=== PATIENT | male | born 1940 | race Caucasian/White ===

== ENCOUNTER 2017-08-26 06:09 | Inpatient (IN) ==
[2017-08-26] MEDS ORDERED: Lidocaine -MPF 1% 2 ML VIAL ID ONE (06:29)
[2017-08-26] MEDS ORDERED: CeFAZolin Pre 2,000 MG/100 ML 2,000 MG/100 ML BAG IVPB ONE (06:29)
[2017-08-26] MEDS ORDERED: *HR* FentaNYL (PF) 100 MCG/2 ML VIAL ONE (06:43)
[2017-08-26] MEDS ORDERED: *HR* Propofol 200 MG/20 ML VIAL IVP ONE (06:43)
[2017-08-26] MEDS ORDERED: *HR* Phenylephrine 10 MG/ML VIAL ONE (06:46)
[2017-08-26] MEDS ORDERED: *HR* Succinylcholine 200 MG/10 ML VIAL IVP ONE (06:46)
[2017-08-26] MEDS ORDERED: Lidocaine -MPF 2% 2 ML VIAL ONE (06:46)
[2017-08-26] MEDS ORDERED: *HR* Rocuronium Bromide 50 MG/5 ML VIAL ONE (06:46)
[2017-08-26] MEDS ORDERED: EPHEDrine 50 MG/ML VIAL ONE (06:52)
[2017-08-26] MEDS ORDERED: Lidocaine -MPF 4% 5 ML AMPUL ONE (06:55)
[2017-08-26] MEDS: 0.9 % Sodium Chloride 500 ML IVC SCH ×2 (06:56→08:48)
[2017-08-26] MEDS ORDERED: Propofol 500 MG/50 ML INFUS..BTL ONE (07:00)
[2017-08-26] MEDS ORDERED: *HR* Remifentanil 1 MG VIAL IVP ONE (07:13)
--- NOTE | 2017-08-26 07:39 | History & Physical Report ---
Date of Encounter: 08/26/17 Time of Encounter: 07:30 24 Hour HP Update - Instructions Instructions: If the History and Physical is less than 30 days old and was completed prior to A.M. admission and or procedure and has NOT been updated on calendar day of procedure please complete this update prior to performing procedure. - Update Patient reports changes in Medical Condition: No Changes in examination, assessment, or condition: No Changes in Medication: No Preop tests/diagnostics Reviewed: Yes Surgery Remains Indicated: Yes Consent for Planned Operative Procedure(s) Verified: Yes - Pre-Operative Checklist Preoperative Checklist Indicated: No Prophylactic Antibiotic Ordered: Yes Home Medications Include Beta Geovany: No Beta Geovany Taken Today (Day of Surgery): No Beta Geovany Taken Yesterday (Day Prior to Surgery): No Is VTE Prophylaxis Indicated?: Yes
[2017-08-26] MEDS ORDERED: *HR* Midazolam HCl 2 MG/2 ML VIAL ONE (07:42)
--- NOTE | 2017-08-26 07:48 | Anesthesia Evaluation PreOp ---
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 Other Medical History: Renal (Stage III CKD), Diabetes Type II Anesthesia History: No Prior Anesthetic Complications Alcohol Use: none Drug use: none Medications and Allergies Dutasteride [Avodart] 0.5 mg PO DAILY 06/24/15 [History] Glimepiride [Amaryl] 4 mg PO BID 06/24/15 [History] Lisinopril [Zestril] 10 mg PO DAILY 06/24/15 [History] Metformin [Glucophage] 1,000 mg PO BID 06/24/15 [History] Simvastatin [Zocor] 40 mg PO HS 06/24/15 [History] Tramadol HCl [Ultram] 50 mg PO TID PRN 08/26/17 [History] Trazodone HCl 150 mg PO HS 08/26/17 [History] 3 Allergy/AdvReac Type Severity Reaction Status Date / Time ibuprofen AdvReac See Verified 08/26/17 07:26 Comments - Meds/Allergy Pre-op Review Medications Reviewed: Yes Allergies Reviewed: Yes Anesthesia Results - Labs 08/26/17 06:50 Laboratory Tests 08/19/17 08/19/17 08/26/17 10:30 10:30 06:50 Hgb 9.9 L Plt Count 277 Potassium 5.3 H Creatinine 2.13 H Anesthesia Exam Vital Signs/O2 Sat/Glucose, Most Recent Temp Pulse Resp BP Pulse Ox 97.6 F 72 18 184/79 100 08/26/17 06:57 08/26/17 06:57 08/26/17 06:57 08/26/17 06:57 08/26/17 06:57 Blood Glucose* 105 - HEENT Mallampati: I Teeth: Normal Denture Type: Upper: Partial Oral Opening: Greater than 3 - Cardiac Rhythm: Regular - Pulmonary Breath Sounds: bilateral Clear Anesthesia Assess/Plan ASA Score: 3 Anesthetic Plan: General Monitoring Plan: Standard Monitors Recovery Plan: PACU Anes Supervising Prov Stmt: I have participated in the evaluation of this patient.
[2017-08-26] MEDS ORDERED: *HR* HYDROmorphone 2 MG/ML SYRINGE ONE (08:57)
[2017-08-26] MEDS ORDERED: *HR* Vasopressin 20 UNIT/ML VIAL ONE (09:03)
[2017-08-26] MEDS ORDERED: Albuterol 2.5 MG/3 ML NEBULIZER IH PRN (09:15)
[2017-08-26] MEDS ORDERED: Ondansetron 4 MG/2 ML VIAL IVP PRN (09:15)
[2017-08-26] MEDS ORDERED: Neostigmine Methylsulfate 3 MG/3 ML SYRINGE ONE (09:17)
[2017-08-26] MEDS: *HR* HYDROmorphone (PF) 1 MG/ML SYRINGE IVP PRN ×2 (12:24→12:35)
--- NOTE | 2017-08-26 12:32 | Orthopedic Operative Note ---
Date of procedure: 08/26/17 Pre-op diagnosis: Degenerative scoliosis, lumbar stenosis Post-op diagnosis: same Operation/Findings: Posterior lumbar interbody fusion L3-L5: The patient successfully underwent general endotracheal anesthesia. The patient was given antibiotics prior to the start of the procedure. Compression boots and stockings were used for deep vein thrombosis prophylaxis. A Mejias catheter was placed. Leads for neuro monitoring were placed on the upper and lower extremities. This included the cranium. The neuro monitoring personnel confirmed there were satisfactory readings prior to the start of the procedure. The patient was turned prone on the Wilder table. The back was prepped and draped in the usual sterile fashion. An incision was was marked and centered over the involved L3-L5 levels in the mid line. The incision was deepened through the lumbar fascia. Bovie cautery and Fang elevators were used to reflect the paraspinal musculature at the lateral extent of the transverse processes of the involved L3 -L5 levels. Lyubov clamps were placed over the spinous processes. An intraoperative lateral fluoroscopy graft was obtained. A conversation was held between the surgeon and radiologist and both confirmed we had the correct operative levels. We then placed pedicle screws in standard fashion with the aid of fluoroscopy and anatomic landmarks. Briefly a starter awl was used. A gearshift was subsequently used to enter the pilot boat deckhand hole via a transpedicular route into the vertebral body. The pilot boat deckhand hole was tapped with an undersized instrument, and subsequently six 6.5 x 40 mm pedicle screws were placed bilaterally at the indicated L3, L4, and L5 levels. The screws were tested with the aid of the neurologic monitoring staff via pedicle screw stimulation. All reading suggested there was no significant cortical wall breech. The screws were also evaluated fluoro- graphically and appeared to be in satisfactory position. We then turned our attention to the decompression portion of the procedure. We removed the supraspinous and interspinous ligaments and subsequently the insertion of the ligamentum flavum on the undersurface of the proximal L4 lamina was dislodged with a curette. We then removed the ligamentum flavum as well as undercut the L4-5 facets at this level to decompress the lateral recesses. We also performed a L4 laminectomy. After the decompression, the foramen and traversing roots at this L4-5 level were found to be free and patent. We also took part of the medial facets in order to aid in the decompression. We proceeded to the L3-4 level and again performed a decompression which included removing the ligamentum flavum, undercutting the L3-4 facets to decompress the lateral recesses and performed a partial L3 laminectomy. This decompression was again, over and above that which was required to place an interbody graft., We then protected the neural elements including the thecal sac and traversing nerve root on the right with a dural retractor. We made an annulotomy into the L3-L4 disc space and then removed entire disc material using Pituitary instruments. We trialed various size grafts after the L3-4 endplates were prepared for graft insertion. A 10 x 26 enter body graft fit well within the L3-L4 disc space. We obtained some bone from the right posterior superior iliac spine through us a separate incision and combined with this with the bone which we had saved from the L3 and L4 laminectomy portion of the procedure. This autograft bone was first placed in the anterior portion of the L3-L4 disc space and additional bone was placed within the interbody graft spacer. We then placed the interbody graft spacer obliquely across the disc space towards the midline while protecting the neural elements with a root retractor. When the graft was found to be in satisfactory position the vp was removed. We then copiously irrigated the wound. We then decorticated the L3, L4, and L5 transverse processes as well as the facet joints of the involved L3-L4 and L4-L5 levels to aid in the posterolateral fusion. We placed autograft bone in the lateral gutters over these regions. We then placed rods within the screw heads of the involved L3, L4, and L5 levels and first locked the distal screws and then subsequently locked the proximal screws so as to improve and reduce the spondylolisthesis previously seen. We then closed the wound in layers with 1 Vicryl for the fascia, 2-0 Vicryl. Subcutaneous tissue, and Dermabond was used for skin closure. Sterile dressings were placed over the wound. The patient was turned supine on a hospital bed and extubated. All sponge instruments and needle counts were correct at the end of the procedure. The patient tolerated the procedure well without complications. Anesthesia: GETA Surgeon: Wilton Santizo Jr Estimated blood loss (cc): 600 Disposition: PACU
--- NOTE | 2017-08-26 12:57 | Anesthesia Evaluation Post Op ---
Date of Encounter: 08/26/17 Time of Encounter: 12:54 - Vital Signs Vital Signs: Vital Signs/O2 Sat, Most Current Temp Pulse Resp BP Pulse Ox 98.5 F 73 12 148/65 96 08/26/17 12:45 08/26/17 12:45 08/26/17 12:45 08/26/17 12:45 08/26/17 12:45 - Lungs Lungs: Clear Ascult./Percussion - Airway Airway: Non-obstructed - Cardiovascular Regular Rate - Mental Status Mental Status: Alert & Oriented, Answers Appropriately - Pain Pain Scale: 9 (States 9/10 but only when you wake him from a comfortable sleep. Respiratory rate 12/min so unable to give more pain meds for risk of hypopnea and CO2 narcosis) - Nausea Vomiting Nausea Vomiting: Not Present - Hydration Hydration: Tolerates oral liquids, Mejias catheter - Discharge PostOp Status: Transfer Patient to floor
[2017-08-26] MEDS ORDERED: Naloxone 0.4 MG/ML INJ IVP PRN (13:27)
[2017-08-26] MEDS ORDERED: *HR* OxyCODONE Immed Rel 5 MG TABLET PO PRN (13:27)
[2017-08-26] MEDS: Ondansetron 4 MG/2 ML VIAL IVP PRN ×2 (14:07→21:40)
[2017-08-26] MEDS: *HR* Morphine 2 MG/ML SYRINGE IVP PRN ×2 (15:37→21:27)
[2017-08-26] MEDS: *HR* Metformin 500 MG TABLET PO SCH (16:29)
[2017-08-26] MEDS: *HR* Glimepiride 4 MG TABLET PO SCH (16:29)
[2017-08-26] MEDS: ceFAZolin 2,000 MG in D5% in Water 100 ML IVPB SCH (16:30)
[2017-08-26] MEDS: Ringers Solution, Lactated 1,000 ML IVC SCH (16:36)
[2017-08-26] MEDS ORDERED: diazePAM 10 MG/2 ML SYRINGE IVP PRN (16:44)
[2017-08-26] MEDS: diazePAM 5 MG TABLET PO PRN ×2 (17:24→23:28)
[2017-08-26] MEDS ORDERED: Scopolamine Patch 1.5 MG PATCH.TD72 TD ONE (17:28)
[2017-08-26] MEDS: *HR* OxyCODONE Immed Rel 5 MG TABLET PO PRN ×2 (18:35→22:59)
[2017-08-26] MEDS: traZODone 50 MG TABLET PO SCH (21:26)
[2017-08-27] MEDS: *HR* Morphine 2 MG/ML SYRINGE IVP PRN ×2 (01:18→05:23)
[2017-08-27] MEDS: ceFAZolin 2,000 MG in D5% in Water 100 ML IVPB SCH (01:18)
[2017-08-27] MEDS: *HR* OxyCODONE Immed Rel 5 MG TABLET PO PRN ×3 (04:32→15:03)
[2017-08-27] MEDS: *HR* HYDROmorphone 2 MG/ML SYRINGE IVP PRN ×2 (05:56→10:26)
[2017-08-27 06:24] LABS: Basophils % 0.3 %; Eosinophils % 0.4 %; Hematocrit 23.6 % (37.5-50.1); Hemoglobin 7.6 g/dL (12.9-16.9); Immature Granulocytes % 0.7 % (0-4); Lymphocytes # 0.5 K/mcL (0.6-4.6); Lymphocytes % 5.1 %; Mean Corpuscular HGB Conc 32.2 g/dL (31.6-35.5); Mean Corpuscular Hemoglobin 29.5 pg (28.0-33.3); Mean Corpuscular Volume 91.5 fL (83.0-100.0); Monocytes # 1.2 K/mcL (0.0-1.3); Neutrophils # 8.3 K/mcL (1.6-8.9); Platelet Count 193 K/mcL (140-400); Red Blood Count 2.58 M/mcL (4.19-5.50); Red Cell Distribution Width 13.4 % (11.5-14.5); Segmented Neutrophils % 81.5 %
[2017-08-27 06:40] LABS: Potassium 5.4 mEq/L (3.5-4.5)
[2017-08-27] MEDS: Ringers Solution, Lactated 1,000 ML IVC SCH ×2 (07:45→12:09)
[2017-08-27] MEDS: Finasteride 5 MG TABLET PO SCH (08:16)
[2017-08-27] MEDS: *HR* Metformin 500 MG TABLET PO SCH (08:16)
[2017-08-27] MEDS: *HR* Glimepiride 4 MG TABLET PO SCH ×2 (08:17→17:07)
[2017-08-27] MEDS ORDERED: D5% in Water 1,000 ML IVC PRN (15:06)
[2017-08-27] MEDS ORDERED: Dextrose Gel 15 GM PO PRN ×2 (15:06)
[2017-08-27] MEDS ORDERED: *HR* Dextrose 50 % in Water (Syg) 50 ML SYRINGE IVP PRN (15:06)
--- NOTE | 2017-08-27 15:35 | Spine Progress Note ---
Date of Encounter: 08/27/17 Time of Encounter: 15:34 Subjective Principal diagnosis: Degenerative scoliosis, lumbar stenosis, lumbar radiculopathy Interval history: The patient i complains of significant back pain. Afebrile vital signs are stable. Dressing is clean dry and intact. Neurovascularly intact with regard to bilateral lower extremities. Fires all upper and lower extremity motor groups. Assessment :stable. Plan mobilize ,continue analgesics, discharge planning. Will add Flexeril. Objective Vital signs: Vital Signs Temp Pulse Resp BP Pulse Ox 08/27/17 11:45 97.3 F L 103 15 97/52 97 08/27/17 09:26 79 18 148/66 97 08/27/17 05:12 99.3 F 79 18 148/66 97 08/26/17 22:45 99.1 F 79 18 145/61 93 08/26/17 19:45 98.2 F 88 17 133/55 94 08/26/17 16:26 68 14 128/66 100 08/26/17 15:36 63 15 120/63 99 Intake and Output 08/26/17 08/27/17 08/27/17 23:59 07:59 15:59 Intake Total 100 / 100 616 / 616 Output Total 0 / 0 525 / 525 Balance 100 / 100 -525 / -525 616 / 616 Intake: IV Fluids 100 / 100 Ancef 2,000 MG In Dextrose 5% 100 / 100 100 ML @ 200 mls/hr IVPB Q8HR [facility] Rx#:[id number] Oral 616 / 616 Output: Catheter 0 / 0 525 / 525 Other: Meal Breakfast Percent of Meal Consumed 95% Blood Glucose* 267 274 - Labs CBC & BMP: 08/27/17 05:41 08/27/17 05:41 Labs: Abnormal lab results RBC 2.58 M/mcL (4.19-5.50) L 08/27/17 05:41 Hgb 7.6 g/dL (12.9-16.9) L 08/27/17 05:41 Hct 23.6 % (37.5-50.1) L 08/27/17 05:41 Lymphocytes # 0.5 K/mcL (0.6-4.6) L 08/27/17 05:41 Sodium 134 mEq/L (136-145) L 08/27/17 05:41 Potassium 5.4 mEq/L (3.5-4.5) H 08/27/17 05:41 BUN 40 mg/dL (8-26) H 08/27/17 05:41 Creatinine 2.17 mg/dL (0.72-1.25) H 08/27/17 05:41 Est GFR ( Amer) 36 (> 60) L 08/27/17 05:41 Est GFR (Non-Af Amer) 29 (> 60) L 08/27/17 05:41 Glucose 234 mg/dL (70-99) H 08/27/17 05:41 POC Glucose 274 (58-89) H 08/27/17 11:48 Calcium 8.0 mg/dL (8.6-10.8) L 08/27/17 05:41 Consult Discharge Plan - Plan Referrals: Danii Camp PAC [Physician Tube Handler] - 09/09/17 9:30 am Wilton Santizo Jr, MD [Partnered Physician] - 11/27/17 11:45 am Damaris Montano CNP [Primary Care Provider] - 10/22/17 9:00 am
[2017-08-27] MEDS: Insulin LISPRO 300 UNITS/3 ML VIAL SQ SCH ×2 (17:11→23:39)
[2017-08-27] MEDS: Ondansetron 4 MG/2 ML VIAL IVP PRN (19:49)
[2017-08-27] MEDS: traZODone 50 MG TABLET PO SCH (23:39)
[2017-08-28] MEDS: *HR* OxyCODONE Immed Rel 5 MG TABLET PO PRN (04:24)
[2017-08-28 05:37] LABS: Calcium 8.6 mg/dL (8.6-10.8); Potassium 6.2 mEq/L (3.5-4.5)
[2017-08-28] MEDS: Finasteride 5 MG TABLET PO SCH (07:42)
[2017-08-28] MEDS: *HR* Glimepiride 4 MG TABLET PO SCH ×2 (07:43→17:33)
[2017-08-28] MEDS: Insulin LISPRO 300 UNITS/3 ML VIAL SQ SCH ×4 (09:10→21:07)
--- NOTE | 2017-08-28 14:34 | Discharge Summary ---
Date of Encounter: 08/28/17 Time of Encounter: 14:32 - Discharge Diagnosis (1) Degenerative scoliosis Priority: Primary Status: Chronic (2) Lumbar stenosis Priority: Secondary Status: Chronic Qualifiers: Neurogenic claudication status: with neurogenic claudication Qualified Code (s): M48.062 - Spinal stenosis, lumbar region with neurogenic claudication - Discharge Medications Prescriptions: OxyCODONE Immed Rel [Roxicodone 5 MG] 5 mg PO Q4HR PRN #28 tablet PRN Reason: Severe Pain Home Medications: Dutasteride [Avodart] 0.5 mg PO DAILY 06/24/15 [History] Glimepiride [Amaryl] 4 mg PO BID 06/24/15 [History] Lisinopril [Zestril] 10 mg PO DAILY 06/24/15 [History] Metformin [Glucophage] 1,000 mg PO BID 06/24/15 [History] Simvastatin [Zocor] 40 mg PO HS 06/24/15 [History] Tramadol HCl [Ultram] 50 mg PO TID PRN 08/26/17 [History] Trazodone HCl 150 mg PO HS 08/26/17 [History] OxyCODONE Immed Rel [Roxicodone 5 MG] 5 mg PO Q4HR PRN #28 tablet 08/28/17 [Rx] Allergies/Adverse Reactions: 3 Allergy/AdvReac Type Severity Reaction Status Date / Time ibuprofen AdvReac See Verified 08/26/17 07:26 Comments Labs on day of discharge: Labs from last 24 hours 08/28/17 08/27/17 08/27/17 05:06 20:38 16:55 Sodium 132 L Potassium 6.2 H Chloride 103 Carbon Dioxide 20 BUN 52 H D Creatinine 2.99 H Est GFR ( Amer) 25 L Est GFR (Non-Af Amer) 20 L BUN/Creatinine Ratio 17 Glucose 242 H POC Glucose 223 H 252 H Calculated Osmolality 296 Calcium 8.6 - Impressions ITS Impressions Lumbar Spine X-Ray 08/26/17 11:16 IMPRESSION: Interval postsurgical changes from posterior fusion of L3-L5. No spondylolisthesis. D/ / Casandra Restrepo MD / Casandra Restrepo MD Interpreting Provider: Casandra Restrepo MD Lumbar Spine X-Ray 08/28/17 09:00 IMPRESSION: Interval posterior fixation and decompression at L3-5. No evidence of hardware failure. Chronic L2 compression deformity not substantially changed. D/ / Zachary Marrero MD / Zachary Marrero MD Interpreting Provider: Zachary Marrero MD Date of admission: 08/26/17 13:04 Primary care physician: Damaris Montano CNP Consults: 08/26/17 13:27 Consult to Occupational Therapy [CONS] Routine Comment: Evaluate, develop and implement POC Reason for Consult: Postoperative rehabilitation Consult to Physical Therapy [CONS] Routine Comment: Evaluate, develop and implement POC Reason for Consult: Postoperative rehabilitation Consult to Brazing Furnace Feeder [CONS] Routine Reason for SW Consult: Postoperative rehabilitation Consult to Spine Navigator [CONS] [CONS] Routine - Patient Status Disposition: Transfer SNF Condition: Good Functional capacity at discharge: uses cane/walker Overall status at discharge: patient is progressing back to baseline - Discharge Instructions Follow Up With: Danii Camp PAC [Physician Director Digital Marketing] - 09/09/17 9:30 am Wilton Santizo Jr, MD [Partnered Physician] - 11/27/17 11:45 am Damaris Montano CNP [Primary Care Provider] - 10/22/17 9:00 am - Diet and Activity Activity: as per physical therapy Diet: advance to your usual diet - Hospital Course Hospital course: Mr. Theodore is a 77 year old male The patient had an uneventful postoperative course. Progressed from intravenous analgesic needs to oral analgesic needs only. Remained neurovascularly intact and mobilized satisfactorily. All intraoperative and/or postoperative radiographic studies were satisfactory. Patient is discharged with plan for rehabilitation and follow-up in 2 weeks post discharge on analgesic medication and patient's home medications. - Time Spent with Patient Total time spent providing and/or coordinating discharge services: - VTE Documentation of Mechanical Device: Intermittent pneumatic compression device
[2017-08-28] MEDS: *HR* HYDROmorphone 2 MG/ML SYRINGE IVP PRN (18:13)
--- NOTE | 2017-08-28 19:44 | Internal Medicine Consult Note ---
Date of Encounter: 08/28/17 Time of Encounter: 19:43 - Assessment and Plan (1) STEMI (ST elevation myocardial infarction) Current Visit: Yes Status: Acute Assessment and plan: Acute anterior RI Patient reports intermittent 4/10 severity chest pressure at rest that feels like he has been running Initial Troponin 3.48 in the setting of CKD and recent surgery EKG reveals ST elevation in V1-V3 but no reciprocal ST depression, new T wave inversion V4-V5 compared to pre-op EKG on 08/19/17 Case discussed with senior wealth advisor, Dr. Goetz. Given recent spinal surgery, patient is at very high risk for para or quadraplegia if he is taken to laboratory engineer and started on anticoagulation. Hence, will continue medical management at this time. Patient given beta-so, morphine, nitroglycerin, and statin. CXR reveals vascular crowding and bibasilar opacities likely reflecting atelectatic changes. Trend serial troponins Cardiology consulted. Qualifiers: Involved coronary artery: unspecified coronary artery Qualified Code(s): I21.3 - ST elevation (STEMI) myocardial infarction of unspecified site (2) Hyperkalemia Current Visit: Yes Status: Acute Assessment and plan: K 6.2 --> 5.3 EKG shows no peaked T-waves Telemetry monitoring Calcium gluconate, Insulin, glucose, Sodium bicarb, Kayexalate, and IVF given Repeat BMP pending (3) Acute blood loss anemia Current Visit: Yes Status: Acute Assessment and plan: HGB 7.3 (was 9.9 on 08/19/17) No signs of active bleeding, L-spine bandage C/D/I 1 unit PRBC ordered Repeat H&H pending Continue to monitor (4) MEL (acute kidney injury) Current Visit: Yes Status: Acute Assessment and plan: NS 125cc/hr Repeat BMP pending Hold Lisinopril due to MEL Avoid nephrotoxins (5) CKD (chronic kidney disease), stage III Current Visit: Yes Status: Acute Assessment and plan: Continue to monitor (6) Lumbar stenosis Current Visit: Yes Status: Chronic Assessment and plan: POD#2 s/p posterior L3-L5 fusion per Dr. Santizo Continue current management Qualifiers: Neurogenic claudication status: with neurogenic claudication Qualified Code (s): M48.062 - Spinal stenosis, lumbar region with neurogenic claudication (7) Degenerative scoliosis Current Visit: Yes Status: Chronic Assessment and plan: POD#2 s/p posterior L3-L5 fusion per Dr. Santizo Continue current management (8) HTN (hypertension) Current Visit: Yes Status: Chronic Assessment and plan: Hold Lisinopril due to MEL Started on Metoprolol Qualifiers: Hypertension type: secondary to other renal disorders Qualified Code(s): I15.1 - Hypertension secondary to other renal disorders; N28.89 - Other specified disorders of kidney and ureter; N28.89 - Other specified disorders of kidney and ureter (9) HLD (hyperlipidemia) Current Visit: Yes Status: Chronic Assessment and plan: Lipid panel pending Increased statin to 80mg qhs given ACS Qualifiers: Hyperlipidemia type: unspecified Qualified Code(s): E78.5 - Hyperlipidemia , unspecified (10) DM type 2 (diabetes mellitus, type 2) Current Visit: Yes Status: Acute Assessment and plan: HGB a1c 6.8 on 05/26/17 Discontinue home Metformin due to CKD Stage 3 Consider starting home insulin upon discharge Continue accuchecks, basal insulin, and SSI Qualifiers: Diabetes mellitus complication status: without complication Diabetes mellitus nursing home insulin use: with superintendent terminal use Qualified Code(s): E11.9 - Type 2 diabetes mellitus without complications; Z79.4 - exterminator (current) use of insulin; Z79.4 - exterminator (current) use of insulin; Z79.4 - exterminator ( current) use of insulin; Z79.4 - exterminator (current) use of insulin (11) BPH (benign prostatic hyperplasia) Current Visit: Yes Status: Acute Assessment and plan: Bladder scan revealed 280cc Continue francisco at this time, will need voiding trial Continue home Proscar Qualifiers: Lower urinary tract symptom presence: symptoms present Lower urinary tract symptom detail: urinary retention Qualified Code(s): N40.1 - Benign prostatic hyperplasia with lower urinary tract symptoms; R33.8 - Other retention of urine ; R33.8 - Other retention of urine (12) DVT prophylaxis Current Visit: Yes Status: Acute Assessment and plan: SCDs Hold anticoagulation due to recent surgery and high risk of bleeding Internal Medicine - CN: HPI - Data of Consult Consult date: 08/28/17 Requesting Physician: Wilton Santizo Jr MD - Consult Narrative Reason for consult: Decreased urine output History of present illness: Mr. Theodore is a 77 year old male with a PMH of DM Type II, HTN, HLD, BPH, and CKD Stage III on POD#2 s/p posterior L3-L5 fusion with decreased urinary output. Nurse had to straight cath him this morning and he has only had 50 cc UOP. Bladder scan revealed 280cc. His creatinine increased from 2.17 to 2.99 today. Of note, patent's K was 6.2 and an EKG was ordered at time of initial encounter. Patient reports intermittent 4/10 severity chest pressure at rest that feels like he has been running. Nothing makes CP better or worse. He reports rheumatic fever as a child. Patient denies fever, chills, SOB, diaphoresis, pain radiation, leg edema, N/V/D, or having BM since surgery. Past Med Surg Social Fam HX - Past Medical History Medical history: arthritis, diabetes, hyperlipidemia, hypertension, renal disease, syncope Psychiatric history: no psych history - Past Surgical History Surgical History: orthopedic, other - Social History Smoking Status: Never smoker Smokeless Tobacco Status: No Alcohol use: none Drug use: none - Family History Mother Adopted: [place]: Yandy Weinberg Family Member Ethnicity: Non- Living Status: Age at : 84 Hx Family Cardiac Disorders: Yes Hx Family Respiratory Disorders: No Hx Family Cancer: No Hx Family GI Disorders: No Hx Family Genitourinary Disorders: No Hx Family Endocrine Disorder: Yes (diabetic) Hx Family Musculoskeletal Disorders: No Hx Family Neuromuscular Disorders: No Hx Family Neurologic Disorders: No Hx Family HEENT Disorders: No Hx Family Autoimmune Disorders: No Hx Family Reproductive Disorders: No Hx Family Psychosocial Disorders: No Hx Family Medical Disorders: No Father Cause of : ETOH - Constitutional Constitutional: weakness, no anorexia, no chills, no fatigue, no fever(s), no lethargy, no weight gain, no weight loss - EENT Nose, mouth and throat: no nasal congestion, no sinus pressure, no sore throat - Cardiovascular Cardiovascular ROS IM: chest pain, palpitations, no dyspnea, no irregular heart rhythm, no lightheadedness - Respiratory Respiratory: no cough, no excessive phlegm production - Gastrointestinal Gastrointestinal: constipation, no abdominal pain, no bloating, no cramping, no diarrhea, no excessive flatus, no nausea, no vomiting Additional comments: + flatus, no BM since surgery - Genitourinary Additional comments: no francisco - Musculoskeletal Musculoskeletal ROS IM: back pain, limited range of motion, no numbness, no tingling - Integumentary Integumentary IM: new lesions, no erythema, no rash - Neurological Neurological ROS: weakness, no numbness, no tingling - Psychiatric Psychiatric: no anxiety, no depression - Endocrine Endocrine IM: no polydipsia, no polyphagia, no polyuria - Hematologic/Lymphatic Hematologic/Lymphatic: no easy bleeding, no easy bruising Internal Medicine - CN: Meds Dutasteride [Avodart] 0.5 mg PO DAILY 06/24/15 [History] Glimepiride [Amaryl] 4 mg PO BID 06/24/15 [History] Lisinopril [Zestril] 10 mg PO DAILY 06/24/15 [History] Metformin [Glucophage] 1,000 mg PO BID 06/24/15 [History] Simvastatin [Zocor] 40 mg PO HS 06/24/15 [History] Tramadol HCl [Ultram] 50 mg PO TID PRN 08/26/17 [History] Trazodone HCl 150 mg PO HS 08/26/17 [History] OxyCODONE Immed Rel [Roxicodone 5 MG] 5 mg PO Q4HR PRN #28 tablet 08/28/17 [Rx] 3 Allergy/AdvReac Type Severity Reaction Status Date / Time ibuprofen AdvReac See Verified 08/26/17 07:26 Comments Internal Medicine - CN: Exam - Constitutional Vitals: Temp Pulse Resp BP Pulse Ox 99.1 F 107 16 120/68 93 08/28/17 19:17 08/28/17 19:17 08/28/17 19:17 08/28/17 19:17 08/28/17 19:17 General appearance IM: Present: cooperative, A&O X 3, pleasant, no acute distress, answers questions appropriately - Head Head exam: Present: atraumatic, normal inspection, normocephalic - Eye Eye exam: Present: EOMI, PERRL - ENT ENT exam: Present: mucous membranes dry, normal oropharynx - Neck Neck exam general surgery: Present: normal inspection, supple. Absent: tenderness - Respiratory Respiratory exam: Present: CTAB. Absent: wheezes - Cardiovascular Cardiovascular exam IM: Present: +S1, +S2, tachycardia - GI/Abdominal GI/Abdominal exam IM: Present: normal bowel sounds, soft. Absent: distended, guarding, tenderness - Extremities Exam Extremities exam IM: Present: warm, radial pulses palpable and symmetrical. Absent: full ROM, pedal edema, tenderness - Back Exam Back exam: Absent: full ROM Additional comments: L-spine dressing C/D/I, limited ROM, needs assistance to roll to side - Neurological Exam Neurological exam: Present: alert, oriented X3, no focal deficits. Absent: altered, speech deficit - Psychiatric Psychiatric exam: Present: normal affect, normal mood - Skin Skin exam IM: Present: dry, intact (L-spine dressing C/D/I), pallor, warm. Absent: normal color Internal Medicine - CN: Reslt - Labs CBC & Chem 7: 08/28/17 20:12 08/28/17 21:59 Labs: Lab Results 08/26/17 08/26/17 08/26/17 Range/Units 06:29 06:50 16:31 WBC (4.3-11.1) K/mcL RBC (4.19-5.50) M/mcL Hgb (12.9-16.9) g/dL Hct (37.5-50.1) % MCV (83.0-100.0) fL MCH (28.0-33.3) pg MCHC (31.6-35.5) g/dL RDW (11.5-14.5) % Plt Count (140-400) K/mcL MPV (9.4-12.4) fL Immature Gran % (0-4) % Seg Neutrophils % % Lymphocytes % % Monocytes % % Eosinophils % % Basophils % % Neutrophils # (1.6-8.9) K/mcL Lymphocytes # (0.6-4.6) K/mcL Monocytes # (0.0-1.3) K/mcL Eosinophils # (0.0-0.6) K/mcL Basophils # (0.0-0.2) K/mcL PT (9.4-12.1) Seconds INR APTT (26.0-36.0) Seconds Sodium (136-145) mEq/L Potassium 5.3 H (3.5-4.5) mEq/L Chloride (98-109) mEq/L Carbon Dioxide (19-29) mEq/L BUN (8-26) mg/dL Creatinine (0.72-1.25) mg/dL Est GFR ( Amer) (> 60) Est GFR (Non-Af Amer) (> 60) BUN/Creatinine Ratio (6-26) Glucose (70-99) mg/dL POC Glucose 105 H 209 H (58-89) Calculated Osmolality (280-300) Calcium (8.6-10.8) mg/dL Magnesium (1.6-2.6) mg/dL Troponin I (0-0.03) ng/mL Blood Type Antibody Screen Crossmatch 08/26/17 08/27/17 08/27/17 Range/Units 20:44 05:41 05:41 WBC 10.2 (4.3-11.1) K/mcL RBC 2.58 L (4.19-5.50) M/mcL Hgb 7.6 L (12.9-16.9) g/dL Hct 23.6 L (37.5-50.1) % MCV 91.5 (83.0-100.0) fL MCH 29.5 (28.0-33.3) pg MCHC 32.2 (31.6-35.5) g/dL RDW 13.4 (11.5-14.5) % Plt Count 193 (140-400) K/mcL MPV 11.0 (9.4-12.4) fL Immature Gran % 0.7 (0-4) % Seg Neutrophils % 81.5 % Lymphocytes % 5.1 % Monocytes % 12.0 % Eosinophils % 0.4 % Basophils % 0.3 % Neutrophils # 8.3 (1.6-8.9) K/mcL Lymphocytes # 0.5 L (0.6-4.6) K/mcL Monocytes # 1.2 (0.0-1.3) K/mcL Eosinophils # 0.0 (0.0-0.6) K/mcL Basophils # 0.0 (0.0-0.2) K/mcL PT (9.4-12.1) Seconds INR APTT (26.0-36.0) Seconds Sodium 134 L (136-145) mEq/L Potassium 5.4 H (3.5-4.5) mEq/L Chloride 106 (98-109) mEq/L Carbon Dioxide 22 (19-29) mEq/L BUN 40 H (8-26) mg/dL Creatinine 2.17 H (0.72-1.25) mg/dL Est GFR ( Amer) 36 L (> 60) Est GFR (Non-Af Amer) 29 L (> 60) BUN/Creatinine Ratio 18 (6-26) Glucose 234 H (70-99) mg/dL POC Glucose 267 H (58-89) Calculated Osmolality 295 (280-300) Calcium 8.0 L (8.6-10.8) mg/dL Magnesium (1.6-2.6) mg/dL Troponin I (0-0.03) ng/mL Blood Type Antibody Screen Crossmatch 08/27/17 08/27/17 08/27/17 Range/Units 07:59 11:48 16:55 WBC (4.3-11.1) K/mcL RBC (4.19-5.50) M/mcL Hgb (12.9-16.9) g/dL Hct (37.5-50.1) % MCV (83.0-100.0) fL MCH (28.0-33.3) pg MCHC (31.6-35.5) g/dL RDW (11.5-14.5) % Plt Count (140-400) K/mcL MPV (9.4-12.4) fL Immature Gran % (0-4) % Seg Neutrophils % % Lymphocytes % % Monocytes % % Eosinophils % % Basophils % % Neutrophils # (1.6-8.9) K/mcL Lymphocytes # (0.6-4.6) K/mcL Monocytes # (0.0-1.3) K/mcL Eosinophils # (0.0-0.6) K/mcL Basophils # (0.0-0.2) K/mcL PT (9.4-12.1) Seconds INR APTT (26.0-36.0) Seconds Sodium (136-145) mEq/L Potassium (3.5-4.5) mEq/L Chloride (98-109) mEq/L Carbon Dioxide (19-29) mEq/L BUN (8-26) mg/dL Creatinine (0.72-1.25) mg/dL Est GFR ( Amer) (> 60) Est GFR (Non-Af Amer) (> 60) BUN/Creatinine Ratio (6-26) Glucose (70-99) mg/dL POC Glucose 235 H 274 H 252 H (58-89) Calculated Osmolality (280-300) Calcium (8.6-10.8) mg/dL Magnesium (1.6-2.6) mg/dL Troponin I (0-0.03) ng/mL Blood Type Antibody Screen Crossmatch 08/27/17 08/28/17 08/28/17 Range/Units 20:38 05:06 11:14 WBC (4.3-11.1) K/mcL RBC (4.19-5.50) M/mcL Hgb (12.9-16.9) g/dL Hct (37.5-50.1) % MCV (83.0-100.0) fL MCH (28.0-33.3) pg MCHC (31.6-35.5) g/dL RDW (11.5-14.5) % Plt Count (140-400) K/mcL MPV (9.4-12.4) fL Immature Gran % (0-4) % Seg Neutrophils % % Lymphocytes % % Monocytes % % Eosinophils % % Basophils % % Neutrophils # (1.6-8.9) K/mcL Lymphocytes # (0.6-4.6) K/mcL Monocytes # (0.0-1.3) K/mcL Eosinophils # (0.0-0.6) K/mcL Basophils # (0.0-0.2) K/mcL PT (9.4-12.1) Seconds INR APTT (26.0-36.0) Seconds Sodium 132 L (136-145) mEq/L Potassium 6.2 H (3.5-4.5) mEq/L Chloride 103 (98-109) mEq/L Carbon Dioxide 20 (19-29) mEq/L BUN 52 H D (8-26) mg/dL Creatinine 2.99 H (0.72-1.25) mg/dL Est GFR ( Amer) 25 L (> 60) Est GFR (Non-Af Amer) 20 L (> 60) BUN/Creatinine Ratio 17 (6-26) Glucose 242 H (70-99) mg/dL POC Glucose 223 H 229 H (58-89) Calculated Osmolality 296 (280-300) Calcium 8.6 (8.6-10.8) mg/dL Magnesium (1.6-2.6) mg/dL Troponin I (0-0.03) ng/mL Blood Type Antibody Screen Crossmatch 08/28/17 08/28/17 08/28/17 Range/Units 15:55 20:12 20:12 WBC 10.5 (4.3-11.1) K/mcL RBC 2.44 L (4.19-5.50) M/mcL Hgb 7.3 L (12.9-16.9) g/dL Hct 22.2 L (37.5-50.1) % MCV 91.0 (83.0-100.0) fL MCH 29.9 (28.0-33.3) pg MCHC 32.9 (31.6-35.5) g/dL RDW 13.7 (11.5-14.5) % Plt Count 181 (140-400) K/mcL MPV 10.8 (9.4-12.4) fL Immature Gran % 0.5 (0-4) % Seg Neutrophils % 83.5 % Lymphocytes % 3.1 % Monocytes % 12.0 % Eosinophils % 0.6 % Basophils % 0.3 % Neutrophils # 8.8 (1.6-8.9) K/mcL Lymphocytes # 0.3 L (0.6-4.6) K/mcL Monocytes # 1.3 (0.0-1.3) K/mcL Eosinophils # 0.1 (0.0-0.6) K/mcL Basophils # 0.0 (0.0-0.2) K/mcL PT (9.4-12.1) Seconds INR APTT (26.0-36.0) Seconds Sodium 132 L (136-145) mEq/L Potassium 6.2 H (3.5-4.5) mEq/L Chloride 103 (98-109) mEq/L Carbon Dioxide 22 (19-29) mEq/L BUN 53 H (8-26) mg/dL Creatinine 2.80 H (0.72-1.25) mg/dL Est GFR ( Amer) 27 L (> 60) Est GFR (Non-Af Amer) 22 L (> 60) BUN/Creatinine Ratio 19 (6-26) Glucose 232 H (70-99) mg/dL POC Glucose 134 H (58-89) Calculated Osmolality 296 (280-300) Calcium 9.0 (8.6-10.8) mg/dL Magnesium 1.6 (1.6-2.6) mg/dL Troponin I (0-0.03) ng/mL Blood Type Antibody Screen Crossmatch 08/28/17 08/28/17 08/28/17 Range/Units 20:12 21:08 21:08 WBC (4.3-11.1) K/mcL RBC (4.19-5.50) M/mcL Hgb (12.9-16.9) g/dL Hct (37.5-50.1) % MCV (83.0-100.0) fL MCH (28.0-33.3) pg MCHC (31.6-35.5) g/dL RDW (11.5-14.5) % Plt Count (140-400) K/mcL MPV (9.4-12.4) fL Immature Gran % (0-4) % Seg Neutrophils % % Lymphocytes % % Monocytes % % Eosinophils % % Basophils % % Neutrophils # (1.6-8.9) K/mcL Lymphocytes # (0.6-4.6) K/mcL Monocytes # (0.0-1.3) K/mcL Eosinophils # (0.0-0.6) K/mcL Basophils # (0.0-0.2) K/mcL PT 13.1 H (9.4-12.1) Seconds INR 1.2 APTT 23.6 L (26.0-36.0) Seconds Sodium (136-145) mEq/L Potassium (3.5-4.5) mEq/L Chloride (98-109) mEq/L Carbon Dioxide (19-29) mEq/L BUN (8-26) mg/dL Creatinine (0.72-1.25) mg/dL Est GFR ( Amer) (> 60) Est GFR (Non-Af Amer) (> 60) BUN/Creatinine Ratio (6-26) Glucose (70-99) mg/dL POC Glucose (58-89) Calculated Osmolality (280-300) Calcium (8.6-10.8) mg/dL Magnesium (1.6-2.6) mg/dL Troponin I 3.48 H* (0-0.03) ng/mL Blood Type A POSITIVE Antibody Screen NEGATIVE Crossmatch See Detail 08/28/17 08/28/17 08/28/17 Range/Units 21:15 21:57 21:59 WBC (4.3-11.1) K/mcL RBC (4.19-5.50) M/mcL Hgb (12.9-16.9) g/dL Hct (37.5-50.1) % MCV (83.0-100.0) fL MCH (28.0-33.3) pg MCHC (31.6-35.5) g/dL RDW (11.5-14.5) % Plt Count (140-400) K/mcL MPV (9.4-12.4) fL Immature Gran % (0-4) % Seg Neutrophils % % Lymphocytes % % Monocytes % % Eosinophils % % Basophils % % Neutrophils # (1.6-8.9) K/mcL Lymphocytes # (0.6-4.6) K/mcL Monocytes # (0.0-1.3) K/mcL Eosinophils # (0.0-0.6) K/mcL Basophils # (0.0-0.2) K/mcL PT (9.4-12.1) Seconds INR APTT (26.0-36.0) Seconds Sodium (136-145) mEq/L Potassium 5.3 H (3.5-4.5) mEq/L Chloride (98-109) mEq/L Carbon Dioxide (19-29) mEq/L BUN (8-26) mg/dL Creatinine (0.72-1.25) mg/dL Est GFR ( Amer) (> 60) Est GFR (Non-Af Amer) (> 60) BUN/Creatinine Ratio (6-26) Glucose (70-99) mg/dL POC Glucose 263 H 279 H (58-89) Calculated Osmolality (280-300) Calcium (8.6-10.8) mg/dL Magnesium (1.6-2.6) mg/dL Troponin I (0-0.03) ng/mL Blood Type Antibody Screen Crossmatch - EKG Data -: EKG Interpreted by Myself EKG shows normal: sinus rhythm (ST elevation in V1-V3 but no reciprocal ST depression, new T-wave inversion in V4-V5), axis Rate: tachycardia - EKG Data Prior EKG available for review: yes When compared to previous EKG: there are significant changes Interpretation IM: ischemic changes - Impressions Impressions Lumbar Spine X-Ray 08/28/17 09:00 IMPRESSION: Interval posterior fixation and decompression at L3-5. No evidence of hardware failure. Chronic L2 compression deformity not substantially changed. D/ / Zachary Marrero MD / Zachary Marrero MD Interpreting Provider: Zachary Marrero MD Chest X-Ray 08/28/17 22:22 IMPRESSION: Low lung volume study with vascular crowding and bibasilar opacities that likely reflect atelectatic changes, and less likely consolidation. D/ / 08/28/2017 22:54:17 Kit Hill MD / elvis Interpreting Provider: Kit Hill MD Consult Discharge Plan - Plan Referrals: Danii Camp PAC [Physician Car Dumper Operator Helper] - 09/09/17 9:30 am Wilton Santizo Jr, MD [Partnered Physician] - 11/27/17 11:45 am Damaris Montano CNP [Primary Care Provider] - 10/22/17 9:00 am Prescriptions: OxyCODONE Immed Rel [Roxicodone 5 MG] 5 mg PO Q4HR PRN #28 tablet PRN Reason: Severe Pain
[2017-08-28] MEDS ORDERED: Calcium Gluconate 1,000 MG in D5% in Water 100 ML IVPB ONE (20:11)
[2017-08-28] MEDS ORDERED: *HR* Dextrose 50 % in Water (Vial) 50 ML VIAL IVP ONE (20:12)
[2017-08-28] MEDS ORDERED: 0.9 % Sodium Chloride 500 ML IVC ONE ×2 (20:14→21:22)
[2017-08-28 20:29] LABS: Basophils % 0.3 %; Eosinophils # 0.1 K/mcL (0.0-0.6); Eosinophils % 0.6 %; Hematocrit 22.2 % (37.5-50.1); Hemoglobin 7.3 g/dL (12.9-16.9); Immature Granulocytes % 0.5 % (0-4); Lymphocytes # 0.3 K/mcL (0.6-4.6); Lymphocytes % 3.1 %; Mean Corpuscular HGB Conc 32.9 g/dL (31.6-35.5); Mean Corpuscular Hemoglobin 29.9 pg (28.0-33.3); Mean Platelet Volume 10.8 fL (9.4-12.4); Monocytes # 1.3 K/mcL (0.0-1.3); Neutrophils # 8.8 K/mcL (1.6-8.9); Platelet Count 181 K/mcL (140-400); Red Blood Count 2.44 M/mcL (4.19-5.50); Red Cell Distribution Width 13.7 % (11.5-14.5); Segmented Neutrophils % 83.5 %
[2017-08-28 20:40] LABS: Magnesium 1.6 mg/dL (1.6-2.6); Potassium 6.2 mEq/L (3.5-4.5)
[2017-08-28] MEDS ORDERED: Aspirin 325 MG TABLET PO ONE (20:43)
[2017-08-28] MEDS: traZODone 50 MG TABLET PO SCH (20:43)
[2017-08-28] MEDS: 0.9 % Sodium Chloride 1,000 ML IVC SCH (20:43)
[2017-08-28] MEDS ORDERED: *HR* Dextrose 50 % in Water (Syg) 50 ML SYRINGE IVP ONE (20:45)
[2017-08-28] MEDS ORDERED: Insulin Human Regular 10 UNIT in 0.9 % Sodium Chloride 10 ML IV ONE (20:46)
[2017-08-28] MEDS ORDERED: Nitroglycerin 0.4 MG TAB.SUBL SL PRN (21:31)
[2017-08-28] MEDS ORDERED: Magnesium Sulfate 1 GM in D5% in Water 100 ML IVPB ONE (21:31)
--- NOTE | 2017-08-28 21:36 | Event Note ---
Date of Encounter: 08/28/17 Time of Encounter: 21:33 patient seen and examined with medical aide. 77 yo male with h/o DM, CKD stage 3-4, POD # 2 s/p L3-5 fusion. We were consulted for medical treatment. Patient has hyperkalemia with MEL. Multifactorial due to dehydration as well as intermittent urine retension. They had to straight cath him this morning. Nurse said that since then he only had 50 cc. K now 6.2. Will give 1 L bolus og NS, D50, insulin, sodium bicarb, kayexalate. EKG performed to look for hyperkalemic changes revealed ST elevation in V1-V3 but no reciprocal ST depression. Patient is denying any chest pain. No prior known history of CAD. Troponin 3.48. We started patient on aspirin, beta so and discussed with Dr. Salmeron re: Heparin and he felt that it would be dangerous now. We are currently speaking with intervention parcel post order clerk re: ST elevation. Follow hyperkalemia till correction. Full code.
[2017-08-28 21:49] LABS: INR 1.2; Prothrombin Time 13.1 Seconds (9.4-12.1)
[2017-08-28 21:52] LABS: Activated Partial Thrombo Time 23.6 Seconds (26.0-36.0)
[2017-08-28] MEDS ORDERED: 0.9 % Sodium Chloride 250 ML ONE (23:30)
[2017-08-29 04:15] LABS: Basophils % 0.2 %; Eosinophils # 0.1 K/mcL (0.0-0.6); Eosinophils % 0.6 %; Hematocrit 23.7 % (37.5-50.1); Hemoglobin 7.8 g/dL (12.9-16.9); Immature Granulocytes % 0.7 % (0-4); Lymphocytes # 0.5 K/mcL (0.6-4.6); Lymphocytes % 5.1 %; Mean Corpuscular HGB Conc 32.9 g/dL (31.6-35.5); Mean Corpuscular Hemoglobin 29.7 pg (28.0-33.3); Mean Corpuscular Volume 90.1 fL (83.0-100.0); Mean Platelet Volume 10.8 fL (9.4-12.4); Monocytes % 11.6 %; Neutrophils # 7.3 K/mcL (1.6-8.9); Platelet Count 170 K/mcL (140-400); Red Blood Count 2.63 M/mcL (4.19-5.50); Red Cell Distribution Width 13.8 % (11.5-14.5); Segmented Neutrophils % 81.8 %
[2017-08-29 04:34] LABS: Albumin 2.5 g/dL (3.5-5.0); Albumin/Globulin Ratio 0.9 (1.1-2.2); Bilirubin,Total 0.4 mg/dL (0.2-1.2); Calcium 8.6 mg/dL (8.6-10.8); Chol/HDL Ratio 3.6 (0-4.9); Globulin 2.8 g/dL (2.4-3.5); Potassium 5.7 mEq/L (3.5-4.5); Total Protein 5.3 g/dL (6.0-8.3)
[2017-08-29] MEDS: *HR* HYDROmorphone 2 MG/ML SYRINGE IVP PRN (05:19)
[2017-08-29] MEDS ORDERED: *HR* Dextrose 50 % in Water (Syg) 50 ML SYRINGE IVP ONE (06:34)
[2017-08-29] MEDS ORDERED: Insulin Human Regular 10 UNIT in 0.9 % Sodium Chloride 10 ML IV ONE (06:34)
[2017-08-29] MEDS: Finasteride 5 MG TABLET PO SCH (07:57)
--- NOTE | 2017-08-29 09:15 | Internal Med Progress Note ---
Date of Encounter: 08/29/17 Time of Encounter: 09:13 - Assessment and plan (1) STEMI (ST elevation myocardial infarction) Current Visit: Yes Status: Acute Assessment and plan: Patient was noted to have chest pain with new EKG findings of ST elevation in anterior leads along with elevated troponin. He underwent posterior spinal fusion surgery on August 26 and he could not be started on anticoagulation or taken to catheter lab. Case was discussed with cardiology and spine surgery, patient can safely be started on anticoagulation or taken to left heart catheter 72 hours from surgery. He is currently noted to be chest pain-free. Continue medical management with aspirin, beta so and statin. EMERITA inhibitor has been held due to acute kidney injury. Continue telemetry monitoring. Echocardiogram shows reduced ejection fraction around 40% along with segmental systolic dysfunction, mild left ventricular diastolic dysfunction, aortic valve was not well visualized. Serial troponins initially trended down to 2.81 but later in the day, troponins significantly increased to around 15. Case was again discussed with cardiology and patient will be taken for left heart catheterization today. We will continue to monitor closely. High risk for complications. Qualifiers: Involved coronary artery: unspecified coronary artery Qualified Code(s): I21.3 - ST elevation (STEMI) myocardial infarction of unspecified site (2) Lumbar stenosis Current Visit: Yes Status: Chronic Assessment and plan: Spine surgery on board. Status post posterior lumbar fusion L3-5, postoperative day 3. Continue pain control with when necessary IV morphine and oral Percocet. Physical and occupation therapy evaluation completed, recommend placement in extended care facility. superintendent oil well services on board. Qualifiers: Neurogenic claudication status: with neurogenic claudication Qualified Code (s): M48.062 - Spinal stenosis, lumbar region with neurogenic claudication (3) MEL (acute kidney injury) Current Visit: Yes Status: Acute Assessment and plan: Patient had oliguria with worsening serum creatinine yesterday. Currently improving urine output. Serum creatinine noted to be 2.7 today, baseline around 2. Patient is at risk for contrast-induced nephropathy, however patient requires urgent left heart catheter at this time. continue to monitor closely. Continue IV hydration. (4) CKD (chronic kidney disease), stage III Current Visit: Yes Status: Chronic (5) HTN (hypertension) Current Visit: Yes Status: Chronic Assessment and plan: Blood pressure noted to be adequately controlled. Continue beta so and hold EMERITA inhibitor due to acute kidney injury. Qualifiers: Hypertension type: essential hypertension Qualified Code(s): I10 - Essential (primary) hypertension (6) DM type 2 (diabetes mellitus, type 2) Current Visit: Yes Status: Chronic Assessment and plan: Continue Accu-Chek blood glucose monitoring. Blood sugars noted to be elevated , in high 200s. We will start basal insulin, continue sliding scale insulin. Diabetic diet as tolerated. Check hemoglobin A1c. Qualifiers: Diabetes mellitus complication status: with kidney complications Diabetes mellitus complication detail: with chronic kidney disease Diabetes mellitus salvage determiner insulin use: without salvage determiner use Chronic kidney disease stage: stage 3 (moderate) Qualified Code(s): E11.22 - Type 2 diabetes mellitus with diabetic chronic kidney disease; N18.3 - Chronic kidney disease, stage 3 ( moderate); N18.3 - Chronic kidney disease, stage 3 (moderate) (7) HLD (hyperlipidemia) Current Visit: Yes Status: Chronic Qualifiers: Hyperlipidemia type: unspecified Qualified Code(s): E78.5 - Hyperlipidemia , unspecified (8) Hyperkalemia Current Visit: Yes Status: Acute Assessment and plan: Secondary to renal dysfunction and use of EMERITA inhibitor. Patient received hyperkalemia cocktail and Kayexalate yesterday, serum potassium noted to be improving but still high-5.7 today. We will give another dose of oral Kayexalate. (9) Acute blood loss anemia Current Visit: Yes Status: Acute Assessment and plan: Baseline hemoglobin noted to be around 10, dropped to 7.3 after surgery. Received 1 unit PRBC, 7.8 today. Continue to monitor closely, will consider transfusing another unit PRBC given underlying a cute heart disease. (10) BPH (benign prostatic hyperplasia) Current Visit: Yes Status: Chronic Qualifiers: Lower urinary tract symptom presence: symptoms present Lower urinary tract symptom detail: urinary retention Qualified Code(s): N40.1 - Benign prostatic hyperplasia with lower urinary tract symptoms; R33.8 - Other retention of urine ; R33.8 - Other retention of urine - Subjective Interval history: Reports feeling well. Improved chest pain/heart burn. No shortness of breath, palpitations. Reports stiffness and pain in lower back and hips. - Constitutional Vitals: Temp Pulse Resp BP Pulse Ox 98.9 F 81 16 120/57 96 08/29/17 07:09 08/29/17 07:09 08/29/17 07:09 08/29/17 07:09 08/29/17 07:09 General appearance: Present: cooperative, A&O X 3, answers questions appropriately - Respiratory Respiratory exam: Present: CTAB. Absent: accessory muscle use, rales, rhonchi, wheezes - Cardiovascular Cardiovascular exam: Present: RRR, +S1, +S2, systolic murmur. Absent: diastolic murmur, gallop, rubs - GI/Abdominal GI/Abdominal exam: Present: normal bowel sounds, soft, no peritoneal signs. Absent: distended, tenderness - Extremities Exam Extremities exam: Present: warm, radial pulses palpable and symmetrical. Absent : calf tenderness, cyanotic, pedal edema - Neurological Exam Neurological exam: Present: CN II-XII intact, oriented X3, no focal deficits. Absent: pronater drift, facial droop, speech deficit Internal Medicine: Result - Labs CBC & Chem 7: 08/29/17 04:05 08/29/17 12:36 Labs: Short CBC 08/28/17 08/29/17 Range/Units 20:12 04:05 WBC 10.5 9.0 (4.3-11.1) K/mcL Hgb 7.3 L 7.8 L (12.9-16.9) g/dL Hct 22.2 L 23.7 L (37.5-50.1) % Plt Count 181 170 (140-400) K/mcL Neutrophils # 8.8 7.3 (1.6-8.9) K/mcL BMP 08/28/17 08/28/17 08/29/17 20:12 21:59 04:05 Sodium 132 L 134 L Potassium 6.2 H 5.3 H 5.7 H Chloride 103 105 Carbon Dioxide 22 22 BUN 53 H 47 H Creatinine 2.80 H 2.70 H Glucose 232 H 307 H Calcium 9.0 8.6 Cardiac Enzymes 08/28/17 08/29/17 Range/Units 20:12 04:05 Troponin I 3.48 H* 2.81 H* (0-0.03) ng/mL Liver Function 08/29/17 Range/Units 04:05 Total Bilirubin 0.4 (0.2-1.2) mg/dL AST 26 (5-34) Units/L ALT 8 (0-55) Units/L Alkaline Phosphatase 60 (38-126) Units/L Albumin 2.5 L (3.5-5.0) g/dL - ABG Interpretation ABG results: PT/INR, D-dimer PT 13.1 Seconds (9.4-12.1) H 08/28/17 21:08 - Impressions Impressions Lumbar Spine X-Ray 08/28/17 09:00 IMPRESSION: Interval posterior fixation and decompression at L3-5. No evidence of hardware failure. Chronic L2 compression deformity not substantially changed. D/ / Zachary Marrero MD / Zachary Marrero MD Interpreting Provider: Zachary Marrero MD Chest X-Ray 08/28/17 22:22 IMPRESSION: Low lung volume study with vascular crowding and bibasilar opacities that likely reflect atelectatic changes, and less likely consolidation. D/ / 08/28/2017 22:54:17 Kit Hill MD / elvis Interpreting Provider: Kit Hill MD - VTE Documentation of Mechanical Device: Intermittent pneumatic compression device Consult Discharge Plan - Plan Referrals: Danii Camp PAC [Physician Auger Operator] - 09/09/17 9:30 am Isaías Cartwright DO [Partnered Physician] - (CARDIOLOGY OFFICE WILL CALL PATIENT AT HOME WITH FOLLOW UP APPOINTMENT) Wilton Santizo Jr, MD [Partnered Physician] - 11/27/17 11:45 am Damaris Montano CNP [Primary Care Provider] - 10/22/17 9:00 am Prescriptions: OxyCODONE Immed Rel [Roxicodone 5 MG] 5 mg PO Q4HR PRN #28 tablet PRN Reason: Severe Pain
[2017-08-29] MEDS: Insulin LISPRO 300 UNITS/3 ML VIAL SQ SCH ×4 (09:17→21:31)
[2017-08-29] MEDS: Insulin DETEMIR 100 UNIT/ML X5UNITS SQ SCH ×2 (09:18→21:24)
[2017-08-29] MEDS: Aspirin Enteric Coated 81 MG Tablet PO SCH (09:18)
[2017-08-29] MEDS: *HR* OxyCODONE Immed Rel 5 MG TABLET PO PRN (09:29)
[2017-08-29] MEDS ORDERED: Perflutren Lipid Microsphere 1.3 ML in 0.9 % Sodium Chloride 8.7 ML IVP ONE (10:29)
--- NOTE | 2017-08-29 10:40 | Cardiology Consult Note ---
Date of Encounter: 08/29/17 Time of Encounter: 09:30 Assessment and Plan (1) STEMI (ST elevation myocardial infarction) Current Visit: Yes Status: Acute Patient is POD #3 L3-5 fusion. 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 Patient denies previous history of CAD. He is currently asymptomatic. Troponin downtrending 2.81<3.48. Echo pending today. Orthopedic surgeon recommends patient to avoid anticoagulation due to risk of spinal bleed. We recommend starting patient on anticoagulation when cleared by Dr. Salmeron. [facility] when patient is more stable. Simvastatin was discontinued and atorvastatin 80mg daily started. Continue metoprolol 12.5mg PO BID and enteric coated ASA 81 mg PO daily. Qualifiers: Involved coronary artery: unspecified coronary artery Qualified Code(s): I21.3 - ST elevation (STEMI) myocardial infarction of unspecified site (2) MEL (acute kidney injury) Current Visit: Yes Status: Acute Patient presents with MEL s/p spinal fusion with history of CKD and incidental finding of possible STEMI. Nephrology consulted and recommendation appreciated. (3) Acute blood loss anemia Current Visit: Yes Status: Acute Patient's hemoglobin decreased from baseline. Currently Hgb = 7.8. Consider blood transfusion as needed. Discussion w patient/family: The assessment and plan as outlined above was discussed with the patient and/or family members who expressed understanding and agreement. All questions were answered. Thank you for involving us in the care of your patient. Please call with any questions. History of Present Illness Consult date: 08/29/17 Consult reason: STEMI with t-wave inversions, cannot be on anticoagulants Chief complaint: Scheduled L3-5 fusion History of present illness: Mr. Theodore is a 77 year old male PMHx diabetes type II, HTN, hyperlipidemia, CKD , BPH presented for scheduled L3-5 spinal fusion surgery. His K+ was elevated on POD #2 and incidental finding of STEMI with t-wave inversions on initial EKG. Patient cannot be on anticoagulation due to risk of paraplegia. Today, he denies fever, chills, chest pain, SOB, palpitations, diaphoresis, n/v. His pain is well controlled. He denies history of CAD, reports last stress test was negative 2 years ago. Patient has history of Rheaumatic fever as a child. Past Med Surg Social Fam HX - Past Medical History Medical history: arthritis, diabetes, hyperlipidemia, hypertension, renal disease, syncope Psychiatric history: no psych history - Past Surgical History Surgical History: orthopedic, other - Social History Smoking Status: Never smoker Smokeless Tobacco Status: No Alcohol use: none Drug use: none - Family History Mother Adopted: [place]: Yandy Weinberg Family Member Ethnicity: Non- Living Status: Age at : 84 Hx Family Cardiac Disorders: Yes Hx Family Respiratory Disorders: No Hx Family Cancer: No Hx Family GI Disorders: No Hx Family Genitourinary Disorders: No Hx Family Endocrine Disorder: Yes (diabetic) Hx Family Musculoskeletal Disorders: No Hx Family Neuromuscular Disorders: No Hx Family Neurologic Disorders: No Hx Family HEENT Disorders: No Hx Family Autoimmune Disorders: No Hx Family Reproductive Disorders: No Hx Family Psychosocial Disorders: No Hx Family Medical Disorders: No Father Cause of : ETOH Medications and Allergies Dutasteride [Avodart] 0.5 mg PO DAILY 06/24/15 [History] Glimepiride [Amaryl] 4 mg PO BID 06/24/15 [History] Lisinopril [Zestril] 10 mg PO DAILY 06/24/15 [History] Metformin [Glucophage] 1,000 mg PO BID 06/24/15 [History] Simvastatin [Zocor] 40 mg PO HS 06/24/15 [History] Tramadol HCl [Ultram] 50 mg PO TID PRN 08/26/17 [History] Trazodone HCl 150 mg PO HS 08/26/17 [History] OxyCODONE Immed Rel [Roxicodone 5 MG] 5 mg PO Q4HR PRN #28 tablet 08/28/17 [Rx] 3 Allergy/AdvReac Type Severity Reaction Status Date / Time ibuprofen AdvReac See Verified 08/26/17 07:26 Comments All Systems Review: A 10-system review of systems was performed and is negative for pertinent findings except as documented above in the HPI. - Constitutional Constitutional: no chills, no fever(s), no weakness - EENT Eyes: no blurred vision - Cardiovascular Cardiovascular: no chest pain at rest, no chest pain with exertion, no dyspnea at rest, no leg edema - Respiratory Respiratory: no cough - Gastrointestinal Gastrointestinal: no abdominal pain, no constipation, no diarrhea - Neurological Neurological: no abnormal speech, no dizziness, no syncope - Hematological/Lymphatic Hematologic/Lymphatic: no easy bleeding Physical Examination Vital Signs, Last 4 Hours Temp Pulse Resp BP Pulse Ox 08/29/17 07:09 98.9 F 81 16 120/57 96 General: Conversant, No Apparent Distress HEENT: Atraumatic, Normocephaly, Mucus Membranes Moist Neck: No JVD, Normal carotid pulses Cardiac: Reg Rate and Rhythm, Normal S1 and S2, No Murmur Lungs: Normal Breath Sounds, No Wheeze, Rales, Rhonchi Neuro: Alert and responsive, No focal deficits noted Abdomen: Soft, Non-Tender, Other (hypoactive bowel sounds ) Skin: No rashes noted on visualized skin Musculoskeletal: No Chest Wall Tenderness Extremities: No Clubbing, No Cyanosis, No Edema, Normal Pulses Results 08/29/17 04:05 08/29/17 04:05 Lab Results 08/28/17 08/28/17 08/28/17 20:12 20:12 20:12 WBC 10.5 Hgb 7.3 L Hct 22.2 L Plt Count 181 INR APTT Sodium 132 L Potassium 6.2 H Chloride 103 Carbon Dioxide 22 BUN 53 H Creatinine 2.80 H Glucose 232 H Calcium 9.0 Magnesium 1.6 Total Bilirubin AST ALT Alkaline Phosphatase Troponin I 3.48 H* 08/28/17 08/28/17 08/29/17 21:08 21:59 04:05 WBC Hgb Hct Plt Count INR 1.2 APTT 23.6 L Sodium Potassium 5.3 H Chloride Carbon Dioxide BUN Creatinine Glucose Calcium Magnesium Total Bilirubin AST ALT Alkaline Phosphatase Troponin I 2.81 H* 08/29/17 08/29/17 04:05 04:05 WBC 9.0 Hgb 7.8 L Hct 23.7 L Plt Count 170 INR APTT Sodium 134 L Potassium 5.7 H Chloride 105 Carbon Dioxide 22 BUN 47 H Creatinine 2.70 H Glucose 307 H Calcium 8.6 Magnesium Total Bilirubin 0.4 AST 26 ALT 8 Alkaline Phosphatase 60 Troponin I Consult Discharge Plan - Plan Referrals: Danii Camp PAC [Physician Decal Applier] - 09/09/17 9:30 am Wilton Santizo Jr, MD [Partnered Physician] - 11/27/17 11:45 am Damaris Montano CNP [Primary Care Provider] - 10/22/17 9:00 am Prescriptions: OxyCODONE Immed Rel [Roxicodone 5 MG] 5 mg PO Q4HR PRN #28 tablet PRN Reason: Severe Pain
--- NOTE | 2017-08-29 10:52 | Orthopedics Progress Note ---
Date of Encounter: 08/29/17 Time of Encounter: 11:00 - Assessment and Plan (1) Status post lumbar spinal fusion Current Visit: Yes Status: Acute Patient being followed by hospitalist and cardiology team for heart work up. Patient doing well from orthopedic standpoint. Patient to continue pain control as needed. Continue PT/OT as medical conditions allow. Lumbar support brace while standing/ambulating Keep outpatient follow up as scheduled. (2) Degenerative scoliosis Current Visit: Yes Status: Chronic (3) Lumbar stenosis Current Visit: Yes Status: Chronic Qualifiers: Neurogenic claudication status: with neurogenic claudication Qualified Code (s): M48.062 - Spinal stenosis, lumbar region with neurogenic claudication Subjective Principal diagnosis: Degenerative scoliosis, lumbar stenosis, lumbar radiculopathy Interval history: Mr. Theodore is a 77 year old male POD#3 from Posterior lumbar interbody fusion L3 -L5 performed 08/26/[address] Santizo for degenerative scoliosis, lumbar stenosis. Patient had OK on 08/28/17 and medical and cardiology team brought onto patient's case. On exam today, patient was relaxing in bed after returning from Echo. Patient resting comfortably - states he is "not sure what all the fuss is about. I get these pangs a lot and they just go away." He states his chest pain he had last night is the same as what he gets frequently at home which he states he attributed to heartburn. He is aware that he is being worked up for his heart and abnormal labs/ekg he received yesterday and today. He denies chest pain at time of exam. Patient dressing is intact in lumbar region and clean with no evidence of drainage. Patient is mildly tender to palpation of this area. He has ROM of b/l lower extremities and is neurovascularly intact with respect to bilateral lower extremities. Patient being followed by hospitalist and cardiology team for heart work up. Patient doing well from orthopedic standpoint. Patient to continue pain control as needed. Continue PT/OT as medical conditions allow. Lumbar support brace while standing/ambulating Keep outpatient follow up as scheduled. Objective Vital signs: Vital Signs Temp Pulse Resp BP Pulse Ox 08/29/17 07:09 98.9 F 81 16 120/57 96 08/29/17 04:49 98.7 F 83 20 119/67 95 08/29/17 02:32 98.6 F 87 20 102/67 95 08/29/17 02:14 98.6 F 87 20 102/67 95 08/28/17 23:55 99.1 F 100 18 108/68 95 08/28/17 23:40 100 F H 102 18 111/70 94 08/28/17 23:37 100 F H 102 18 111/70 94 08/28/17 19:17 99.1 F 107 16 120/68 93 08/28/17 15:49 98.3 F 100 16 116/65 96 08/28/17 11:08 97.5 F L 90 16 117/64 94 Intake and Output 08/28/17 08/29/17 08/29/17 23:59 07:59 15:59 Intake Total 1452 / 1452 297 / 297 300 / 300 Output Total 650 / 650 950 / 950 Balance 802 / 802 -653 / -653 300 / 300 Intake: IV Fluids 1212 / 1212 25 / 25 0.9 % Sodium Chloride 250 ML As 25 / 25 .ROUTE .STK-MED ONE Rx#: [id number] 0.9 % Sodium Chloride 500 ML @ 1000 / 1000 1875 mls/hr IVC .Q16M ONE Rx#: [id number] Calcium Gluconate 1,000 MG In 110 / 110 Dextrose 5% 100 ML @ 220 mls/hr IVPB ONCE ONE Rx#:[id number] Magnesium Sulfate 1 GM In 102 / 102 Dextrose 5% 100 ML @ 100 mls/hr IVPB ONCE ONE Rx#:[id number] Oral 240 / 240 300 / 300 Blood Product 0 / 0 272 / 272 Rbcs Leuko Poor As-1 Unit 0 / 0 272 / 272 [id number] Output: Urine 50 / 50 Straight Cath 600 / 600 Catheter 950 / 950 Other: Weight 70.9 kg Blood Glucose* 279 300 207 Patient Weight 08/29/17 23:59 Weight 70.9 kg - Labs CBC & BMP: 08/29/17 04:05 08/29/17 12:36 Labs: Abnormal lab results RBC 2.63 M/mcL (4.19-5.50) L 08/29/17 04:05 Hgb 7.8 g/dL (12.9-16.9) L 08/29/17 04:05 Hct 23.7 % (37.5-50.1) L 08/29/17 04:05 Lymphocytes # 0.5 K/mcL (0.6-4.6) L 08/29/17 04:05 PT 13.1 Seconds (9.4-12.1) H 08/28/17 21:08 APTT 23.6 Seconds (26.0-36.0) L 08/28/17 21:08 Sodium 134 mEq/L (136-145) L 08/29/17 04:05 Potassium 5.7 mEq/L (3.5-4.5) H 08/29/17 04:05 BUN 47 mg/dL (8-26) H 08/29/17 04:05 Creatinine 2.70 mg/dL (0.72-1.25) H 08/29/17 04:05 Est GFR ( Amer) 28 (> 60) L 08/29/17 04:05 Est GFR (Non-Af Amer) 23 (> 60) L 08/29/17 04:05 Glucose 307 mg/dL (70-99) H 08/29/17 04:05 POC Glucose 207 (58-89) H 08/29/17 09:09 Calculated Osmolality 302 (280-300) H 08/29/17 04:05 Troponin I 2.81 ng/mL (0-0.03) H* 08/29/17 04:05 Serum Total Protein 5.3 g/dL (6.0-8.3) L 08/29/17 04:05 Albumin 2.5 g/dL (3.5-5.0) L 08/29/17 04:05 Albumin/Globulin Ratio 0.9 (1.1-2.2) L 08/29/17 04:05 HDL Cholesterol 27 mg/dL (40-59) L 08/29/17 04:05 - VTE Documentation of Mechanical Device: Intermittent pneumatic compression device Consult Discharge Plan - Plan Referrals: Danii Camp PAC [Physician Cutting Pressman] - 09/09/17 9:30 am Isaías Cartwright DO [Partnered Physician] - (CARDIOLOGY OFFICE WILL CALL PATIENT AT HOME WITH FOLLOW UP APPOINTMENT) Wilton Santizo Jr, MD [Partnered Physician] - 11/27/17 11:45 am Damaris Montano CNP [Primary Care Provider] - 10/22/17 9:00 am Prescriptions: OxyCODONE Immed Rel [Roxicodone 5 MG] 5 mg PO Q4HR PRN #28 tablet PRN Reason: Severe Pain
[2017-08-29] MEDS: 0.9 % Sodium Chloride 1,000 ML IVC SCH ×2 (12:25→16:19)
[2017-08-29] MEDS ORDERED: 0.9 % Sodium Chloride 250 ML ONE (13:07)
[2017-08-29] MEDS ORDERED: Heparin 1,000 UNITS/500 mL NS 500 ML ONE (13:35)
[2017-08-29] MEDS ORDERED: Nitroglycerin 1,000 MCG/10 ML VIAL IV ONE (13:35)
[2017-08-29] MEDS ORDERED: *HR* Heparin 10,000 UNIT/10 ML VIAL ONE (13:35)
[2017-08-29] MEDS ORDERED: 0.9 % Sodium Chloride 1,000 ML ONE (13:35)
--- NOTE | 2017-08-29 14:46 | Pre-Sedation Evaluation ---
Pre-sedation evaluation - Pre-sedation checklist Date of procedure: 08/29/17 Procedure: heart cath Recent Vitals: Last Vital Signs Temp 98.8 F 08/29/17 13:53 Pulse 89 08/29/17 13:53 Resp 16 08/29/17 13:53 BP 119/67 08/29/17 13:53 Pulse Ox 97 08/29/17 13:53 H&P (including ROS) documented in medical record: Yes Previous reaction to sedatives/anesthetics: No Dietary Status: No solid food in preceding 4 hrs and no liquid in preceding 2 hrs Airway Assessment: Patient can open mouth completely, TMJ function normal Dentition: full dentition Possible difficult airway: No ASA Classification *see protocol: CLASS III-Severe systemic disease Plan of Care: Pt appropriate candidate for procedure/moderate/conscious sedation , Risks/benefits of procedure/sedation discussed w/ patient/family, If not NPO; Risk of intake outweiged by necessity to perform procedure
[2017-08-29] MEDS ORDERED: *HR* Midazolam HCl 2 MG/2 ML VIAL ONE (14:49)
[2017-08-29] MEDS ORDERED: *HR* FentaNYL (PF) 100 MCG/2 ML VIAL ONE (14:49)
[2017-08-29] MEDS ORDERED: *HR* Bivalirudin 250 MG VIAL IVC ONE (15:11)
--- NOTE | 2017-08-29 15:46 | Invasive Diagnostic Lab Proc ---
Name: Jose Theodore Date of Study: 08/29/2017 Date: 1940 Ht: 68.1in Medical Record#: [id number] Age: 77 Wt: 156.31lb Gender: Male BSA: 1.84 Order #: [id number] BMI: 23.69 Physicians Procedure Physician: Isaías Cartwright DO Referring MD: Referring MD: Staff Name Position [facility] Monitor 02:43 PM Lea Clark RN Monitor 02:43 PM Shruti Menchaca RN Preschool Teacher Assistant 02:43 PM Ainsley Mei RT (R) Scrub 02:43 PM Indications Indication Non-Stemi Procedures Performed Procedure L HRT ARTERY/VENTRICLE ANGIO PRQ CARD URVASHI STENT W/ANGIO 1 VSL Pre-Procedure Checklist Informed consent is complete signed and on chart. H&P is on chart. ID band is on and ID verified with patient. Patient NPO for procedure The procedure was described for the patient and questions were answered. Blood Pressure: 136/73 ECG is on chart. Rhythm: NSR Plan of Care Patient will tolerate the procedure without complications. Adequate level of comfort will be maintained. Hemodynamics will remain stable Patient will recover from procedure without complications. Respiratory function will be maintained. Cardiac rhythm will remain stable. Patient temperature will be maintained. Patient and/or family have verbalized understanding of the procedure. Patient Education Chief Complaint/Reason for Test: Cardiac Cath Developmental Category: Geriatric (65+ years) Developmentally Appropriate for Age: Yes Learning Barriers: None Education Needs: Plan of Care Education Method: Verbal Information Taught: Cardiac Cath Educational Evaluation: Able to repeat information Intravenous Access Time IV Size Location DC'd Fluid/Drip Rate Units RN 02:45 PM 20g 1 1/4" Patent On Arrival Lt Wrist Shruti Menchaca RN 02:46 PM 22g 1" Patent On Arrival Lt Antecubital 0.9NaCl 50 ml/hr Shruti Menchaca RN Allergies ibuprofen Vital Signs Time BP (mmHg) HR (bpm) O2 Sat. RR (bpm) LOC 02:44 PM / % 5 = Fully awake and oriented or at pre-proc level 02:44 PM / % 5 = Fully awake and oriented or at pre-proc level 02:55 PM / % 4 = Oriented but drowsy 03:10 PM / % 4 = Oriented but drowsy 02:48 PM 136 / 73 79 89 % 18 02:53 PM 139 / 80 78 95 % 12 02:58 PM 146 / 78 92 95 % 20 03:03 PM 141 / 79 95 95 % 20 03:08 PM 142 / 80 96 95 % 20 03:13 PM 141 / 79 88 95 % 17 03:19 PM 132 / 78 95 97 % 21 03:23 PM 145 / 82 95 94 % 22 03:29 PM 137 / 84 95 93 % 23 Procedural Medications Time Medication Dose Units Method Given By 02:44 PM Oxygen 2 L/min nasal cannula Shruti Menchaca RN 02:50 PM Versed 1 mg Intravenous Shruti Menchaca RN 02:50 PM Oxygen 6 L/min Oxy Mask Shruti Menchaca RN 02:52 PM Fentanyl 25 mcg Intravenous Shruti Menchaca RN 02:59 PM Fentanyl 25 mcg Intravenous Shruti Menchaca RN 03:00 PM Lidocaine 2% 10 ml Subcutaneous Isaías Cartwright DO 03:12 PM Angiomax 0.75mg/kg bolus: 10.5 ml Intravenous Shruti Menchaca RN 03:13 PM Angiomax 0.25mg/kg/hr: 3.5 ml/hr Intravenous Shruti Menchaca RN 03:23 PM Nitroglycerin 100 mcg Intracoronary Isaías Cartwright DO 03:27 PM Plavix 600 mg Orally Isaías Cartwright DO ASA Classification: CLASS III- Severe systemic disease (i.e. prior AMI, diabetes with vascular complications, morbid obesity) Francis Score Preprocedure Postprocedure Activity 2- Moves 4 extremities sustained head lift Activity 2- Moves 4 extremities sustained head lift Circulation 2- SBP +/= 20 points of pre-anesthetic level Circulation 2- SBP +/= 20 points of pre-anesthetic level Consciousness 2- Awake and alert oriented x 3 Consciousness 2- Awake and alert oriented x 3 O2 Saturation 2- Able to maintain O2 satruation of 92% on room air O2 Saturation 2- Able to maintain O2 satruation of 92% on room air Respiratory 2- Able to deep breathe and cough well Respiratory 2- Able to deep breathe and cough well Total Score 10 Total Score 10 Contrast Agent: Isovue Diagnostic Contrast: 170 ml Total Contrast: 170 ml Fluoro Dose: 844 mGy Procedure Log Time Note Enter By 01:34 PM CathStat 02:43 PM Pt arrived to geoscience laboratory technician 2 at 14:43 bella 02:43 PM Carolyn Lamar RN Position: Monitor Time in: :oumm 02:43 PM Lea Clark RN Position: Monitor Time in: :oumm 02:43 PM Shruti Menchaca RN Position: Preschool Teacher Assistant Time in: :43 mm 02:44 PM Sites, Ainsley RT (R) Position: Scrub Time in: :mm 02:44 PM Patient charges- Angio tray pack, Navilyst 3mm J, Pulse Oximetry and ACIST tubing and transducer oumm 02:44 PM Case Delayed No oumm:44 PM Hair removed from procedure site in procedure lab using clippers. Bilateral groin prepped with Chloraprep by Lea Clark RN, safety strap applied then patient was draped. Skin intact. oumm 02:44 PM Physican paged/called 14:44. oumm 02:44 PM Physican responded and notified patient is ready 14:44 oumm 02:44 PM Physician arrived 14:44 mm 02:44 PM Meet and greet completed mm 02:44 PM Sign in performed according to hospital policy. oumm 02:44 PM Procedure start 14:44 tsoummers 02:44 PM Case Start 02:44 PM CathStat 02:44 PM Time: 14:44 Oxygen on at 2 L/min per nasal cannula by [facility] 02:44 PM Time: 14:44 Patient comfortable and pain free: Yes oumm 02:44 PM Time: 14:44LOC: 5 = Fully awake and oriented or at pre-proc level [email or web address] 02:48 PM Pt has blood infusing in the left wrist at this time, started per 3NE nurseAvelina RN. tsoumm 02:48 PM Vitals capture started with the following parameters, Patient=Adult, Interval=5 min, Initial Tjxtqwqn=564 mmHg, Deflation Rate=5 mmHg, Cuff placed on Right Arm 02:48 PM HR=79 bpm, TSLA=491/73 mmhg, SpO2=89.0 %, Resp=18 B/min, Comment=NSR 02:50 PM Time: 14:50 Versed 1 mg Intravenous Given by Shruti Menchaca RN 02:50 PM Time: 14:50 Oxygen on at 6 L/min per Oxy Mask by Shruti Menchaca RN fatouabhilash 02:52 PM Time: 14:52 Fentanyl 25 mcg Intravenous Given by Shruti Menchaca RN fatouabhilash 02:53 PM Recorded ECG: HR=90 Condition=Condition 1 02:53 PM HR=78 bpm, YYUG=242/80 mmhg, SpO2=95.0 %, Resp=12 B/min, Comment=NSR 02:54 PM ASA Class CLASS III- Severe systemic disease (i.e. prior AMI, diabetes with vascular complications, morbid obesity) [facility] 02:55 PM Time: 14:44 Patient comfortable and pain free: Yes [facility] 02:55 PM Time: 14:44LOC: 5 = Fully awake and oriented or at pre-proc level [facility] 02:55 PM Clinical Presentation: No symptoms, no angina [facility] 02:58 PM HR=92 bpm, VMOF=861/78 mmhg, SpO2=95.0 %, Resp=20 B/min, Comment=NSR 02:59 PM Time: 14:59 Fentanyl 25 mcg Intravenous Given by Shruti Menchaca RN fatouabhilash 03:00 PM Time out performed according to hospital policy [facility] 03:01 PM Time: 15:00 10 ml Lidocaine 2% to right groin Subcutaneous Given by Isaías Cartwright DO [facility]01 PM Micro-Introducer Kit utilized for sheath placement 03:02 PM Access obtained by percutaneous puncture. 6Fr 10cm Terumo Braggs sheath placed in right Femoral artery. [id number] mm 03:03 PM 6Fr FR 4 catheter inserted over the wire [facility] 03:03 PM 0.035 145cm Navilyst 3mmJ wire [id number] [facility] 03:03 PM HR=95 bpm, WSOV=449/79 mmhg, SpO2=95.0 %, Resp=20 B/min, Comment=NSR 03:04 PM RCA angiography performed in multiple views. [facility] 03:05 PM Recorded Pressure: Ao, HR=94, Condition=Condition 1 (Aorta) Ao 135/65/95 03:05 PM Catheter removed [facility] 03:05 PM 6Fr Pigtail [facility] PM Recorded Pressure: LV, HR=97, Condition=Condition 1 (Left Ventricle) LV 149/13/26 03:07 PM Recorded Pressure: LV, Ao, HR=94, Condition=Condition 1 (Left Ventricle) LV 149/4/27, (Aorta) Ao 144/65/99 03:07 PM Catheter selectively placed in left [facility] 03:07 PM Bolus angiogram of left Ventricle complete: 10 mls hand injection oumm 03:08 PM Catheter removed ou 03:08 PM 6Fr JL4 Runway guide catheter was used to cannulate the PCI vessel successfully. reused? No tsoummers 03:08 PM Recorded Pressure: Ao, HR=96, Condition=Condition 1 (Aorta) Ao 135/62/94 03:08 PM HR=96 bpm, MIVN=802/80 mmhg, SpO2=95 %, Resp=20 B/min 03:09 PM LCA angiography performed in multiple views. [email or web address] 03:10 PM Time: 14:55 Patient comfortable and pain free: Yes tsoummers 03:10 PM Time: 14:55LOC: 4 = Oriented but drowsy tsoummers 03:11 PM Inflation device was opened. tsoummers 03:11 PM .014 ChoICE PT Extra Support 300cm guide wire across target lesion- successful. reused? No oummers 03:12 PM Recorded Pressure: Ao, HR=99, Condition=Condition 1 (Aorta) Ao 141/67/99 03:13 PM Time: 15:12 Angiomax 0.75mg/kg bolus: 10.5 ml Intravenous Given by Shruti Menchaca RN tsjose 03:13 PM Time: 15:13 Angiomax 0.25mg/kg/hr: 3.5 ml/hr Intravenous Given by Shruti Menchaca RN Umaña pump tsoummabhilash 03:13 PM HR=88 bpm, COQD=591/79 mmhg, SpO2=95.0 %, Resp=17 B/min, Comment=NSR 03:16 PM .014 ChoICE PT Extra Support 300cm guide wire across target lesion- successful. reused? No tsoummers 03:17 PM 3.0mm x 12mm Synergy drug-eluting stent across target lesion- successful Lot #[id number] ts 03:17 PM Recorded Pressure: Ao, HR=93, Condition=Condition 1 (Aorta) Ao 142/68/102 03:19 PM HR=95 bpm, HWNM=761/78 mmhg, SpO2=97.0 %, Resp=21 B/min, Comment=NSR 03:22 PM Stent deployed @ 14 amy for 15 seconds mm 03:22 PM blood infusion has completed at this time per Shruti Menchaca RN. mm 03:23 PM Stent delivery system removed intact. 03:23 PM Time: 15:23 Nitroglycerin 100 mcg Intracoronary Given by Isaías Cartwright DO mm 03:23 PM HR=95 bpm, WWTQ=868/82 mmhg, SpO2=94.0 %, Resp=22 B/min, Comment=NSR 03:24 PM Guide wire removed intact. 03:24 PM Bolus angiogram of right Femoral complete: 4 mls hand injection 03:24 PM Guide wire removed intact. 03:25 PM Time: 15:10 Patient comfortable and pain free: Yes 03:25 PM Time: 15:10LOC: 4 = Oriented but drowsy mm 03:25 PM Angiomax infusion stopped at this time per Dr. Cartwright. mm 03:26 PM Procedure completed at 15:26 mm 03:27 PM Time: 15:27 Plavix 600 mg Orally Given by Isaías Cartwright DO mm 03:29 PM HR=95 bpm, ZVMB=595/84 mmhg, SpO2=93.0 %, Resp=23 B/min, Comment=NSR 03:29 PM Sign out completed: Radiation Dose 843.95 mGy Fluoro Time: 6.4 Isovue 370 - 200ml contrast 170 ml given by Isaías Cartwright DO. Complications: NoneCardiac Rehab Consult needed: YesConfirmed administered medications: Yes mm 03:29 PM Isovue 370 - 200ml,1 Bottle(s) used. mm 03:30 PM Arterial sheath pulled, Angio-seal closure device used and was Successful [id number] S/N. mm 03:30 PM Post ECG NSR mm 03:30 PM Post Blood Pressure 137/84 [facility] 03:30 PM 15:30 Post Pulses Bilateral DP & PT 2+ [facility] 03:30 PM Information taught Cardiac Cath and PCI 03:30 PM Education needs Procedure, Plan of Care, and Responsibilities of Patient in Care 03:30 PM Learning barriers :None 03:31 PM Education Methods Verbal [facility] 03:31 PM Education evaluation Able to repeat information [facility] 03:31 PM Site status No bleeding/hematoma - Rt Groin as reported by Sites, Ainsley RT (R) at 15:31 [facility] 03:31 PM Plavix, Effient or Brilinta given Yes 03:31 PM Delay to floor No [facility] 03:31 PM no family present at this time. Phone call to family per Dr. Cartwright [facility] 03:31 PM Complications: None 03:31 PM Fluoro Time: 6.4 [facility] 03:32 PM Isovue 370 - 200ml contrast 170 ml given by Isaías Cartwright DO. [facility] 03:32 PM Radiation Dose 843.95 mGy [facility] 03:33 PM Coronary Dominance: right 03:33 PM Lesion found in Proximal LAD. Pre Stenosis: 90 Pre GORGE Flow: 3: Complete and Brisk Flow/Perfusion [facility] 03:33 PM Proximal Left Anterior Descending Coronary Artery with 90% stenosis. 03:36 PM Report given to Tim EDWARDS Pt taken to 2N Room #9. 15:35 [facility] 03:38 PM [facility]: [facility] Complications Complication None Hemodynamics Pressures Site Systolic/A Wave Diastolic/V Wave Mean AO 135 65 95 LV 149 13 26 LV 149 4 27 AO 144 65 99 AO 135 62 94 AO 141 67 99 AO 142 68 102 Post Procedure Information Blood Pressure: 137/84 mmHg Rhythm: NSR Post procedural instructions were given Closure Device Time Device Success/Fail 08/29/2017 3:26:00 PM Angio-Seal VIP Successful Site Checks Time Location Status Staff Sheath In? Note 03:31 PM Rt Groin No bleeding/hematoma Sites, Ainsley RT (R) Pulses Time Site Pre-Procedure Post-Procedure Note 08/29/2017 2:48:00 PM Bilateral DP & PT 2+ 3:30:00 PM Bilateral DP & PT 2+ Updated by Carolyn Lamar RN on 08/29/2017 3:40:26 PM electronically signed on 08/29/2017 3:40:53 PM with status of Final
--- NOTE | 2017-08-29 18:30 | Electrocardiograph Report ---
[address] [place], [place] [address] Test Date: 2017-08-28 Pat Name: Jose Theodore Department: 114 Room: 2N09 Gender: M [employer] Adviser: [id number] : 1940 Requested By: Duke Leblanc Order Number: [id number] Reading MD: Ramón Rogers DO Measurements Intervals [place] Rate: 102 P: 55 LA: 159 QRS: 20 QRSD: 73 T: 92 QT: 313 QTc: 372 Interpretive Statements Sinus tachycardia Anterorseptal ST-T changes suggest acute [place] Acute [place] [facility] service aware Electronically Signed On 08-29-2017 18:29:15 EDT by Ramón Rogers DO
--- NOTE | 2017-08-29 18:40 | Electrocardiograph Report ---
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
[2017-08-29] MEDS: traZODone 50 MG TABLET PO SCH (21:20)
[2017-08-29] MEDS ORDERED: *HR* Metoprolol 5 MG/5 ML VIAL IVP ONE ×2 (23:50→23:51)
[2017-08-30] MEDS ORDERED: *HR* Metoprolol 5 MG/5 ML VIAL IVP ONE ×2 (01:59→02:06)
[2017-08-30] MEDS ORDERED: *HR* Digoxin 0.5 MG/2 ML AMPUL IVP ONE (04:10)
[2017-08-30 06:26] LABS: Basophils % 0.2 %; Eosinophils % 0.2 %; Hematocrit 29.3 % (37.5-50.1); Immature Granulocytes % 0.7 % (0-4); Lymphocytes # 0.3 K/mcL (0.6-4.6); Lymphocytes % 3.1 %; Mean Corpuscular HGB Conc 33.4 g/dL (31.6-35.5); Mean Corpuscular Hemoglobin 29.2 pg (28.0-33.3); Mean Corpuscular Volume 87.2 fL (83.0-100.0); Mean Platelet Volume 10.8 fL (9.4-12.4); Monocytes # 1.3 K/mcL (0.0-1.3); Monocytes % 12.3 %; Neutrophils # 8.8 K/mcL (1.6-8.9); Platelet Count 214 K/mcL (140-400); Red Blood Count 3.36 M/mcL (4.19-5.50); Red Cell Distribution Width 14.6 % (11.5-14.5); Segmented Neutrophils % 83.5 %
[2017-08-30 06:27] LABS: Hemoglobin 9.8 g/dL (12.9-16.9)
[2017-08-30 06:38] LABS: Hemoglobin A1C 5.9 %
[2017-08-30 06:44] LABS: Calcium 8.4 mg/dL (8.6-10.8); Magnesium 1.2 mg/dL (1.6-2.6)
--- NOTE | 2017-08-30 07:49 | Nephrology Consult Note ---
Date of Encounter: 08/30/17 Time of Encounter: 07:47 Assessment and Plan (1) MEL (acute kidney injury) Current Visit: Yes Status: Acute The patient has acute kidney injury superimposed on stage III chronic kidney disease. The acute kidney injury occurs in the setting of postoperative lumbar spine fusion complicated by anemia and a recent STEMI. Patient underwent cardiac catheterization yesterday. As of today his renal function is currently at his baseline. His initial episode of acute kidney injury appears to be resolving. However he is at risk for a second episode of acute kidney injury following his cardiac catheterization yesterday. Currently his urine output is satisfactory. Volume status is satisfactory. Vital signs are stable. We will continue to monitor his renal function. Ensure adequate hydration. Avoid nephrotoxins. (2) CKD (chronic kidney disease), stage III Current Visit: Yes Status: Chronic (3) Lumbar stenosis Current Visit: Yes Status: Chronic Qualifiers: Neurogenic claudication status: with neurogenic claudication Qualified Code (s): M48.062 - Spinal stenosis, lumbar region with neurogenic claudication (4) STEMI (ST elevation myocardial infarction) Current Visit: Yes Status: Acute Qualifiers: Involved coronary artery: unspecified coronary artery Qualified Code(s): I21.3 - ST elevation (STEMI) myocardial infarction of unspecified site (5) BPH (benign prostatic hyperplasia) Current Visit: Yes Status: Chronic Qualifiers: Lower urinary tract symptom presence: symptoms present Lower urinary tract symptom detail: urinary retention Qualified Code(s): N40.1 - Benign prostatic hyperplasia with lower urinary tract symptoms; R33.8 - Other retention of urine ; R33.8 - Other retention of urine History of Present Illness - History of Present Illness This is a 77-year-old male with a history of stage III chronic kidney disease with a baseline creatinine of 1.7-2.1 and a baseline GFR of 38-31. Patient underwent elective surgery for lumbar spinal fusion on August 26. Postoperatively he developed some postoperative anemia. He also developed some chest pain and was diagnosed with a STEMI. Patient on a cardiac catheter on August 29. Following his spine surgery she developed acute kidney injury superimposed on chronic kidney disease. His serum creatinine peaked at 2.99 on August 28 his serum creatinine today is close to his baseline. Creatinine today is 2.05. Mio indicates she has satisfactory urinary output yesterday. He has had difficulty in emptying his bladder both at home and here in the hospital. He currently has a Mejias catheter in place. He does take Avodart for BPH. Currently his main complaint is that of postoperative back pain. He denies any chest pain or shortness of breath. His vital signs are stable. Past Med Surg Social Fam HX - Past Medical History Medical history: arthritis, diabetes, hyperlipidemia, hypertension, renal disease, syncope Psychiatric history: no psych history - Past Surgical History Surgical History: orthopedic, other - Social History Smoking Status: Never smoker Smokeless Tobacco Status: No Alcohol use: none Drug use: none - Family History Mother Adopted: [place]: Yandy Weinberg Family Member Ethnicity: Non- Living Status: Age at : 84 Hx Family Cardiac Disorders: Yes Hx Family Respiratory Disorders: No Hx Family Cancer: No Hx Family GI Disorders: No Hx Family Genitourinary Disorders: No Hx Family Endocrine Disorder: Yes (diabetic) Hx Family Musculoskeletal Disorders: No Hx Family Neuromuscular Disorders: No Hx Family Neurologic Disorders: No Hx Family HEENT Disorders: No Hx Family Autoimmune Disorders: No Hx Family Reproductive Disorders: No Hx Family Psychosocial Disorders: No Hx Family Medical Disorders: No Father Cause of : ETOH Medications and Allergies Dutasteride [Avodart] 0.5 mg PO DAILY 06/24/15 [History] Glimepiride [Amaryl] 4 mg PO BID 06/24/15 [History] Lisinopril [Zestril] 10 mg PO DAILY 06/24/15 [History] Metformin [Glucophage] 1,000 mg PO BID 06/24/15 [History] Simvastatin [Zocor] 40 mg PO HS 06/24/15 [History] Tramadol HCl [Ultram] 50 mg PO TID PRN 08/26/17 [History] Trazodone HCl 150 mg PO HS 08/26/17 [History] OxyCODONE Immed Rel [Roxicodone 5 MG] 5 mg PO Q4HR PRN #28 tablet 08/28/17 [Rx] 3 Allergy/AdvReac Type Severity Reaction Status Date / Time ibuprofen AdvReac See Verified 08/26/17 07:26 Comments Review of Systems Constitutional: as per HPI Eyes: bilateral: blurred vision (patient denies), diplopia (patient denies) Nose, mouth and throat: no dizziness, no headache(s) Cardiovascular: no chest pain, no palpitations Respiratory: no cough, no dyspnea Gastrointestinal: no abdominal pain, no change in bowel habits Musculoskeletal: as per HPI, back pain Integumentary: no hirsutism, no striae Neurological: as per HPI Psychiatric: no depression, no difficulty concentrating Endocrine: as per HPI Hematologic/Lymphatic: no easy bruising, no lymphadenopathy Exam - Vital Signs Vital signs: Initial Vital Signs Temp Pulse Resp BP Pulse Ox 97.6 F 72 18 184/79 100 08/26/17 06:49 08/26/17 06:49 08/26/17 06:49 08/26/17 06:49 08/26/17 06:49 Vital Signs - Last 8 Hours Temp Pulse Resp BP Pulse Ox 08/30/17 07:40 98.9 F 91 16 115/80 97 08/30/17 04:10 99.8 F H 115 18 108/65 95 08/30/17 01:58 97/71 Intake and Output 08/29/17 08/29/17 08/30/17 15:59 23:59 07:59 Intake Total 300 / 300 2242 / 2242 Output Total 1450 / 1450 100 / 100 Balance 300 / 300 792 / 792 -100 / -100 Intake: IV Fluids 1000 / 1000 0.9 % Sodium Chloride 1,000 ML 1000 / 1000 @ 125 mls/hr IVC .Q8H [facility] Rx#: [id number] Oral 300 / 300 620 / 620 Blood Product 0 / 0 622 / 622 Rbcs Leuko Poor As-1 Unit 0 / 0 322 / 322 [id number] Rbcs Leuko Poor As-1 Unit 300 / 300 [id number] Output: Catheter 1450 / 1450 100 / 100 Other: Meal Dinner Percent of Meal Consumed 100% Weight 74.3 kg Blood Glucose* 147 206 138 Patient Weight 08/30/17 23:59 Weight 74.3 kg - General Appearance Exam: The patient is alert and oriented. He is in no acute distress. A Mejias catheter is in place. Temperature is 99.8. Previous temperature was 100.0. Blood pressure 108/65. Lungs essentially clear to auscultation. Heart regular rhythm with a 2/6 talk ejection murmur. Abdomen shows normal bowel sounds bruits masses or megaly or tenderness. Lower extremity show no edema. Results - Lab Results 08/30/17 06:08 08/30/17 06:08 Most recent lab results Calcium 8.4 mg/dL (8.6-10.8) L 08/30/17 06:08 Magnesium 1.2 mg/dL (1.6-2.6) L 08/30/17 06:08 Consult Discharge Plan - Plan Referrals: Danii Camp PAC [Physician Direct Support Worker] - 09/09/17 9:30 am Isaías Cartwright DO [Partnered Physician] - (CARDIOLOGY OFFICE WILL CALL PATIENT AT HOME WITH FOLLOW UP APPOINTMENT) Wilton Santizo Jr, MD [Partnered Physician] - 11/27/17 11:45 am Damaris Montano CNP [Primary Care Provider] - 10/22/17 9:00 am Prescriptions: OxyCODONE Immed Rel [Roxicodone 5 MG] 5 mg PO Q4HR PRN #28 tablet PRN Reason: Severe Pain
[2017-08-30] MEDS: Aspirin Enteric Coated 81 MG Tablet PO SCH (08:57)
[2017-08-30] MEDS: Finasteride 5 MG TABLET PO SCH (08:57)
[2017-08-30] MEDS: Insulin LISPRO 300 UNITS/3 ML VIAL SQ SCH ×5 (08:57→20:23)
[2017-08-30] MEDS: Insulin DETEMIR 100 UNIT/ML X5UNITS SQ SCH ×2 (09:02→20:31)
--- NOTE | 2017-08-30 10:40 | Cardiology Progress Note ---
Date of Encounter: 08/30/17 Time of Encounter: 10:38 Assessment and Plan (1) STEMI (ST elevation myocardial infarction) Current Visit: Yes Status: Acute Peak troponin 19.58. [facility]--received PCI to ostial LAD. Final cath report pending. Pt denies chest pain or dyspnea. DAPT (ASA and Plavix) discussed. Pt verbalizes understanding. Continue BB and Statin. Echo EF 40%, mild-moderate LV dysfunction with regional wall motion abnormalities involving the anterior wall, septum, and apex. Right femoral access site healing well. No bleeding, hematoma or ecchymosis noted. Qualifiers: Involved coronary artery: unspecified coronary artery Qualified Code(s): I21.3 - ST elevation (STEMI) myocardial infarction of unspecified site (2) Atrial fibrillation with RVR Current Visit: Yes Status: Acute New onset--went into A-Fib RVR overnight. Pt asymptomatic. 12 hr tele AVG HR 111. Will attempt to increase BB for better HR control. Unable to use CCB due to CMP, Digoxin not a good choice due to renal dysfunction. Increase Lopressor to 25mg BID. Once rate controlled, transition to Toprol XL given his CMP. CHADSVASC 6 (Age, HTN, DM, CAD, CHF). Pt had acute blood loss anemia post op with HGB 7.8 at one point. He is already on ASA and Plavix. Discussed with Dr. Gaspar, do not recommend triple therapy. Continue ASA and Plavix. (3) CAD (coronary artery disease) Current Visit: Yes Status: Acute As above, ASA, Statin, Plavix, BB. Qualifiers: Coronary Disease-Associated Artery/Lesion type: [place] artery [place] vs. transplanted heart: [place] heart Associated angina: without angina Qualified Code(s): I25.10 - Atherosclerotic heart disease of [place] coronary artery without angina pectoris Discussion w patient/family: The assessment and plan as outlined above was discussed with the patient and/or family members who expressed understanding and agreement. All questions were answered. Thank you for involving us in the care of your patient. Please call with any questions. I will discuss all the above with Dr. Gaspar and make changes as necessary. Subjective Principal diagnosis: Degenerative scoliosis, lumbar stenosis, lumbar radiculopathy Interval history: Pt denies cardiac complaints overnight--only complaint is back pain. Pt went into A-Fib RVR overnight. Objective Vital Signs, Last 4 Hours Temp Pulse Resp BP Pulse Ox 08/30/17 09:05 96 08/30/17 07:40 98.9 F 91 16 115/80 97 Vital Signs Temp Pulse Resp BP Pulse Ox 08/30/17 09:05 96 08/30/17 07:40 98.9 F 91 16 115/80 97 08/30/17 04:10 99.8 F H 115 18 108/65 95 08/30/17 01:58 97/71 08/29/17 23:17 98.4 F 114 20 100/72 93 08/29/17 21:18 100.0 F H 90 16 124/72 08/29/17 19:37 84 18 149/101 08/29/17 19:10 99.0 F 92 18 131/81 99 08/29/17 18:55 99.3 F 91 18 139/87 98 08/29/17 18:00 95 143/78 08/29/17 17:30 138/74 08/29/17 17:00 101 121/104 08/29/17 16:45 95 139/83 08/29/17 16:30 91 123/62 08/29/17 16:15 93 138/79 08/29/17 16:10 94 140/76 08/29/17 16:05 91 127/76 08/29/17 16:02 100.1 F H 94 18 135/74 95 08/29/17 16:00 92 135/74 08/29/17 15:30 100.4 F H 92 18 137/84 93 08/29/17 13:53 98.8 F 89 16 119/67 97 08/29/17 13:38 98.6 F 92 18 123/70 98 08/29/17 11:38 99.6 F 86 15 122/64 96 Intake and Output 08/29/17 08/30/17 08/30/17 23:59 07:59 15:59 Intake Total 2242 / 2242 360 / 360 Output Total 1450 / 1450 100 / 100 Balance 792 / 792 -100 / -100 360 / 360 Intake: IV Fluids 1000 / 1000 0.9 % Sodium Chloride 1,000 ML 1000 / 1000 @ 125 mls/hr IVC .Q8H [facility] Rx#: [id number] Oral 620 / 620 360 / 360 Blood Product 622 / 622 Rbcs Leuko Poor As-1 Unit 322 / 322 [id number] Rbcs Leuko Poor As-1 Unit 300 / 300 [id number] Output: Catheter 1450 / 1450 100 / 100 Other: Meal Dinner Breakfast Percent of Meal Consumed 100% 90% Weight 74.3 kg Blood Glucose* 206 138 Patient Weight 08/30/17 23:59 Weight 74.3 kg General: Conversant, No Apparent Distress HEENT: Atraumatic, Normocephaly, Mucus Membranes Moist Neck: Normal carotid pulses Cardiac: Other (irregularly irregular) Lungs: Other (diminished) Neuro: Alert and responsive, No focal deficits noted Abdomen: Soft, Non-Tender Skin: Other (Right femoral access site healing well. No bleeding, hematoma or ecchymosis noted.) Musculoskeletal: No Chest Wall Tenderness Extremities: No Clubbing, No Cyanosis, No Edema, Normal Pulses Results 08/30/17 06:08 08/30/17 06:08 Lab Results 08/29/17 08/29/17 08/29/17 12:36 12:36 17:49 WBC Hgb Hct Plt Count Sodium Potassium 4.7 H D Chloride Carbon Dioxide BUN Creatinine Glucose Calcium Magnesium Troponin I 14.65 H* 19.58 H* 08/30/17 08/30/17 06:08 06:08 WBC 10.5 Hgb 9.8 L D Hct 29.3 L Plt Count 214 Sodium 137 Potassium 4.0 Chloride 106 Carbon Dioxide 21 BUN 41 H Creatinine 2.05 H Glucose 143 H Calcium 8.4 L Magnesium 1.2 L Troponin I Short CBC 08/30/17 Range/Units 06:08 WBC 10.5 (4.3-11.1) K/mcL Hgb 9.8 L D (12.9-16.9) g/dL Hct 29.3 L (37.5-50.1) % Plt Count 214 (140-400) K/mcL Neutrophils # 8.8 (1.6-8.9) K/mcL BMP 08/30/17 08/29/17 Range/Units 06:08 12:36 Sodium 137 (136-145) mEq/L Potassium 4.0 4.7 H D (3.5-4.5) mEq/L Chloride 106 (98-109) mEq/L Carbon Dioxide 21 (19-29) mEq/L BUN 41 H (8-26) mg/dL Creatinine 2.05 H (0.72-1.25) mg/dL Glucose 143 H (70-99) mg/dL Calcium 8.4 L (8.6-10.8) mg/dL Cardiac Enzymes 08/29/17 08/29/17 Range/Units 17:49 12:36 Troponin I 19.58 H* 14.65 H* (0-0.03) ng/mL Impressions Echocardiogram 08/29/17 21:31 Impressions: LVEF 40%. Normal LV chamber size and wall thickness. Segmental left ventricular systolic dysfunction. Mild left ventricular diastolic dysfunction. There is no LV thrombus. Normal right ventricular structure and function. Aortic valve not well visualized. Grossly, the aortic valve appears moderately calcified. Mild aortic stenosis suggested by Doppler. Mean gradient 8 mmHg. Evaluation of aortic stenosis not well performed and could be underestimated. No evidence of pulmonary hypertension. RVSP not well obtained and could be underestimated. Left Ventricular Wall Motion: Rest Echo Findings The apex, apical inferior, apical anterior, apical septal, mid inferior septal, apical lateral and mid anterior septal ureña were hypokinetic. All other wall segments showed normal motion. Findings: Study Quality * Technically adequate exam. ECG Findings * Normal sinus rhythm. Left Ventricle * LVEF 40%. * Normal LV chamber size and wall thickness. * Segmental left ventricular systolic dysfunction. * Mild left ventricular diastolic dysfunction. * There is no LV thrombus. Right Ventricle * Normal right ventricular structure and function. Left Atrium * Mildly dilated left atrium. Right Atrium * Mildly dilated right atrium. Aortic Valve * Aortic valve not well visualized. * Grossly, the aortic valve appears moderately calcified. * No aortic regurgitation. * Mild aortic stenosis suggested by Doppler. Evaluation of aortic stenosis not well performed and could be underestimated. Mitral Valve * Mildly thickened and calcified mitral valve leaflets. * Mild mitral annular calcification * No mitral regurgitation. * No mitral stenosis. Tricuspid Valve * Normal tricuspid valve structure and function. * Trace tricuspid regurgitation. * No evidence of pulmonary hypertension. Pulmonic Valve * Pulmonic valve not well visualized. * No pulmonic regurgitation. Aorta * Normally sized aortic root. Pericardium * The pericardium appears normal. IVC * Normal IVC dimensions and inspiratory collapse. Pulmonary Artery * Normal visualized portions of the main pulmonary artery. Active Medications Acetaminophen (Tylenol) 650 mg PO Q6HR PRN PRN Reason: Mild Pain/Fever Stop: 02/25/18 13:28 Aspirin (Aspirin Ec) 81 mg PO DAILY [facility] Stop: 02/28/18 09:01 Last Admin: 08/30/17 08:57 Dose: 81 mg Atorvastatin Calcium (Lipitor) 80 mg PO HS [facility] Stop: 02/28/18 21:01 Last Admin: 08/29/17 21:20 Dose: 80 mg Clopidogrel Bisulfate (Plavix) 75 mg PO DAILY [facility] Stop: 03/01/18 09:01 Last Admin: 08/30/17 08:58 Dose: 75 mg Cyclobenzaprine HCl (Flexeril) 10 mg PO TID [facility] Stop: 02/26/18 15:01 Last Admin: 08/30/17 08:57 Dose: 10 mg Dextrose/Water (Dextrose 50% (Syg)) 25 ml IVP AD PRN PRN Reason: Hypoglycemia Stop: 02/26/18 15:07 Diazepam (Valium) 5 mg PO Q6HR PRN PRN Reason: muscle spasms Stop: 02/25/18 17:06 Last Admin: 08/26/17 23:28 Dose: 5 mg Docusate Sodium (Colace) 100 mg PO BID GINO PRN Reason: Protocol Stop: 02/25/18 21:01 Last Admin: 08/30/17 08:57 Dose: 100 mg Finasteride (Proscar) 5 mg PO DAILY [facility] Stop: 02/26/18 09:01 Last Admin: 08/30/17 08:57 Dose: 5 mg Glucagon (Glucagen) 1 mg IM ONCE PRN PRN Reason: Hypoglycemia Stop: 02/26/18 15:07 Glucose (Gluctose) 15 gm PO ONCE PRN PRN Reason: Hypoglycemia Stop: 02/26/18 15:07 Glucose (Gluctose) 30 gm PO ONCE PRN PRN Reason: Hypoglycemia Stop: 02/26/18 15:07 Hydromorphone HCl (Dilaudid) 1 mg IVP Q3HR PRN PRN Reason: Pain Stop: 02/26/18 05:44 Last Admin: 08/29/17 05:19 Dose: 1 mg Dextrose (Dextrose 5%) 1,000 mls @ 100 mls/hr IVC .Q10H PRN PRN Reason: HYPOGLYCEMIA Stop: 02/26/18 15:07 Insulin Detemir (Levemir) 5 unit SQ BID [facility] Stop: 02/28/18 09:01 Last Admin: 08/30/17 09:02 Dose: 5 unit Insulin Human Lispro (Humalog) 0 units SQ TIDAC [facility] PRN Reason: Protocol Stop: 02/26/18 16:31 Last Admin: 08/30/17 08:57 Dose: Not Given Insulin Human Lispro (Humalog) 0 units SQ HS [facility] PRN Reason: Protocol Stop: 02/26/18 21:01 Last Admin: 08/29/17 21:31 Dose: 3 units Metoprolol Tartrate (Lopressor) 12.5 mg PO BID [facility] Stop: 02/27/18 21:01 Last Admin: 08/30/17 08:57 Dose: 12.5 mg Morphine Sulfate (Morphine Sulfate) 2 mg IVP Q4HR PRN PRN Reason: Chest pain/ Moderate Pain Stop: 02/25/18 13:28 Naloxone HCl (Narcan) 0.4 mg IVP Q2MIN PRN PRN Reason: SEE COMMENTS Stop: 02/25/18 13:28 Nitroglycerin (Nitroglycerin) 0.4 mg SL Q5MIN PRN PRN Reason: Chest Pain Stop: 02/27/18 21:32 Ondansetron HCl (Zofran) 4 mg IVP Q6HR PRN PRN Reason: Nausea Stop: 02/25/18 13:28 Last Admin: 08/27/17 19:49 Dose: 4 mg Oxycodone HCl (Roxicodone) 10 mg PO Q4HR PRN PRN Reason: Severe Pain Stop: 02/25/18 20:01 Last Admin: 08/29/17 09:29 Dose: 10 mg Sodium Bicarbonate (Sodium Bicarbonate) 650 mg PO BID [facility] Stop: 02/27/18 21:01 Last Admin: 08/30/17 08:58 Dose: 650 mg Trazodone HCl (Trazodone) 150 mg PO [facility] Stop: 02/25/18 21:01 Last Admin: 08/29/17 21:20 Dose: 150 mg - Imaging and Cardiology Echo: report reviewed Cardiac cath: report reviewed - EKG Interpretation EKG results cardiology: other (12 hr tele AVG HR 111, A-Fib, 4 beat run NSVT) - VTE Documentation of Mechanical Device: Graduated compression elastic hosiery Consult Discharge Plan - Plan Referrals: Conrado,Danii E, PAC [Physician Director Of Government Sales] - 09/09/17 9:30 am Isaías Cartwright DO [Partnered Physician] - (CARDIOLOGY OFFICE WILL CALL PATIENT AT HOME WITH FOLLOW UP APPOINTMENT) Wilotn Santizo Jr, MD [Partnered Physician] - 11/27/17 11:45 am Damaris Montano CNP [Primary Care Provider] - 10/22/17 9:00 am Prescriptions: OxyCODONE Immed Rel [Roxicodone 5 MG] 5 mg PO Q4HR PRN #28 tablet PRN Reason: Severe Pain
[2017-08-30] MEDS ORDERED: Magnesium Sulfate 2 GM in D5% in Water 100 ML IVPB ONE (11:47)
[2017-08-30] MEDS: *HR* OxyCODONE Immed Rel 5 MG TABLET PO PRN (12:38)
--- NOTE | 2017-08-30 13:15 | Internal Med Progress Note ---
Date of Encounter: 08/30/17 Time of Encounter: 12:15 - Assessment and plan (1) Atrial fibrillation with RVR Current Visit: Yes Status: Acute Assessment and plan: New onset overnight. Could be secondary to pain, fever. Status post left heart catheterization and PCI yesterday. Heart rate currently well controlled. Metoprolol increased to 25 mg twice daily per cardiology. [id number] score of 6, needs anticoagulation but given his blood loss anemia, recent spinal surgery , initiation of DAPT, decided on double therapy with ASA/Plavix. Continue Telemetry monitoring. Noted to have low grade fever yesterday, likely procedure-related; check blood cultures, urine dipstick. No signs of infection. (2) STEMI (ST elevation myocardial infarction) Current Visit: Yes Status: Acute Assessment and plan: Patient is currently chest pain-free. Cardiology on board, underwent left heart catheterization with PCI to ostial LAD yesterday. Continue aspirin, Plavix, beta so and statin. Echocardiogram shows reduced ejection fraction around 40% along with segmental systolic dysfunction, mild left ventricular diastolic dysfunction, aortic valve was not well visualized. Qualifiers: Involved coronary artery: unspecified coronary artery Qualified Code(s): I21.3 - ST elevation (STEMI) myocardial infarction of unspecified site (3) Lumbar stenosis Current Visit: Yes Status: Chronic Assessment and plan: Spine surgery on board. Status post posterior lumbar fusion L3-5, postoperative day 4. No postoperative complications except mild anemia, however patient continues to be in severe pain. Continue pain control with when necessary IV morphine and oral Percocet. Physical and occupation therapy evaluation completed, recommend placement in extended care facility. human services professional on board. Qualifiers: Neurogenic claudication status: with neurogenic claudication Qualified Code (s): M48.062 - Spinal stenosis, lumbar region with neurogenic claudication (4) MEL (acute kidney injury) Current Visit: Yes Status: Acute Assessment and plan: Serum creatinine noted to be improving, and baseline today. Noted to be euvolemic, appropriate urine output. Nephrology consult appreciated. Patient is at risk for contrast-induced nephropathy, however patient required urgent left heart catheterization. continue to monitor closely. (5) CKD (chronic kidney disease), stage III Current Visit: Yes Status: Chronic (6) HTN (hypertension) Current Visit: Yes Status: Chronic Qualifiers: Hypertension type: essential hypertension Qualified Code(s): I10 - Essential (primary) hypertension (7) DM type 2 (diabetes mellitus, type 2) Current Visit: Yes Status: Chronic Assessment and plan: Continue Accu-Chek blood glucose monitoring. Blood sugars noted to be slightly better controlled, but still somewhat elevated. We will increase basal insulin and add nutritional insulin along with sliding scale. Hemoglobin A1c noted to be 5.9%. Hyperglycemia likely due to metabolic stress and recent AL. Diabetic diet as tolerated. Qualifiers: Diabetes mellitus complication status: with kidney complications Diabetes mellitus complication detail: with chronic kidney disease Diabetes mellitus intermediate project manager insulin use: without intermediate project manager use Chronic kidney disease stage: stage 3 (moderate) Qualified Code(s): E11.22 - Type 2 diabetes mellitus with diabetic chronic kidney disease; N18.3 - Chronic kidney disease, stage 3 ( moderate); N18.3 - Chronic kidney disease, stage 3 (moderate) (8) HLD (hyperlipidemia) Current Visit: Yes Status: Chronic Assessment and plan: Continue statin. Lipid profile noted to be within normal limits. Qualifiers: Hyperlipidemia type: unspecified Qualified Code(s): E78.5 - Hyperlipidemia , unspecified (9) Hyperkalemia Current Visit: Yes Status: Acute Assessment and plan: Improving. Serum potassium noted to be within normal limits. Supplement magnesium. (10) Acute blood loss anemia Current Visit: Yes Status: Acute Assessment and plan: Likely related to recent spinal surgery. Received a total of 3 units PRBC since admission. Hemoglobin better today at 9.8. (11) BPH (benign prostatic hyperplasia) Current Visit: Yes Status: Chronic Qualifiers: Lower urinary tract symptom presence: symptoms present Lower urinary tract symptom detail: urinary retention Qualified Code(s): N40.1 - Benign prostatic hyperplasia with lower urinary tract symptoms; R33.8 - Other retention of urine ; R33.8 - Other retention of urine - Subjective Interval history: Continues to report back pain since surgery; no chest pain, palpitations, shortness of breath; states that he could not get comfortable last night due to pain. Underwent heart cath yesterday and received a stent; - Constitutional Vitals: Temp Pulse Resp BP Pulse Ox 99.6 F 107 18 134/85 98 08/30/17 11:40 08/30/17 11:40 08/30/17 11:40 08/30/17 11:40 08/30/17 11:40 General appearance: Present: cooperative, A&O X 3, answers questions appropriately - Respiratory Respiratory exam: Present: CTAB (anterolaterally). Absent: accessory muscle use , rales, rhonchi, wheezes - Cardiovascular Cardiovascular exam: Present: RRR, +S1, +S2, systolic murmur. Absent: diastolic murmur, gallop, rubs - GI/Abdominal GI/Abdominal exam: Present: normal bowel sounds, soft, no peritoneal signs. Absent: distended, tenderness - Extremities Exam Extremities exam: Present: warm, radial pulses palpable and symmetrical. Absent : calf tenderness, cyanotic, pedal edema - Neurological Exam Neurological exam: Present: CN II-XII intact, oriented X3, no focal deficits. Absent: pronater drift, facial droop, speech deficit Internal Medicine: Result - Labs CBC & Chem 7: 08/30/17 06:08 08/30/17 06:08 Labs: Short CBC 08/30/17 Range/Units 06:08 WBC 10.5 (4.3-11.1) K/mcL Hgb 9.8 L D (12.9-16.9) g/dL Hct 29.3 L (37.5-50.1) % Plt Count 214 (140-400) K/mcL Neutrophils # 8.8 (1.6-8.9) K/mcL BMP 08/30/17 06:08 Sodium 137 Potassium 4.0 Chloride 106 Carbon Dioxide 21 BUN 41 H Creatinine 2.05 H Glucose 143 H Calcium 8.4 L Cardiac Enzymes 08/29/17 Range/Units 17:49 Troponin I 19.58 H* (0-0.03) ng/mL - ABG Interpretation ABG results: PT/INR, D-dimer PT 13.1 Seconds (9.4-12.1) H 08/28/17 21:08 - VTE Documentation of Mechanical Device: Graduated compression elastic hosiery Consult Discharge Plan - Plan Referrals: Danii Camp PAC [Physician Field Seismologist] - 09/09/17 9:30 am Isaías Cartwright DO [Partnered Physician] - (CARDIOLOGY OFFICE WILL CALL PATIENT AT HOME WITH FOLLOW UP APPOINTMENT) Wilton Santizo Jr, MD [Partnered Physician] - 11/27/17 11:45 am Damaris Montano CNP [Primary Care Provider] - 10/22/17 9:00 am Prescriptions: OxyCODONE Immed Rel [Roxicodone 5 MG] 5 mg PO Q4HR PRN #28 tablet PRN Reason: Severe Pain
[2017-08-30 15:27] LABS: Bilirubin,Urine Negative (Negative); Blood,Urine Large (Negative); Clarity,Urine Clear (Clear); Color,Urine Yellow (Yellow); Glucose,Urine (UA) Normal (Normal); Ketones,Urine Negative (Negative); Leukocyte Esterase,Urine Negative (Negative); Nitrite,Urine Negative (Negative); Protein,Urine 100 mg/dL (Neg-Trace); Specific Gravity,Urine > 1.030 (1.010-1.025); Urobilinogen,Urine Normal (Normal)
[2017-08-30 15:29] LABS: Bacteria,Urine None Seen per hpf (None-Few); Hyaline Casts,Urine None Seen per lpf (None-Few); Squamous Epithelial Cell,Urine Moderate per lpf (None-Few)
[2017-08-30] MEDS: traZODone 50 MG TABLET PO SCH (20:32)
[2017-08-31] MEDS: *HR* OxyCODONE Immed Rel 5 MG TABLET PO PRN ×3 (00:07→10:56)
[2017-08-31 06:13] LABS: Basophils % 0.4 %; Eosinophils # 0.2 K/mcL (0.0-0.6); Hematocrit 29.8 % (37.5-50.1); Hemoglobin 9.8 g/dL (12.9-16.9); Immature Granulocytes % 0.6 % (0-4); Lymphocytes # 0.9 K/mcL (0.6-4.6); Lymphocytes % 10.1 %; Mean Corpuscular HGB Conc 32.9 g/dL (31.6-35.5); Mean Corpuscular Hemoglobin 28.7 pg (28.0-33.3); Mean Corpuscular Volume 87.4 fL (83.0-100.0); Mean Platelet Volume 10.4 fL (9.4-12.4); Monocytes # 1.3 K/mcL (0.0-1.3); Monocytes % 13.9 %; Neutrophils # 6.6 K/mcL (1.6-8.9); Platelet Count 226 K/mcL (140-400); Red Blood Count 3.41 M/mcL (4.19-5.50); Red Cell Distribution Width 14.7 % (11.5-14.5)
[2017-08-31 06:27] LABS: Albumin 2.3 g/dL (3.5-5.0); Albumin/Globulin Ratio 0.7 (1.1-2.2); Bilirubin,Total 0.6 mg/dL (0.2-1.2); Calcium 8.4 mg/dL (8.6-10.8); Globulin 3.2 g/dL (2.4-3.5); Magnesium 1.7 mg/dL (1.6-2.6); Potassium 3.8 mEq/L (3.5-4.5); Total Protein 5.5 g/dL (6.0-8.3)
[2017-08-31 06:49] LABS: Thyroid Stimulating Hormone 1.837 mcIU/mL (0.350-4.840)
[2017-08-31] MEDS: Insulin LISPRO 300 UNITS/3 ML VIAL SQ SCH ×7 (07:47→23:51)
--- NOTE | 2017-08-31 08:00 | Nephrology Progress Note ---
Date of Encounter: 08/31/17 Time of Encounter: 07:59 - Assessment and Plan (1) MEL (acute kidney injury) Current Visit: Yes Status: Acute Patient has a clinical picture of acute kidney injury superimposed on chronic kidney disease. During his hospitalization he said one episode of acute kidney injury that had resolved. Resulting serum creatinine as of yesterday was close to his usual baseline. Serum creatinine is slightly higher today. Continue to monitor him for at least another 24 hours for the possibility of a second episode of acute kidney injury following his cardiac catheterization. (2) CKD (chronic kidney disease), stage III Current Visit: Yes Status: Chronic (3) Lumbar stenosis Current Visit: Yes Status: Chronic Qualifiers: Neurogenic claudication status: with neurogenic claudication Qualified Code (s): M48.062 - Spinal stenosis, lumbar region with neurogenic claudication (4) STEMI (ST elevation myocardial infarction) Current Visit: Yes Status: Acute Qualifiers: Involved coronary artery: unspecified coronary artery Qualified Code(s): I21.3 - ST elevation (STEMI) myocardial infarction of unspecified site (5) BPH (benign prostatic hyperplasia) Current Visit: Yes Status: Chronic Qualifiers: Lower urinary tract symptom presence: symptoms present Lower urinary tract symptom detail: urinary retention Qualified Code(s): N40.1 - Benign prostatic hyperplasia with lower urinary tract symptoms; R33.8 - Other retention of urine ; R33.8 - Other retention of urine Subjective Principal diagnosis: Degenerative scoliosis, lumbar stenosis, lumbar radiculopathy Interval history: Patient continues to have some postoperative back pain. He denies any chest pain or shortness of breath. From renal perspective his creatinine is increased slightly from yesterday. Creatinine is down from 2.05-2.21. He is status post cardiac catheterization with PCI to the LAD 2 days ago. Urine output appears to be satisfactory. Objective - Vital Signs Vital signs: Vital Signs Temp Pulse Resp BP Pulse Ox 08/31/17 06:45 98.6 F 95 15 116/66 97 08/31/17 04:20 98.6 F 99 16 121/83 98 08/30/17 23:47 98.7 F 105 16 104/64 97 08/30/17 19:28 99.3 F 101 16 143/98 95 08/30/17 15:17 99.1 F 77 16 122/76 97 08/30/17 11:40 99.6 F 107 18 134/85 98 08/30/17 09:05 96 Intake and Output 08/30/17 08/30/17 08/31/17 15:59 23:59 07:59 Intake Total 360 / 360 100 / 100 400 / 400 Output Total 450 / 450 400 / 400 275 / 275 Balance -90 / -90 -300 / -300 125 / 125 Intake: Oral 360 / 360 100 / 100 400 / 400 Output: Urine 450 / 450 Urethral (Mejias) 450 / 450 Catheter 400 / 400 275 / 275 Other: Meal Lunch Dinner Percent of Meal Consumed 15% 50% Weight 76.3 kg Blood Glucose* 273 92 119 Patient Weight 08/31/17 23:59 Weight 76.3 kg - General Appearance Exam: Patient is alert and oriented. He is in no acute distress. Lungs clear to auscultation. Heart regular rate and rhythm. Abdomen is benign. There is no peripheral edema. - Lab 08/31/17 05:19 08/31/17 05:19 Most recent lab results Calcium 8.4 mg/dL (8.6-10.8) L 08/31/17 05:19 Magnesium 1.7 mg/dL (1.6-2.6) 08/31/17 05:19 - VTE Documentation of Mechanical Device: Graduated compression elastic hosiery Consult Discharge Plan - Plan Referrals: Danii Camp PAC [Physician Fur Blower] - 09/09/17 9:30 am Isaías Cartwright DO [Partnered Physician] - (CARDIOLOGY OFFICE WILL CALL PATIENT AT HOME WITH FOLLOW UP APPOINTMENT) Wilton Santizo Jr, MD [Partnered Physician] - 11/27/17 11:45 am Damaris Montano CNP [Primary Care Provider] - 10/22/17 9:00 am Prescriptions: OxyCODONE Immed Rel [Roxicodone 5 MG] 5 mg PO Q4HR PRN #28 tablet PRN Reason: Severe Pain
[2017-08-31] MEDS: Finasteride 5 MG TABLET PO SCH (09:01)
[2017-08-31] MEDS: Insulin DETEMIR 100 UNIT/ML X5UNITS SQ SCH ×2 (09:01→23:51)
[2017-08-31] MEDS: Aspirin Enteric Coated 81 MG Tablet PO SCH (09:01)
[2017-08-31] MEDS: *HR* HYDROmorphone 2 MG/ML SYRINGE IVP PRN ×3 (09:07→23:39)
--- NOTE | 2017-08-31 11:51 | Internal Med Progress Note ---
Date of Encounter: 08/31/17 Time of Encounter: 11:49 - Assessment and plan (1) Atrial fibrillation with RVR Current Visit: Yes Status: Acute Assessment and plan: Continues to have RVR; asymptomatic. Case d/w Cardiology, will increase Metoprolol to 50mg BID along with PRN IV Metoprolol. Cardizem is not indicated due to low ejection fraction. Continue ASA. Continue Telemetry monitoring. No signs of infection. TSH noted to be within normal limits. (2) STEMI (ST elevation myocardial infarction) Current Visit: Yes Status: Acute Assessment and plan: Patient is currently chest pain-free. Cardiology on board, underwent left heart catheterization with PCI to ostial LAD. Continue aspirin, Plavix, beta so and statin. Echocardiogram shows reduced ejection fraction around 40% along with segmental systolic dysfunction, mild left ventricular diastolic dysfunction, aortic valve was not well visualized. Qualifiers: Involved coronary artery: unspecified coronary artery Qualified Code(s): I21.3 - ST elevation (STEMI) myocardial infarction of unspecified site (3) Lumbar stenosis Current Visit: Yes Status: Chronic Assessment and plan: Spine surgery on board. Status post posterior lumbar fusion L3-5, postoperative day 4. No postoperative complications except mild anemia, however patient continues to be in severe pain. Continue pain control with when necessary IV Dilaudid and oral Percocet. Lumbar brace. Physical and occupation therapy evaluation completed, recommend placement in extended care facility. student services coordinator on board. Qualifiers: Neurogenic claudication status: with neurogenic claudication Qualified Code (s): M48.062 - Spinal stenosis, lumbar region with neurogenic claudication (4) MEL (acute kidney injury) Current Visit: Yes Status: Acute Assessment and plan: Serum creatinine noted to be slightly elevated today, at 2.2. Nephrology follow -up appreciated, continue to monitor. Patient was noted to have urinary retention yesterday, appropriate urine output currently after Mejias catheterization. Patient is at risk for contrast-induced nephropathy from urgent left heart catheterization. continue to monitor closely. (5) CKD (chronic kidney disease), stage III Current Visit: Yes Status: Chronic (6) HTN (hypertension) Current Visit: Yes Status: Chronic Qualifiers: Hypertension type: essential hypertension Qualified Code(s): I10 - Essential (primary) hypertension (7) DM type 2 (diabetes mellitus, type 2) Current Visit: Yes Status: Chronic Assessment and plan: Continue Accu-Chek blood glucose monitoring. Blood sugars noted to be tightly controlled with few episodes of hypoglycemia. We will decrease basal insulin, continue sliding scale insulin. Hemoglobin A1c noted to be 5.9%. Hyperglycemia likely due to metabolic stress and recent NE. Diabetic diet as tolerated. Qualifiers: Diabetes mellitus complication status: with kidney complications Diabetes mellitus complication detail: with chronic kidney disease Diabetes mellitus exterminator helper insulin use: without exterminator helper use Chronic kidney disease stage: stage 3 (moderate) Qualified Code(s): E11.22 - Type 2 diabetes mellitus with diabetic chronic kidney disease; N18.3 - Chronic kidney disease, stage 3 ( moderate); N18.3 - Chronic kidney disease, stage 3 (moderate) (8) HLD (hyperlipidemia) Current Visit: Yes Status: Chronic Assessment and plan: Continue statin. Lipid profile noted to be within normal limits. Qualifiers: Hyperlipidemia type: unspecified Qualified Code(s): E78.5 - Hyperlipidemia , unspecified (9) Hyperkalemia Current Visit: Yes Status: Resolved (10) Acute blood loss anemia Current Visit: Yes Status: Acute Assessment and plan: Likely related to recent spinal surgery. Received a total of 3 units PRBC since admission. Hemoglobin stable today at 9.8. (11) BPH (benign prostatic hyperplasia) Current Visit: Yes Status: Chronic Assessment and plan: Patient failed voiding trial a second time during this hospitalization. Continue indwelling Mejias catheter at this time, patient will likely need to be discharged on Mejias with outpatient urology follow-up. Continue finasteride. Qualifiers: Lower urinary tract symptom presence: symptoms present Lower urinary tract symptom detail: urinary retention Qualified Code(s): N40.1 - Benign prostatic hyperplasia with lower urinary tract symptoms; R33.8 - Other retention of urine ; R33.8 - Other retention of urine - Subjective Interval history: Feels better, sitting up in chair today. Continues to have severe back pain, wearing a back brace today. No c/o- chest pain, shortness of breath, palpitations. - Constitutional Vitals: Temp Pulse Resp BP Pulse Ox 97.5 F L 121 15 96/86 99 08/31/17 11:28 08/31/17 11:28 08/31/17 11:28 08/31/17 11:28 08/31/17 11:28 General appearance: Present: cooperative, A&O X 3, answers questions appropriately - Respiratory Respiratory exam: Present: CTAB (coarse breath sounds B/L). Absent: accessory muscle use, rales, rhonchi, wheezes - Cardiovascular Cardiovascular exam: Present: irregular rhythm, +S1, +S2, tachycardia. Absent: diastolic murmur, gallop, rubs, systolic murmur - GI/Abdominal GI/Abdominal exam: Present: normal bowel sounds, soft, no peritoneal signs. Absent: distended, tenderness - Extremities Exam Extremities exam: Present: full ROM, warm, radial pulses palpable and symmetrical. Absent: calf tenderness, cyanotic, pedal edema - Neurological Exam Neurological exam: Present: CN II-XII intact, oriented X3, no focal deficits. Absent: pronater drift, facial droop, speech deficit Internal Medicine: Result - Labs CBC & Chem 7: 08/31/17 05:19 08/31/17 05:19 Labs: Short CBC 08/31/17 Range/Units 05:19 WBC 9.1 (4.3-11.1) K/mcL Hgb 9.8 L (12.9-16.9) g/dL Hct 29.8 L (37.5-50.1) % Plt Count 226 (140-400) K/mcL Neutrophils # 6.6 (1.6-8.9) K/mcL BMP 08/31/17 05:19 Sodium 137 Potassium 3.8 Chloride 106 Carbon Dioxide 22 BUN 44 H Creatinine 2.21 H Glucose 46 L Calcium 8.4 L Liver Function 08/31/17 Range/Units 05:19 Total Bilirubin 0.6 (0.2-1.2) mg/dL AST 31 (5-34) Units/L ALT 9 (0-55) Units/L Alkaline Phosphatase 75 (38-126) Units/L Albumin 2.3 L (3.5-5.0) g/dL Urine 08/30/17 Range/Units 15:20 Urine Color Yellow (Yellow) Urine Clarity Clear (Clear) Urine pH 6.0 (5.0-8.0) pH Units Ur Specific [place] > 1.030 H (1.010-1.025) Urine Protein 100 H (Neg-Trace) mg/dL Urine Glucose (UA) Normal (Normal) mg/dL - ABG Interpretation ABG results: PT/INR, D-dimer PT 13.1 Seconds (9.4-12.1) H 08/28/17 21:08 - VTE Documentation of Mechanical Device: Graduated compression elastic hosiery Consult Discharge Plan - Plan Referrals: Danii Camp PAC [Physician Fixed Capital Clerk] - 09/09/17 9:30 am Isaías Cartwright DO [Partnered Physician] - (CARDIOLOGY OFFICE WILL CALL PATIENT AT HOME WITH FOLLOW UP APPOINTMENT) Wilton Santizo Jr, MD [Partnered Physician] - 11/27/17 11:45 am Damaris Montano CNP [Primary Care Provider] - 10/22/17 9:00 am Prescriptions: OxyCODONE Immed Rel [Roxicodone 5 MG] 5 mg PO Q4HR PRN #28 tablet PRN Reason: Severe Pain
[2017-08-31] MEDS: *HR* Metoprolol 5 MG/5 ML VIAL IVP PRN (12:06)
--- NOTE | 2017-08-31 13:09 | Cardiology Progress Note ---
Date of Encounter: 08/31/17 Time of Encounter: 12:30 Assessment and Plan (1) STEMI (ST elevation myocardial infarction) Current Visit: Yes Status: Acute Peak troponin 19.58. Pt taken to lab director yesterday--received PCI to ostial LAD. Final cath report pending. Pt denies chest pain or dyspnea. DAPT (ASA and Plavix) discussed. Pt verbalizes understanding. Continue BB and Statin. Echo EF 40%, mild-moderate LV dysfunction with regional wall motion abnormalities involving the anterior wall, septum, and apex. Right femoral access site healing well. No bleeding, hematoma or ecchymosis noted. Qualifiers: Involved coronary artery: unspecified coronary artery Qualified Code(s): I21.3 - ST elevation (STEMI) myocardial infarction of unspecified site (2) CAD (coronary artery disease) Current Visit: Yes Status: Acute As above, ASA, Statin, Plavix, BB. Aggressive risk factor modification. Qualifiers: Coronary Disease-Associated Artery/Lesion type: [place] artery [place] vs. transplanted heart: [place] heart Associated angina: without angina Qualified Code(s): I25.10 - Atherosclerotic heart disease of [place] coronary artery without angina pectoris (3) Atrial fibrillation with RVR Current Visit: Yes Status: Acute New onset A-Fib RVR . Pt asymptomatic. 12 hr tele AVG HR 115. Will attempt to increase BB for better HR control. Discussed with hospitalist, increase metoeprolol to 50 mg BID. IV metoprolol PRN. Unable to use CCB due to CMP, Digoxin not a good choice due to renal dysfunction. Rate control is recommended. Once rate controlled, transition to Toprol XL given his CMP. CHADSVASC 6 (Age, HTN, DM, CAD, CHF). Pt had acute blood loss anemia post op with HGB 7.8 at one point. He is already on ASA and Plavix. Discussed with Dr. Gaspar, triple therapy is not recommended. Continue ASA and Plavix. Discussion w patient/family: The assessment and plan as outlined above was discussed with the patient and/or family members who expressed understanding and agreement. All questions were answered. Thank you for involving us in the care of your patient. Please call with any questions. Subjective Principal diagnosis: Degenerative scoliosis, lumbar stenosis, lumbar radiculopathy Interval history: No new complaints. Sitting in chair eating lunch. Denies palpitations or chest pain. Objective Vital Signs, Last 4 Hours Temp Pulse Resp BP Pulse Ox 08/31/17 11:28 97.5 F L 121 15 127/68 99 08/31/17 11:00 129 General: Conversant, No Apparent Distress HEENT: Atraumatic, Normocephaly, Mucus Membranes Moist Neck: No JVD, Normal carotid pulses Cardiac: Other (Irregularly irregular) Lungs: Other (Faint rhonci noted scattered throughout. Denies cough.) Neuro: Alert and responsive, No focal deficits noted Abdomen: Soft, Non-Tender Skin: No rashes noted on visualized skin Musculoskeletal: No Chest Wall Tenderness Extremities: No Clubbing, No Cyanosis, No Edema, Normal Pulses Results 08/31/17 05:19 08/31/17 05:19 Lab Results 08/31/17 08/31/17 05:19 05:19 WBC 9.1 Hgb 9.8 L Hct 29.8 L Plt Count 226 Sodium 137 Potassium 3.8 Chloride 106 Carbon Dioxide 22 BUN 44 H Creatinine 2.21 H Glucose 46 L Calcium 8.4 L Magnesium 1.7 Total Bilirubin 0.6 AST 31 ALT 9 Alkaline Phosphatase 75 TSH 1.837 - Imaging and Cardiology Echo: report reviewed Cardiac cath: report reviewed - VTE Documentation of Mechanical Device: Graduated compression elastic hosiery Consult Discharge Plan - Plan Referrals: Danii Camp PAC [Physician Locomotive Mechanic] - 09/09/17 9:30 am Isaías Cartwright DO [Partnered Physician] - (CARDIOLOGY OFFICE WILL CALL PATIENT AT HOME WITH FOLLOW UP APPOINTMENT) Wilton Santizo Jr, MD [Partnered Physician] - 11/27/17 11:45 am Damaris Montano CNP [Primary Care Provider] - 10/22/17 9:00 am Prescriptions: OxyCODONE Immed Rel [Roxicodone 5 MG] 5 mg PO Q4HR PRN #28 tablet PRN Reason: Severe Pain
[2017-08-31] MEDS ORDERED: Insulin DETEMIR 100 UNIT/ML X5UNITS SQ SCH (13:15)
[2017-08-31] MEDS: Acetaminophen 325 MG TABLET PO PRN (19:48)
[2017-08-31] MEDS: traZODone 50 MG TABLET PO SCH (19:48)
[2017-09-01] MEDS: *HR* HYDROmorphone 2 MG/ML SYRINGE IVP PRN (03:45)
[2017-09-01 03:51] LABS: Basophils % 0.5 %; Eosinophils # 0.3 K/mcL (0.0-0.6); Eosinophils % 3.5 %; Hematocrit 30.4 % (37.5-50.1); Hemoglobin 9.8 g/dL (12.9-16.9); Immature Granulocytes % 0.6 % (0-4); Lymphocytes # 0.8 K/mcL (0.6-4.6); Lymphocytes % 10.6 %; Mean Corpuscular HGB Conc 32.2 g/dL (31.6-35.5); Mean Corpuscular Volume 89.9 fL (83.0-100.0); Mean Platelet Volume 10.7 fL (9.4-12.4); Monocytes % 13.1 %; Neutrophils # 5.5 K/mcL (1.6-8.9); Platelet Count 250 K/mcL (140-400); Red Blood Count 3.38 M/mcL (4.19-5.50); Red Cell Distribution Width 14.5 % (11.5-14.5); Segmented Neutrophils % 71.7 %
[2017-09-01] MEDS: diazePAM 5 MG TABLET PO PRN (03:59)
[2017-09-01 04:04] LABS: Albumin 2.2 g/dL (3.5-5.0); Albumin/Globulin Ratio 0.7 (1.1-2.2); Bilirubin,Total 0.5 mg/dL (0.2-1.2); Calcium 8.2 mg/dL (8.6-10.8); Globulin 3.2 g/dL (2.4-3.5); Potassium 4.2 mEq/L (3.5-4.5); Total Protein 5.4 g/dL (6.0-8.3)
--- NOTE | 2017-09-01 06:14 | Electrocardiograph Report ---
[address] [place] [address] Test Date: 2017-08-29 Pat Name: Jose Theodore Department: 110 Room: 2N09 Gender: M Wringer Operator: [id number] : [id number] Requested By: Sherlyn Joaquin Order Number: [id number] Reading MD: Tyshawn Goetz MD Measurements Intervals [place] Rate: 120 P: [place]: 0 QRS: 57 QRSD: 85 T: 116 QT: 322 QTc: 393 Interpretive Statements ATRIAL FIBRILLATION WITH RAPID VENTRICULAR RESPONSE ANTEROSEPTAL MYOCARDIAL INFARCTION, PROBABLY RECENT ACUTE [place] Electronically Signed On 09-01-2017 6:12:34 EDT by Tyshawn Goetz MD
[2017-09-01] MEDS: *HR* OxyCODONE Immed Rel 5 MG TABLET PO PRN ×3 (07:55→23:53)
[2017-09-01] MEDS: Finasteride 5 MG TABLET PO SCH (08:02)
[2017-09-01] MEDS: Aspirin Enteric Coated 81 MG Tablet PO SCH (08:02)
[2017-09-01] MEDS: Insulin DETEMIR 100 UNIT/ML X5UNITS SQ SCH ×3 (08:08→20:48)
[2017-09-01] MEDS: Insulin LISPRO 300 UNITS/3 ML VIAL SQ SCH ×7 (08:10→20:18)
--- NOTE | 2017-09-01 09:40 | Cardiology Progress Note ---
Date of Encounter: 09/01/17 Time of Encounter: 09:40 Assessment and Plan (1) STEMI (ST elevation myocardial infarction) Current Visit: Yes Status: Acute Peak troponin 19.58. S/P LHC-received PCI to ostial LAD. Final cath report pending. Pt denies chest pain or dyspnea. DAPT (ASA and Plavix) discussed. Pt verbalizes understanding. Continue BB and Statin. Echo EF 40%, mild-moderate LV dysfunction with regional wall motion abnormalities involving the anterior wall, septum, and apex. Right femoral access site healing well. No bleeding, hematoma or ecchymosis noted. Cardiology signing off. Reconsult PRN. Will coordinate outpt follow-up in 1 week. Qualifiers: Involved coronary artery: unspecified coronary artery Qualified Code(s): I21.3 - ST elevation (STEMI) myocardial infarction of unspecified site (2) Atrial fibrillation with RVR Current Visit: Yes Status: Acute New onset A-Fib RVR . Pt asymptomatic. 12 hr tele AVG HR 89, now better controlled. Increased metoprolol to 50 mg BID yesterday. IV metoprolol PRN. Unable to use CCB due to CMP, Digoxin not a good choice due to renal dysfunction. Rate control is recommended. Now that he is rate controlled, will transition to Toprol XL 100mg daily starting tomorrow given his CMP. CHADSVASC 6 (Age, HTN, DM, CAD, CHF). Pt had acute blood loss anemia post op with HGB 7.8 at one point. He is already on ASA and Plavix. Triple therapy is not recommended. Continue ASA and Plavix. (3) CAD (coronary artery disease) Current Visit: Yes Status: Acute As above, ASA, Statin, Plavix, BB. Aggressive risk factor modification. Qualifiers: Coronary Disease-Associated Artery/Lesion type: [place] artery [place] vs. transplanted heart: [place] heart Associated angina: without angina Qualified Code(s): I25.10 - Atherosclerotic heart disease of [place] coronary artery without angina pectoris (4) Ischemic cardiomyopathy Current Visit: Yes Status: Acute S/P STEMI--Echo EF 40%, mild-moderate LV dysfunction with regional wall motion abnormalities involving the anterior wall, septum, and apex. Switching BB to long acting Toprol XL. No ACEi due to worsening renal function. Recommend ACEi prior to discharge if renal function will tolerate. Discussion w patient/family: The assessment and plan as outlined above was discussed with the patient and/or family members who expressed understanding and agreement. All questions were answered. Thank you for involving us in the care of your patient. Please call with any questions. I will discuss all the above with Dr. Betancourt and make changes as necessary. Subjective Principal diagnosis: Degenerative scoliosis, lumbar stenosis, lumbar radiculopathy Interval history: Pt denies cardiac complaints overnight--only complaint is back pain. 12 hr tele AVG HR 89, A-Fib. Objective Vital Signs, Last 4 Hours Temp Pulse Resp BP Pulse Ox 09/01/17 07:51 98.1 F 89 14 125/79 98 Vital Signs Temp Pulse Resp BP Pulse Ox 09/01/17 07:51 98.1 F 89 14 125/79 98 09/01/17 05:04 97.4 F L 96 18 106/62 95 09/01/17 03:45 96 08/31/17 23:29 98.6 F 84 18 100/60 96 08/31/17 19:59 105 08/31/17 19:14 100.2 F H 102 18 128/85 94 08/31/17 15:17 98.0 F 104 15 94/83 93 08/31/17 11:28 97.5 F L 121 15 96/86 99 08/31/17 11:00 129 Intake and Output 08/31/17 09/01/17 09/01/17 23:59 07:59 15:59 Intake Total 400 / 400 Output Total 1175 / 1175 Balance 400 / 400 -1175 / -1175 Intake: Oral 400 / 400 Output: Catheter 1175 / 1175 Other: Meal Dinner Percent of Meal Consumed 90% Weight 77.3 kg Blood Glucose* 170 223 Patient Weight 09/01/17 23:59 Weight 77.3 kg General: Conversant, No Apparent Distress HEENT: Atraumatic, Normocephaly, Mucus Membranes Moist Neck: No JVD, Normal carotid pulses Cardiac: Other (irregularly irregular) Lungs: Normal Breath Sounds, No Wheeze, Rales, Rhonchi Neuro: Alert and responsive, No focal deficits noted Abdomen: Soft, Non-Tender Skin: No rashes noted on visualized skin Musculoskeletal: No Chest Wall Tenderness Extremities: No Clubbing, No Cyanosis, No Edema, Normal Pulses Results 09/01/17 03:25 09/01/17 03:25 Lab Results 09/01/17 09/01/17 09/01/17 03:25 03:25 03:25 WBC 7.7 Hgb 9.8 L Hct 30.4 L Plt Count 250 Sodium 133 L Potassium 4.2 Chloride 101 Carbon Dioxide 23 BUN 51 H Creatinine 2.60 H Glucose 190 H Calcium 8.2 L Magnesium 1.6 Total Bilirubin 0.5 AST 23 ALT 10 Alkaline Phosphatase 91 Short CBC 09/01/17 Range/Units 03:25 WBC 7.7 (4.3-11.1) K/mcL Hgb 9.8 L (12.9-16.9) g/dL Hct 30.4 L (37.5-50.1) % Plt Count 250 (140-400) K/mcL Neutrophils # 5.5 (1.6-8.9) K/mcL BMP 09/01/17 Range/Units 03:25 Sodium 133 L (136-145) mEq/L Potassium 4.2 (3.5-4.5) mEq/L Chloride 101 (98-109) mEq/L Carbon Dioxide 23 (19-29) mEq/L BUN 51 H (8-26) mg/dL Creatinine 2.60 H (0.72-1.25) mg/dL Glucose 190 H (70-99) mg/dL Calcium 8.2 L (8.6-10.8) mg/dL Liver Function 09/01/17 Range/Units 03:25 Total Bilirubin 0.5 (0.2-1.2) mg/dL AST 23 (5-34) Units/L ALT 10 (0-55) Units/L Alkaline Phosphatase 91 (38-126) Units/L Albumin 2.2 L (3.5-5.0) g/dL Impressions Chest X-Ray 08/28/17 22:22 IMPRESSION: Low lung volume study with vascular crowding and bibasilar opacities that likely reflect atelectatic changes, and less likely consolidation. D/ / 08/28/2017 22:54:17 Kit Hill MD / [email or web address] Interpreting Provider: Kit Hill MD Active Medications Acetaminophen (Tylenol) 650 mg PO Q6HR PRN PRN Reason: Mild Pain/Fever Stop: 02/25/18 13:28 Last Admin: 08/31/17 19:48 Dose: 650 mg Aspirin (Aspirin Ec) 81 mg PO DAILY [facility] Stop: 02/28/18 09:01 Last Admin: 09/01/17 08:02 Dose: 81 mg Atorvastatin Calcium (Lipitor) 80 mg PO HS [facility] Stop: 02/28/18 21:01 Last Admin: 08/31/17 19:49 Dose: 80 mg Clopidogrel Bisulfate (Plavix) 75 mg PO DAILY [facility] Stop: 03/01/18 09:01 Last Admin: 09/01/17 08:02 Dose: 75 mg Cyclobenzaprine HCl (Flexeril) 10 mg PO TID [facility] Stop: 02/26/18 15:01 Last Admin: 09/01/17 08:02 Dose: 10 mg Dextrose/Water (Dextrose 50% (Syg)) 25 ml IVP AD PRN PRN Reason: Hypoglycemia Stop: 02/26/18 15:07 Diazepam (Valium) 5 mg PO Q6HR PRN PRN Reason: muscle spasms Stop: 02/25/18 17:06 Last Admin: 09/01/17 03:59 Dose: 5 mg Docusate Sodium (Colace) 100 mg PO BID [facility] PRN Reason: Protocol Stop: 02/25/18 21:01 Last Admin: 09/01/17 08:02 Dose: 100 mg Finasteride (Proscar) 5 mg PO DAILY [facility] Stop: 02/26/18 09:01 Last Admin: 09/01/17 08:02 Dose: 5 mg Glucagon (Glucagen) 1 mg IM ONCE PRN PRN Reason: Hypoglycemia Stop: 02/26/18 15:07 Glucose (Gluctose) 15 gm PO ONCE PRN PRN Reason: Hypoglycemia Stop: 02/26/18 15:07 Glucose (Gluctose) 30 gm PO ONCE PRN PRN Reason: Hypoglycemia Stop: 02/26/18 15:07 Hydromorphone HCl (Dilaudid) 1 mg IVP Q3HR PRN PRN Reason: Pain Stop: 02/26/18 05:44 Last Admin: 09/01/17 03:45 Dose: 1 mg Dextrose (Dextrose 5%) 1,000 mls @ 100 mls/hr IVC .Q10H PRN PRN Reason: HYPOGLYCEMIA Stop: 02/26/18 15:07 Insulin Detemir (Levemir) 5 unit SQ BID [facility] Stop: 03/02/18 21:01 Last Admin: 09/01/17 08:09 Dose: Not Given Insulin Human Lispro (Humalog) 0 units SQ TIDAC [facility] PRN Reason: Protocol Stop: 02/26/18 16:31 Last Admin: 09/01/17 08:10 Dose: 8 units Insulin Human Lispro (Humalog) 0 units SQ HS [facility] PRN Reason: Protocol Stop: 02/26/18 21:01 Last Admin: 08/31/17 23:51 Dose: Not Given Insulin Human Lispro (Humalog) 4 units 0.05 units/kg (4 units) SQ TIDWM [facility] Stop: 03/01/18 17:01 Last Admin: 09/01/17 08:11 Dose: 4 units Metoprolol Tartrate (Lopressor) 5 mg IVP Q6HR PRN PRN Reason: HR>110 Stop: 03/02/18 11:53 Last Admin: 08/31/17 12:06 Dose: 5 mg Metoprolol Tartrate (Lopressor) 50 mg PO BID [facility] Stop: 03/02/18 13:01 Last Admin: 09/01/17 08:02 Dose: 50 mg Morphine Sulfate (Morphine Sulfate) 2 mg IVP Q4HR PRN PRN Reason: Chest pain/ Moderate Pain Stop: 02/25/18 13:28 Naloxone HCl (Narcan) 0.4 mg IVP Q2MIN PRN PRN Reason: SEE COMMENTS Stop: 02/25/18 13:28 Nitroglycerin (Nitroglycerin) 0.4 mg SL Q5MIN PRN PRN Reason: Chest Pain Stop: 02/27/18 21:32 Ondansetron HCl (Zofran) 4 mg IVP Q6HR PRN PRN Reason: Nausea Stop: 02/25/18 13:28 Last Admin: 08/27/17 19:49 Dose: 4 mg Oxycodone HCl (Roxicodone) 10 mg PO Q4HR PRN PRN Reason: Severe Pain Stop: 02/25/18 20:01 Last Admin: 09/01/17 07:55 Dose: 10 mg Trazodone HCl (Trazodone) [address] [facility] Stop: 02/25/18 21:01 Last Admin: 08/31/17 19:48 Dose: 150 mg - Imaging and Cardiology Echo: report reviewed Cardiac cath: report reviewed - EKG Interpretation EKG results cardiology: other (12 hr tele AVG HR 89, A-Fib) - VTE Documentation of Mechanical Device: Graduated compression elastic hosiery Consult Discharge Plan - Plan Additional Instructions: RISK FACTORS: STOP SMOKING: If you smoke, STOP. Smoking or tobacco use significantly increases your risk of heart disease because nicotine causes the arteries to narrow or constrict. It also causes fats to stick to the artery. Your chances of having a heart attack are greatly increased if you continue to smoke. For more information, call the education line for smoking cessation 2-362-WMLSZIR EAT A LOW FAT/CHOLESTEROL/SODIUM DIET: This diet may help reduce your chances of having a heart attack. LIFTING: Avoid lifting anything more than 10 pounds for 5-7 days Prior to straining, laughing, sneezing and/or coughing, apply manual pressure directly over insertion site. ACTIVITY: You may walk or climb stairs as tolerated You can resume sexual activity as tolerated In general, you are encouraged to engage in a minimum of 30 minutes or more of moderate intensity physical activity, such as brisk walking, daily or at least 3 -4 times weekly BATHING Do not submerge the site into water (bath tub, hot tub, swimming pool) for 1 week. This can be a source for infection into the blood stream. You may shower after 24 hours SITE CARE: After 24 hours, you may remove the dressing and leave the site open to air. Keep the site clean and dry. Clean gently and pat dry. You can expect bruising and tenderness that gradually resolve within a week or two. Return to work as instructed per your physician Resume driving as instructed per physician Keep all scheduled follow up appointments Resume medications as instructed IMPORTANT: If prescribed a Platelet Aggregation Inhibitor such as, Plavix, Brilinta or Effient: Duration of therapy is minimum one year These medications are often used in combination with Aspirin in prevention of future heart attacks Never discontinue unless consult with your Payroll And Benefits Specialist STROKE (CVA) Risk factors for a stroke are: Age, cigarette smoking, diabetes, excessive alcohol consumption, family history, high blood pressure, overweight, physical inactivity, prior stroke, heart attack, diagnosis of carotid artery stenosis or other artery disease. Warning signs: Sudden numbness or weakness of the face, arm or leg; especially on one side of the body, sudden confusion, trouble speaking or understanding, sudden trouble seeing in one or both eyes, sudden trouble walking, dizziness, loss of balance or coordination, sudden severe headache with no cause. Call 911 or go to the Emergency Room. CONGESTIVE HEART FAILURE: If you have been diagnosed with Congestive Heart Failure (CHF) and your symptoms return, make an appointment with your physician Weigh yourself daily. Notify your physician if you have a weight gain of two or more pounds in one day or five or more pounds in one week. If you experience any difficulty breathing, please call 911 BLEEDING: Although the risk of bleeding is minimal, it can happen. If you have any bleeding from the site, apply firm pressure above the puncture site for 10-15 minutes. If the bleeding does not stop, continue manual pressure and call 911 Contact your physician if: You develop a fever greater than 101 degrees Fahrenheit Your site becomes reddened or has any drainage You have an increase in pain or burning at the site or if a large knot forms at the site. If you experience chest pain, shortness of breath, dizziness, or extreme tiredness, stop the activity and rest. Please notify your physicians office if you experience any of these symptoms and they are not relieved by rest please call 911! Referrals: Danii Camp PAC [Physician Milieu Counselor] - 09/09/17 9:30 am Isaías Cartwright DO [Partnered Physician] - (CARDIOLOGY OFFICE WILL CALL PATIENT AT HOME WITH FOLLOW UP APPOINTMENT) Wilton Santizo Jr, MD [Partnered Physician] - 11/27/17 11:45 am Damaris Montano CNP [Primary Care Provider] - 10/22/17 9:00 am Prescriptions: OxyCODONE Immed Rel [Roxicodone 5 MG] 5 mg PO Q4HR PRN #28 tablet PRN Reason: Severe Pain
--- NOTE | 2017-09-01 12:25 | Nephrology Progress Note ---
Date of Encounter: 09/01/17 Time of Encounter: 11:50 - Assessment and Plan (1) MEL (acute kidney injury) Current Visit: Yes Status: Acute MEL/CKD. S/P lumbar spine fusion with MEL that resolved. S/P heart catheterization and appears to have second episode of MEL, creat 2.60, most likely contrast nephropathy. Documented urine output 600 cc. Hypotensive SBP 100-106, cardiology to address. Will continue to monitor. Subjective Principal diagnosis: Degenerative scoliosis, lumbar stenosis, lumbar radiculopathy Interval history: Laying in bed. States back pain for most part tolerable. Denies chest pain. Eating and drinking. Objective - Vital Signs Vital signs: Vital Signs Temp Pulse Resp BP Pulse Ox 09/01/17 11:38 98.9 F 77 16 111/66 94 09/01/17 07:51 98.1 F 89 14 125/79 98 09/01/17 05:04 97.4 F L 96 18 106/62 95 09/01/17 03:45 96 08/31/17 23:29 98.6 F 84 18 100/60 96 08/31/17 19:59 105 08/31/17 19:14 100.2 F H 102 18 128/85 94 08/31/17 15:17 98.0 F 104 15 94/83 93 Intake and Output 08/31/17 09/01/17 09/01/17 23:59 07:59 15:59 Intake Total 400 / 400 Output Total 1175 / 1175 Balance 400 / 400 -1175 / -1175 Intake: Oral 400 / 400 Output: Catheter 1175 / 1175 Other: Meal Dinner Percent of Meal Consumed 90% Weight 77.3 kg Blood Glucose* 170 223 145 Patient Weight 09/01/17 23:59 Weight 77.3 kg - General Appearance General appearance: Present: well-developed, well-nourished, appears started age EENT: Present: mucous membranes moist Neck: Present: no JVD Respiratory: Present: clear Cardiology: Present: no edema, regular rate, regular rhythm Gastrointestinal: Present: normoactive bowel sounds, no tenderness Integumentary: Present: warm and dry Neurologic: Present: alert and oriented x3 Psychiatric: Present: mood/affect appropriate, cooperative - Lab 09/01/17 03:25 09/01/17 03:25 Most recent lab results Calcium 8.2 mg/dL (8.6-10.8) L 09/01/17 03:25 Magnesium 1.6 mg/dL (1.6-2.6) 09/01/17 03:25 - VTE Documentation of Mechanical Device: Graduated compression elastic hosiery Consult Discharge Plan - Plan Additional Instructions: RISK FACTORS: STOP SMOKING: If you smoke, STOP. Smoking or tobacco use significantly increases your risk of heart disease because nicotine causes the arteries to narrow or constrict. It also causes fats to stick to the artery. Your chances of having a heart attack are greatly increased if you continue to smoke. For more information, call the education line for smoking cessation 8-015-KXCYVAD EAT A LOW FAT/CHOLESTEROL/SODIUM DIET: This diet may help reduce your chances of having a heart attack. LIFTING: Avoid lifting anything more than 10 pounds for 5-7 days Prior to straining, laughing, sneezing and/or coughing, apply manual pressure directly over insertion site. ACTIVITY: You may walk or climb stairs as tolerated You can resume sexual activity as tolerated In general, you are encouraged to engage in a minimum of 30 minutes or more of moderate intensity physical activity, such as brisk walking, daily or at least 3 -4 times weekly BATHING Do not submerge the site into water (bath tub, hot tub, swimming pool) for 1 week. This can be a source for infection into the blood stream. You may shower after 24 hours SITE CARE: After 24 hours, you may remove the dressing and leave the site open to air. Keep the site clean and dry. Clean gently and pat dry. You can expect bruising and tenderness that gradually resolve within a week or two. Return to work as instructed per your physician Resume driving as instructed per physician Keep all scheduled follow up appointments Resume medications as instructed IMPORTANT: If prescribed a Platelet Aggregation Inhibitor such as, Plavix, Brilinta or Effient: Duration of therapy is minimum one year These medications are often used in combination with Aspirin in prevention of future heart attacks Never discontinue unless consult with your Sales And Marketing Analyst STROKE (CVA) Risk factors for a stroke are: Age, cigarette smoking, diabetes, excessive alcohol consumption, family history, high blood pressure, overweight, physical inactivity, prior stroke, heart attack, diagnosis of carotid artery stenosis or other artery disease. Warning signs: Sudden numbness or weakness of the face, arm or leg; especially on one side of the body, sudden confusion, trouble speaking or understanding, sudden trouble seeing in one or both eyes, sudden trouble walking, dizziness, loss of balance or coordination, sudden severe headache with no cause. Call 911 or go to the Emergency Room. CONGESTIVE HEART FAILURE: If you have been diagnosed with Congestive Heart Failure (CHF) and your symptoms return, make an appointment with your physician Weigh yourself daily. Notify your physician if you have a weight gain of two or more pounds in one day or five or more pounds in one week. If you experience any difficulty breathing, please call 911 BLEEDING: Although the risk of bleeding is minimal, it can happen. If you have any bleeding from the site, apply firm pressure above the puncture site for 10-15 minutes. If the bleeding does not stop, continue manual pressure and call 911 Contact your physician if: You develop a fever greater than 101 degrees Fahrenheit Your site becomes reddened or has any drainage You have an increase in pain or burning at the site or if a large knot forms at the site. If you experience chest pain, shortness of breath, dizziness, or extreme tiredness, stop the activity and rest. Please notify your physicians office if you experience any of these symptoms and they are not relieved by rest please call 911! Referrals: Danii Camp PAC [Physician Press Operator Automatic] - 09/09/17 9:30 am Isaías Cartwright DO [Partnered Physician] - (CARDIOLOGY OFFICE WILL CALL PATIENT AT HOME WITH FOLLOW UP APPOINTMENT) Wilton Santizo Jr, MD [Partnered Physician] - 11/27/17 11:45 am Damaris Montano CNP [Primary Care Provider] - 09/08/17 1:00 pm Prescriptions: OxyCODONE Immed Rel [Roxicodone 5 MG] 5 mg PO Q4HR PRN #28 tablet PRN Reason: Severe Pain
--- NOTE | 2017-09-01 14:55 | Internal Med Progress Note ---
Date of Encounter: 09/01/17 Time of Encounter: 11:45 - Assessment and plan (1) Atrial fibrillation with RVR Current Visit: Yes Status: Acute Assessment and plan: Heart rate noted to be better controlled today. Continue oral metoprolol. Aspirin for anticoagulation. Cardiology follow-up noted, signed off at this time. Continue Telemetry monitoring. No signs of infection. TSH noted to be within normal limits. (2) STEMI (ST elevation myocardial infarction) Current Visit: Yes Status: Acute Assessment and plan: Patient is currently chest pain-free. Cardiology was consulted, underwent left heart catheterization with PCI to ostial LAD. Continue aspirin, Plavix, beta so and statin. Echocardiogram shows reduced ejection fraction around 40% along with segmental systolic dysfunction, mild left ventricular diastolic dysfunction, aortic valve was not well visualized. Qualifiers: Involved coronary artery: unspecified coronary artery Qualified Code(s): I21.3 - ST elevation (STEMI) myocardial infarction of unspecified site (3) Lumbar stenosis Current Visit: Yes Status: Chronic Assessment and plan: Spine surgery on board. Status post posterior lumbar fusion L3-5, postoperative day 5. No postoperative complications except mild anemia, however patient continues to be in severe pain. Continue pain control with when necessary IV Dilaudid and oral Percocet. Lumbar brace. Local wound care and postoperative wound follow-up per spine surgery. Physical and occupation therapy evaluation completed, recommend placement in extended care facility. player services representative on board. Qualifiers: Neurogenic claudication status: with neurogenic claudication Qualified Code (s): M48.062 - Spinal stenosis, lumbar region with neurogenic claudication (4) MEL (acute kidney injury) Current Visit: Yes Status: Acute Assessment and plan: Nonoliguric. Serum creatinine continues to be getting worse, and 2.6 today. Had an episode of acute kidney injury at admission due to postoperative fluid shifts, from which he recovered. Seems to be having a second episode now secondary to contrast-induced nephropathy after undergoing urgent left heart catheterization. Will give gentle hydration with 1 L normal saline. Nephrology on board, continue to monitor closely. (5) CKD (chronic kidney disease), stage III Current Visit: Yes Status: Chronic (6) HTN (hypertension) Current Visit: Yes Status: Chronic Qualifiers: Hypertension type: essential hypertension Qualified Code(s): I10 - Essential (primary) hypertension (7) DM type 2 (diabetes mellitus, type 2) Current Visit: Yes Status: Chronic Assessment and plan: Continue Accu-Chek blood glucose monitoring. Blood sugars noted to be better controlled. Continue basal bolus insulin regimen. Hemoglobin A1c noted to be 5.9%. Diabetic diet as tolerated. Qualifiers: Diabetes mellitus complication status: with kidney complications Diabetes mellitus complication detail: with chronic kidney disease Diabetes mellitus long term care administrator insulin use: without long term care administrator use Chronic kidney disease stage: stage 3 (moderate) Qualified Code(s): E11.22 - Type 2 diabetes mellitus with diabetic chronic kidney disease; N18.3 - Chronic kidney disease, stage 3 ( moderate); N18.3 - Chronic kidney disease, stage 3 (moderate) (8) HLD (hyperlipidemia) Current Visit: Yes Status: Chronic Qualifiers: Hyperlipidemia type: unspecified Qualified Code(s): E78.5 - Hyperlipidemia , unspecified (9) Hyperkalemia Current Visit: Yes Status: Resolved (10) Acute blood loss anemia Current Visit: Yes Status: Resolved Assessment and plan: Likely related to recent spinal surgery. Received a total of 3 units PRBC since admission. Hemoglobin currently stable. (11) BPH (benign prostatic hyperplasia) Current Visit: Yes Status: Chronic Assessment and plan: Patient failed voiding trial a second time during this hospitalization. Continue indwelling Mejias catheter at this time, patient will likely need to be discharged on Mejias with outpatient urology follow-up. Continue finasteride. Qualifiers: Lower urinary tract symptom presence: symptoms present Lower urinary tract symptom detail: urinary retention Qualified Code(s): N40.1 - Benign prostatic hyperplasia with lower urinary tract symptoms; R33.8 - Other retention of urine ; R33.8 - Other retention of urine - Subjective Interval history: Had dressing change and suture removal on a few stitches on his lower back, reports significant back pain; no chest pain, dyspnea, oliguria, abdominal pain , palpitations. - Constitutional Vitals: Temp Pulse Resp BP Pulse Ox 98.9 F 77 16 111/66 94 09/01/17 11:38 09/01/17 11:38 09/01/17 11:38 09/01/17 11:38 09/01/17 11:38 General appearance: Present: cooperative, A&O X 3, answers questions appropriately - Respiratory Respiratory exam: Present: CTAB. Absent: accessory muscle use, rales, rhonchi, wheezes - Cardiovascular Cardiovascular exam: Present: irregular rhythm, +S1, +S2. Absent: diastolic murmur, gallop, rubs, systolic murmur - GI/Abdominal GI/Abdominal exam: Present: normal bowel sounds, soft, no peritoneal signs. Absent: distended, tenderness - Extremities Exam Extremities exam: Present: full ROM, warm, radial pulses palpable and symmetrical. Absent: calf tenderness, cyanotic, pedal edema - Neurological Exam Neurological exam: Present: CN II-XII intact, oriented X3, no focal deficits. Absent: pronater drift, facial droop, speech deficit Internal Medicine: Result - Labs CBC & Chem 7: 09/01/17 03:25 09/01/17 03:25 Labs: Short CBC 09/01/17 Range/Units 03:25 WBC 7.7 (4.3-11.1) K/mcL Hgb 9.8 L (12.9-16.9) g/dL Hct 30.4 L (37.5-50.1) % Plt Count 250 (140-400) K/mcL Neutrophils # 5.5 (1.6-8.9) K/mcL BMP 09/01/17 03:25 Sodium 133 L Potassium 4.2 Chloride 101 Carbon Dioxide 23 BUN 51 H Creatinine 2.60 H Glucose 190 H Calcium 8.2 L Liver Function 09/01/17 Range/Units 03:25 Total Bilirubin 0.5 (0.2-1.2) mg/dL AST 23 (5-34) Units/L ALT 10 (0-55) Units/L Alkaline Phosphatase 91 (38-126) Units/L Albumin 2.2 L (3.5-5.0) g/dL - ABG Interpretation ABG results: PT/INR, D-dimer PT 13.1 Seconds (9.4-12.1) H 08/28/17 21:08 - Impressions Impressions Chest X-Ray 08/28/17 22:22 IMPRESSION: Low lung volume study with vascular crowding and bibasilar opacities that likely reflect atelectatic changes, and less likely consolidation. D/ / 08/28/2017 22:54:17 Kit Hill MD / [facility] Interpreting Provider: Kit Hill MD - VTE Documentation of Mechanical Device: Graduated compression elastic hosiery Consult Discharge Plan - Plan Additional Instructions: RISK FACTORS: STOP SMOKING: If you smoke, STOP. Smoking or tobacco use significantly increases your risk of heart disease because nicotine causes the arteries to narrow or constrict. It also causes fats to stick to the artery. Your chances of having a heart attack are greatly increased if you continue to smoke. For more information, call the education line for smoking cessation 1-701-FIDTGNR EAT A LOW FAT/CHOLESTEROL/SODIUM DIET: This diet may help reduce your chances of having a heart attack. LIFTING: Avoid lifting anything more than 10 pounds for 5-7 days Prior to straining, laughing, sneezing and/or coughing, apply manual pressure directly over insertion site. ACTIVITY: You may walk or climb stairs as tolerated You can resume sexual activity as tolerated In general, you are encouraged to engage in a minimum of 30 minutes or more of moderate intensity physical activity, such as brisk walking, daily or at least 3 -4 times weekly BATHING Do not submerge the site into water (bath tub, hot tub, swimming pool) for 1 week. This can be a source for infection into the blood stream. You may shower after 24 hours SITE CARE: After 24 hours, you may remove the dressing and leave the site open to air. Keep the site clean and dry. Clean gently and pat dry. You can expect bruising and tenderness that gradually resolve within a week or two. Return to work as instructed per your physician Resume driving as instructed per physician Keep all scheduled follow up appointments Resume medications as instructed IMPORTANT: If prescribed a Platelet Aggregation Inhibitor such as, Plavix, Brilinta or Effient: Duration of therapy is minimum one year These medications are often used in combination with Aspirin in prevention of future heart attacks Never discontinue unless consult with your Coroner Transport Technician STROKE (CVA) Risk factors for a stroke are: Age, cigarette smoking, diabetes, excessive alcohol consumption, family history, high blood pressure, overweight, physical inactivity, prior stroke, heart attack, diagnosis of carotid artery stenosis or other artery disease. Warning signs: Sudden numbness or weakness of the face, arm or leg; especially on one side of the body, sudden confusion, trouble speaking or understanding, sudden trouble seeing in one or both eyes, sudden trouble walking, dizziness, loss of balance or coordination, sudden severe headache with no cause. Call 911 or go to the Emergency Room. CONGESTIVE HEART FAILURE: If you have been diagnosed with Congestive Heart Failure (CHF) and your symptoms return, make an appointment with your physician Weigh yourself daily. Notify your physician if you have a weight gain of two or more pounds in one day or five or more pounds in one week. If you experience any difficulty breathing, please call 911 BLEEDING: Although the risk of bleeding is minimal, it can happen. If you have any bleeding from the site, apply firm pressure above the puncture site for 10-15 minutes. If the bleeding does not stop, continue manual pressure and call 911 Contact your physician if: You develop a fever greater than 101 degrees Fahrenheit Your site becomes reddened or has any drainage You have an increase in pain or burning at the site or if a large knot forms at the site. If you experience chest pain, shortness of breath, dizziness, or extreme tiredness, stop the activity and rest. Please notify your physicians office if you experience any of these symptoms and they are not relieved by rest please call 911! Referrals: Danii Camp PAC [Physician Human Services Manager] - 09/09/17 9:30 am Isaías Cartwright DO [Partnered Physician] - (CARDIOLOGY OFFICE WILL CALL PATIENT AT HOME WITH FOLLOW UP APPOINTMENT) Wilton Santizo Jr, MD [Partnered Physician] - 11/27/17 11:45 am Damaris Montano CNP [Primary Care Provider] - 09/08/17 1:00 pm Prescriptions: OxyCODONE Immed Rel [Roxicodone 5 MG] 5 mg PO Q4HR PRN #28 tablet PRN Reason: Severe Pain
[2017-09-01] MEDS ORDERED: 0.9 % Sodium Chloride 1,000 ML IVC SCH (15:00)
--- NOTE | 2017-09-01 16:11 | Spine Progress Note ---
Date of Encounter: 09/01/17 Time of Encounter: 13:05 - Assessment and Plan (1) Degenerative scoliosis Current Visit: Yes Status: Chronic (2) Lumbar stenosis Current Visit: Yes Status: Chronic Qualifiers: Neurogenic claudication status: with neurogenic claudication Qualified Code (s): M48.062 - Spinal stenosis, lumbar region with neurogenic claudication Subjective Principal diagnosis: Degenerative scoliosis, lumbar stenosis, lumbar radiculopathy Interval history: The patient has some back pain but denies any chest pain or radicular symptoms. Afebrile vital signs are stable. Incision is clean dry and intact. Neurovascularly intact with regard to bilateral lower extremities. Fires all upper and lower extremity motor groups. Assessment :stable. Plan mobilize , continue analgesics, discharge planning per hospitalist, cardiology, and nephrology services. Objective Vital signs: Vital Signs Temp Pulse Resp BP Pulse Ox 09/01/17 11:38 98.9 F 77 16 111/66 94 09/01/17 07:51 98.1 F 89 14 125/79 98 09/01/17 05:04 97.4 F L 96 18 106/62 95 09/01/17 03:45 96 08/31/17 23:29 98.6 F 84 18 100/60 96 08/31/17 19:59 105 08/31/17 19:14 100.2 F H 102 18 128/85 94 Intake and Output 09/01/17 09/01/17 09/01/17 07:59 15:59 23:59 Output Total 1175 / 1175 Balance -1175 / -1175 Output: Catheter 1175 / 1175 Other: Weight 77.3 kg Blood Glucose* 223 145 Patient Weight 09/01/17 23:59 Weight 77.3 kg - Labs CBC & BMP: 09/01/17 03:25 09/01/17 03:25 Labs: Abnormal lab results RBC 3.38 M/mcL (4.19-5.50) L 09/01/17 03:25 Hgb 9.8 g/dL (12.9-16.9) L 09/01/17 03:25 Hct 30.4 % (37.5-50.1) L 09/01/17 03:25 PT 13.1 Seconds (9.4-12.1) H 08/28/17 21:08 APTT 23.6 Seconds (26.0-36.0) L 08/28/17 21:08 Sodium 133 mEq/L (136-145) L 09/01/17 03:25 BUN 51 mg/dL (8-26) H 09/01/17 03:25 Creatinine 2.60 mg/dL (0.72-1.25) H 09/01/17 03:25 Est GFR ( Amer) 29 (> 60) L 09/01/17 03:25 Est GFR (Non-Af Amer) 24 (> 60) L 09/01/17 03:25 Glucose 190 mg/dL (70-99) H 09/01/17 03:25 POC Glucose 223 (58-89) H 09/01/17 07:51 Hemoglobin A1c 5.9 % (-5.6) H 08/30/17 06:08 Calcium 8.2 mg/dL (8.6-10.8) L 09/01/17 03:25 Troponin I 19.58 ng/mL (0-0.03) H* 08/29/17 17:49 Serum Total Protein 5.4 g/dL (6.0-8.3) L 09/01/17 03:25 Albumin 2.2 g/dL (3.5-5.0) L 09/01/17 03:25 Albumin/Globulin Ratio 0.7 (1.1-2.2) L 09/01/17 03:25 HDL Cholesterol 27 mg/dL (40-59) L 08/29/17 04:05 Ur Specific [place] > 1.030 (1.010-1.025) H 08/30/17 15:20 Urine Protein 100 mg/dL (Neg-Trace) H 08/30/17 15:20 Urine Blood Large (Negative) H 08/30/17 15:20 Urine Microscopic RBC 5-15 per hpf (0-3) H 08/30/17 15:20 Urine Microscopic WBC 3-5 per hpf (0-3) H 08/30/17 15:20 Ur Squamous Epith Cells Moderate per lpf (None-Few) H 08/30/17 15:20 Consult Discharge Plan - Plan Additional Instructions: RISK FACTORS: STOP SMOKING: If you smoke, STOP. Smoking or tobacco use significantly increases your risk of heart disease because nicotine causes the arteries to narrow or constrict. It also causes fats to stick to the artery. Your chances of having a heart attack are greatly increased if you continue to smoke. For more information, call the education line for smoking cessation 6-651-TVCLYWZ EAT A LOW FAT/CHOLESTEROL/SODIUM DIET: This diet may help reduce your chances of having a heart attack. LIFTING: Avoid lifting anything more than 10 pounds for 5-7 days Prior to straining, laughing, sneezing and/or coughing, apply manual pressure directly over insertion site. ACTIVITY: You may walk or climb stairs as tolerated You can resume sexual activity as tolerated In general, you are encouraged to engage in a minimum of 30 minutes or more of moderate intensity physical activity, such as brisk walking, daily or at least 3 -4 times weekly BATHING Do not submerge the site into water (bath tub, hot tub, swimming pool) for 1 week. This can be a source for infection into the blood stream. You may shower after 24 hours SITE CARE: After 24 hours, you may remove the dressing and leave the site open to air. Keep the site clean and dry. Clean gently and pat dry. You can expect bruising and tenderness that gradually resolve within a week or two. Return to work as instructed per your physician Resume driving as instructed per physician Keep all scheduled follow up appointments Resume medications as instructed IMPORTANT: If prescribed a Platelet Aggregation Inhibitor such as, Plavix, Brilinta or Effient: Duration of therapy is minimum one year These medications are often used in combination with Aspirin in prevention of future heart attacks Never discontinue unless consult with your Rn First Assist STROKE (CVA) Risk factors for a stroke are: Age, cigarette smoking, diabetes, excessive alcohol consumption, family history, high blood pressure, overweight, physical inactivity, prior stroke, heart attack, diagnosis of carotid artery stenosis or other artery disease. Warning signs: Sudden numbness or weakness of the face, arm or leg; especially on one side of the body, sudden confusion, trouble speaking or understanding, sudden trouble seeing in one or both eyes, sudden trouble walking, dizziness, loss of balance or coordination, sudden severe headache with no cause. Call 911 or go to the Emergency Room. CONGESTIVE HEART FAILURE: If you have been diagnosed with Congestive Heart Failure (CHF) and your symptoms return, make an appointment with your physician Weigh yourself daily. Notify your physician if you have a weight gain of two or more pounds in one day or five or more pounds in one week. If you experience any difficulty breathing, please call 911 BLEEDING: Although the risk of bleeding is minimal, it can happen. If you have any bleeding from the site, apply firm pressure above the puncture site for 10-15 minutes. If the bleeding does not stop, continue manual pressure and call 911 Contact your physician if: You develop a fever greater than 101 degrees Fahrenheit Your site becomes reddened or has any drainage You have an increase in pain or burning at the site or if a large knot forms at the site. If you experience chest pain, shortness of breath, dizziness, or extreme tiredness, stop the activity and rest. Please notify your physicians office if you experience any of these symptoms and they are not relieved by rest please call 911! Referrals: Danii Camp PAC [Physician Manufactured Buildings Repairer] - 09/09/17 9:30 am Isaías Cartwright DO [Partnered Physician] - (CARDIOLOGY OFFICE WILL CALL PATIENT AT HOME WITH FOLLOW UP APPOINTMENT) Wilton Santizo Jr, MD [Partnered Physician] - 11/27/17 11:45 am Damaris Montano CNP [Primary Care Provider] - 09/08/17 1:00 pm Prescriptions: OxyCODONE Immed Rel [Roxicodone 5 MG] 5 mg PO Q4HR PRN #28 tablet PRN Reason: Severe Pain
[2017-09-01] MEDS: traZODone 50 MG TABLET PO SCH (20:20)
[2017-09-01] MEDS: *HR* Morphine 2 MG/ML SYRINGE IVP PRN (20:21)
[2017-09-02 06:00] LABS: Calcium 8.3 mg/dL (8.6-10.8); Potassium 4.1 mEq/L (3.5-4.5)
[2017-09-02] MEDS: *HR* OxyCODONE Immed Rel 5 MG TABLET PO PRN ×3 (06:37→23:02)
[2017-09-02] MEDS: Insulin LISPRO 300 UNITS/3 ML VIAL SQ SCH ×7 (08:14→23:03)
[2017-09-02] MEDS: Finasteride 5 MG TABLET PO SCH (08:26)
[2017-09-02] MEDS: Aspirin Enteric Coated 81 MG Tablet PO SCH (08:26)
[2017-09-02] MEDS: Metoprolol XL (24 HR) Succ 50 MG TAB.ER.24H PO SCH (08:27)
[2017-09-02] MEDS: Insulin DETEMIR 100 UNIT/ML X5UNITS SQ SCH ×2 (08:33→23:02)
[2017-09-02] MEDS: Acetaminophen 325 MG TABLET PO PRN ×2 (08:33→15:37)
[2017-09-02] MEDS: traZODone 50 MG TABLET PO SCH (23:02)
--- NOTE | 2017-09-02 23:31 | Internal Med Progress Note ---
Date of Encounter: 09/02/17 Time of Encounter: 15:38 - Assessment and plan (1) STEMI (ST elevation myocardial infarction) Current Visit: Yes Status: Acute Assessment and plan: Patient is currently chest pain-free. Cardiology was consulted, underwent left heart catheterization with PCI to ostial LAD. Continue aspirin, Plavix, beta so and statin. Echocardiogram shows reduced ejection fraction around 40% along with segmental systolic dysfunction, mild left ventricular diastolic dysfunction, aortic valve was not well visualized. - Cardiology is signed off and is coordinating an outpatient follow-up visit in one week. Dispo: - PT/OT recs ECF - Likely need to be discharged on Mejias with outpatient urology follow-up Will d/w CM and SW if should arrange appt or have inpatient consult. Qualifiers: Involved coronary artery: unspecified coronary artery Qualified Code(s): I21.3 - ST elevation (STEMI) myocardial infarction of unspecified site (2) Lumbar stenosis Current Visit: Yes Status: Chronic Assessment and plan: Spine surgery on board. Status post posterior lumbar fusion L3-5, postoperative day 5. No postoperative complications except mild anemia, however patient continues to be in severe pain. Continue pain control with when necessary IV Dilaudid and oral Roxicodone. Lumbar brace. Local wound care and postoperative wound follow-up per spine surgery. Physical and occupation therapy evaluation completed, recommend placement in extended care facility. director of medical staff services on board. Qualifiers: Neurogenic claudication status: with neurogenic claudication Qualified Code (s): M48.062 - Spinal stenosis, lumbar region with neurogenic claudication (3) Status post lumbar spinal fusion Current Visit: Yes Status: Acute (4) Acute blood loss anemia Current Visit: Yes Status: Resolved Assessment and plan: Likely related to recent spinal surgery. Received a total of 3 units PRBC since admission. Hemoglobin currently stable, currently 9.8. (5) MEL (acute kidney injury) Current Visit: Yes Status: Acute Assessment and plan: Nonoliguric. Serum creatinine improved from 2.6 is now 2.1. Had an episode of acute kidney injury at admission due to postoperative fluid shifts, from which he recovered. Seems to be having a second episode now secondary to contrast- induced nephropathy after undergoing urgent left heart catheterization. He has been given gentle hydration since then. Nephrology on board, continue to monitor closely. (6) Atrial fibrillation with RVR Current Visit: Yes Status: Acute Assessment and plan: Heart rate controlled today, <110 bpm. Continue oral metoprolol. Aspirin for anticoagulation. Cardiology follow-up noted, signed off at this time. Continue Telemetry monitoring. No signs of infection. TSH noted to be within normal limits. (7) BPH (benign prostatic hyperplasia) Current Visit: Yes Status: Chronic Assessment and plan: Patient failed voiding trial a second time during this hospitalization. Continue indwelling Mejias catheter at this time, . Continue finasteride. patient will likely need to be discharged on Mejias with outpatient urology follow-up Qualifiers: Lower urinary tract symptom presence: symptoms present Lower urinary tract symptom detail: urinary retention Qualified Code(s): N40.1 - Benign prostatic hyperplasia with lower urinary tract symptoms; R33.8 - Other retention of urine ; R33.8 - Other retention of urine (8) CAD (coronary artery disease) Current Visit: Yes Status: Acute Qualifiers: Coronary Disease-Associated Artery/Lesion type: [place] artery [place] vs. transplanted heart: [place] heart Associated angina: without angina Qualified Code(s): I25.10 - Atherosclerotic heart disease of [place] coronary artery without angina pectoris (9) DM type 2 (diabetes mellitus, type 2) Current Visit: Yes Status: Chronic Qualifiers: Diabetes mellitus complication status: with kidney complications Diabetes mellitus complication detail: with chronic kidney disease Diabetes mellitus truck terminal manager insulin use: without senior care use Chronic kidney disease stage: stage 3 (moderate) Qualified Code(s): E11.22 - Type 2 diabetes mellitus with diabetic chronic kidney disease; N18.3 - Chronic kidney disease, stage 3 ( moderate); N18.3 - Chronic kidney disease, stage 3 (moderate) (10) DVT prophylaxis Current Visit: Yes Status: Acute (11) HLD (hyperlipidemia) Current Visit: Yes Status: Chronic Qualifiers: Hyperlipidemia type: unspecified Qualified Code(s): E78.5 - Hyperlipidemia , unspecified (12) HTN (hypertension) Current Visit: Yes Status: Chronic Qualifiers: Hypertension type: essential hypertension Qualified Code(s): I10 - Essential (primary) hypertension - Subjective Interval history: No acute events, . Still has back pain, not acutely worsening. Denies chest pain, dyspnea, palpitations. - Constitutional Vitals: Temp Pulse Resp BP Pulse Ox 98.1 F 84 15 136/64 96 09/02/17 16:55 09/02/17 16:55 09/02/17 16:55 09/02/17 16:55 09/02/17 16:55 General appearance: Present: cooperative, A&O X 3, answers questions appropriately Exam: - Respiratory Respiratory exam: Present: CTAB. Absent: accessory muscle use, rales, rhonchi, wheezes - Cardiovascular Cardiovascular exam: Present: irregular rhythm, +S1, +S2. Absent: diastolic murmur, gallop, rubs, systolic murmur - GI/Abdominal GI/Abdominal exam: Present: normal bowel sounds, soft, no peritoneal signs. Absent: distended, tenderness - Extremities Exam Extremities exam: Present: full ROM, warm, radial pulses palpable and symmetrical. Absent: calf tenderness, cyanotic, pedal edema - Neurological Exam Neurological exam: Present: CN II-XII intact, oriented X3, no focal deficits. Absent: pronater drift, facial droop, speech deficit Internal Medicine: Result - Labs CBC & Chem 7: 09/01/17 03:25 09/02/17 05:23 Labs: BMP 09/02/17 05:23 Sodium 136 Potassium 4.1 Chloride 105 Carbon Dioxide 21 BUN 52 H Creatinine 2.18 H Glucose 104 H Calcium 8.3 L - ABG Interpretation ABG results: PT/INR, D-dimer PT 13.1 Seconds (9.4-12.1) H 08/28/17 21:08 - VTE Documentation of Mechanical Device: Intermittent pneumatic compression device Consult Discharge Plan - Plan Additional Instructions: RISK FACTORS: STOP SMOKING: If you smoke, STOP. Smoking or tobacco use significantly increases your risk of heart disease because nicotine causes the arteries to narrow or constrict. It also causes fats to stick to the artery. Your chances of having a heart attack are greatly increased if you continue to smoke. For more information, call the education line for smoking cessation 9-775-HJVMNGW EAT A LOW FAT/CHOLESTEROL/SODIUM DIET: This diet may help reduce your chances of having a heart attack. LIFTING: Avoid lifting anything more than 10 pounds for 5-7 days Prior to straining, laughing, sneezing and/or coughing, apply manual pressure directly over insertion site. ACTIVITY: You may walk or climb stairs as tolerated You can resume sexual activity as tolerated In general, you are encouraged to engage in a minimum of 30 minutes or more of moderate intensity physical activity, such as brisk walking, daily or at least 3 -4 times weekly BATHING Do not submerge the site into water (bath tub, hot tub, swimming pool) for 1 week. This can be a source for infection into the blood stream. You may shower after 24 hours SITE CARE: After 24 hours, you may remove the dressing and leave the site open to air. Keep the site clean and dry. Clean gently and pat dry. You can expect bruising and tenderness that gradually resolve within a week or two. Return to work as instructed per your physician Resume driving as instructed per physician Keep all scheduled follow up appointments Resume medications as instructed IMPORTANT: If prescribed a Platelet Aggregation Inhibitor such as, Plavix, Brilinta or Effient: Duration of therapy is minimum one year These medications are often used in combination with Aspirin in prevention of future heart attacks Never discontinue unless consult with your Loft Patternmaker STROKE (CVA) Risk factors for a stroke are: Age, cigarette smoking, diabetes, excessive alcohol consumption, family history, high blood pressure, overweight, physical inactivity, prior stroke, heart attack, diagnosis of carotid artery stenosis or other artery disease. Warning signs: Sudden numbness or weakness of the face, arm or leg; especially on one side of the body, sudden confusion, trouble speaking or understanding, sudden trouble seeing in one or both eyes, sudden trouble walking, dizziness, loss of balance or coordination, sudden severe headache with no cause. Call 911 or go to the Emergency Room. CONGESTIVE HEART FAILURE: If you have been diagnosed with Congestive Heart Failure (CHF) and your symptoms return, make an appointment with your physician Weigh yourself daily. Notify your physician if you have a weight gain of two or more pounds in one day or five or more pounds in one week. If you experience any difficulty breathing, please call 911 BLEEDING: Although the risk of bleeding is minimal, it can happen. If you have any bleeding from the site, apply firm pressure above the puncture site for 10-15 minutes. If the bleeding does not stop, continue manual pressure and call 911 Contact your physician if: You develop a fever greater than 101 degrees Fahrenheit Your site becomes reddened or has any drainage You have an increase in pain or burning at the site or if a large knot forms at the site. If you experience chest pain, shortness of breath, dizziness, or extreme tiredness, stop the activity and rest. Please notify your physicians office if you experience any of these symptoms and they are not relieved by rest please call 911! Referrals: Danii Camp PAC [Physician Cnc Machine Operator] - 09/09/17 9:30 am Isaías Cartwright DO [Partnered Physician] - (CARDIOLOGY OFFICE WILL CALL PATIENT AT HOME WITH FOLLOW UP APPOINTMENT) Wilton Santizo Jr, MD [Partnered Physician] - 11/27/17 11:45 am Damaris Montano CNP [Primary Care Provider] - 09/08/17 1:00 pm Prescriptions: OxyCODONE Immed Rel [Roxicodone 5 MG] 5 mg PO Q4HR PRN #28 tablet PRN Reason: Severe Pain
[2017-09-03] MEDS: *HR* Metoprolol 5 MG/5 ML VIAL IVP PRN (01:31)
[2017-09-03 05:22] LABS: Basophils # 0.1 K/mcL (0.0-0.2); Basophils % 0.6 %; Eosinophils # 0.4 K/mcL (0.0-0.6); Eosinophils % 4.2 %; Hematocrit 31.5 % (37.5-50.1); Hemoglobin 10.1 g/dL (12.9-16.9); Immature Granulocytes % 1.1 % (0-4); Lymphocytes # 0.7 K/mcL (0.6-4.6); Lymphocytes % 7.2 %; Mean Corpuscular HGB Conc 32.1 g/dL (31.6-35.5); Mean Corpuscular Hemoglobin 28.7 pg (28.0-33.3); Mean Corpuscular Volume 89.5 fL (83.0-100.0); Mean Platelet Volume 10.4 fL (9.4-12.4); Monocytes # 1.3 K/mcL (0.0-1.3); Monocytes % 14.1 %; Neutrophils # 6.7 K/mcL (1.6-8.9); Platelet Count 337 K/mcL (140-400); Red Blood Count 3.52 M/mcL (4.19-5.50); Red Cell Distribution Width 14.2 % (11.5-14.5); Segmented Neutrophils % 72.8 %
[2017-09-03 05:36] LABS: Calcium 8.4 mg/dL (8.6-10.8); Potassium 4.4 mEq/L (3.5-4.5)
[2017-09-03] MEDS: *HR* OxyCODONE Immed Rel 5 MG TABLET PO PRN ×2 (06:12→17:09)
[2017-09-03] MEDS: Insulin LISPRO 300 UNITS/3 ML VIAL SQ SCH ×7 (08:16→23:28)
[2017-09-03] MEDS: *HR* Morphine 2 MG/ML SYRINGE IVP PRN (08:16)
[2017-09-03] MEDS: Metoprolol XL (24 HR) Succ 50 MG TAB.ER.24H PO SCH (08:17)
[2017-09-03] MEDS: Aspirin Enteric Coated 81 MG Tablet PO SCH (08:17)
[2017-09-03] MEDS: Finasteride 5 MG TABLET PO SCH (08:17)
[2017-09-03] MEDS: Insulin DETEMIR 100 UNIT/ML X5UNITS SQ SCH ×2 (08:47→23:26)
--- NOTE | 2017-09-03 11:28 | Spine Progress Note ---
Date of Encounter: 09/03/17 Time of Encounter: 14:30 - Assessment and Plan (1) Degenerative scoliosis Current Visit: Yes Status: Chronic (2) Lumbar stenosis Current Visit: Yes Status: Chronic Qualifiers: Neurogenic claudication status: with neurogenic claudication Qualified Code (s): M48.062 - Spinal stenosis, lumbar region with neurogenic claudication Subjective Principal diagnosis: Degenerative scoliosis, lumbar stenosis, lumbar radiculopathy Interval history: The patient has some back pain but denies any chest pain or radicular symptoms. Afebrile vital signs are stable. Incision is clean dry and intact. Neurovascularly intact with regard to bilateral lower extremities. Fires all upper and lower extremity motor groups. Assessment :stable. Plan mobilize , continue analgesics, discharge planning per hospitalist, cardiology, and nephrology services. Objective Vital signs: Vital Signs Temp Pulse Resp BP Pulse Ox 09/03/17 10:51 97.8 F 18 149/77 96 09/03/17 08:00 86.2 F L 82 16 118/72 97 09/03/17 05:39 97.8 F 91 18 148/77 94 09/03/17 00:32 98.4 F 110 16 158/88 99 09/02/17 16:55 98.1 F 84 15 136/64 96 09/02/17 12:03 98.2 F 90 15 135/74 95 Intake and Output 09/02/17 09/03/17 09/03/17 23:59 07:59 15:59 Output Total 725 / 725 1050 / 1050 Balance -725 / -725 -1050 / -1050 Output: Urine 725 / 725 Catheter 1050 / 1050 Other: Meal Breakfast Percent of Meal Consumed 95% Blood Glucose* 188 122 - Labs CBC & BMP: 09/03/17 04:27 09/03/17 04:27 Labs: Abnormal lab results RBC 3.52 M/mcL (4.19-5.50) L 09/03/17 04:27 Hgb 10.1 g/dL (12.9-16.9) L 09/03/17 04:27 Hct 31.5 % (37.5-50.1) L 09/03/17 04:27 PT 13.1 Seconds (9.4-12.1) H 08/28/17 21:08 APTT 23.6 Seconds (26.0-36.0) L 08/28/17 21:08 Sodium 135 mEq/L (136-145) L 09/03/17 04:27 BUN 52 mg/dL (8-26) H 09/03/17 04:27 Creatinine 2.15 mg/dL (0.72-1.25) H 09/03/17 04:27 Est GFR ( Amer) 36 (> 60) L 09/03/17 04:27 Est GFR (Non-Af Amer) 30 (> 60) L 09/03/17 04:27 Glucose 181 mg/dL (70-99) H 09/03/17 04:27 POC Glucose 122 (58-89) H 09/03/17 10:48 Hemoglobin A1c 5.9 % (-5.6) H 08/30/17 06:08 Calcium 8.4 mg/dL (8.6-10.8) L 09/03/17 04:27 Troponin I 19.58 ng/mL (0-0.03) H* 08/29/17 17:49 Serum Total Protein 5.4 g/dL (6.0-8.3) L 09/01/17 03:25 Albumin 2.2 g/dL (3.5-5.0) L 09/01/17 03:25 Albumin/Globulin Ratio 0.7 (1.1-2.2) L 09/01/17 03:25 HDL Cholesterol 27 mg/dL (40-59) L 08/29/17 04:05 Ur Specific [place] > 1.030 (1.010-1.025) H 08/30/17 15:20 Urine Protein 100 mg/dL (Neg-Trace) H 08/30/17 15:20 Urine Blood Large (Negative) H 08/30/17 15:20 Urine Microscopic RBC 5-15 per hpf (0-3) H 08/30/17 15:20 Urine Microscopic WBC 3-5 per hpf (0-3) H 08/30/17 15:20 Ur Squamous Epith Cells Moderate per lpf (None-Few) H 08/30/17 15:20 Consult Discharge Plan - Plan Additional Instructions: RISK FACTORS: STOP SMOKING: If you smoke, STOP. Smoking or tobacco use significantly increases your risk of heart disease because nicotine causes the arteries to narrow or constrict. It also causes fats to stick to the artery. Your chances of having a heart attack are greatly increased if you continue to smoke. For more information, call the education line for smoking cessation 5-832-RYYBYDC EAT A LOW FAT/CHOLESTEROL/SODIUM DIET: This diet may help reduce your chances of having a heart attack. LIFTING: Avoid lifting anything more than 10 pounds for 5-7 days Prior to straining, laughing, sneezing and/or coughing, apply manual pressure directly over insertion site. ACTIVITY: You may walk or climb stairs as tolerated You can resume sexual activity as tolerated In general, you are encouraged to engage in a minimum of 30 minutes or more of moderate intensity physical activity, such as brisk walking, daily or at least 3 -4 times weekly BATHING Do not submerge the site into water (bath tub, hot tub, swimming pool) for 1 week. This can be a source for infection into the blood stream. You may shower after 24 hours SITE CARE: After 24 hours, you may remove the dressing and leave the site open to air. Keep the site clean and dry. Clean gently and pat dry. You can expect bruising and tenderness that gradually resolve within a week or two. Return to work as instructed per your physician Resume driving as instructed per physician Keep all scheduled follow up appointments Resume medications as instructed IMPORTANT: If prescribed a Platelet Aggregation Inhibitor such as, Plavix, Brilinta or Effient: Duration of therapy is minimum one year These medications are often used in combination with Aspirin in prevention of future heart attacks Never discontinue unless consult with your Sewer And Inspector STROKE (CVA) Risk factors for a stroke are: Age, cigarette smoking, diabetes, excessive alcohol consumption, family history, high blood pressure, overweight, physical inactivity, prior stroke, heart attack, diagnosis of carotid artery stenosis or other artery disease. Warning signs: Sudden numbness or weakness of the face, arm or leg; especially on one side of the body, sudden confusion, trouble speaking or understanding, sudden trouble seeing in one or both eyes, sudden trouble walking, dizziness, loss of balance or coordination, sudden severe headache with no cause. Call 911 or go to the Emergency Room. CONGESTIVE HEART FAILURE: If you have been diagnosed with Congestive Heart Failure (CHF) and your symptoms return, make an appointment with your physician Weigh yourself daily. Notify your physician if you have a weight gain of two or more pounds in one day or five or more pounds in one week. If you experience any difficulty breathing, please call 911 BLEEDING: Although the risk of bleeding is minimal, it can happen. If you have any bleeding from the site, apply firm pressure above the puncture site for 10-15 minutes. If the bleeding does not stop, continue manual pressure and call 911 Contact your physician if: You develop a fever greater than 101 degrees Fahrenheit Your site becomes reddened or has any drainage You have an increase in pain or burning at the site or if a large knot forms at the site. If you experience chest pain, shortness of breath, dizziness, or extreme tiredness, stop the activity and rest. Please notify your physicians office if you experience any of these symptoms and they are not relieved by rest please call 911! Referrals: Danii Camp PAC [Physician Mold Changer] - 09/09/17 9:30 am Isaías Cartwright DO [Partnered Physician] - (CARDIOLOGY OFFICE WILL CALL PATIENT AT HOME WITH FOLLOW UP APPOINTMENT) Wilton Santizo Jr, MD [Partnered Physician] - 11/27/17 11:45 am Damaris Montano CNP [Primary Care Provider] - 09/08/17 1:00 pm Prescriptions: OxyCODONE Immed Rel [Roxicodone 5 MG] 5 mg PO Q4HR PRN #28 tablet PRN Reason: Severe Pain
--- NOTE | 2017-09-03 16:45 | Spine Progress Note ---
Date of Encounter: 09/03/17 Time of Encounter: 16:45 - Assessment and Plan (1) Degenerative scoliosis Current Visit: Yes Status: Chronic (2) Lumbar stenosis Current Visit: Yes Status: Chronic Qualifiers: Neurogenic claudication status: with neurogenic claudication Qualified Code (s): M48.062 - Spinal stenosis, lumbar region with neurogenic claudication Subjective Principal diagnosis: Degenerative scoliosis, lumbar stenosis, lumbar radiculopathy Interval history: The patient has some back pain but denies any chest pain or radicular symptoms. Afebrile vital signs are stable. Incision is clean dry and intact. Neurovascularly intact with regard to bilateral lower extremities. Fires all upper and lower extremity motor groups. Assessment :stable. Plan mobilize , continue analgesics, discharge planning per hospitalist, cardiology, and nephrology services. Objective Vital signs: Vital Signs Temp Pulse Resp BP Pulse Ox 09/03/17 10:51 97.8 F 18 149/77 96 09/03/17 08:00 86.2 F L 82 16 118/72 97 09/03/17 05:39 97.8 F 91 18 148/77 94 09/03/17 00:32 98.4 F 110 16 158/88 99 09/02/17 16:55 98.1 F 84 15 136/64 96 Intake and Output 09/03/17 09/03/17 09/03/17 07:59 15:59 23:59 Intake Total 500 / 500 Output Total 1050 / 1050 Balance -1050 / -1050 500 / 500 Intake: Oral 500 / 500 Output: Catheter 1050 / 1050 Other: Meal Breakfast Percent of Meal Consumed 95% Blood Glucose* 122 - Labs CBC & BMP: 09/03/17 04:27 09/03/17 04:27 Labs: Abnormal lab results RBC 3.52 M/mcL (4.19-5.50) L 09/03/17 04:27 Hgb 10.1 g/dL (12.9-16.9) L 09/03/17 04:27 Hct 31.5 % (37.5-50.1) L 09/03/17 04:27 PT 13.1 Seconds (9.4-12.1) H 08/28/17 21:08 APTT 23.6 Seconds (26.0-36.0) L 08/28/17 21:08 Sodium 135 mEq/L (136-145) L 09/03/17 04:27 BUN 52 mg/dL (8-26) H 09/03/17 04:27 Creatinine 2.15 mg/dL (0.72-1.25) H 09/03/17 04:27 Est GFR ( Amer) 36 (> 60) L 09/03/17 04:27 Est GFR (Non-Af Amer) 30 (> 60) L 09/03/17 04:27 Glucose 181 mg/dL (70-99) H 09/03/17 04:27 POC Glucose 122 (58-89) H 09/03/17 10:48 Hemoglobin A1c 5.9 % (-5.6) H 08/30/17 06:08 Calcium 8.4 mg/dL (8.6-10.8) L 09/03/17 04:27 Troponin I 19.58 ng/mL (0-0.03) H* 08/29/17 17:49 Serum Total Protein 5.4 g/dL (6.0-8.3) L 09/01/17 03:25 Albumin 2.2 g/dL (3.5-5.0) L 09/01/17 03:25 Albumin/Globulin Ratio 0.7 (1.1-2.2) L 09/01/17 03:25 HDL Cholesterol 27 mg/dL (40-59) L 08/29/17 04:05 Ur Specific [place] > 1.030 (1.010-1.025) H 08/30/17 15:20 Urine Protein 100 mg/dL (Neg-Trace) H 08/30/17 15:20 Urine Blood Large (Negative) H 08/30/17 15:20 Urine Microscopic RBC 5-15 per hpf (0-3) H 08/30/17 15:20 Urine Microscopic WBC 3-5 per hpf (0-3) H 08/30/17 15:20 Ur Squamous Epith Cells Moderate per lpf (None-Few) H 08/30/17 15:20 Consult Discharge Plan - Plan Additional Instructions: RISK FACTORS: STOP SMOKING: If you smoke, STOP. Smoking or tobacco use significantly increases your risk of heart disease because nicotine causes the arteries to narrow or constrict. It also causes fats to stick to the artery. Your chances of having a heart attack are greatly increased if you continue to smoke. For more information, call the education line for smoking cessation 7-873-KKKOHYX EAT A LOW FAT/CHOLESTEROL/SODIUM DIET: This diet may help reduce your chances of having a heart attack. LIFTING: Avoid lifting anything more than 10 pounds for 5-7 days Prior to straining, laughing, sneezing and/or coughing, apply manual pressure directly over insertion site. ACTIVITY: You may walk or climb stairs as tolerated You can resume sexual activity as tolerated In general, you are encouraged to engage in a minimum of 30 minutes or more of moderate intensity physical activity, such as brisk walking, daily or at least 3 -4 times weekly BATHING Do not submerge the site into water (bath tub, hot tub, swimming pool) for 1 week. This can be a source for infection into the blood stream. You may shower after 24 hours SITE CARE: After 24 hours, you may remove the dressing and leave the site open to air. Keep the site clean and dry. Clean gently and pat dry. You can expect bruising and tenderness that gradually resolve within a week or two. Return to work as instructed per your physician Resume driving as instructed per physician Keep all scheduled follow up appointments Resume medications as instructed IMPORTANT: If prescribed a Platelet Aggregation Inhibitor such as, Plavix, Brilinta or Effient: Duration of therapy is minimum one year These medications are often used in combination with Aspirin in prevention of future heart attacks Never discontinue unless consult with your Trolley Collector STROKE (CVA) Risk factors for a stroke are: Age, cigarette smoking, diabetes, excessive alcohol consumption, family history, high blood pressure, overweight, physical inactivity, prior stroke, heart attack, diagnosis of carotid artery stenosis or other artery disease. Warning signs: Sudden numbness or weakness of the face, arm or leg; especially on one side of the body, sudden confusion, trouble speaking or understanding, sudden trouble seeing in one or both eyes, sudden trouble walking, dizziness, loss of balance or coordination, sudden severe headache with no cause. Call 911 or go to the Emergency Room. CONGESTIVE HEART FAILURE: If you have been diagnosed with Congestive Heart Failure (CHF) and your symptoms return, make an appointment with your physician Weigh yourself daily. Notify your physician if you have a weight gain of two or more pounds in one day or five or more pounds in one week. If you experience any difficulty breathing, please call 911 BLEEDING: Although the risk of bleeding is minimal, it can happen. If you have any bleeding from the site, apply firm pressure above the puncture site for 10-15 minutes. If the bleeding does not stop, continue manual pressure and call 911 Contact your physician if: You develop a fever greater than 101 degrees Fahrenheit Your site becomes reddened or has any drainage You have an increase in pain or burning at the site or if a large knot forms at the site. If you experience chest pain, shortness of breath, dizziness, or extreme tiredness, stop the activity and rest. Please notify your physicians office if you experience any of these symptoms and they are not relieved by rest please call 911! Referrals: Danii Camp PAC [Physician Shoulder Puncher] - 09/09/17 9:30 am Isaías Cartwright DO [Partnered Physician] - (CARDIOLOGY OFFICE WILL CALL PATIENT AT HOME WITH FOLLOW UP APPOINTMENT) Wilton Santizo Jr, MD [Partnered Physician] - 11/27/17 11:45 am Damaris Montano CNP [Primary Care Provider] - 09/08/17 1:00 pm Prescriptions: OxyCODONE Immed Rel [Roxicodone 5 MG] 5 mg PO Q4HR PRN #28 tablet PRN Reason: Severe Pain
[2017-09-03] MEDS: traZODone 50 MG TABLET PO SCH (21:41)
--- NOTE | 2017-09-03 23:01 | Internal Med Progress Note ---
Date of Encounter: 09/03/17 Time of Encounter: 11:00 - Assessment and plan (1) STEMI (ST elevation myocardial infarction) Current Visit: Yes Status: Acute Assessment and plan: Patient is currently chest pain-free. Cardiology was consulted, underwent left heart catheterization with PCI to ostial LAD. Continue aspirin, Plavix, beta so and statin. Echocardiogram shows reduced ejection fraction around 40% along with segmental systolic dysfunction, mild left ventricular diastolic dysfunction, aortic valve was not well visualized. Cardiology outpatient follow- up visit in one week. Dispo: - Discharge to ECF in AM. - Discharge with [facility] with outpatient urology follow-up Qualifiers: Involved coronary artery: unspecified coronary artery Qualified Code(s): I21.3 - ST elevation (STEMI) myocardial infarction of unspecified site (2) Lumbar stenosis Current Visit: Yes Status: Chronic Assessment and plan: Spine surgery on board. Status post posterior lumbar fusion L3-5, postoperative day 5. No postoperative complications except mild anemia, however patient continues to be in severe pain. Continue pain control with when necessary IV Dilaudid and oral Roxicodone. Lumbar brace. Local wound care and postoperative wound follow-up per spine surgery. Qualifiers: Neurogenic claudication status: with neurogenic claudication Qualified Code (s): M48.062 - Spinal stenosis, lumbar region with neurogenic claudication (3) Status post lumbar spinal fusion Current Visit: Yes Status: Acute (4) Acute blood loss anemia Current Visit: Yes Status: Resolved (5) MEL (acute kidney injury) Current Visit: Yes Status: Acute Assessment and plan: Had an episode of acute kidney injury at admission due to postoperative fluid shifts, from which he recovered. Seems to be having a second episode now secondary to contrast-induced nephropathy after undergoing urgent left heart catheterization. He has been given gentle hydration since then. Patient now at baseline Cr of 2.1 (6) Atrial fibrillation with RVR Current Visit: Yes Status: Acute (7) BPH (benign prostatic hyperplasia) Current Visit: Yes Status: Chronic Qualifiers: Lower urinary tract symptom presence: symptoms present Lower urinary tract symptom detail: urinary retention Qualified Code(s): N40.1 - Benign prostatic hyperplasia with lower urinary tract symptoms; R33.8 - Other retention of urine ; R33.8 - Other retention of urine (8) CAD (coronary artery disease) Current Visit: Yes Status: Acute Qualifiers: Coronary Disease-Associated Artery/Lesion type: [place] artery [place] vs. transplanted heart: campo heart Associated angina: without angina Qualified Code(s): I25.10 - Atherosclerotic heart disease of [place] coronary artery without angina pectoris (9) DM type 2 (diabetes mellitus, type 2) Current Visit: Yes Status: Chronic Qualifiers: Diabetes mellitus complication status: with kidney complications Diabetes mellitus complication detail: with chronic kidney disease Diabetes mellitus longterm insulin use: without parts counterman use Chronic kidney disease stage: stage 3 (moderate) Qualified Code(s): E11.22 - Type 2 diabetes mellitus with diabetic chronic kidney disease; N18.3 - Chronic kidney disease, stage 3 ( moderate); N18.3 - Chronic kidney disease, stage 3 (moderate) (10) DVT prophylaxis Current Visit: Yes Status: Acute (11) HLD (hyperlipidemia) Current Visit: Yes Status: Chronic Qualifiers: Hyperlipidemia type: unspecified Qualified Code(s): E78.5 - Hyperlipidemia , unspecified (12) HTN (hypertension) Current Visit: Yes Status: Chronic Qualifiers: Hypertension type: essential hypertension Qualified Code(s): I10 - Essential (primary) hypertension - Subjective Interval history: No acute events. Pain stable. No breakthrough pain. - Constitutional Vitals: Temp Pulse Resp BP Pulse Ox 98.9 F 104 18 123/87 98 09/03/17 19:47 09/03/17 19:47 09/03/17 19:47 09/03/17 19:47 09/03/17 19:47 General appearance: Present: cooperative, A&O X 3, answers questions appropriately Exam: - Respiratory Respiratory exam: Present: CTAB. Absent: accessory muscle use, rales, rhonchi, wheezes - Cardiovascular Cardiovascular exam: Present: irregular rhythm, +S1, +S2. Absent: diastolic murmur, gallop, rubs, systolic murmur - GI/Abdominal GI/Abdominal exam: Present: normal bowel sounds, soft, no peritoneal signs. Absent: distended, tenderness - Extremities Exam Extremities exam: Present: full ROM, warm, radial pulses palpable and symmetrical. Absent: calf tenderness, cyanotic, pedal edema - Neurological Exam Neurological exam: Present: CN II-XII intact, oriented X3, no focal deficits. Absent: pronater drift, facial droop, speech deficit Internal Medicine: Result - Labs CBC & Chem 7: 09/03/17 04:27 09/03/17 04:27 Labs: Short CBC 09/03/17 Range/Units 04:27 WBC 9.3 (4.3-11.1) K/mcL Hgb 10.1 L (12.9-16.9) g/dL Hct 31.5 L (37.5-50.1) % Plt Count 337 (140-400) K/mcL Neutrophils # 6.7 (1.6-8.9) K/mcL BMP 09/03/17 04:27 Sodium 135 L Potassium 4.4 Chloride 106 Carbon Dioxide 21 BUN 52 H Creatinine 2.15 H Glucose 181 H Calcium 8.4 L - ABG Interpretation ABG results: PT/INR, D-dimer PT 13.1 Seconds (9.4-12.1) H 08/28/17 21:08 - VTE Documentation of Mechanical Device: Intermittent pneumatic compression device Consult Discharge Plan - Plan Additional Instructions: RISK FACTORS: STOP SMOKING: If you smoke, STOP. Smoking or tobacco use significantly increases your risk of heart disease because nicotine causes the arteries to narrow or constrict. It also causes fats to stick to the artery. Your chances of having a heart attack are greatly increased if you continue to smoke. For more information, call the education line for smoking cessation 5-561-PWIIGOH EAT A LOW FAT/CHOLESTEROL/SODIUM DIET: This diet may help reduce your chances of having a heart attack. LIFTING: Avoid lifting anything more than 10 pounds for 5-7 days Prior to straining, laughing, sneezing and/or coughing, apply manual pressure directly over insertion site. ACTIVITY: You may walk or climb stairs as tolerated You can resume sexual activity as tolerated In general, you are encouraged to engage in a minimum of 30 minutes or more of moderate intensity physical activity, such as brisk walking, daily or at least 3 -4 times weekly BATHING Do not submerge the site into water (bath tub, hot tub, swimming pool) for 1 week. This can be a source for infection into the blood stream. You may shower after 24 hours SITE CARE: After 24 hours, you may remove the dressing and leave the site open to air. Keep the site clean and dry. Clean gently and pat dry. You can expect bruising and tenderness that gradually resolve within a week or two. Return to work as instructed per your physician Resume driving as instructed per physician Keep all scheduled follow up appointments Resume medications as instructed IMPORTANT: If prescribed a Platelet Aggregation Inhibitor such as, Plavix, Brilinta or Effient: Duration of therapy is minimum one year These medications are often used in combination with Aspirin in prevention of future heart attacks Never discontinue unless consult with your Director Of Cardiology STROKE (CVA) Risk factors for a stroke are: Age, cigarette smoking, diabetes, excessive alcohol consumption, family history, high blood pressure, overweight, physical inactivity, prior stroke, heart attack, diagnosis of carotid artery stenosis or other artery disease. Warning signs: Sudden numbness or weakness of the face, arm or leg; especially on one side of the body, sudden confusion, trouble speaking or understanding, sudden trouble seeing in one or both eyes, sudden trouble walking, dizziness, loss of balance or coordination, sudden severe headache with no cause. Call 911 or go to the Emergency Room. CONGESTIVE HEART FAILURE: If you have been diagnosed with Congestive Heart Failure (CHF) and your symptoms return, make an appointment with your physician Weigh yourself daily. Notify your physician if you have a weight gain of two or more pounds in one day or five or more pounds in one week. If you experience any difficulty breathing, please call 911 BLEEDING: Although the risk of bleeding is minimal, it can happen. If you have any bleeding from the site, apply firm pressure above the puncture site for 10-15 minutes. If the bleeding does not stop, continue manual pressure and call 911 Contact your physician if: You develop a fever greater than 101 degrees Fahrenheit Your site becomes reddened or has any drainage You have an increase in pain or burning at the site or if a large knot forms at the site. If you experience chest pain, shortness of breath, dizziness, or extreme tiredness, stop the activity and rest. Please notify your physicians office if you experience any of these symptoms and they are not relieved by rest please call 911! Referrals: Danii Camp PAC [Physician Social Media Job Titles] - 09/09/17 9:30 am Isaías Cartwright DO [Partnered Physician] - (CARDIOLOGY OFFICE WILL CALL PATIENT AT HOME WITH FOLLOW UP APPOINTMENT) Wilton Santizo Jr, MD [Partnered Physician] - 11/27/17 11:45 am Dusty,Damaris M, FIRE EXTINGUISHER REPAIRER INSPECTOR [Primary Care Provider] - 09/08/17 1:00 pm Prescriptions: OxyCODONE Immed Rel [Roxicodone 5 MG] 5 mg PO Q4HR PRN #28 tablet PRN Reason: Severe Pain
[2017-09-04 05:07] LABS: Basophils # 0.1 K/mcL (0.0-0.2); Basophils % 0.7 %; Eosinophils # 0.4 K/mcL (0.0-0.6); Eosinophils % 4.4 %; Hematocrit 34.8 % (37.5-50.1); Hemoglobin 11.2 g/dL (12.9-16.9); Immature Granulocytes % 1.7 % (0-4); Lymphocytes # 0.8 K/mcL (0.6-4.6); Lymphocytes % 8.8 %; Mean Corpuscular HGB Conc 32.2 g/dL (31.6-35.5); Mean Corpuscular Volume 90.2 fL (83.0-100.0); Mean Platelet Volume 10.1 fL (9.4-12.4); Monocytes # 1.2 K/mcL (0.0-1.3); Monocytes % 13.5 %; Neutrophils # 6.1 K/mcL (1.6-8.9); Platelet Count 392 K/mcL (140-400); Red Blood Count 3.86 M/mcL (4.19-5.50); Red Cell Distribution Width 14.2 % (11.5-14.5); Segmented Neutrophils % 70.9 %
[2017-09-04 05:18] LABS: Calcium 8.5 mg/dL (8.6-10.8); Potassium 4.4 mEq/L (3.5-4.5)
[2017-09-04] MEDS: Insulin LISPRO 300 UNITS/3 ML VIAL SQ SCH ×4 (08:48→11:51)
[2017-09-04] MEDS: Metoprolol XL (24 HR) Succ 50 MG TAB.ER.24H PO SCH (08:49)
[2017-09-04] MEDS: Finasteride 5 MG TABLET PO SCH (08:49)
[2017-09-04] MEDS: Aspirin Enteric Coated 81 MG Tablet PO SCH (08:49)
[2017-09-04] MEDS: Insulin DETEMIR 100 UNIT/ML X5UNITS SQ SCH (08:50)
[2017-09-04] MEDS: *HR* OxyCODONE Immed Rel 5 MG TABLET PO PRN ×2 (08:50→14:02)
--- NOTE | 2017-09-04 08:51 | Nephrology Progress Note ---
Date of Encounter: 09/04/17 Time of Encounter: 08:30 - Assessment and Plan (1) MEL (acute kidney injury) Current Visit: Yes Status: Acute MEL/CKD. S/P lumbar spine fusion with MEL that resolved. S/P heart catheterization and appears to have had second episode of MEL, most likely contrast nephropathy. Renal fct improved, at patient baseline. Creat 1.98, GFR 33. Doc. urine output 1650cc. Subjective Principal diagnosis: Degenerative scoliosis, lumbar stenosis, lumbar radiculopathy Interval history: Walking with walker in room with PT. Objective - Vital Signs Vital signs: Vital Signs Temp Pulse Resp BP Pulse Ox 09/04/17 06:43 98.1 F 94 16 128/73 99 09/04/17 03:56 97.7 F 89 16 123/70 99 09/03/17 23:18 98.4 F 109 16 130/82 94 09/03/17 19:47 98.9 F 104 18 123/87 98 09/03/17 17:14 98.6 F 105 16 138/74 98 09/03/17 10:51 97.8 F 18 149/77 96 Intake and Output 09/03/17 09/04/17 09/04/17 23:59 07:59 15:59 Intake Total 700 / 700 Output Total 600 / 600 Balance 100 / 100 Intake: Oral 700 / 700 Output: Catheter 600 / 600 Other: Meal Dinner Percent of Meal Consumed 25% Blood Glucose* 129 96 - General Appearance General appearance: Present: well-developed, well-nourished, appears started age EENT: Present: mucous membranes moist Neck: Present: no JVD Respiratory: Present: clear Cardiology: Present: no edema, regular rate, regular rhythm Gastrointestinal: Present: normoactive bowel sounds, no tenderness Integumentary: Present: warm and dry Neurologic: Present: alert and oriented x3 Psychiatric: Present: mood/affect appropriate, cooperative - Lab 09/04/17 04:50 09/04/17 04:50 Most recent lab results Calcium 8.5 mg/dL (8.6-10.8) L 09/04/17 04:50 Magnesium 1.6 mg/dL (1.6-2.6) 09/01/17 03:25 - VTE Documentation of Mechanical Device: Intermittent pneumatic compression device Consult Discharge Plan - Plan Additional Instructions: RISK FACTORS: STOP SMOKING: If you smoke, STOP. Smoking or tobacco use significantly increases your risk of heart disease because nicotine causes the arteries to narrow or constrict. It also causes fats to stick to the artery. Your chances of having a heart attack are greatly increased if you continue to smoke. For more information, call the education line for smoking cessation 7-984-BYJCKWX EAT A LOW FAT/CHOLESTEROL/SODIUM DIET: This diet may help reduce your chances of having a heart attack. LIFTING: Avoid lifting anything more than 10 pounds for 5-7 days Prior to straining, laughing, sneezing and/or coughing, apply manual pressure directly over insertion site. ACTIVITY: You may walk or climb stairs as tolerated You can resume sexual activity as tolerated In general, you are encouraged to engage in a minimum of 30 minutes or more of moderate intensity physical activity, such as brisk walking, daily or at least 3 -4 times weekly BATHING Do not submerge the site into water (bath tub, hot tub, swimming pool) for 1 week. This can be a source for infection into the blood stream. You may shower after 24 hours SITE CARE: After 24 hours, you may remove the dressing and leave the site open to air. Keep the site clean and dry. Clean gently and pat dry. You can expect bruising and tenderness that gradually resolve within a week or two. Return to work as instructed per your physician Resume driving as instructed per physician Keep all scheduled follow up appointments Resume medications as instructed IMPORTANT: If prescribed a Platelet Aggregation Inhibitor such as, Plavix, Brilinta or Effient: Duration of therapy is minimum one year These medications are often used in combination with Aspirin in prevention of future heart attacks Never discontinue unless consult with your Civil Engineer Helper STROKE (CVA) Risk factors for a stroke are: Age, cigarette smoking, diabetes, excessive alcohol consumption, family history, high blood pressure, overweight, physical inactivity, prior stroke, heart attack, diagnosis of carotid artery stenosis or other artery disease. Warning signs: Sudden numbness or weakness of the face, arm or leg; especially on one side of the body, sudden confusion, trouble speaking or understanding, sudden trouble seeing in one or both eyes, sudden trouble walking, dizziness, loss of balance or coordination, sudden severe headache with no cause. Call 911 or go to the Emergency Room. CONGESTIVE HEART FAILURE: If you have been diagnosed with Congestive Heart Failure (CHF) and your symptoms return, make an appointment with your physician Weigh yourself daily. Notify your physician if you have a weight gain of two or more pounds in one day or five or more pounds in one week. If you experience any difficulty breathing, please call 911 BLEEDING: Although the risk of bleeding is minimal, it can happen. If you have any bleeding from the site, apply firm pressure above the puncture site for 10-15 minutes. If the bleeding does not stop, continue manual pressure and call 911 Contact your physician if: You develop a fever greater than 101 degrees Fahrenheit Your site becomes reddened or has any drainage You have an increase in pain or burning at the site or if a large knot forms at the site. If you experience chest pain, shortness of breath, dizziness, or extreme tiredness, stop the activity and rest. Please notify your physicians office if you experience any of these symptoms and they are not relieved by rest please call 911! Referrals: Danii Camp PAC [Physician Sales Representative Supervisor] - 09/09/17 9:30 am Isaías Cartwright DO [Partnered Physician] - (CARDIOLOGY OFFICE WILL CALL PATIENT AT HOME WITH FOLLOW UP APPOINTMENT) Wilton Santizo Jr, MD [Partnered Physician] - 11/27/17 11:45 am Damaris Montano CNP [Primary Care Provider] - 09/08/17 1:00 pm Prescriptions: OxyCODONE Immed Rel [Roxicodone 5 MG] 5 mg PO Q4HR PRN #28 tablet PRN Reason: Severe Pain
[2017-09-04 11:45] VITALS: BP 137/76
--- NOTE | 2017-09-04 14:12 | Discharge Summary ---
Date of Encounter: 09/04/17 Time of Encounter: 14:01 - Discharge Diagnosis (1) Status post lumbar spinal fusion Priority: Primary Status: Acute (2) STEMI (ST elevation myocardial infarction) Priority: Secondary Status: Acute Qualifiers: Involved coronary artery: unspecified coronary artery Qualified Code(s): I21.3 - ST elevation (STEMI) myocardial infarction of unspecified site (3) Lumbar stenosis Priority: Secondary Status: Chronic Qualifiers: Neurogenic claudication status: with neurogenic claudication Qualified Code (s): M48.062 - Spinal stenosis, lumbar region with neurogenic claudication (4) Acute blood loss anemia Priority: Secondary Status: Resolved (5) MEL (acute kidney injury) Priority: Secondary Status: Resolved Comments: Hydration and second time was Secondary to IV contrast. has resolved. (6) Atrial fibrillation with RVR Priority: Secondary Status: Acute (7) BPH (benign prostatic hyperplasia) Priority: Secondary Status: Chronic Qualifiers: Lower urinary tract symptom presence: symptoms present Lower urinary tract symptom detail: urinary retention Qualified Code(s): N40.1 - Benign prostatic hyperplasia with lower urinary tract symptoms; R33.8 - Other retention of urine ; R33.8 - Other retention of urine (8) CAD (coronary artery disease) Priority: Secondary Status: Acute Qualifiers: Coronary Disease-Associated Artery/Lesion type: [place] artery [place] vs. transplanted heart: [place] heart Associated angina: without angina Qualified Code(s): I25.10 - Atherosclerotic heart disease of [place] coronary artery without angina pectoris (9) DM type 2 (diabetes mellitus, type 2) Priority: Secondary Status: Chronic Qualifiers: Diabetes mellitus complication status: with kidney complications Diabetes mellitus complication detail: with chronic kidney disease Diabetes mellitus usp insulin use: without usp use Chronic kidney disease stage: stage 3 (moderate) Qualified Code(s): E11.22 - Type 2 diabetes mellitus with diabetic chronic kidney disease; N18.3 - Chronic kidney disease, stage 3 ( moderate); N18.3 - Chronic kidney disease, stage 3 (moderate) (10) DVT prophylaxis Priority: Secondary Status: Acute (11) HLD (hyperlipidemia) Priority: Secondary Status: Chronic Qualifiers: Hyperlipidemia type: unspecified Qualified Code(s): E78.5 - Hyperlipidemia , unspecified (12) HTN (hypertension) Priority: Secondary Status: Chronic Qualifiers: Hypertension type: essential hypertension Qualified Code(s): I10 - Essential (primary) hypertension - Discharge Medications Prescriptions: OxyCODONE Immed Rel [Roxicodone 5 MG] 5 mg PO Q4HR PRN #28 tablet PRN Reason: Severe Pain diazePAM [Valium] 5 mg PO Q6HR PRN #30 tablet PRN Reason: muscle spasms Atorvastatin [Lipitor] 80 mg PO HS #30 tablet Clopidogrel [Plavix] 75 mg PO DAILY #30 tablet Finasteride [Proscar] 5 mg PO DAILY #30 tablet Metoprolol XL (24 HR) Succ [Toprol Xl] 100 mg PO DAILY #30 tab.er.24h Home Medications: Glimepiride [Amaryl] 4 mg PO BID 06/24/15 [History] Lisinopril [Zestril] 10 mg PO DAILY 06/24/15 [History] Metformin [Glucophage] 1,000 mg PO BID 06/24/15 [History] Tramadol HCl [Ultram] 50 mg PO TID PRN 08/26/17 [History] Trazodone HCl 150 mg PO HS 08/26/17 [History] OxyCODONE Immed Rel [Roxicodone 5 MG] 5 mg PO Q4HR PRN #28 tablet 08/28/17 [Rx] Aspirin Enteric Coated [Aspirin EC] 81 mg PO DAILY tablet. 09/04/17 [Rx] Atorvastatin [Lipitor] 80 mg PO HS #30 tablet 09/04/17 [Rx] Clopidogrel [Plavix] 75 mg PO DAILY #30 tablet 09/04/17 [Rx] Finasteride [Proscar] 5 mg PO DAILY #30 tablet 09/04/17 [Rx] Metoprolol XL (24 HR) Succ [Toprol Xl] 100 mg PO DAILY #30 tab.er.24h 09/04/17 [ Rx] diazePAM [Valium] 5 mg PO Q6HR PRN #30 tablet 09/04/17 [Rx] Allergies/Adverse Reactions: 3 Allergy/AdvReac Type Severity Reaction Status Date / Time ibuprofen AdvReac See Verified 08/26/17 07:26 Comments Date of admission: 08/26/17 13:04 Primary care physician: Damaris Montano CNP Consults: 08/26/17 13:27 Consult to Occupational Therapy [CONS] Routine Comment: Evaluate, develop and implement POC Reason for Consult: Postoperative rehabilitation Consult to Physical Therapy [CONS] Routine Comment: Evaluate, develop and implement POC Reason for Consult: Postoperative rehabilitation Consult to Tool Dresser [CONS] Routine Reason for SW Consult: Postoperative rehabilitation Consult to Spine Navigator [CONS] [CONS] Routine 08/28/17 18:03 Consult to Hospitalist [CONS] Routine Consulting Provider: Al Lira Reason for Consult: decreased urine output- Dr. Santizo to call consult Call Completed: No 08/28/17 21:31 Consult to Cardiology [CONS] Routine Comment: Consulting Provider: Cardiology Mariana Reason for Consult: CP, STEMI with t-wave inversions on POD#2, Time Notified: 20:48 Call Completed: Yes 08/29/17 10:36 Consult to Nephrology [CONS] Routine Consulting Provider: Lance Can Reason for Consult: MEL s/p L3-5 fusion and incidental finding of STEMI Call Completed: No 08/29/17 12:16 Consult to Physician [CONS] Routine Consulting Provider: Wilton Santizo Jr Reason for Consult: SURGERY Call Completed: Yes 09/01/17 07:51 Consult to Cardiac Rehabilitation-Phase1 [CONS] Routine Comment: Reason for Consult: STEMI Call Completed: No Discharging clinician: Cely Sánchez - Patient Status Disposition: Transfer SNF Condition: Good Functional capacity at discharge: uses cane/walker Overall status at discharge: patient is progressing back to baseline - Discharge Instructions Follow Up With: Danii Camp PAC [Physician Manager Financial Planning] - 09/09/17 9:30 am Isaías Cartwright DO [Partnered Physician] - (CARDIOLOGY OFFICE WILL CALL PATIENT AT HOME WITH FOLLOW UP APPOINTMENT) Wilton Santizo Jr, MD [Partnered Physician] - 11/27/17 11:45 am Damaris Montano CNP [Primary Care Provider] - 10/22/17 9:00 am Additional Instructions: RISK FACTORS: STOP SMOKING: If you smoke, STOP. Smoking or tobacco use significantly increases your risk of heart disease because nicotine causes the arteries to narrow or constrict. It also causes fats to stick to the artery. Your chances of having a heart attack are greatly increased if you continue to smoke. For more information, call the education line for smoking cessation 9-326-SXPQLLY EAT A LOW FAT/CHOLESTEROL/SODIUM DIET: This diet may help reduce your chances of having a heart attack. LIFTING: Avoid lifting anything more than 10 pounds for 5-7 days Prior to straining, laughing, sneezing and/or coughing, apply manual pressure directly over insertion site. ACTIVITY: You may walk or climb stairs as tolerated You can resume sexual activity as tolerated In general, you are encouraged to engage in a minimum of 30 minutes or more of moderate intensity physical activity, such as brisk walking, daily or at least 3 -4 times weekly BATHING Do not submerge the site into water (bath tub, hot tub, swimming pool) for 1 week. This can be a source for infection into the blood stream. You may shower after 24 hours SITE CARE: After 24 hours, you may remove the dressing and leave the site open to air. Keep the site clean and dry. Clean gently and pat dry. You can expect bruising and tenderness that gradually resolve within a week or two. Return to work as instructed per your physician Resume driving as instructed per physician Keep all scheduled follow up appointments Resume medications as instructed IMPORTANT: If prescribed a Platelet Aggregation Inhibitor such as, Plavix, Brilinta or Effient: Duration of therapy is minimum one year These medications are often used in combination with Aspirin in prevention of future heart attacks Never discontinue unless consult with your Process Area Supervisor STROKE (CVA) Risk factors for a stroke are: Age, cigarette smoking, diabetes, excessive alcohol consumption, family history, high blood pressure, overweight, physical inactivity, prior stroke, heart attack, diagnosis of carotid artery stenosis or other artery disease. Warning signs: Sudden numbness or weakness of the face, arm or leg; especially on one side of the body, sudden confusion, trouble speaking or understanding, sudden trouble seeing in one or both eyes, sudden trouble walking, dizziness, loss of balance or coordination, sudden severe headache with no cause. Call 911 or go to the Emergency Room. CONGESTIVE HEART FAILURE: If you have been diagnosed with Congestive Heart Failure (CHF) and your symptoms return, make an appointment with your physician Weigh yourself daily. Notify your physician if you have a weight gain of two or more pounds in one day or five or more pounds in one week. If you experience any difficulty breathing, please call 911 BLEEDING: Although the risk of bleeding is minimal, it can happen. If you have any bleeding from the site, apply firm pressure above the puncture site for 10-15 minutes. If the bleeding does not stop, continue manual pressure and call 911 Contact your physician if: You develop a fever greater than 101 degrees Fahrenheit Your site becomes reddened or has any drainage You have an increase in pain or burning at the site or if a large knot forms at the site. If you experience chest pain, shortness of breath, dizziness, or extreme tiredness, stop the activity and rest. Please notify your physicians office if you experience any of these symptoms and they are not relieved by rest please call 911! - Diet and Activity Activity: as per physical therapy Diet: diabetic diet, low fat, low cholesterol, low salt diet Hospital course: Mr. Theodore is a 77 year old male - Time Spent with Patient Total time spent providing and/or coordinating discharge services: - Constitutional Vitals: Temp Pulse Resp BP Pulse Ox 98.3 F 69 16 137/76 98 09/04/17 11:44 09/04/17 11:44 09/04/17 11:44 09/04/17 11:44 09/04/17 11:44 General appearance: Present: cooperative, A&O X 3, answers questions appropriately - VTE Documentation of Mechanical Device: Intermittent pneumatic compression device
--- NOTE | 2017-09-04 14:56 | Physician Discharge Referral ---
ExtendedCare Referral Info Transfer To: [facility] Provider in Charge after Transfer: PCP Institutional Level of Care: Skilled - Diagnosis (1) Status post lumbar spinal fusion Priority: Primary Status: Acute (2) STEMI (ST elevation myocardial infarction) Priority: Secondary Status: Acute (3) Lumbar stenosis Priority: Secondary Status: Chronic (4) Acute blood loss anemia Priority: Secondary Status: Resolved (5) MEL (acute kidney injury) Priority: Secondary Status: Resolved (6) Atrial fibrillation with RVR Priority: Secondary Status: Acute (7) BPH (benign prostatic hyperplasia) Priority: Secondary Status: Chronic (8) CAD (coronary artery disease) Priority: Secondary Status: Acute (9) DM type 2 (diabetes mellitus, type 2) Priority: Secondary Status: Chronic (10) DVT prophylaxis Priority: Secondary Status: Acute (11) HLD (hyperlipidemia) Priority: Secondary Status: Chronic (12) HTN (hypertension) Priority: Secondary Status: Chronic - Transfer Medications Prescriptions: OxyCODONE Immed Rel [Roxicodone 5 MG] 5 mg PO Q4HR PRN #28 tablet PRN Reason: Severe Pain diazePAM [Valium] 5 mg PO Q6HR PRN #30 tablet PRN Reason: muscle spasms Atorvastatin [Lipitor] 80 mg PO HS #30 tablet Clopidogrel [Plavix] 75 mg PO DAILY #30 tablet Finasteride [Proscar] 5 mg PO DAILY #30 tablet Metoprolol XL (24 HR) Succ [Toprol Xl] 100 mg PO DAILY #30 tab.er.24h Home Medications: Glimepiride [Amaryl] 4 mg PO BID 06/24/15 [History] Lisinopril [Zestril] 10 mg PO DAILY 06/24/15 [History] Metformin [Glucophage] 1,000 mg PO BID 06/24/15 [History] Tramadol HCl [Ultram] 50 mg PO TID PRN 08/26/17 [History] Trazodone HCl 150 mg PO HS 08/26/17 [History] OxyCODONE Immed Rel [Roxicodone 5 MG] 5 mg PO Q4HR PRN #28 tablet 08/28/17 [Rx] Aspirin Enteric Coated [Aspirin EC] 81 mg PO DAILY tablet. 09/04/17 [Rx] Atorvastatin [Lipitor] 80 mg PO HS #30 tablet 09/04/17 [Rx] Clopidogrel [Plavix] 75 mg PO DAILY #30 tablet 09/04/17 [Rx] Finasteride [Proscar] 5 mg PO DAILY #30 tablet 09/04/17 [Rx] Metoprolol XL (24 HR) Succ [Toprol Xl] 100 mg PO DAILY #30 tab.er.24h 09/04/17 [ Rx] diazePAM [Valium] 5 mg PO Q6HR PRN #30 tablet 09/04/17 [Rx] Allergies/Adverse Reactions: 3 Allergy/AdvReac Type Severity Reaction Status Date / Time ibuprofen AdvReac See Verified 08/26/17 07:26 Comments - Respiratory Orders Smoking Cessation: Smoking cessation has been advised. For more information, call the [place] Tobacco Quit Line at 9-255-ZRTO-NOW. - Ancillary Orders May use pressure relief devices daily prn - Rehabiliation Orders Rehab Potential: Fair Rehab Orders: Evaluation for Physical Therapy, Evaluation for Occupational Therapy - Treatments Skin tear care topically daily PRN per policy, May check for fecal impaction rectally daily PRN, Fleet enema rectally every other day PRN cleansing purposes - Diet Orders Renal CERTIFICATION: I certify that the transfer of the above named patient to an Extended Care Facility is necessary for the continuing treatment of the diagnosis listed. The above information is true and accurate reflection of patient's current condition. Confidential - Redisclosure prohibited without a patient's written consent.
== END 2017-09-04 15:50 | DRG 456 ==
LOC: SAMDAY 06:09 → 3NENU 13:04 → SUATTDRO 13:04 → 2NNU 08-29 14:28 → 3NENU 09-01 17:43
PROVIDERS: ADMIT Internal Medicine; ATTEND Student in an Organized Health Care Education/Training Program

== ENCOUNTER 2018-02-11 00:40 | Inpatient (IN) ==
[2018-02-11] MEDS ORDERED: *HR* HYDROcodone/Acet 5/325 mg TABLET PO PRN (04:43)
[2018-02-11] MEDS ORDERED: *HR* Promethazine 25 MG/ML VIAL IVP PRN (04:43)
[2018-02-11] MEDS ORDERED: Acetaminophen 325 MG TABLET PO PRN (04:43)
[2018-02-11] MEDS ORDERED: Naloxone 0.4 MG/ML INJ IVP PRN (04:43)
[2018-02-11] MEDS ORDERED: diazePAM 5 MG TABLET PO PRN (04:51)
[2018-02-11] MEDS ORDERED: *HR* OxyCODONE Immed Rel 5 MG TABLET PO PRN (04:51)
[2018-02-11] MEDS ORDERED: Nitroglycerin 0.4 MG TAB.SUBL SL PRN (04:52)
[2018-02-11 06:00] LABS: INR 1.1; Prothrombin Time 11.8 Seconds (9.4-12.1)
[2018-02-11 06:03] LABS: Activated Partial Thrombo Time 50.8 Seconds (26.0-36.0)
--- NOTE | 2018-02-11 06:03 | Internal Med History&Physical ---
Date of Encounter: 02/11/18 Time of Encounter: 05:40 Internal Medicine - H&P: HPI Chief complaint: Chest pain Admitted From: Emergency Dept Plans for Post Hospital Care: Home History of present illness: Mr. Theodore is a 77 year old male with known PMH of HTN, HLD, CAD s/p stent on now he presented to [facility] last night with sudden onset CP. According to pt his CP located Left chest wall region, sharp in nature, 5/10 in severity and radiating to his left shoulder and arm. His CP improved with SL nitro. His initial Trop was 0.056 and had non specicific EKG changes noticed. So pt was transferred to our facility for further work up. His repeat Trop went up to 0.18 so heparin gtt was initiated prior to his arrival here. Patient also mentioned has been having some URI symptoms, cough with yellowish expectoration. He denied any active CP now. He did mention CUADRA lately, however denied any prior episodes of CP. Past Med Surg Social Fam HX - Past Medical History Medical history: arthritis, diabetes, hyperlipidemia, hypertension, myocardial infarction, renal disease, syncope Psychiatric history: no psych history - Past Surgical History Surgical History: orthopedic, other - Social History Smoking Status: Never smoker Smokeless Tobacco Status: No Alcohol use: none Drug use: none - Family History Mother Adopted: No Family Member Ethnicity: Non- Living Status: Hx Family Cardiac Disorders: Yes Hx Family Respiratory Disorders: No Hx Family Cancer: No Hx Family GI Disorders: No Hx Family Endocrine Disorder: Yes (diabetic) Hx Family Neuromuscular Disorders: No Hx Family Neurologic Disorders: No Hx Family HEENT Disorders: No Hx Family Autoimmune Disorders: No Internal Medicine - H&P: Meds Glimepiride [Amaryl] 4 mg PO BID 06/24/15 [History] Lisinopril [Zestril] 10 mg PO DAILY 06/24/15 [History] Metformin [Glucophage] 1,000 mg PO BID 06/24/15 [History] Tramadol HCl [Ultram] 50 mg PO TID PRN 08/26/17 [History] Trazodone HCl 150 mg PO HS 08/26/17 [History] OxyCODONE Immed Rel [Roxicodone 5 MG] 5 mg PO Q4HR PRN #28 tablet 08/28/17 [Rx] Aspirin Enteric Coated [Aspirin EC] 81 mg PO DAILY tablet. 09/04/17 [Rx] Atorvastatin [Lipitor] 80 mg PO HS #30 tablet 09/04/17 [Rx] Clopidogrel [Plavix] 75 mg PO DAILY #30 tablet 09/04/17 [Rx] Finasteride [Proscar] 5 mg PO DAILY #30 tablet 09/04/17 [Rx] Metoprolol XL (24 HR) Succ [Toprol Xl] 100 mg PO DAILY #30 tab.er.24h 09/04/17 [ Rx] diazePAM [Valium] 5 mg PO Q6HR PRN #30 tablet 09/04/17 [Rx] Albuterol Sulfate [Albuterol Inhaler] 2 puff IH Q4HR #1 hfa.aer.ad 11/08/17 [Rx] Azithromycin [Azithromycin 6-Tab Pack] 250 mg PO PER PKG DI #6 tab 11/08/17 [Rx] Docusate [Colace] 100 mg PO BID #30 capsule 11/08/17 [Rx] 3 Allergy/AdvReac Type Severity Reaction Status Date / Time ibuprofen AdvReac See Verified 08/26/17 07:26 Comments All Systems PM: A 10-system review of systems was performed and is negative for pertinent findings except as documented above in the HPI. Review of systems: All the systems are reviewed everything is benign except the systems and symptoms I mentioned in the history of present illness - Constitutional Vitals: Temp Pulse Resp BP Pulse Ox 97.8 F 67 18 166/81 99 02/11/18 03:48 02/11/18 03:48 02/11/18 03:48 02/11/18 03:48 02/11/18 04:05 General appearance: Present: cooperative, A&O X 3, answers questions appropriately - Head Head exam: Present: atraumatic, normal inspection - Neck Neck exam general surgery: Present: supple - Respiratory Respiratory exam: Present: decreased breath sounds. Absent: rales, respiratory distress, rhonchi, wheezes - Cardiovascular Cardiovascular exam: Present: RRR, +S1, +S2. Absent: tachycardia - GI/Abdominal GI/Abdominal exam: Present: normal bowel sounds, soft. Absent: rebound, rigid, tenderness - Extremities Exam Extremities exam: Absent: calf tenderness, pedal edema, tenderness - Back Exam Back exam: Absent: CVA tenderness (L), CVA tenderness (R) - Neurological Exam Neurological exam: Present: alert, oriented X3 - Psychiatric Psychiatric exam: Present: normal affect, normal mood - Skin Skin exam: Absent: rash - Assessment and plan (1) NSTEMI (non-ST elevated myocardial infarction) Current Visit: No Status: Acute Assessment and plan: Will admit the pt into Tele Will place pt on warp drawer Reviewed his labs from [facility] ER, initial Trop 0.056 then repeat Trop went up to 0.18 Will cont trending on Trop EKG reviewed by myself, shoing NSR with HR 84, Non specific ST changes noticed will cont home med ASA + Plavix Cont home med BB Cont heparin gtt for now Card consulted for further eval may need [facility] Will keep him NPO for now Will check FLP in AM (2) Chest pain Current Visit: Yes Status: Acute Qualifiers: Qualified Code(s): R07.9 - Chest pain, unspecified (3) CAD S/P percutaneous coronary angioplasty Current Visit: Yes Status: Acute Assessment and plan: resumed home meds ASA + Plavix + Statin BB + ACEI (4) Acute bronchitis Current Visit: Yes Status: Acute Assessment and plan: He does have acute bronchitis mostly bacterial He was already given Rocephin and Azithromycin in the ER will cont them here for now I will check for sputum culture, step pneumonia, Legionella and respiratory viral panel Qualifiers: Qualified Code(s): J20.9 - Acute bronchitis, unspecified (5) Ischemic cardiomyopathy Current Visit: No Status: Acute Assessment and plan: reviewed 2 D Echo from 08/26 shoed LVEF 40% does have chronic systolic CHF Not in exacerbation now (6) DM type 2 (diabetes mellitus, type 2) Current Visit: No Status: Chronic Assessment and plan: held PO meds started him on ISS Qualifiers: Diabetes mellitus custodial insulin use: without custodial use Diabetes mellitus complication status: with kidney complications Diabetes mellitus complication detail: with chronic kidney disease Chronic kidney disease stage : stage 3 (moderate) Qualified Code(s): E11.22 - Type 2 diabetes mellitus with diabetic chronic kidney disease; N18.3 - Chronic kidney disease, stage 3 ( moderate); N18.3 - Chronic kidney disease, stage 3 (moderate) (7) HLD (hyperlipidemia) Current Visit: No Status: Chronic Assessment and plan: on statin Qualifiers: Hyperlipidemia type: unspecified Qualified Code(s): E78.5 - Hyperlipidemia , unspecified (8) HTN (hypertension) Current Visit: No Status: Chronic Assessment and plan: resumed home meds Qualifiers: Hypertension type: essential hypertension Qualified Code(s): I10 - Essential (primary) hypertension - Time Spent With Patient Total time spent is greater than 50% in coordination of care (as documented) at patient's floor/unit and/or counseling patient:
[2018-02-11 06:09] LABS: Troponin I 0.66 ng/mL (< 0.04)
[2018-02-11 06:32] LABS: Basophils % 0.4 %; Eosinophils # 0.2 K/mcL (0.0-0.6); Eosinophils % 2.3 %; Hematocrit 33.2 % (37.5-50.1); Hemoglobin 10.7 g/dL (12.9-16.9); Immature Granulocytes % 0.4 % (0-4); Mean Corpuscular HGB Conc 32.2 g/dL (31.6-35.5); Mean Corpuscular Hemoglobin 28.9 pg (28.0-33.3); Mean Corpuscular Volume 89.7 fL (83.0-100.0); Mean Platelet Volume 10.9 fL (9.4-12.4); Monocytes # 0.9 K/mcL (0.0-1.3); Monocytes % 11.8 %; Neutrophils # 5.4 K/mcL (1.6-8.9); Nucleated Red Blood Cells 1.5 /100 WBC (0); Platelet Count 214 K/mcL (140-400); Red Cell Distribution Width 13.2 % (11.5-14.5); Segmented Neutrophils % 72.1 %
[2018-02-11 06:33] LABS: Calcium 8.2 mg/dL (8.6-10.3); Potassium 4.7 mEq/L (3.5-5.1)
[2018-02-11] MEDS ORDERED: *HR* Heparin 5,000 UNIT/ML VIAL IVP ONE (06:54)
[2018-02-11] MEDS ORDERED: *HR* Heparin 5,000 UNIT/ML VIAL IVP PRN (06:54)
[2018-02-11 07:32] LABS: Hematocrit 32.6 % (37.5-50.1); Hemoglobin 10.5 g/dL (12.9-16.9); Mean Corpuscular HGB Conc 32.2 g/dL (31.6-35.5); Mean Corpuscular Hemoglobin 28.5 pg (28.0-33.3); Mean Corpuscular Volume 88.3 fL (83.0-100.0); Mean Platelet Volume 10.7 fL (9.4-12.4); Platelet Count 199 K/mcL (140-400); Red Blood Count 3.69 M/mcL (4.19-5.50); Red Cell Distribution Width 13.2 % (11.5-14.5)
[2018-02-11 07:36] LABS: Prothrombin Time 11.2 Seconds (9.4-12.1)
[2018-02-11 07:38] LABS: Activated Partial Thrombo Time 51.5 Seconds (26.0-36.0)
[2018-02-11] MEDS: Aspirin Enteric Coated 81 MG Tablet PO SCH (08:17)
[2018-02-11] MEDS: Heparin 25,000 UNIT/500 ML D5W 25,000 UNIT/500 ML BAG IVC SCH (08:18)
--- NOTE | 2018-02-11 09:33 | Cardiology Consult Note ---
<Leatha Lynch - Last Filed: 02/11/18 11:45> Date of Encounter: 02/11/18 Time of Encounter: 09:00 Assessment and Plan (1) NSTEMI (non-ST elevated myocardial infarction) Current Visit: No Status: Acute NSTEMI EKG demostrated sinus rhythm ST depression V3/V4/ V5 Troponin 0.056, 0.18, 0.66 (trending up) Denies chest pain currently. -plan for cath today. R/B/A were discussed with patient and he is agreeable. -agree with heparin -repeat EKG -Echo is pending (2) CAD (coronary artery disease) Current Visit: No Status: Acute PCI 08/2017: severe 1 vessel CAD. URVASHI in ostial/ proximal LAD. He denies smoking. No family hx of heart disease. He is active doing exercises 3 times a week at home. -continue asa, lipitor, plavix, lisinopril, toprol Qualifiers: Coronary Disease-Associated Artery/Lesion type: [place] artery [place] vs. transplanted heart: [place] heart Associated angina: without angina Qualified Code(s): I25.10 - Atherosclerotic heart disease of [place] coronary artery without angina pectoris (3) Ischemic cardiomyopathy Current Visit: No Status: Acute 08/2017 TTE: LVEF 40%, mild LV diastolic dysfunction. Mild aortic stenosis that has moderate calcification. -echo is pending (4) CKD (chronic kidney disease), stage III Current Visit: No Status: Chronic CKD stage 3 creatinine 2.07 (baseline) Discussion w patient/family: The assessment and plan as outlined above was discussed with the patient and/or family members who expressed understanding and agreement. All questions were answered. Thank you for involving us in the care of your patient. Please call with any questions. History of Present Illness Consult date: 02/11/18 Requesting physician: Claus Johnson Consult reason: acute NSTEMI Chief complaint: chest pain History of present illness: Mr. Theodore is a 77 year old male with PMH PCI x1 stent, HTN, HLD, CKD stage 3 who is a transfer from [facility] ED for further cardiac work up due to chest pain and elevated troponins. He stated that while getting ready for bed he suddenly developed sharp chest pain that radiated to left shoulder and down arm. The pain lasted about 10min and he became short of breath. The pain went away on its own just as he got to [facility] ED. He was then given nitro. EKG demostrated sinus rhythm ST depression V3/V4/ V5 Troponin was initially 0.056 then went to 0.18 and he was started on heparin and transferred to [place]. He admits to increased. He currently denies chest pain, palpitations, shortness of breath, diaphoresis, orthopnea, edema, blurry vision. He recently had PCI 08/2017: severe 1 vessel CAD. URVASHI in ostial/ proximal LAD. He denies smoking. No family hx of heart disease. He is active doing exercises 3 times a week at home. 08/2017 TTE: LVEF 40%, mild LV diastolic dysfunction. Mild aortic stenosis that has moderate calcification. Past Med Surg Social Fam HX - Past Medical History Medical history: arthritis, diabetes, hyperlipidemia, hypertension, myocardial infarction, renal disease, syncope Psychiatric history: no psych history - Past Surgical History Surgical History: orthopedic, other - Social History Smoking Status: Never smoker Smokeless Tobacco Status: No Alcohol use: none Drug use: none - Family History Mother Adopted: No Family Member Ethnicity: Non- Living Status: Hx Family Cardiac Disorders: Yes Hx Family Respiratory Disorders: No Hx Family Cancer: No Hx Family GI Disorders: No Hx Family Endocrine Disorder: Yes (diabetic) Hx Family Neuromuscular Disorders: No Hx Family Neurologic Disorders: No Hx Family HEENT Disorders: No Hx Family Autoimmune Disorders: No Medications and Allergies Glimepiride [Amaryl] 4 mg PO BID 06/24/15 [History] Lisinopril [Zestril] 10 mg PO DAILY 06/24/15 [History] Metformin [Glucophage] 1,000 mg PO BID 06/24/15 [History] Trazodone HCl 150 mg PO HS 08/26/17 [History] Aspirin Enteric Coated [Aspirin EC] 81 mg PO DAILY tablet. 09/04/17 [Rx] Clopidogrel [Plavix] 75 mg PO DAILY #30 tablet 09/04/17 [Rx] Metoprolol XL (24 HR) Succ [Toprol Xl] 100 mg PO DAILY #30 tab.er.24h 09/04/17 [ Rx] Albuterol Sulfate [Albuterol Inhaler] 2 puff IH Q4HR #1 hfa.aer.ad 11/08/17 [Rx] Dutasteride [Avodart] 0.5 mg PO DAILY 02/11/18 [History] Fluticasone Propionate Nasal [Flonase] 2 spr NS DAILY 02/11/18 [History] Montelukast [Singulair] 10 mg PO DAILY 02/11/18 [History] Simvastatin [Zocor] 40 mg PO HS 02/11/18 [History] Terazosin HCl 10 mg PO DAILY 02/11/18 [History] 3 Allergy/AdvReac Type Severity Reaction Status Date / Time ibuprofen AdvReac See Verified 08/26/17 07:26 Comments All Systems Review: The remainder of the systems were reviewed and are negative - Constitutional Constitutional: no chills, no fever(s), no headache(s), no weakness - EENT Eyes: no blurred vision - Cardiovascular Cardiovascular: chest pain at rest, no diaphoresis, no lightheadedness, no orthopnea, no palpitations, no syncope - Respiratory Respiratory: cough, no dyspnea - Gastrointestinal Gastrointestinal: no abdominal pain, no nausea - Musculoskeletal Musculoskeletal: no abnormal gait - Integumentary Integumentary: no erythema - Neurological Neurological: no abnormal speech, no dizziness Physical Examination Vital Signs, Last 4 Hours Temp Pulse Resp BP Pulse Ox 02/11/18 09:17 16 100 02/11/18 07:26 97.6 F 70 18 166/80 100 General: Conversant, No Apparent Distress HEENT: Atraumatic, Mucus Membranes Moist Neck: No JVD Cardiac: Reg Rate and Rhythm, Normal S1 and S2 Lungs: Normal Breath Sounds, Other (rhonchi left lung ) Neuro: Alert and responsive Abdomen: Soft, Non-Tender Skin: No rashes noted on visualized skin Musculoskeletal: No Chest Wall Tenderness Extremities: No Edema Results 02/11/18 07:11 02/11/18 05:14 Lab Results 02/11/18 02/11/18 02/11/18 05:14 05:14 05:14 WBC 7.4 Hgb 10.7 L Hct 33.2 L Plt Count 214 INR 1.1 APTT 50.8 H Sodium 138 Potassium 4.7 Chloride 109 H Carbon Dioxide 23 BUN 40 H Creatinine 2.07 H Glucose 134 H Calcium 8.2 L Troponin I 0.66 H* 02/11/18 02/11/18 07:11 07:11 WBC 6.7 Hgb 10.5 L Hct 32.6 L Plt Count 199 INR 1.0 APTT 51.5 H Sodium Potassium Chloride Carbon Dioxide BUN Creatinine Glucose Calcium Troponin I Consult Discharge Plan - Plan Referrals: Trudy Sandoval, [facility] [Primary Care Provider] - <HonorioAmy figueroa - Last Filed: 02/11/18 13:24> Date of Encounter: 02/11/18 - Attending Attestation I have personally performed a face to face evaluation on this patient. I have reviewed and agree with the care plan. History and Exam by me shows: 77 YOM s/p PCI of the ostial LAD 08/2017 her with chest pain and NSTEMI. R/B/A d /w pt and he agrees to proceed with a [facility] Assessment and Plan Discussion w patient/family: The assessment and plan as outlined above was discussed with the patient and/or family members who expressed understanding and agreement. All questions were answered. Thank you for involving us in the care of your patient. Please call with any questions. History of Present Illness History of present illness: Mr. Theodore is a 77 year old male All Systems Review: The remainder of the systems were reviewed and are negative Physical Examination Vital Signs, Last 4 Hours Temp Pulse Resp BP Pulse Ox 02/11/18 12:23 18 172/81 100 02/11/18 12:01 97.8 F 74 18 172/81 100 Results 02/11/18 07:11 02/11/18 05:14 Lab Results 02/11/18 02/11/18 02/11/18 05:14 05:14 05:14 WBC 7.4 Hgb 10.7 L Hct 33.2 L Plt Count 214 INR 1.1 APTT 50.8 H Sodium 138 Potassium 4.7 Chloride 109 H Carbon Dioxide 23 BUN 40 H Creatinine 2.07 H Glucose 134 H Calcium 8.2 L Troponin I 0.66 H* 02/11/18 02/11/18 07:11 07:11 WBC 6.7 Hgb 10.5 L Hct 32.6 L Plt Count 199 INR 1.0 APTT 51.5 H Sodium Potassium Chloride Carbon Dioxide BUN Creatinine Glucose Calcium Troponin I
[2018-02-11] MEDS: Metoprolol XL (24 HR) Succ 50 MG TAB.ER.24H PO SCH (09:55)
[2018-02-11] MEDS: Finasteride 5 MG TABLET PO SCH (09:55)
--- NOTE | 2018-02-11 13:06 | Event Note ---
Date of Encounter: 02/11/18 Time of Encounter: 13:04 1. Non-STEMI, cardiology considering cardiac catheterization due to history of prior stents. Continue heparin drip. 2. Right subconjunctival hemorrhage, monitor for now as the patient will require blood thinners 3. History of ischemic cardiomyopathy. 4. CKD3
[2018-02-11] MEDS ORDERED: Verapamil 5 MG/2 ML VIAL ONE (16:10)
[2018-02-11] MEDS ORDERED: Heparin 1,000 UNITS/500 mL 500 ML ONE (16:10)
[2018-02-11] MEDS ORDERED: Nitroglycerin 1,000 MCG/10 ML VIAL IV ONE (16:10)
[2018-02-11] MEDS ORDERED: ISOVUE-370 200 ML INFUS..BTL IV ONE (16:10)
[2018-02-11] MEDS ORDERED: *HR* Heparin 10,000 UNIT/10 ML VIAL ONE (16:10)
[2018-02-11] MEDS ORDERED: 0.9 % Sodium Chloride 1,000 ML ONE ×2 (16:10→16:38)
[2018-02-11] MEDS ORDERED: *HR* Midazolam HCl 2 MG/2 ML VIAL ONE (16:43)
[2018-02-11] MEDS ORDERED: *HR* FentaNYL (PF) 100 MCG/2 ML VIAL ONE (16:43)
--- NOTE | 2018-02-11 16:56 | Pre-Sedation Evaluation ---
Pre-sedation evaluation - Pre-sedation checklist Date of procedure: 02/11/18 Procedure: heart cath Recent Vitals: Last Vital Signs Temp 97.8 F 02/11/18 12:01 Pulse 74 02/11/18 12:01 Resp 16 02/11/18 16:00 BP 172/81 02/11/18 12:23 Pulse Ox 96 02/11/18 16:00 H&P (including ROS) documented in medical record: Yes Previous reaction to sedatives/anesthetics: No Dietary Status: NPO after Midnight Dentition: No loose teeth or bridges ASA Classification *see protocol: CLASS II-Mild systemic disease Plan of Care: Pt appropriate candidate for procedure/moderate/conscious sedation , Risks/benefits of procedure/sedation discussed w/ patient/family
--- NOTE | 2018-02-11 17:43 | Invasive Diagnostic Lab Proc ---
Name: Jose Theodore Date of Study: 02/11/2018 Date: 1940 Ht: 68.1in Medical Record#: [id number] Age: 77 Wt: 154.32lb Gender: Male BSA: 1.83 Order #: [id number] BMI: 23.39 Physicians Procedure Physician: Tyshawn Goetz MD, [facility] Referring MD: Referring MD: Staff Name Position Time In Katie Lopez RT Scrub 04:48 PM Damien Alegre RN Imaging Aide 04:48 PM Ml Kamara RT (R) Monitor 04:48 PM Ainsley Mei RT (R) Monitor 05:05 PM Indications Indication Non-Stemi Procedures Performed Procedure L HRT ARTERY/VENTRICLE ANGIO Pre-Procedure Checklist Informed consent is complete signed and on chart. H&P is on chart. ID band is on and ID verified with patient. Patient NPO for procedure The procedure was described for the patient and questions were answered. ECG is on chart. Plan of Care Patient will tolerate the procedure without complications. Adequate level of comfort will be maintained. Hemodynamics will remain stable Patient will recover from procedure without complications. Respiratory function will be maintained. Cardiac rhythm will remain stable. Patient temperature will be maintained. Patient and/or family have verbalized understanding of the procedure. Patient Education Chief Complaint/Reason for Test: Cardiac Cath Developmental Category: Geriatric (65+ years) Developmentally Appropriate for Age: Yes Learning Barriers: None Education Needs: Procedure Education Method: Verbal Information Taught: Cardiac Cath Educational Evaluation: Able to repeat information Intravenous Access Time IV Size Location DC'd Fluid/Drip Rate Units RN 20g 1 11/13" Patent On Arrival Rt Wrist Allergies ibuprofen Vital Signs Time BP (mmHg) HR (bpm) O2 Sat. RR (bpm) LOC 04:52 PM 164 / 75 64 97 % 04:56 PM 165 / 76 64 98 % 05:01 PM 157 / 73 63 98 % 05:06 PM 153 / 78 62 97 % 05:11 PM 134 / 67 62 94 % 05:16 PM 148 / 70 64 94 % Procedural Medications Time Medication Dose Units Method Given By 04:50 PM Oxygen 2 L/min nasal cannula Damien Alegre RN 04:52 PM Versed 2 mg Intravenous Damien Alegre RN 04:53 PM Fentanyl 50 mcg Intravenous [place], Damien RN 05:06 PM Lidocaine 2% 0.5 ml Subcutaneous Tyshawn Goetz MD, [facility] 05:07 PM Heparin 4000 units Nitroglycerin 200 mcg Verapamil 2.5 mg Intraarterial Tyshawn Goetz MD, [facility] ASA Classification: CLASS II- Mild systemic disease (i.e. well-controlled diabetes, hypertension, asthma, cigarette smoking) Francis Score Preprocedure Postprocedure Activity 2- Moves 4 extremities sustained head lift Activity 2- Moves 4 extremities sustained head lift Circulation 2- SBP +/= 20 points of pre-anesthetic level Circulation 2- SBP +/= 20 points of pre-anesthetic level Consciousness 2- Awake and alert oriented x 3 Consciousness 2- Awake and alert oriented x 3 O2 Saturation 2- Able to maintain O2 satruation of 92% on room air O2 Saturation 2- Able to maintain O2 satruation of 92% on room air Respiratory 2- Able to deep breathe and cough well Respiratory 2- Able to deep breathe and cough well Total Score 10 Total Score 10 Contrast Agent: Isovue Diagnostic Contrast: 28 ml Total Contrast: 28 ml Fluoro Dose: 156 mGy Procedure Log Time Note Enter By 04:48 PM Pt arrived to labor commissioner 2 at 16:48 [email or web address] 04:48 PM Katie Lopez RT Position: Scrub Time in: 16:48 [email or web address] 04:48 PM Damien Alegre RN Position: Imaging Aide Time in: 16:48 [email or web address] 04:48 PM Ml Kamara RT (R) Position: Monitor Time in: 16:48 [email or web address] 04:48 PM Patient charges- Angio tray pack, Navilyst 3mm J, Pulse Oximetry and ACIST tubing and transducer [email or web address] 04:49 PM Hair removed from procedure site in holding area using clippers. Right wrist prepped with Chloraprep by Ml Kamara RT (R), then patient was draped. Skin intact. [email or web address] 04:49 PM Hair removed from procedure site in holding area using clippers. Right groin prepped with Chloraprep by lM Kamara RT (R), then patient was draped. Skin intact. [email or web address] 04:49 PM Physician arrived 16:49 [email or web address] 04:49 PM ASA Class CLASS II- Mild systemic disease (i.e. well-controlled diabetes, hypertension, asthma, cigarette smoking) [email or web address] 04:49 PM Meet and greet completed [email or web address] 04:49 PM Sign in performed according to hospital policy. [email or web address] 04:49 PM Procedure start 16:49 [email or web address] 04:50 PM Time: 16:50 Oxygen on at 2 L/min per nasal cannula by Damien Alegre RN [email or web address] 04:50 PM Recorded ECG: HR=69 Condition=Condition 1 04:50 PM CathStat 04:50 PM Vitals capture started with the following parameters, Patient=Adult, Interval=5 min, Initial Ftjzmams=400 mmHg, Deflation Rate=3 mmHg, Cuff placed on Right Arm 04:51 PM Pressure channel 1 zero failed. 04:52 PM Pressure channel 1 zero failed. 04:52 PM Pressure channel 1 zeroed. 04:52 PM HR=64 bpm, MBPL=735/75 mmhg, SpO2=97.0 %, Comment=NSR 04:53 PM Time: 16:52 Versed 2 mg Intravenous Given by Damien Alegre RN [email or web address] 04:53 PM Time: 16:53 Fentanyl 50 mcg Intravenous Given by Damien Alegre RN [email or web address] 04:56 PM HR=64 bpm, FAYP=271/76 mmhg, SpO2=98.0 %, Comment=NSR 05:01 PM HR=63 bpm, WVLS=836/73 mmhg, SpO2=98.0 %, Comment=NSR 05:05 PM Sites, Ainsley RT (R) Position: Monitor Time in: 17:05 to relieve Anh Ml RT (R) tsites 05:06 PM Time out performed according to hospital policy tsites 05:06 PM Time: 17:06 0.5 ml Lidocaine 2% to right radial Subcutaneous Given by Tyshawn Goetz MD, FACC tsites 05:06 PM Access obtained by percutaneous puncture. 6Fr 10cm Terumo Glidesheath sheath placed in right Radial artery. [id number] tsites 05:06 PM HR=62 bpm, YFBW=276/78 mmhg, SpO2=97.0 % 05:07 PM Time: 17:07 Patient given 4,000 units Heparin, 200 mcg Nitroglycerin, and 2.5 mg Verapamil Intraarterial by Tyshawn Goetz MD, FACC. This is given to reduce risk of vessel spasm and thrombosis. tsites 05:07 PM 5Fr TIG catheter inserted over the wire DNC tsites 05:07 PM 0.035 260cm Navilyst 3mmJ wire [id number] tsites 05:08 PM LCA angiography performed in multiple views. tsites 05:09 PM Catheter selectively placed in left ventricle tsites 05:09 PM Recorded Pressure: Ao, HR=64, Condition=Condition 1 (Aorta) Ao 27/-17/4 05:10 PM Pressure channel 1 zero failed. 05:10 PM Pressure channel 1 zeroed. 05:10 PM Recorded Pressure: LV, HR=65, Condition=Condition 1 (Left Ventricle) LV 134/19/15 05:11 PM Recorded Pressure: LV, Ao, HR=72, Condition=Condition 1 (Left Ventricle) LV 141/73/21, (Aorta) Ao 122/63/90 05:11 PM HR=62 bpm, MIWE=134/67 mmhg, SpO2=94.0 % 05:11 PM Recorded Pressure: Ao, HR=61, Condition=Condition 1 (Aorta) Ao 129/75/99 05:11 PM RCA angiography performed in multiple views. tsites 05:12 PM Coronary Dominance: Co-dominant tsites 05:12 PM Lesion found in Proximal RCA. Pre Stenosis: 40 Pre GORGE Flow: tsites 05:13 PM Lesion found in Distal RCA. Pre Stenosis: 40 Pre GORGE Flow: tsites 05:13 PM Lesion found in Proximal LAD. Pre Stenosis: 90 Pre GORGE Flow: tsites 05:13 PM Lesion found in Mid LAD. Pre Stenosis: 70 Pre GORGE Flow: tsites 05:14 PM Lesion found in 1st Marginal. Pre Stenosis: 70 Pre GORGE Flow: tsites 05:14 PM Catheter removed tsites 05:15 PM Proximal Left Anterior Descending Coronary Artery with 90% stenosis. If graft is supplying this territory, 0 % stenosis. tsites 05:15 PM Mid/Distal Left Anterior Descending Coronary Artery and diagonal branches with 70% stenosis. If graft is supplying this area, 0 % stenosis tsites 05:15 PM Circumflex, Obtuse Marginal, Left Posterior Descending, and Left Posterolateral Coronary Arteries with 70 % stenosis. If graft is supplying this area, 0 % stenosis tsites 05:15 PM Right Coronary, Right Posterior Descending Arteries with Right Posterolateral and Acute Marginal branches with 40 % stenosis. If graft is supplying this area, 0 % stenosis tsites 05:16 PM HR=64 bpm, IACD=352/70 mmhg, SpO2=94.0 % 05:16 PM Procedure completed at 17:16 tsites 05:23 PM Sign out completed: Radiation Dose 156 mGy Fluoro Time: 1.3 Isovue 370 - 200ml contrast 27.7 ml given by Tyshawn Goetz MD, [facility]. Complications: NoneCardiac Rehab Consult needed: NoConfirmed administered medications: No tsites 05:24 PM Isovue 370 - 200ml,1 Bottle(s) used. tsites 05:24 PM Arterial sheath pulled, Vasc Band closure device used and was Successful S/N. tsites 05:24 PM 11 ml air in Vasc Band. tsites 05:25 PM Estimated Blood Loss: minimal tsites 05:25 PM Post ECG NSR tsites 05:25 PM Post Blood Pressure 148/70 tsites 05:25 PM 17:25 Post Pulses Rt Radial 2+ tsites 05:25 PM Information taught Cardiac Cath and Vasc Band tsites 05:25 PM Education needs Procedure, Plan of Care, and Responsibilities of Patient in Care tsites 05:25 PM Learning barriers :None tsites 05:25 PM Education Methods Verbal tsites 05:25 PM Education evaluation Able to repeat information tsites 05:26 PM Site status No bleeding/hematoma - Rt Wrist as reported by Katie Lopez RT at 17:25 tsites 05:26 PM Hematoma? No. tsites 05:26 PM Report given to sanchez EDWARDS Pt taken to Other Room #eds 24. 17:26 tsites 05:26 PM Delay to floor No tsites 05:26 PM Patient out of room: 17:26 tsites 05:26 PM no family tsites Complications Complication None Hemodynamics Pressures Site Systolic/A Wave Diastolic/V Wave Mean AO 27 -17 4 LV 134 19 15 LV 141 73 21 AO 122 63 90 AO 129 75 99 Post Procedure Information Blood Pressure: 148/70 mmHg Rhythm: NSR Post procedural instructions were given Surgery consult for CABG Closure Device Time Device Success/Fail 02/11/2018 5:27:00 PM Mechanical Compression Successful Site Checks Time Location Status Staff Sheath In? Note 05:25 PM Rt Wrist No bleeding/hematoma Katie Lopez RT Pulses Time Site Pre-Procedure Post-Procedure Note 5:25:00 PM Rt Radial 2+ Updated by Ainsley Mei RT (R) on 02/11/2018 5:36:27 PM Ainsley Sites, RT electronically signed on 02/11/2018 5:36:55 PM with status of Final
[2018-02-11 21:29] LABS: Activated Partial Thrombo Time 119.9 Seconds (26.0-36.0)
[2018-02-11 21:44] LABS: Heparin anti-factor XA UFH 0.8 IU/mL (0.30-0.70)
[2018-02-11] MEDS: traZODone 50 MG TABLET PO SCH (21:53)
[2018-02-12 05:36] LABS: Basophils # 0.1 K/mcL (0.0-0.2); Basophils % 0.7 %; Eosinophils # 0.2 K/mcL (0.0-0.6); Eosinophils % 2.7 %; Hematocrit 33.7 % (37.5-50.1); Hemoglobin 11.2 g/dL (12.9-16.9); Immature Granulocytes % 0.3 % (0-4); Lymphocytes # 0.9 K/mcL (0.6-4.6); Lymphocytes % 12.8 %; Mean Corpuscular HGB Conc 33.2 g/dL (31.6-35.5); Mean Corpuscular Hemoglobin 29.3 pg (28.0-33.3); Mean Corpuscular Volume 88.2 fL (83.0-100.0); Mean Platelet Volume 10.5 fL (9.4-12.4); Monocytes # 0.9 K/mcL (0.0-1.3); Monocytes % 12.4 %; Neutrophils # 4.9 K/mcL (1.6-8.9); Platelet Count 208 K/mcL (140-400); Red Blood Count 3.82 M/mcL (4.19-5.50); Red Cell Distribution Width 13.2 % (11.5-14.5); Segmented Neutrophils % 71.1 %
[2018-02-12] MEDS: *HR* Heparin 5,000 UNIT/ML VIAL IVP PRN ×2 (05:58→19:20)
[2018-02-12 06:01] LABS: Calcium 8.7 mg/dL (8.6-10.3); Potassium 4.9 mEq/L (3.5-5.1)
[2018-02-12] MEDS: Aspirin Enteric Coated 81 MG Tablet PO SCH (08:50)
[2018-02-12] MEDS: Finasteride 5 MG TABLET PO SCH (08:50)
[2018-02-12] MEDS: Metoprolol XL (24 HR) Succ 50 MG TAB.ER.24H PO SCH (08:51)
--- NOTE | 2018-02-12 08:52 | Cardiothoracic Consult Note ---
Date of Encounter: 02/12/18 Time of Encounter: 08:48 Assessment and Plan (1) NSTEMI (non-ST elevated myocardial infarction) Current Visit: No Status: Acute The patient is a 77-year-old type II diabetic, hypertensive man with hypercholesterolemia and known CAD. He suffered an acute NSTEMI 2 days ago and was transferred to [facility] for further cardiac care. Of note, the patient underwent PCI with ostial/proximal LAD stent placement in August 2017. The repeat cardiac catheterization performed yesterday revealed 90% LAD in-stent restenosis, a 70% mid LAD lesion, and and 70% ostial OM1 lesion. The patient has been recommended for CABG. The patient understands the procedure, benefits, alternatives, and risks, and gives his informed consent. The STS risk calculator shows an operative mortality risk 2.41%, deep sternal wound infection risk 0.35%, permanent stroke risk 1.52%, renal failure risk 8.14%, and reoperation risk 6.92%. Currently the patient is on Plavix for his previous stent and this will need to be stopped for 4-5 days prior to CABG. The CABG he is tentatively scheduled for 02/16/2018. The assessment and plan as outlined above was discussed with the patient and/or family members who expressed understanding and agreement. All questions were answered. - History of Present Illness Consult date: 02/11/18 Requesting physician: Tyshawn Goetz Consult reason: CABG evaluation Chief complaint: NSTEMI History of present illness: Mr. Theodore is a 77 year old type II diabetic, hypertensive man with hypercholesterolemia and known CAD. The patient underwent PCI with ostial/ proximal LAD stent placement in August 2017. The patient suffered an acute myocardial infarction while undergoing lumbar laminectomy at that time. Postprocedure the patient did well; however, redeveloped exertional substernal chest pain approximately 1-1/2 weeks ago. The patient had a total of 3 episodes of substernal chest pain in this interim. He was preparing to go to bed on 02/10/2018 when he had severe substernal chest pain radiating to his left shoulder and down his left arm. He had associated shortness of breath, but denied any diaphoresis, nausea, vomiting, or syncope. His daughter took him to [facility] in [facility] where he was diagnosed with an acute NSTEMI. In route to the hospital he became pain-free and is been so since that time. The patient was treated medically and transferred to [facility] for further cardiac care. The patient underwent cardiac catheterization yesterday and was found to have severe two-vessel CAD, including a 90% LAD in-stent restenosis. In addition, the patient has a 70% mid LAD lesion and a 70% ostial OM1 lesion. He spent recommended for CABG. Past Med Surg Social Fam HX - Past Medical History Medical history: arthritis, coronary artery disease, diabetes, hyperlipidemia, hypertension, myocardial infarction, renal disease (CKD, Stage IIIB), syncope Psychiatric history: no psych history - Past Surgical History Surgical History: orthopedic, other (Lumbar laminectomy 2) - Social History Smoking Status: Never smoker Smokeless Tobacco Status: No Alcohol use: none Drug use: none Occupational status: retired Current living situation: Home - Independent Activity Level: Independent ambulation Recent Out of Country Travel Within the Last 8 Weeks: No Exposure or Possible Exposure to Illness During Travel: No - Family History Mother Adopted: No Family Member Ethnicity: Non- Living Status: Hx Family Cardiac Disorders: Yes Hx Family Respiratory Disorders: No Hx Family Cancer: No Hx Family GI Disorders: No Hx Family Endocrine Disorder: Yes (diabetic) Hx Family Neuromuscular Disorders: No Hx Family Neurologic Disorders: No Hx Family HEENT Disorders: No Hx Family Autoimmune Disorders: No Medications and Allergies Glimepiride [Amaryl] 4 mg PO BID 06/24/15 [History] Lisinopril [Zestril] 10 mg PO DAILY 06/24/15 [History] Metformin [Glucophage] 1,000 mg PO BID 06/24/15 [History] Trazodone HCl 150 mg PO HS 08/26/17 [History] Aspirin Enteric Coated [Aspirin EC] 81 mg PO DAILY tablet.dr 09/04/17 [Rx] Clopidogrel [Plavix] 75 mg PO DAILY #30 tablet 09/04/17 [Rx] Metoprolol XL (24 HR) Succ [Toprol Xl] 100 mg PO DAILY #30 tab.er.24h 09/04/17 [ Rx] Albuterol Sulfate [Albuterol Inhaler] 2 puff IH Q4HR #1 hfa.aer.ad 11/08/17 [Rx] Dutasteride [Avodart] 0.5 mg PO DAILY 02/11/18 [History] Fluticasone Propionate Nasal [Flonase] 2 spr NS DAILY 02/11/18 [History] Montelukast [Singulair] 10 mg PO DAILY 02/11/18 [History] Simvastatin [Zocor] 40 mg PO HS 02/11/18 [History] Terazosin HCl 10 mg PO DAILY 02/11/18 [History] 3 Allergy/AdvReac Type Severity Reaction Status Date / Time ibuprofen AdvReac See Verified 08/26/17 07:26 Comments All Systems Review: The remainder of the systems were reviewed and are negative Physical Examination Vital Signs, Last 4 Hours Temp Pulse Resp BP Pulse Ox 02/12/18 08:35 16 96 02/12/18 07:08 97.8 F 59 14 163/71 96 General: Conversant, No Apparent Distress HEENT: Atraumatic, Normocephaly, Trachea midline Neck: No JVD, Normal carotid pulses Cardiac: Reg Rate and Rhythm, Normal S1 and S2, No Murmur Lungs: Normal Breath Sounds, No Wheeze, Rales, Rhonchi Neuro: Alert and responsive, No focal deficits noted Vascular: Normal capillary refill Abdomen: Soft, Non-tender Musculoskeletal: No Chest Wall Tenderness Extremities: No Clubbing, No Cyanosis, No Edema Results 02/12/18 05:26 02/12/18 05:26 Lab Results, Last 24 hours 02/11/18 02/11/18 02/11/18 12:52 15:36 18:44 WBC Hgb Hct Plt Count APTT 90.7 H D Sodium Potassium Chloride Carbon Dioxide BUN Creatinine Glucose Calcium Troponin I 0.89 H* 0.82 H* 02/11/18 02/12/18 02/12/18 20:36 05:26 05:26 WBC 7.0 Hgb 11.2 L Hct 33.7 L Plt Count 208 APTT 119.9 H* Sodium 135 L Potassium 4.9 Chloride 111 H Carbon Dioxide 23 BUN 31 H Creatinine 1.77 H Glucose 77 Calcium 8.7 Troponin I 02/12/18 05:26 WBC Hgb Hct Plt Count APTT 49.6 H D Sodium Potassium Chloride Carbon Dioxide BUN Creatinine Glucose Calcium Troponin I Consult Discharge Plan - Plan Referrals: Trudy Sandoval, CATEGORY MANAGER [Primary Care Provider] -
[2018-02-12] MEDS ORDERED: CeFAZolin Syr 2,000MG/20 ML 2,000 MG/20 ML SYRINGE IVPB ONE (08:58)
[2018-02-12] MEDS ORDERED: Chlorhexidine Rinse 15 ML MOUTHWASH MM SCH (09:00)
--- NOTE | 2018-02-12 09:30 | Internal Med Progress Note ---
<Adi Archer - Last Filed: 02/12/18 09:26> Date of Encounter: 02/12/18 Time of Encounter: 09:26 - Assessment and plan (1) NSTEMI (non-ST elevated myocardial infarction) Current Visit: Yes Status: Acute Assessment and plan: Underwent left heart catheterization yesterday which showed 90% LAD in-stent restenosis, 70% mid LAD lesion, and 70% ostial OM1 lesion Patient was recommended CABG and plan is to tentatively scheduled for 02/[address] surgery on heparin gtt (2) CAD (coronary artery disease) Current Visit: Yes Status: Acute Assessment and plan: Patient had recent left heart catheter on 08/2017 which showed stenosis of the LAD and underwent placement of URVASHI He was placed on dual antiplatelet therapy but reports he may have missed doses here and there. Currently presented with chest pain and underwent left heart catheter yesterday which showed results as stated above. Plan is to schedule CABG as stated above. Continue aspirin, statin, metoprolol. Qualifiers: Coronary Disease-Associated Artery/Lesion type: [place] artery [place] vs. transplanted heart: [place] heart Associated angina: without angina Qualified Code(s): I25.10 - Atherosclerotic heart disease of [place] coronary artery without angina pectoris (3) CKD (chronic kidney disease), stage III Current Visit: Yes Status: Chronic Assessment and plan: Stable continue monitor. (4) DM type 2 (diabetes mellitus, type 2) Current Visit: Yes Status: Chronic Assessment and plan: Cardiac ADA diet. Patient is on metformin and glimepiride at home. Glucose levels during admission are between goal 150-180. Qualifiers: Diabetes mellitus terminal block assembler insulin use: without terminal block assembler use Diabetes mellitus complication status: with kidney complications Diabetes mellitus complication detail: with chronic kidney disease Chronic kidney disease stage : stage 3 (moderate) Qualified Code(s): E11.22 - Type 2 diabetes mellitus with diabetic chronic kidney disease; N18.3 - Chronic kidney disease, stage 3 ( moderate); N18.3 - Chronic kidney disease, stage 3 (moderate) (5) HLD (hyperlipidemia) Current Visit: Yes Status: Chronic Assessment and plan: Controlled Continue atorvastatin. Qualifiers: Hyperlipidemia type: unspecified Qualified Code(s): E78.5 - Hyperlipidemia , unspecified (6) HTN (hypertension) Current Visit: Yes Status: Chronic Assessment and plan: Controlled. Continue metoprolol Qualifiers: Hypertension type: essential hypertension Qualified Code(s): I10 - Essential (primary) hypertension (7) Ischemic cardiomyopathy Current Visit: Yes Status: Acute Assessment and plan: Patient's last echocardiogram in 08/2017 showed LVEF of 40% with mild left ventricular diastolic dysfunction. Repeat echocardiogram ending. - Subjective Interval history: This morning patient denies chest pain. Denies headache, blurry vision, shortness of breath, abdominal pain, nausea, vomiting, diarrhea, lower extremity swelling. Patient reports that after having left heart catheter in September 2017 he may have been noncompliant with Plavix. - Constitutional Vitals: Temp Pulse Resp BP Pulse Ox 97.8 F 59 16 163/71 96 02/12/18 07:08 02/12/18 07:08 02/12/18 08:35 02/12/18 07:08 02/12/18 09:15 General appearance: Present: cooperative, A&O X 3, answers questions appropriately - Other Additional findings: General: without distress Heart: Regular rate and rhythm with no murmur Lungs: Clear to auscultation bilaterally Abdomen: Soft nontender, nondistended positive bowel sounds Skin: warm and dry Extremities: Absent pedal edema, right wrist stable with out hematoma or discharge Neuro: Alert oriented 3 Vascular: Pedal and radial pulses 2 out of 4 Internal Medicine: Result - Labs CBC & Chem 7: 02/12/18 05:26 02/12/18 05:26 Labs: Short CBC 02/12/18 Range/Units 05:26 WBC 7.0 (4.3-11.1) K/mcL Hgb 11.2 L (12.9-16.9) g/dL Hct 33.7 L (37.5-50.1) % Plt Count 208 (140-400) K/mcL Neutrophils # 4.9 (1.6-8.9) K/mcL BMP 02/12/18 05:26 Sodium 135 L Potassium 4.9 Chloride 111 H Carbon Dioxide 23 BUN 31 H Creatinine 1.77 H Glucose 77 Calcium 8.7 Cardiac Enzymes 02/11/18 02/11/18 Range/Units 12:52 18:44 Troponin I 0.89 H* 0.82 H* (< 0.04) ng/mL - ABG Interpretation ABG results: PT/INR, D-dimer PT 11.2 Seconds (9.4-12.1) 02/11/18 07:11 Consult Discharge Plan - Plan Referrals: Trudy Sandoval, TRUST MANAGER ASSISTANT [Primary Care Provider] - <Wilton Rodrigues - Last Filed: 02/12/18 17:04> Date of Encounter: 02/12/18 - Constitutional Vitals: Temp Pulse Resp BP Pulse Ox 97.7 F 60 16 168/82 95 02/12/18 14:48 02/12/18 14:48 02/12/18 16:53 02/12/18 14:48 02/12/18 16:53 Internal Medicine: Result - Labs CBC & Chem 7: 02/12/18 05:26 02/12/18 05:26 Labs: Short CBC 02/12/18 Range/Units 05:26 WBC 7.0 (4.3-11.1) K/mcL Hgb 11.2 L (12.9-16.9) g/dL Hct 33.7 L (37.5-50.1) % Plt Count 208 (140-400) K/mcL Neutrophils # 4.9 (1.6-8.9) K/mcL BMP 02/12/18 05:26 Sodium 135 L Potassium 4.9 Chloride 111 H Carbon Dioxide 23 BUN 31 H Creatinine 1.77 H Glucose 77 Calcium 8.7 Cardiac Enzymes 02/11/18 Range/Units 18:44 Troponin I 0.82 H* (< 0.04) ng/mL - ABG Interpretation ABG results: PT/INR, D-dimer PT 11.2 Seconds (9.4-12.1) 02/11/18 07:11 - Impressions Impressions Echocardiogram 02/11/18 06:22 Impressions: Blood pressure 172/81 mmHg at time of study. LVEF 40-45%. Global appearing LV systolic dysfunction. Diastolic dysfunction with elevated filling pressures. Normal right ventricular structure and function. Moderate mitral regurgitation. Probably trileaflet aortic valve with thickening/calcification and partial fusion and reduced leaflet excursion of the NCC/RCC. No aortic stenosis by Doppler on this study - could be underestimated. Consider further evaluation with RONALD. Mild-moderate aortic regurgitation. No pulmonary hypertension. Left Ventricular Wall Motion: Rest Echo Findings The apex, apical inferior, mid inferior, basal inferior, apical anterior, mid anterior, basal anterior, apical septal, mid inferior septal, basal inferior septal, apical lateral, mid anterior lateral, basal anterior lateral, mid anterior septal, basal anterior septal and basal inferior lateral ureña were hypokinetic. The mid inferior lateral wall was not visualized. Findings: Study Quality * Technically adequate exam. ECG Findings * Normal sinus rhythm. Left Ventricle * LVEF 40-45%. * Diastolic dysfunction with elevated filling pressures. Systolic blunting of the pulmonary vein Doppler. * Normal LV size and wall thickness measurements. Right Ventricle * Normal right ventricular structure and function. TD velocity 11 cm/s Left Atrium * Moderately dilated left atrium. Right Atrium * Normal right atrial size. Mitral Valve * No mitral stenosis. * Mildly thickened/calcified mitral valve leaflets. * Mild mitral annular calcification * Moderate mitral regurgitation. Aortic Valve * Probably trileaflet aortic valve with thickening/calcification and partial fusion and reduced leaflet excursion of the NCC/RCC. * Mild-moderate aortic regurgitation. * No aortic stenosis by Doppler on this study - could be underestimated. Tricuspid Valve * Normal tricuspid valve structure. * No tricuspid regurgitation. * Estimated RA pressure is 8 mmHg. * Estimated RVSP is 32 mmHg. * No pulmonary hypertension. Pulmonic Valve * Pulmonic valve is not well visualized. * No pulmonic stenosis. * Trace pulmonic regurgitation. Pulmonary Artery * Normal visualized portions of the main pulmonary artery. Aorta * Normally sized aortic root. Interatrial Septum * No evidence of PFO by color Doppler. Pericardium * There is no pericardial effusion present. IVC * The IVC is not dilated. * < 50% respiratory change. Chest X-Ray 02/12/18 08:58 IMPRESSION: Slightly improved left basilar opacity, likely atelectasis. Otherwise no new acute cardiopulmonary findings. D/ / Casandra Restrepo MD / Casandra Restrepo MD Interpreting Provider: Casandra Restrepo MD - Attending Attestation I performed an independent interview and exam of this pt. I agree with the findings, assessment and plan of Dr. Archer, Internal Medicine Resident. My input is reflected in his note. Cardiothoracic thoracic surgery input is noted and appreciated. Plans for CABG on February 16. Patient is currently pain-free and comfortable. She continues on heparin drip. Continue medical management for now with beta so, aspirin and statin.
--- NOTE | 2018-02-12 09:40 | Cardiology Progress Note ---
<Leatha Lynch - Last Filed: 02/12/18 12:59> Date of Encounter: 02/12/18 Time of Encounter: 08:45 Assessment and Plan (1) NSTEMI (non-ST elevated myocardial infarction) Current Visit: Yes Status: Acute NSTEMI 02/11/[address] depression V3/V4/ V5 02/12/2018 EKG demonstrated sinus rhythm ST depression V4/V5 Troponin 0.056, 0.18, 0.66, 0.89, 0.82 Denies chest pain, palpitations. 02/11/2018 LHC: 90% LAD in-stent restenosis, a 70% mid LAD lesion, and and 70% ostial OM1 lesion. -Merrill Mack of CT surgery has been consulted and has discussed with patient CABG planned for Friday. The patient has agreed. -continue heparin -hold plavix (2) CAD (coronary artery disease) Current Visit: Yes Status: Acute PCI 08/2017: severe 1 vessel CAD. URVASHI in ostial/ proximal LAD. He denies smoking. No family hx of heart disease. He is active doing exercises 3 times a week at home. -continue asa, lipitor, toprol Qualifiers: Coronary Disease-Associated Artery/Lesion type: [place] artery [place] vs. transplanted heart: [place] heart Associated angina: without angina Qualified Code(s): I25.10 - Atherosclerotic heart disease of [place] coronary artery without angina pectoris (3) Ischemic cardiomyopathy Current Visit: Yes Status: Acute TTE recommends RONALD for further evaluation -02/11/2018 TTE: BP 172/81. EF 40-45% with global LV dysfunction. Diastolic dysfunction elevated filling pressure, mild MR, mild- moderate AR. Probably tri- leaflet aortic valve with thickened/ calcified AV partial fusion. reduced leaflet excursion of NCC/ RCC. Consider RONALD. No aortic stenosis. -08/2017 TTE: LVEF 40%, mild LV diastolic dysfunction. Mild aortic stenosis that has moderate calcification. -NPO -RONALD ordered for tomorrow (4) CKD (chronic kidney disease), stage III Current Visit: Yes Status: Chronic CKD stage 3 creatinine 1.77 (baseline) Discussion w patient/family: The assessment and plan as outlined above was discussed with the patient and/or family members who expressed understanding and agreement. All questions were answered. Thank you for involving us in the care of your patient. Please call with any questions. Subjective Principal diagnosis: chest pain Interval history: Patient was seen and examined at bedside. He denies chest pain, palpitations, shortness of breath. [facility] yesterday. Objective Vital Signs, Last 4 Hours Temp Pulse Resp BP Pulse Ox 02/12/18 09:15 96 02/12/18 08:35 16 96 02/12/18 07:08 97.8 F 59 14 163/71 96 General: Conversant, No Apparent Distress HEENT: Atraumatic, Mucus Membranes Moist Neck: No JVD Cardiac: Reg Rate and Rhythm, Normal S1 and S2 Lungs: Normal Breath Sounds, No Wheeze, Rales, Rhonchi Neuro: Alert and responsive Abdomen: Soft, Non-Tender Skin: No rashes noted on visualized skin Musculoskeletal: No Chest Wall Tenderness Extremities: No Edema Results 02/12/18 05:26 02/12/18 05:26 Lab Results 02/11/18 02/11/18 02/11/18 12:52 15:36 18:44 WBC Hgb Hct Plt Count APTT 90.7 H D Sodium Potassium Chloride Carbon Dioxide BUN Creatinine Glucose Calcium Troponin I 0.89 H* 0.82 H* 02/11/18 02/12/18 02/12/18 20:36 05:26 05:26 WBC 7.0 Hgb 11.2 L Hct 33.7 L Plt Count 208 APTT 119.9 H* Sodium 135 L Potassium 4.9 Chloride 111 H Carbon Dioxide 23 BUN 31 H Creatinine 1.77 H Glucose 77 Calcium 8.7 Troponin I 02/12/18 05:26 WBC Hgb Hct Plt Count APTT 49.6 H D Sodium Potassium Chloride Carbon Dioxide BUN Creatinine Glucose Calcium Troponin I Consult Discharge Plan - Plan Referrals: Trudy Sandoval, RECEIVING OPERATOR [Primary Care Provider] - <Amy Betancourt - Last Filed: 02/12/18 16:13> Date of Encounter: 02/12/18 Assessment and Plan (1) CAD (coronary artery disease) Current Visit: Yes Status: Acute PCI 08/2017: severe 1 vessel CAD. URVASHI in ostial/ proximal LAD. He denies smoking. No family hx of heart disease. He is active doing exercises 3 times a week at home. -continue asa, lipitor, toprol I examined this patient and my medical decision-making was reviewed with the Resident Physician. I agree with the documented findings, disposition and treatment plan as described except to the extent set forth below. 77-year-old male status post left heart catheter found to have severe in-stent restenosis in the ostial LAD. Plan for CABG next Friday. Reserved ejection fraction 55% Qualifiers: Coronary Disease-Associated Artery/Lesion type: [place] artery [place] vs. transplanted heart: [place] heart Associated angina: without angina Qualified Code(s): I25.10 - Atherosclerotic heart disease of [place] coronary artery without angina pectoris Discussion w patient/family: The assessment and plan as outlined above was discussed with the patient and/or family members who expressed understanding and agreement. All questions were answered. Thank you for involving us in the care of your patient. Please call with any questions. Objective Vital Signs, Last 4 Hours Temp Pulse Resp BP Pulse Ox 02/12/18 14:48 97.7 F 60 14 168/82 96 Results 02/12/18 05:26 02/12/18 05:26 Lab Results 02/11/18 02/11/18 02/11/18 15:36 18:44 20:36 WBC Hgb Hct Plt Count APTT 90.7 H D 119.9 H* Sodium Potassium Chloride Carbon Dioxide BUN Creatinine Glucose Calcium Troponin I 0.82 H* 02/12/18 02/12/18 02/12/18 05:26 05:26 05:26 WBC 7.0 Hgb 11.2 L Hct 33.7 L Plt Count 208 APTT 49.6 H D Sodium 135 L Potassium 4.9 Chloride 111 H Carbon Dioxide 23 BUN 31 H Creatinine 1.77 H Glucose 77 Calcium 8.7 Troponin I 02/12/18 02/12/18 09:38 11:49 WBC Hgb Hct Plt Count APTT 88.2 H D 73.6 H Sodium Potassium Chloride Carbon Dioxide BUN Creatinine Glucose Calcium Troponin I
[2018-02-12 10:19] LABS: Chol/HDL Ratio 3.3 (0-4.9)
[2018-02-12 10:31] LABS: Estimated Average Glucose 183 mg/dl
--- NOTE | 2018-02-12 12:35 | Anesthesia Evaluation PreOp ---
Date of Encounter: 02/16/18 Time of Encounter: 12:51 - Past History Planned Operation: CABG Cardiac History: UT (acute NSTEMI), Angina, HTN, Hyperlipidemia, Cardiac Stent ( 2017), Other (severe 2 vessel ds) Pulmonary History: Denies Any Significant HX WEDGER AND GLUER History: Denies Any Significant HX Other Medical History: Renal (CKD 3) Anesthesia History: Past Anesthesia (lumbar ramos. x 2, last was several days ago when had UT) Alcohol Use: none Drug use: none Medications and Allergies Glimepiride [Amaryl] 4 mg PO BID 06/24/15 [History] Lisinopril [Zestril] 10 mg PO DAILY 06/24/15 [History] Metformin [Glucophage] 1,000 mg PO BID 06/24/15 [History] Trazodone HCl 150 mg PO HS 08/26/17 [History] Aspirin Enteric Coated [Aspirin EC] 81 mg PO DAILY tablet.dr 09/04/17 [Rx] Clopidogrel [Plavix] 75 mg PO DAILY #30 tablet 09/04/17 [Rx] Metoprolol XL (24 HR) Succ [Toprol Xl] 100 mg PO DAILY #30 tab.er.24h 09/04/17 [ Rx] Albuterol Sulfate [Albuterol Inhaler] 2 puff IH Q4HR #1 hfa.aer.ad 11/08/17 [Rx] Dutasteride [Avodart] 0.5 mg PO DAILY 02/11/18 [History] Fluticasone Propionate Nasal [Flonase] 2 spr NS DAILY 02/11/18 [History] Montelukast [Singulair] 10 mg PO DAILY 02/11/18 [History] Simvastatin [Zocor] 40 mg PO HS 02/11/18 [History] Terazosin HCl 10 mg PO DAILY 02/11/18 [History] 3 Allergy/AdvReac Type Severity Reaction Status Date / Time ibuprofen AdvReac See Verified 08/26/17 07:26 Comments - Meds/Allergy Pre-op Review Medications Reviewed: Yes Allergies Reviewed: Yes Beta Blockers on Current Med List: Yes If Beta Blockers taken, Date/Time (Last Dose taken): yesterday 837 Anesthesia Results - Labs 02/15/18 08:11 02/15/18 08:11 - Imaging Additional studies: cath: Lesion Findings/Interventions * Left Main Coronary Artery The LMCA is angiographically free of disease. * Left Anterior Descending There is a 90% in stent restenosis in the Proximal/ostial LAD. There is a 60-70% stenosis in the Mid LAD. * Circumflex There is a 60-70% stenosis in the 1st Marginal. There is 40% stenosis in OM 2. * Right Coronary Artery There is a 40% stenosis in the Proximal RCA. There is a 40% stenosis in the Distal RCA. echo: Impressions: Blood pressure 172/81 mmHg at time of study. LVEF 40-45%. Global appearing LV systolic dysfunction. Diastolic dysfunction with elevated filling pressures. Normal right ventricular structure and function. Moderate mitral regurgitation. Probably trileaflet aortic valve with thickening/calcification and partial fusion and reduced leaflet excursion of the NCC/RCC. No aortic stenosis by Doppler on this study - could be underestimated. Consider further evaluation with RONALD. Mild-moderate aortic regurgitation. No pulmonary hypertension. Anesthesia Exam Selected Entries 02/16/18 06:44 02/16/18 10:25 02/16/18 11:26 Temperature 97.5 F L Pulse Rhythm Regular Respiratory Rate 16 Blood Pressure 112/68 O2 Sat by Pulse Oximetry 96 Oxygen Delivery Method Room Air Weight: 68kg NPO (# of Hours): 8 - HEENT Pupil (Motor): EOMI Mallampati: II Teeth: Poor dentition Oral Opening: Greater than 3 - WEDGER AND GLUER LOC: Oriented WEDGER AND GLUER Motor: Normal RUE, Normal LUE, Normal RLE, Normal LLE, Normal Face WEDGER AND GLUER Sensory: Normal: RUE, LUE, RLE, LLE, Face - Cardiac Rhythm: Regular Murmur: None - Pulmonary Breath Sounds: bilateral Clear Respiratory Effort: Symmetrical Anesthesia Assess/Plan ASA Score: 4 Modified Beba Scale for Level of Consciousness: Cooperative, oriented, and tranquil Anesthetic Plan: General Monitoring Plan: Standard Monitors, A-Line, PAC, RONALD Recovery Plan: ICU (agrees to GA, lines, RONALD and blood products.)
[2018-02-12] MEDS: Heparin 25,000 UNIT/500 ML D5W 25,000 UNIT/500 ML BAG IVC SCH (12:36)
--- NOTE | 2018-02-12 15:18 | Nephrology Consult Note ---
Date of Encounter: 02/12/18 Time of Encounter: 11:10 Assessment and Plan (1) CKD (chronic kidney disease), stage III Current Visit: Yes Status: Chronic CKD 3 in setting of diabetic nephropathy. Baseline creat 1.6-1.8. Prior history of MEL in August 2017 in setting of anemia following spine surgery and STEMI/ LHC/stent-contrast nephropathy. NSTEMI/LHC-triple vessel disease. Scheduled for CABG on Friday. Avod nephrotoxins. Accurate I&O's. Will continue to monitor. History of Present Illness - Reason for Consult Consult date: 02/12/18 Chronic Kidney Disease - History of Present Illness Mr. Theodore is a 77 year old male known to practice with CKD 3 in setting of diabetic nephropathy. Baseline creat 1.6-1.8 and MEL in August 2017 in setting of anemia following spine surgery and STEMI/LHC/stent-contrast nephropathy. Mr. Theodore was transferred from [facility] for complaints of chest pain, non specific EKG changes, trop 0.056. Repeat troponin 0.18. Heparin drip. Admitted with NSTEMI. Other PMH-arthritis, diabetes, hyperlipidemia, hypertension, BPH, myocardial infarction, renal disease, syncope. Had LHC yesterday- 90% LAD in-stent restenosis, a 70% mid LAD lesion, and and 70 % ostial OM1 lesion. Recommended for CABG. Evaluated by Cardiothorac with plans for CABG on February 16. At time of consult he denies chest pain. Creat today 1.77. Past Med Surg Social Fam HX - Past Medical History Medical history: arthritis, coronary artery disease, diabetes, hyperlipidemia, hypertension, myocardial infarction, renal disease (CKD, Stage IIIB), syncope Psychiatric history: no psych history - Past Surgical History Surgical History: orthopedic, other (Lumbar laminectomy 2) - Social History Smoking Status: Never smoker Smokeless Tobacco Status: No Alcohol use: none Drug use: none - Family History Mother Adopted: No Family Member Ethnicity: Non- Living Status: Hx Family Cardiac Disorders: Yes Hx Family Respiratory Disorders: No Hx Family Cancer: No Hx Family GI Disorders: No Hx Family Endocrine Disorder: Yes (diabetic) Hx Family Neuromuscular Disorders: No Hx Family Neurologic Disorders: No Hx Family HEENT Disorders: No Hx Family Autoimmune Disorders: No Medications and Allergies Glimepiride [Amaryl] 4 mg PO BID 06/24/15 [History] Lisinopril [Zestril] 10 mg PO DAILY 06/24/15 [History] Metformin [Glucophage] 1,000 mg PO BID 06/24/15 [History] Trazodone HCl 150 mg PO HS 08/26/17 [History] Aspirin Enteric Coated [Aspirin EC] 81 mg PO DAILY tablet. 09/04/17 [Rx] Clopidogrel [Plavix] 75 mg PO DAILY #30 tablet 09/04/17 [Rx] Metoprolol XL (24 HR) Succ [Toprol Xl] 100 mg PO DAILY #30 tab.er.24h 09/04/17 [ Rx] Albuterol Sulfate [Albuterol Inhaler] 2 puff IH Q4HR #1 hfa.aer.ad 11/08/17 [Rx] Dutasteride [Avodart] 0.5 mg PO DAILY 02/11/18 [History] Fluticasone Propionate Nasal [Flonase] 2 spr NS DAILY 02/11/18 [History] Montelukast [Singulair] 10 mg PO DAILY 02/11/18 [History] Simvastatin [Zocor] 40 mg PO HS 02/11/18 [History] Terazosin HCl 10 mg PO DAILY 02/11/18 [History] 3 Allergy/AdvReac Type Severity Reaction Status Date / Time ibuprofen AdvReac See Verified 08/26/17 07:26 Comments Review of Systems All Systems: reviewed and no additional remarkable complaints except as stated Exam - Vital Signs Vital signs: Initial Vital Signs Temp Pulse Resp BP Pulse Ox 97.8 F 67 18 166/81 99 02/11/18 03:48 02/11/18 03:48 02/11/18 03:48 02/11/18 03:48 02/11/18 03:48 Vital Signs - Last 8 Hours Temp Pulse Resp BP Pulse Ox 02/12/18 14:48 97.7 F 60 14 168/82 96 02/12/18 11:27 14 161/76 96 02/12/18 11:04 98.1 F 61 14 161/76 96 02/12/18 09:15 96 02/12/18 08:35 16 96 02/12/18 07:08 97.8 F 59 14 163/71 96 Intake and Output 02/11/18 02/12/18 02/12/18 23:59 07:59 15:59 Intake Total 350 / 350 90 / 90 627 / 627 Output Total 500 / 500 675 / 675 0 / 0 Balance -150 / -150 -585 / -585 627 / 627 Intake: IV Fluids 350 / 350 90 / 90 267 / 267 Heparin 25,000 UNIT/500 ML D5W 350 / 350 90 / 90 267 / 267 25,000 unit In 500 ml @ 14 UNIT /KG/HR 19.63 mls/hr IVC .Q24H GINO Rx#:[id number] Oral 360 / 360 Output: Urine 500 / 500 675 / 675 0 / 0 Other: Meal NPO Lunch Percent of Meal Consumed 0% 95% Weight 66.95 kg Blood Glucose* 159 82 217 Patient Weight 02/12/18 23:59 Weight 66.95 kg - General Appearance General appearance: well-developed, well-nourished, appears started age EENT: mucous membranes moist Neck: no JVD Respiratory: clear Cardiology: no edema, regular rate, regular rhythm Gastrointestinal: normoactive bowel sounds, no tenderness Integumentary: warm and dry Neurologic: alert and oriented x3 Results - Lab Results 02/12/18 05:26 02/12/18 05:26 Most recent lab results Calcium 8.7 mg/dL (8.6-10.3) 02/12/18 05:26 Consult Discharge Plan - Plan Referrals: Trudy Sandoval, SURFACE LOGGING SYSTEMS LOGGER [Primary Care Provider] -
[2018-02-12] MEDS: traZODone 50 MG TABLET PO SCH (20:49)
[2018-02-13 01:36] LABS: Basophils % 0.5 %; Eosinophils # 0.2 K/mcL (0.0-0.6); Hematocrit 32.9 % (37.5-50.1); Hemoglobin 10.8 g/dL (12.9-16.9); Immature Granulocytes % 0.5 % (0-4); Lymphocytes # 1.1 K/mcL (0.6-4.6); Lymphocytes % 17.7 %; Mean Corpuscular HGB Conc 32.8 g/dL (31.6-35.5); Mean Corpuscular Hemoglobin 28.8 pg (28.0-33.3); Mean Corpuscular Volume 87.7 fL (83.0-100.0); Mean Platelet Volume 10.6 fL (9.4-12.4); Monocytes # 0.8 K/mcL (0.0-1.3); Monocytes % 12.6 %; Neutrophils # 4.2 K/mcL (1.6-8.9); Platelet Count 200 K/mcL (140-400); Red Blood Count 3.75 M/mcL (4.19-5.50); Red Cell Distribution Width 13.2 % (11.5-14.5); Segmented Neutrophils % 65.7 %
[2018-02-13 01:55] LABS: Calcium 8.5 mg/dL (8.6-10.3); Potassium 4.5 mEq/L (3.5-5.1)
--- NOTE | 2018-02-13 08:29 | Cardiothoracic Progress Note ---
Date of Encounter: 02/13/18 Time of Encounter: 08:06 - Assessment and plan (1) NSTEMI (non-ST elevated myocardial infarction) Current Visit: Yes Status: Acute The patient is a 77-year-old type II diabetic, hypertensive man with hypercholesterolemia and known CAD. He suffered an acute NSTEMI 2 days ago and was transferred to [facility] for further cardiac care. Of note, the patient underwent PCI with ostial/proximal LAD stent placement in August 2017. The repeat cardiac catheterization performed yesterday revealed 90% LAD in-stent restenosis, a 70% mid LAD lesion, and and 70% ostial OM1 lesion. The patient has been recommended for CABG. The patient understands the procedure, benefits, alternatives, and risks, and gives his informed consent. The STS risk calculator shows an operative mortality risk 2.41%, deep sternal wound infection risk 0.35%, permanent stroke risk 1.52%, renal failure risk 8.14%, and reoperation risk 6.92%. Currently the patient is on Plavix for his previous stent and this will need to be stopped for 4-5 days prior to CABG. The CABG he is tentatively scheduled for 02/16/2018. The assessment and plan as outlined above was discussed with the patient and/or family members who expressed understanding and agreement. All questions were answered. - Subjective Interval history: The patient remained hemodynamic stable overnight. He has no complaints of substernal chest pain or shortness of breath. Vital Signs, Last 4 Hours Temp Pulse Resp BP Pulse Ox 02/13/18 08:08 18 98 02/13/18 07:11 98.0 F 69 16 153/78 95 02/13/18 05:13 16 96 Oxgyen Flow Rate Oxygen Flow Rate (LPM) 0 Clinical Data, last 8 Hours Output, Urine Amount 0 Output, Urine Amount 200 Weight 02/11/18 02/12/18 02/13/18 23:59 23:59 23:59 Weight 70.108 kg 66.95 kg 67.2 kg - Physical Examination General: Conversant, No Apparent Distress Neck: No JVD, Normal carotid pulses Cardiac: Reg Rate and Rhythm, Normal S1 and S2, No Murmur Lungs: Normal Breath Sounds, No Wheeze, Rales, Rhonchi Neuro: Alert and responsive, No focal deficits noted Vascular: Normal capillary refill Musculoskeletal: No Chest Wall Tenderness Extremities: No Clubbing, No Cyanosis, No Edema - Labs 02/13/18 01:10 02/13/18 01:10 Lab Results, Last 24 hours 02/12/18 02/12/18 02/12/18 09:38 11:49 18:09 WBC Hgb Hct Plt Count APTT 88.2 H D 73.6 H 51.8 H Sodium Potassium Chloride Carbon Dioxide BUN Creatinine Glucose Calcium 02/13/18 02/13/18 02/13/18 01:10 01:10 01:10 WBC 6.3 Hgb 10.8 L Hct 32.9 L Plt Count 200 APTT 76.5 H Sodium 136 Potassium 4.5 Chloride 106 Carbon Dioxide 23 BUN 36 H Creatinine 1.85 H Glucose 200 H Calcium 8.5 L 02/13/18 07:49 WBC Hgb Hct Plt Count APTT 77.7 H Sodium Potassium Chloride Carbon Dioxide BUN Creatinine Glucose Calcium Consult Discharge Plan - Plan Referrals: Trudy Sandoval, TOP STOP ATTACHER [Primary Care Provider] -
[2018-02-13] MEDS ORDERED: *HR* FentaNYL (PF) 100 MCG/2 ML VIAL IVP PRN (09:06)
[2018-02-13] MEDS ORDERED: Tetracaine/Benzocaine/Butamben 200MG/SPRAY (100SPY/BOT) MM ONE (09:07)
[2018-02-13] MEDS ORDERED: 0.9 % Sodium Chloride 500 ML IVC ONE (09:07)
--- NOTE | 2018-02-13 09:43 | Nephrology Progress Note ---
Date of Encounter: 02/13/18 Time of Encounter: 08:35 - Assessment and Plan (1) CKD (chronic kidney disease), stage III Current Visit: Yes Status: Chronic CKD 3 in setting of diabetic nephropathy. Baseline creat 1.6-1.8. Prior history of MEL in August 2017 in setting of anemia following spine surgery and STEMI/ LHC/stent-contrast nephropathy. NSTEMI/LHC-triple vessel disease. Stable renal fct, creat 1.85, documented urine output 675cc. Scheduled for CABG on Friday. Avod nephrotoxins. Accurate I&O's. Will continue to monitor Subjective Principal diagnosis: chest pain Interval history: Resting quietly, watching TV. Denies chest pain. No new complaints. Objective - Vital Signs Vital signs: Vital Signs Temp Pulse Resp BP Pulse Ox 02/13/18 08:08 18 98 02/13/18 07:11 98.0 F 69 16 153/78 95 02/13/18 05:13 16 96 02/13/18 04:19 98.1 F 67 14 152/88 95 02/12/18 23:58 97.9 F 68 18 171/83 98 02/12/18 20:07 13 95 02/12/18 19:36 97.5 F L 63 16 176/84 96 02/12/18 16:53 16 95 02/12/18 14:48 97.7 F 60 14 168/82 96 02/12/18 11:27 14 161/76 96 02/12/18 11:04 98.1 F 61 14 161/76 96 Intake and Output 02/12/18 02/13/18 02/13/18 23:59 07:59 15:59 Intake Total 580 / 580 158 / 158 144 / 144 Output Total 0 / 0 200 / 200 Balance 580 / 580 -42 / -42 144 / 144 Intake: IV Fluids 140 / 140 158 / 158 144 / 144 Heparin 25,000 UNIT/500 ML D5W 140 / 140 158 / 158 144 / 144 25,000 unit In 500 ml @ 14 UNIT /KG/HR 19.63 mls/hr IVC .Q24H GINO Rx#:[id number] Oral 240 / 240 0 / 0 Free Water 200 / 200 Output: Urine 0 / 0 200 / 200 Other: Meal Dinner Percent of Meal Consumed 100% Weight 67.2 kg Blood Glucose* 286 174 Patient Weight 02/13/18 23:59 Weight 67.2 kg - General Appearance General appearance: Present: well-developed, well-nourished, appears started age EENT: Present: mucous membranes moist Neck: Present: no JVD Respiratory: Present: wheezing Additional Comments: scattered Cardiology: Present: no edema, regular rate, regular rhythm Gastrointestinal: Present: normoactive bowel sounds, no tenderness Integumentary: Present: warm and dry Neurologic: Present: alert and oriented x3 - Lab 02/13/18 01:10 02/13/18 01:10 Most recent lab results Calcium 8.5 mg/dL (8.6-10.3) L 02/13/18 01:10 Consult Discharge Plan - Plan Referrals: Trudy Sandoval, WEDDING DAY COORDINATOR [Primary Care Provider] -
[2018-02-13] MEDS: *HR* Midazolam HCl 5 MG/5 ML VIAL IVP PRN ×2 (10:10→10:15)
--- NOTE | 2018-02-13 10:17 | Internal Med Progress Note ---
Date of Encounter: 02/13/18 Time of Encounter: 10:15 - Constitutional Vitals: Temp Pulse Resp BP Pulse Ox 97.0 F L 58 14 180/83 98 02/13/18 09:39 02/13/18 09:39 02/13/18 09:39 02/13/18 09:39 02/13/18 09:39 General appearance: Present: cooperative, A&O X 3, answers questions appropriately Internal Medicine: Result - Labs CBC & Chem 7: 02/13/18 01:10 02/13/18 01:10 Labs: Short CBC 02/13/18 Range/Units 01:10 WBC 6.3 (4.3-11.1) K/mcL Hgb 10.8 L (12.9-16.9) g/dL Hct 32.9 L (37.5-50.1) % Plt Count 200 (140-400) K/mcL Neutrophils # 4.2 (1.6-8.9) K/mcL BMP 02/13/18 01:10 Sodium 136 Potassium 4.5 Chloride 106 Carbon Dioxide 23 BUN 36 H Creatinine 1.85 H Glucose 200 H Calcium 8.5 L - ABG Interpretation ABG results: PT/INR, D-dimer PT 11.2 Seconds (9.4-12.1) 02/11/18 07:11 - Impressions Impressions Echocardiogram 02/11/18 06:22 Impressions: Blood pressure 172/81 mmHg at time of study. LVEF 40-45%. Global appearing LV systolic dysfunction. Diastolic dysfunction with elevated filling pressures. Normal right ventricular structure and function. Moderate mitral regurgitation. Probably trileaflet aortic valve with thickening/calcification and partial fusion and reduced leaflet excursion of the NCC/RCC. No aortic stenosis by Doppler on this study - could be underestimated. Consider further evaluation with RONALD. Mild-moderate aortic regurgitation. No pulmonary hypertension. Left Ventricular Wall Motion: Rest Echo Findings The apex, apical inferior, mid inferior, basal inferior, apical anterior, mid anterior, basal anterior, apical septal, mid inferior septal, basal inferior septal, apical lateral, mid anterior lateral, basal anterior lateral, mid anterior septal, basal anterior septal and basal inferior lateral ureña were hypokinetic. The mid inferior lateral wall was not visualized. Findings: Study Quality * Technically adequate exam. ECG Findings * Normal sinus rhythm. Left Ventricle * LVEF 40-45%. * Diastolic dysfunction with elevated filling pressures. Systolic blunting of the pulmonary vein Doppler. * Normal LV size and wall thickness measurements. Right Ventricle * Normal right ventricular structure and function. TD velocity 11 cm/s Left Atrium * Moderately dilated left atrium. Right Atrium * Normal right atrial size. Mitral Valve * No mitral stenosis. * Mildly thickened/calcified mitral valve leaflets. * Mild mitral annular calcification * Moderate mitral regurgitation. Aortic Valve * Probably trileaflet aortic valve with thickening/calcification and partial fusion and reduced leaflet excursion of the NCC/RCC. * Mild-moderate aortic regurgitation. * No aortic stenosis by Doppler on this study - could be underestimated. Tricuspid Valve * Normal tricuspid valve structure. * No tricuspid regurgitation. * Estimated RA pressure is 8 mmHg. * Estimated RVSP is 32 mmHg. * No pulmonary hypertension. Pulmonic Valve * Pulmonic valve is not well visualized. * No pulmonic stenosis. * Trace pulmonic regurgitation. Pulmonary Artery * Normal visualized portions of the main pulmonary artery. Aorta * Normally sized aortic root. Interatrial Septum * No evidence of PFO by color Doppler. Pericardium * There is no pericardial effusion present. IVC * The IVC is not dilated. * < 50% respiratory change. Consult Discharge Plan - Plan Referrals: Trudy Sandoval, COLLEGE OR [employer]IVERSITY FACULTY MEMBER [Primary Care Provider] -
[2018-02-13] MEDS ORDERED: D5% in Water 1,000 ML IVC PRN (10:32)
[2018-02-13] MEDS ORDERED: *HR* Dextrose 50 % in Water (Syg) 50 ML SYRINGE IVP PRN (10:32)
[2018-02-13] MEDS ORDERED: Dextrose Gel 15 GM/37.5 ML TUBE PO PRN ×2 (10:32)
[2018-02-13] MEDS: Insulin LISPRO 300 UNITS/3 ML VIAL SQ SCH ×3 (12:44→22:30)
[2018-02-13] MEDS: Heparin 25,000 UNIT/500 ML D5W 25,000 UNIT/500 ML BAG IVC SCH (12:56)
[2018-02-13] MEDS: Metoprolol XL (24 HR) Succ 50 MG TAB.ER.24H PO SCH (12:56)
[2018-02-13] MEDS: Finasteride 5 MG TABLET PO SCH (12:56)
[2018-02-13] MEDS: Aspirin Enteric Coated 81 MG Tablet PO SCH (12:58)
--- NOTE | 2018-02-13 16:00 | Internal Med Progress Note ---
Date of Encounter: 02/13/18 Time of Encounter: 13:00 - Assessment and plan (1) HTN (hypertension) Current Visit: Yes Status: Chronic Assessment and plan: resumed home meds 02/13: Pressure remains elevated Patient is on Toprol-XL 100 mg by mouth daily. No EMERITA inhibitor due to renal dysfunction. I will add in hydralazine by mouth 25 mg 3 times a day. Monitor. Qualifiers: Hypertension type: essential hypertension Qualified Code(s): I10 - Essential (primary) hypertension (2) DM type 2 (diabetes mellitus, type 2) Current Visit: Yes Status: Chronic Assessment and plan: held PO meds started him on ISS 4: Blood pressure remains elevated. I will add basal insulin at night. Monitor. A1c is 8.0. Qualifiers: Diabetes mellitus hotel administrative assistant insulin use: without hotel administrative assistant use Diabetes mellitus complication status: with kidney complications Diabetes mellitus complication detail: with chronic kidney disease Chronic kidney disease stage : stage 3 (moderate) Qualified Code(s): E11.22 - Type 2 diabetes mellitus with diabetic chronic kidney disease; N18.3 - Chronic kidney disease, stage 3 ( moderate); N18.3 - Chronic kidney disease, stage 3 (moderate) (3) HLD (hyperlipidemia) Current Visit: Yes Status: Chronic Assessment and plan: on statin Qualifiers: Hyperlipidemia type: unspecified Qualified Code(s): E78.5 - Hyperlipidemia , unspecified (4) NSTEMI (non-ST elevated myocardial infarction) Current Visit: Yes Status: Acute Assessment and plan: Will admit the pt into Tele Will place pt on school lunch monitor Reviewed his labs from [facility] ER, initial Trop 0.056 then repeat Trop went up to 0.18 Will cont trending on Trop EKG reviewed by myself, shoing NSR with HR 84, Non specific ST changes noticed will cont home med ASA + Plavix Cont home med BB Cont heparin gtt for now Card consulted for further eval may need [facility] Will keep him NPO for now Will check FLP in AM 4/6: Management as per cardiology. No plans for CABG on Friday. Plavix on hold. (5) Ischemic cardiomyopathy Current Visit: Yes Status: Acute Assessment and plan: reviewed 2 D Echo from 08/26 shoed LVEF 40% does have chronic systolic CHF Not in exacerbation now (6) CAD S/P percutaneous coronary angioplasty Current Visit: Yes Status: Deleted Assessment and plan: See above (7) Acute bronchitis Current Visit: Yes Status: Acute Assessment and plan: He does have acute bronchitis mostly bacterial He was already given Rocephin and Azithromycin in the ER will cont them here for now I will check for sputum culture, step pneumonia, Legionella and respiratory viral panel 02/13: Symptoms improved, monitor. He does not have a leukocytosis. He is afebrile. I do not suspect he has a bacterial process. Qualifiers: Qualified Code(s): J20.9 - Acute bronchitis, unspecified (8) CKD (chronic kidney disease), stage III Current Visit: Yes Status: Chronic Assessment and plan: Management per nephrology. Avoid nephrotoxins. Renal function is near or at baseline. - Time Spent With Patient Total time spent is greater than 50% in coordination of care (as documented) at patient's floor/unit and/or counseling patient: 25 - 35 minutes - Subjective Interval history: Patient reports he is feeling well. No chest pain or shortness of breath. No nausea, vomiting, diarrhea. No fevers or chills. Cardiothoracic surgery note appreciated. Hands for CABG in the next 4-5 days. Plavix has been held. Patient is being monitored over weekend. - Constitutional Vitals: Temp Pulse Resp BP Pulse Ox 97.4 F L 56 15 176/78 98 02/13/18 11:53 02/13/18 13:45 02/13/18 13:45 02/13/18 13:45 02/13/18 13:45 General appearance: Present: cooperative, A&O X 3, answers questions appropriately - Head Head exam: Present: atraumatic, normocephalic - Eye Eye exam: Present: PERRL, conjuntiva pink, sclera anicteric Pupils: Present: PERRL - Neck Neck exam general surgery: Present: supple, trachea midline. Absent: lymphadenopathy - Respiratory Respiratory exam: Present: CTAB. Absent: accessory muscle use, rales, rhonchi, wheezes - Cardiovascular Cardiovascular exam: Present: RRR, +S1, +S2. Absent: diastolic murmur, gallop, rubs, systolic murmur - GI/Abdominal GI/Abdominal exam: Present: normal bowel sounds, soft, no peritoneal signs. Absent: distended, tenderness - Extremities Exam Extremities exam: Present: warm, radial pulses palpable and symmetrical. Absent : calf tenderness, cyanotic, pedal edema - Neurological Exam Neurological exam: Present: CN II-XII intact, oriented X3, no focal deficits. Absent: pronater drift, facial droop, speech deficit - Skin Skin exam: Present: dry, intact Internal Medicine: Result - Labs CBC & Chem 7: 02/13/18 01:10 02/13/18 01:10 Labs: Short CBC 02/13/18 Range/Units 01:10 WBC 6.3 (4.3-11.1) K/mcL Hgb 10.8 L (12.9-16.9) g/dL Hct 32.9 L (37.5-50.1) % Plt Count 200 (140-400) K/mcL Neutrophils # 4.2 (1.6-8.9) K/mcL BMP 02/13/18 01:10 Sodium 136 Potassium 4.5 Chloride 106 Carbon Dioxide 23 BUN 36 H Creatinine 1.85 H Glucose 200 H Calcium 8.5 L - ABG Interpretation ABG results: PT/INR, D-dimer PT 11.2 Seconds (9.4-12.1) 02/11/18 07:11 Consult Discharge Plan - Plan Referrals: Trudy Sandoval, DAIRY NUTRITIONIST [Primary Care Provider] -
[2018-02-13] MEDS: hydrALAZINE 25 MG TABLET PO PRN (18:46)
[2018-02-13] MEDS: Insulin DETEMIR 100 UNIT/ML X5UNITS SQ SCH (22:29)
[2018-02-13] MEDS: traZODone 50 MG TABLET PO SCH (22:29)
[2018-02-14] MEDS: hydrALAZINE 25 MG TABLET PO PRN ×2 (04:52→16:36)
[2018-02-14] MEDS: Aspirin Enteric Coated 81 MG Tablet PO SCH (08:04)
[2018-02-14] MEDS: Metoprolol XL (24 HR) Succ 50 MG TAB.ER.24H PO SCH (08:04)
[2018-02-14] MEDS: Finasteride 5 MG TABLET PO SCH (08:04)
[2018-02-14] MEDS: Insulin LISPRO 300 UNITS/3 ML VIAL SQ SCH ×4 (08:05→20:38)
[2018-02-14] MEDS: amLODIPine 5 MG TABLET PO SCH ×2 (09:18→20:38)
--- NOTE | 2018-02-14 09:51 | Nephrology Progress Note ---
Date of Encounter: 02/14/18 Time of Encounter: 09:10 - Assessment and Plan (1) CKD (chronic kidney disease), stage III Current Visit: Yes Status: Chronic CKD 3 in setting of diabetic nephropathy. Baseline creat 1.6-1.8. Prior history of MEL in August 2017 in setting of anemia following spine surgery and STEMI/ LHC/stent-contrast nephropathy. NSTEMI/LHC-triple vessel disease. Today labs pending, documented urine output 450cc. SBP 160-180. Will start on Amlodipine 5mg BID. Scheduled for CABG on Friday. Avod nephrotoxins. Accurate I&O's. Will continue to monitor Subjective Principal diagnosis: chest pain Interval history: Resting quietly, watching TV. Denies chest pain. No new complaints. Objective - Vital Signs Vital signs: Vital Signs Temp Pulse Resp BP Pulse Ox 02/14/18 06:33 97.7 F 60 16 160/78 97 02/14/18 04:48 16 97 02/14/18 04:00 98.3 F 68 16 181/90 98 02/14/18 00:16 16 98 02/14/18 00:06 97.5 F L 78 16 157/70 97 02/13/18 20:49 18 97 02/13/18 20:00 97.7 F 60 18 164/87 98 02/13/18 16:15 97.7 F 61 20 176/87 99 02/13/18 16:11 18 99 02/13/18 13:45 56 15 176/78 98 02/13/18 12:50 60 14 153/73 96 02/13/18 12:15 57 16 166/76 96 02/13/18 11:53 97.4 F L 02/13/18 11:45 58 15 171/74 97 02/13/18 11:27 18 97 02/13/18 11:23 97.3 F L 55 15 167/75 97 Intake and Output 02/13/18 02/14/18 02/14/18 23:59 07:59 15:59 Intake Total 0 / 0 0 / 0 706.1 / 706.1 Output Total 250 / 250 1325 / 1325 Balance -250 / -250 -1325 / -1325 706.1 / 706.1 Intake: IV Fluids 466.1 / 466.1 Heparin 25,000 UNIT/500 ML D5W 466.1 / 466.1 25,000 unit In 500 ml @ 14 UNIT /KG/HR 19.63 mls/hr IVC .Q24H GINO Rx#:[id number] Oral 0 / 0 0 / 0 240 / 240 Output: Urine 250 / 250 1325 / 1325 Other: Meal Breakfast Percent of Meal Consumed 100% Weight 67.1 kg Blood Glucose* 90 142 Patient Weight 02/14/18 23:59 Weight 67.1 kg - General Appearance General appearance: Present: well-developed, well-nourished, appears started age EENT: Present: mucous membranes moist Neck: Present: no JVD Respiratory: Present: wheezing Cardiology: Present: no edema, regular rate, regular rhythm Gastrointestinal: Present: normoactive bowel sounds, no tenderness Integumentary: Present: warm and dry Neurologic: Present: alert and oriented x3 - Lab 02/13/18 01:10 02/13/18 01:10 Most recent lab results Calcium 8.5 mg/dL (8.6-10.3) L 02/13/18 01:10 Consult Discharge Plan - Plan Referrals: Trudy Sandoval, WEARING [employer]PAREL SHAKER [Primary Care Provider] -
--- NOTE | 2018-02-14 10:30 | Internal Med Progress Note ---
Date of Encounter: 02/14/18 Time of Encounter: 10:00 - Assessment and plan (1) HTN (hypertension) Current Visit: Yes Status: Chronic Assessment and plan: resumed home meds 02/13: Pressure remains elevated Patient is on Toprol-XL 100 mg by mouth daily. No EMERITA inhibitor due to renal dysfunction. I will add in hydralazine by mouth 25 mg 3 times a day. Monitor. 02/14: Nephrology input noted, Norvasc added. Qualifiers: Hypertension type: essential hypertension Qualified Code(s): I10 - Essential (primary) hypertension (2) DM type 2 (diabetes mellitus, type 2) Current Visit: Yes Status: Chronic Assessment and plan: held PO meds started him on ISS 02/13: Blood pressure remains elevated. I will add basal insulin at night. Monitor. A1c is 8.0. 02/14: Labile blood sugars but overall trending towards improvement. Continue current basal bolus dosing. Monitor. Qualifiers: Diabetes mellitus terminal operations manager insulin use: without terminal operations manager use Diabetes mellitus complication status: with kidney complications Diabetes mellitus complication detail: with chronic kidney disease Chronic kidney disease stage : stage 3 (moderate) Qualified Code(s): E11.22 - Type 2 diabetes mellitus with diabetic chronic kidney disease; N18.3 - Chronic kidney disease, stage 3 ( moderate); N18.3 - Chronic kidney disease, stage 3 (moderate) (3) HLD (hyperlipidemia) Current Visit: Yes Status: Chronic Assessment and plan: on statin Qualifiers: Hyperlipidemia type: unspecified Qualified Code(s): E78.5 - Hyperlipidemia , unspecified (4) NSTEMI (non-ST elevated myocardial infarction) Current Visit: Yes Status: Acute Assessment and plan: Will admit the pt into Tele Will place pt on screen cleaner Reviewed his labs from [facility] ER, initial Trop 0.056 then repeat Trop went up to 0.18 Will cont trending on Trop EKG reviewed by myself, shoing NSR with HR 84, Non specific ST changes noticed will cont home med ASA + Plavix Cont home med BB Cont heparin gtt for now Card consulted for further eval may need [facility] Will keep him NPO for now Will check FLP in AM 4/7: Management as per cardiology. Note plans for CABG on Friday. Plavix on hold. (5) Ischemic cardiomyopathy Current Visit: Yes Status: Acute Assessment and plan: reviewed 2 D Echo from 08/26 shoed LVEF 40% does have chronic systolic CHF Not in exacerbation now (6) Acute bronchitis Current Visit: Yes Status: Acute Assessment and plan: He does have acute bronchitis mostly bacterial He was already given Rocephin and Azithromycin in the ER will cont them here for now I will check for sputum culture, step pneumonia, Legionella and respiratory viral panel 02/14: Symptoms improved, monitor. He does not have a leukocytosis. He is afebrile. I do not suspect he has a bacterial process. Qualifiers: Qualified Code(s): J20.9 - Acute bronchitis, unspecified (7) CKD (chronic kidney disease), stage III Current Visit: Yes Status: Chronic Assessment and plan: Management per nephrology. Avoid nephrotoxins. Renal function is near or at baseline. - Time Spent With Patient Total time spent is greater than 50% in coordination of care (as documented) at patient's floor/unit and/or counseling patient: 25 - 35 minutes - Subjective Interval history: Patient reports he is feeling well. No chest pain or shortness of breath. No complaints at all. No nausea, vomiting, diarrhea. No fevers or chills. Cardiothoracic surgery note appreciated. Nephrology input noted and appreciated. Plans for CABG in the next 4-5 days. Plavix has been held. - Constitutional Vitals: Temp Pulse Resp BP Pulse Ox 97.7 F 60 16 160/78 97 02/14/18 06:33 02/14/18 06:33 02/14/18 06:33 02/14/18 06:33 02/14/18 06:33 General appearance: Present: cooperative, A&O X 3, answers questions appropriately - Head Head exam: Present: atraumatic, normocephalic - Eye Eye exam: Present: PERRL, conjuntiva pink, sclera anicteric Pupils: Present: PERRL - Neck Neck exam general surgery: Present: supple, trachea midline. Absent: lymphadenopathy - Respiratory Respiratory exam: Present: CTAB. Absent: accessory muscle use, rales, rhonchi, wheezes - GI/Abdominal GI/Abdominal exam: Present: normal bowel sounds, soft, no peritoneal signs. Absent: distended, tenderness - Extremities Exam Extremities exam: Present: warm, radial pulses palpable and symmetrical. Absent : calf tenderness, cyanotic, pedal edema - Neurological Exam Neurological exam: Present: CN II-XII intact, oriented X3, no focal deficits. Absent: pronater drift, facial droop, speech deficit - Skin Skin exam: Present: dry, intact Internal Medicine: Result - Labs CBC & Chem 7: 02/13/18 01:10 02/13/18 01:10 - ABG Interpretation ABG results: PT/INR, D-dimer PT 11.2 Seconds (9.4-12.1) 02/11/18 07:11 Consult Discharge Plan - Plan Referrals: Trudy Sandoval, MILK POWDER GRINDER [Primary Care Provider] -
[2018-02-14] MEDS: Heparin 25,000 UNIT/500 ML D5W 25,000 UNIT/500 ML BAG IVC SCH (10:54)
--- NOTE | 2018-02-14 12:09 | Cardiothoracic Progress Note ---
Date of Encounter: 02/14/18 Time of Encounter: 12:06 - Subjective Procedure(s) Performed: Patient seen and examined, and summary the patient is a 77-year-old type II diabetic, hypertensive man with hypercholesterolemia and known CAD. He suffered an acute NSTEMI 3 days ago and was transferred to [facility] for further cardiac care. He notably underwent PCI with ostial/ proximal LAD stent placement in August 2017. Repeat cardiac catheterization performed during this admission revealed 90% LAD in-stent restenosis, a 70% mid LAD lesion, and and 70% ostial OM1 lesion. And was recommended he undergo a CABG. Dr. Momin's seen the patient in consultation and explained to him the procedure, along with the potential benefits and risks of the patient states he is understood this discussion and wishes to proceed with surgery as recommended. Notably, the patient was on Plavix for his previous stent and this will need to be stopped for 4-5 days prior to CABG. The CABG he is tentatively scheduled for 02/16/2018. The patient has been doing well with no acute events overnight. His blood pressures required some additional meds for control of his hypertension. The patient denies any new chest pain. Nursing staff reports he is doing well. Vital Signs, Last 4 Hours Resp BP Pulse Ox 02/14/18 11:13 16 97 02/14/18 10:57 158/79 Oxgyen Flow Rate Oxygen Flow Rate (LPM) 0 Clinical Data, last 8 Hours Output, Urine Amount 0 Output, Urine Amount 175 Output, Urine Amount 300 Output, Urine Amount 250 Weight 02/12/18 02/13/18 02/14/18 23:59 23:59 23:59 Weight 66.95 kg 67.132 kg 67.1 kg - Labs 02/13/18 01:10 02/13/18 01:10 Lab Results, Last 24 hours 02/14/18 08:13 APTT 74.9 H Consult Discharge Plan - Plan Referrals: Trudy Sandoval, COMMUNICATION STUDIES PROFESSOR [Primary Care Provider] -
--- NOTE | 2018-02-14 13:29 | Electrocardiograph Report ---
[address] [address] Test Date: 2018-02-12 Pat Name: Jose Theodore Department: 104 Room: [facility] Gender: M Instructional Designer: [facility] : 1940 Requested By: Leatha Lynch Order Number: [id number] Reading MD: Rosemarie Miranda Measurements Intervals [place] Rate: 61 P: 38 VT: 145 QRS: 12 QRSD: 76 T: 65 QT: 434 QTc: 436 Interpretive Statements SINUS RHYTHM Electronically Signed On 02-14-2018 13:28:05 EDT by Rosemarie Miranda
[2018-02-14] MEDS: traZODone 50 MG TABLET PO SCH (20:37)
[2018-02-14] MEDS: Insulin DETEMIR 100 UNIT/ML X5UNITS SQ SCH (20:38)
[2018-02-15] MEDS: Heparin 25,000 UNIT/500 ML D5W 25,000 UNIT/500 ML BAG IVC SCH (08:35)
[2018-02-15] MEDS: amLODIPine 5 MG TABLET PO SCH ×3 (08:38→20:27)
[2018-02-15] MEDS: Aspirin Enteric Coated 81 MG Tablet PO SCH (08:38)
[2018-02-15] MEDS: Metoprolol XL (24 HR) Succ 50 MG TAB.ER.24H PO SCH (08:38)
[2018-02-15] MEDS: Finasteride 5 MG TABLET PO SCH (08:38)
[2018-02-15 08:56] LABS: Basophils # 0.1 K/mcL (0.0-0.2); Basophils % 0.8 %; Eosinophils # 0.2 K/mcL (0.0-0.6); Eosinophils % 3.2 %; Hematocrit 36.9 % (37.5-50.1); Immature Granulocytes % 0.5 % (0-4); Lymphocytes % 14.3 %; Mean Corpuscular HGB Conc 32.5 g/dL (31.6-35.5); Mean Corpuscular Hemoglobin 28.8 pg (28.0-33.3); Mean Corpuscular Volume 88.5 fL (83.0-100.0); Monocytes # 0.8 K/mcL (0.0-1.3); Monocytes % 11.4 %; Neutrophils # 4.7 K/mcL (1.6-8.9); Platelet Count 211 K/mcL (140-400); Red Blood Count 4.17 M/mcL (4.19-5.50); Red Cell Distribution Width 13.3 % (11.5-14.5); Segmented Neutrophils % 69.8 %
[2018-02-15 09:02] LABS: Albumin 3.8 g/dL (3.5-5.7); Albumin/Globulin Ratio 1.3 (1.1-2.2); Bilirubin,Total 0.4 mg/dL (0.3-1.0); Calcium 9.1 mg/dL (8.6-10.3); Globulin 2.9 g/dL (2.4-3.5); Potassium 4.5 mEq/L (3.5-5.1); Total Protein 6.7 g/dL (6.4-8.9)
--- NOTE | 2018-02-15 09:11 | Nephrology Progress Note ---
Date of Encounter: 02/15/18 Time of Encounter: 08:50 - Assessment and Plan (1) CKD (chronic kidney disease), stage III Current Visit: Yes Status: Chronic CKD 3 in setting of diabetic nephropathy. Baseline creat 1.6-1.8. Prior history of MEL in August 2017 in setting of anemia following spine surgery and STEMI/ LHC/stent-contrast nephropathy. NSTEMI/LHC-triple vessel disease. Today labs pending, documented urine output 1325cc. SBP remains elevated 160-170. Will increase Amlodipine 10mg BID. Scheduled for CABG on Friday. Avod nephrotoxins. Accurate I&O's. Will continue to monitor Subjective Principal diagnosis: chest pain Interval history: Resting quietly, watching TV. Denies chest pain. No new complaints. Objective - Vital Signs Vital signs: Vital Signs Temp Pulse Resp BP Pulse Ox 02/15/18 07:35 17 97 02/15/18 06:36 97.5 F L 60 17 164/80 96 02/15/18 04:15 16 98 02/15/18 04:00 97.5 F L 57 16 156/75 95 02/15/18 00:10 16 99 02/14/18 20:36 99 02/14/18 20:01 16 99 02/14/18 20:00 97.4 F L 58 18 170/88 99 02/14/18 15:51 97.7 F 57 17 161/80 96 02/14/18 15:34 16 97 02/14/18 11:13 16 97 02/14/18 10:57 158/79 Intake and Output 02/14/18 02/15/18 02/15/18 23:59 07:59 15:59 Intake Total 240 / 240 500 / 500 600 / 600 Output Total 0 / 0 Balance 240 / 240 500 / 500 600 / 600 Intake: IV Fluids 500 / 500 Heparin 25,000 UNIT/500 ML D5W 500 / 500 25,000 unit In 500 ml @ 14 UNIT /KG/HR 19.63 mls/hr IVC .Q24H GINO Rx#:[id number] Oral 240 / 240 600 / 600 Output: Urine 0 / 0 Other: Meal Dinner Breakfast Percent of Meal Consumed 100% 100% # Voids 1 Weight 66.1 kg Blood Glucose* 171 78 Patient Weight 02/15/18 23:59 Weight 66.1 kg - General Appearance General appearance: Present: well-developed, well-nourished, appears started age EENT: Present: mucous membranes moist Neck: Present: no JVD Respiratory: Present: clear Cardiology: Present: no edema, regular rate, regular rhythm Gastrointestinal: Present: normoactive bowel sounds, no tenderness Integumentary: Present: warm and dry Neurologic: Present: alert and oriented x3 - Lab 02/15/18 08:11 02/15/18 08:11 Most recent lab results Calcium 9.1 mg/dL (8.6-10.3) 02/15/18 08:11 Consult Discharge Plan - Plan Referrals: Trudy Sandoval, CAMOUFLAGE ASSEMBLER [Primary Care Provider] -
[2018-02-15] MEDS: Insulin LISPRO 300 UNITS/3 ML VIAL SQ SCH ×4 (10:48→20:30)
--- NOTE | 2018-02-15 13:17 | Cardiothoracic Progress Note ---
Date of Encounter: 02/15/18 Time of Encounter: 13:15 - Subjective Procedure(s) Performed: Patient seen and examined. Lying in bed. Comfortable and denies any new chest pain or new complaints. Understands plan for CABG tomorrow. Dr. Momin to me with patient and discuss any further questions regarding planned surgery. Vital Signs, Last 4 Hours Temp Pulse Resp BP Pulse Ox 02/15/18 11:10 17 96 02/15/18 10:43 97.3 F L 57 17 149/61 96 Oxgyen Flow Rate Oxygen Flow Rate (LPM) 0 Weight 02/13/18 02/14/18 02/15/18 23:59 23:59 23:59 Weight 67.132 kg 67.1 kg 66.1 kg - Labs 02/15/18 08:11 02/15/18 08:11 Lab Results, Last 24 hours 02/15/18 02/15/18 02/15/18 08:11 08:11 08:11 WBC 6.7 Hgb 12.0 L Hct 36.9 L Plt Count 211 APTT 69.2 H Sodium 136 Potassium 4.5 Chloride 107 Carbon Dioxide 23 BUN 31 H Creatinine 1.84 H Glucose 161 H Calcium 9.1 Total Bilirubin 0.4 AST 31 ALT 25 Alkaline Phosphatase 72 Consult Discharge Plan - Plan Referrals: Trudy Sandoval, SUPPLEMENTAL MANAGER [Primary Care Provider] -
--- NOTE | 2018-02-15 15:49 | Internal Med Progress Note ---
Date of Encounter: 02/15/18 Time of Encounter: 16:07 - Time Spent With Patient - Assessment and plan (1) NSTEMI (non-ST elevated myocardial infarction) Current Visit: Yes Status: Acute Assessment and plan: Pt admitted to [facility] and monitoring on cardiac sonographer Initial Trop 0.056 then repeat Trop went up to 0.18, trending Trop. EKG showed NSR with HR 84, Non specific ST changes noticed. Cont home med ASA + Plavix. Cont home med BB. Cont heparin gtt for now Card consulted for further eval. May need [facility] Pt suffered an acute NSTEMI 3 days ago and was transferred to [facility] for further cardiac care. He notably underwent PCI with ostial/ proximal LAD stent placement in August 2017. 02/15: Pt seen by cardiology. Repeat cardiac catheterization performed during this admission revealed 90% LAD in-stent restenosis, a 70% mid LAD lesion, and and 70% ostial OM1 lesion. Note plans for CABG on Friday. Plavix on hold. (2) DM type 2 (diabetes mellitus, type 2) Current Visit: Yes Status: Chronic Assessment and plan: held PO meds started him on ISS 02/13: Blood pressure remains elevated. I will add basal insulin at night. Monitor. A1c is 8.0. 02/14: Labile blood sugars but overall trending towards improvement. Continue current basal bolus dosing. Monitor. 02/15: glucose continues to improve. Qualifiers: Diabetes mellitus mcc insulin use: without emt intermediate use Diabetes mellitus complication status: with kidney complications Diabetes mellitus complication detail: with chronic kidney disease Chronic kidney disease stage : stage 3 (moderate) Qualified Code(s): E11.22 - Type 2 diabetes mellitus with diabetic chronic kidney disease; N18.3 - Chronic kidney disease, stage 3 ( moderate); N18.3 - Chronic kidney disease, stage 3 (moderate) (3) HLD (hyperlipidemia) Current Visit: Yes Status: Chronic Assessment and plan: on statin Qualifiers: Hyperlipidemia type: unspecified Qualified Code(s): E78.5 - Hyperlipidemia , unspecified (4) HTN (hypertension) Current Visit: Yes Status: Chronic Assessment and plan: resumed home meds 02/13: Pressure remains elevated Patient is on Toprol-XL 100 mg by mouth daily. No EMERITA inhibitor due to renal dysfunction. I will add in hydralazine by mouth 25 mg 3 times a day. Monitor. 02/14: Nephrology input noted, Norvasc added. 02/15: BP stable. Qualifiers: Hypertension type: essential hypertension Qualified Code(s): I10 - Essential (primary) hypertension (5) Ischemic cardiomyopathy Current Visit: Yes Status: Acute Assessment and plan: reviewed 2 D Echo from 08/26 shoed LVEF 40% does have chronic systolic CHF Not in exacerbation now TTE done 02/13/2018: mild to moderate aortic stenosis. mild LV systolic dysfunction. (6) Acute bronchitis Current Visit: Yes Status: Acute Assessment and plan: He does have acute bronchitis mostly bacterial He was already given Rocephin and Azithromycin in the ER and that was continued on the floor. Sputum culture, strep pneumonia, Legionella and respiratory viral panel pending. 02/14: Symptoms improved, monitor. He does not have a leukocytosis. He is afebrile. I do not suspect he has a bacterial process. Qualifiers: Qualified Code(s): J20.9 - Acute bronchitis, unspecified (7) CKD (chronic kidney disease), stage III Current Visit: Yes Status: Chronic Assessment and plan: Management per nephrology. Avoid nephrotoxins. Renal function is near or at baseline. - Time Spent With Patient Total time spent is greater than 50% in coordination of care (as documented) at patient's floor/unit and/or counseling patient: 25 - 35 minutes less than 15 minutes - Subjective Interval history: Patient reports he is feeling well. No chest pain or shortness of breath. No complaints at all. No nausea, vomiting, diarrhea. No fevers or chills. Cardiothoracic surgery note appreciated. Nephrology input noted and appreciated. Plans for CABG in the next 4-5 days. Plavix has been held. - Constitutional Vitals: Temp Pulse Resp BP Pulse Ox 97.7 F 55 16 150/72 97 02/15/18 15:29 02/15/18 15:29 02/15/18 15:29 02/15/18 15:29 02/15/18 15:29 General appearance: Present: cooperative, A&O X 3, answers questions appropriately - Head Head exam: Present: atraumatic, normocephalic - Eye Eye exam: Present: PERRL, conjuntiva pink, sclera anicteric Pupils: Present: PERRL - Neck Neck exam general surgery: Present: supple, trachea midline. Absent: lymphadenopathy - Respiratory Respiratory exam: Present: CTAB. Absent: accessory muscle use, rales, rhonchi, wheezes - Cardiovascular Cardiovascular exam: Present: RRR, +S1, +S2. Absent: diastolic murmur, gallop, rubs, systolic murmur - GI/Abdominal GI/Abdominal exam: Present: normal bowel sounds, soft, no peritoneal signs. Absent: distended, tenderness - Extremities Exam Extremities exam: Present: warm, radial pulses palpable and symmetrical. Absent : calf tenderness, cyanotic, pedal edema - Neurological Exam Neurological exam: Present: CN II-XII intact, oriented X3, no focal deficits. Absent: pronater drift, facial droop, speech deficit - Skin Skin exam: Present: dry, intact Internal Medicine: Result - Labs CBC & Chem 7: 02/15/18 08:11 02/15/18 08:11 Labs: Short CBC 02/15/18 Range/Units 08:11 WBC 6.7 (4.3-11.1) K/mcL Hgb 12.0 L (12.9-16.9) g/dL Hct 36.9 L (37.5-50.1) % Plt Count 211 (140-400) K/mcL Neutrophils # 4.7 (1.6-8.9) K/mcL BMP 02/15/18 08:11 Sodium 136 Potassium 4.5 Chloride 107 Carbon Dioxide 23 BUN 31 H Creatinine 1.84 H Glucose 161 H Calcium 9.1 Liver Function 02/15/18 Range/Units 08:11 Total Bilirubin 0.4 (0.3-1.0) mg/dL AST 31 (13-39) Units/L ALT 25 (7-52) Units/L Alkaline Phosphatase 72 (34-104) Units/L Albumin 3.8 (3.5-5.7) g/dL - ABG Interpretation ABG results: PT/INR, D-dimer PT 11.2 Seconds (9.4-12.1) 02/11/18 07:11 Consult Discharge Plan - Plan Referrals: Trudy Sandoval, ARTIST MANNEQUIN COLORING [Primary Care Provider] -
[2018-02-15] MEDS: hydrALAZINE 25 MG TABLET PO PRN (19:29)
[2018-02-15] MEDS: traZODone 50 MG TABLET PO SCH (20:26)
[2018-02-15] MEDS: Chlorhexidine Rinse 15 ML MOUTHWASH MM SCH (20:27)
[2018-02-15] MEDS: Insulin DETEMIR 100 UNIT/ML X5UNITS SQ SCH (20:31)
[2018-02-16] MEDS: Chlorhexidine Rinse 15 ML MOUTHWASH MM SCH ×2 (05:49→20:22)
[2018-02-16] MEDS ORDERED: Aspirin 81 MG TAB.CHEW PO ONE (06:00)
[2018-02-16] MEDS ORDERED: CeFAZolin Syr 2,000MG/20 ML 2,000 MG/20 ML SYRINGE IVPB ONE (07:00)
[2018-02-16] MEDS: Heparin 25,000 UNIT/500 ML D5W 25,000 UNIT/500 ML BAG IVC SCH (07:06)
[2018-02-16] MEDS ORDERED: Albumin Human 25% 25 GM/100 ML IV.SOLN IV ONE (08:50)
[2018-02-16] MEDS ORDERED: Tranexamic Acid 1,000 MG/10 ML VIAL IVPB ONE (08:50)
[2018-02-16] MEDS ORDERED: *HR* Heparin 10,000 UNIT/10 ML VIAL IV ONE (08:50)
[2018-02-16] MEDS ORDERED: Mannitol 25% vial 12.5 GM/50 ML VIAL IVP ONE (08:50)
[2018-02-16] MEDS ORDERED: Sodium Bicarbonate 50 MEQ/50 ML VIAL IVC ONE (08:50)
[2018-02-16] MEDS ORDERED: *HR* Phenylephrine 10 MG/ML VIAL IVC ONE (08:50)
[2018-02-16] MEDS ORDERED: *HR* Magnesium Sulfate 2 GM/50 ML PIGGYBACK IVPB ONE (08:50)
[2018-02-16] MEDS ORDERED: Lidocaine 2% Syringe 100 MG/5 ML IV ONE (08:50)
[2018-02-16] MEDS ORDERED: Chlorhexidine Rinse 15 ML MOUTHWASH MM SCH (09:00)
[2018-02-16] MEDS ORDERED: Tranexamic Acid 1,000 MG/10 ML VIAL ONE ×2 (09:34→15:42)
[2018-02-16] MEDS ORDERED: *HR* Rocuronium Bromide 50 MG/5 ML VIAL ONE (09:34)
[2018-02-16] MEDS ORDERED: Protamine Sulfate 250 MG/25 ML VIAL IVP ONE (09:34)
[2018-02-16] MEDS ORDERED: Famotidine 20 MG/2 ML VIAL ONE (09:34)
[2018-02-16] MEDS ORDERED: *HR* Etomidate 20 MG/10 ML AMPUL IVP ONE (09:34)
[2018-02-16] MEDS ORDERED: *HR* FentaNYL (PF) 1,000 MCG/20 ML VIAL ONE (09:40)
[2018-02-16] MEDS ORDERED: *HR* Midazolam HCl 5 MG/5 ML VIAL IVP ONE (09:40)
[2018-02-16] MEDS ORDERED: Nitroglycerin 25 MG/250 ML INFUS..BTL IVC ONE (12:40)
[2018-02-16] MEDS ORDERED: *HR* PHENYLEPHRINE 1,000 MCG/10 ML SYRINGE IVP ONE ×3 (12:45→16:26)
[2018-02-16] MEDS ORDERED: Dextrose 50 % in Water (Vial) 30 ML, Sodium Bicarbonate 20 MEQ, Lidocaine 1% 5 ML, Insu... TH SCH (13:00)
[2018-02-16] MEDS ORDERED: Insulin Human Regular 100 UNIT in 0.9 % Sodium Chloride 100 ML IV PRN (13:00)
[2018-02-16] MEDS ORDERED: Dextrose 50 % in Water (Vial) 30 ML, Sodium Bicarbonate 20 MEQ, Potassium Chloride 15 M... TH ONE (13:00)
[2018-02-16] MEDS ORDERED: Norepinephrine 4 MG in D5% in Water 250 ML IVC PRN (13:00)
[2018-02-16] MEDS ORDERED: Heparin 15,000 UNIT in 0.9 % Sodium Chloride 500 ML IV SCH (13:00)
[2018-02-16 13:49] LABS: ABG Base Excess -4 mEq/L (-2 to 3); ABG Chloride 108 mEq/L (98-107); ABG Glucose 153 mg/dL (60-95); ABG HCO3 24 mEq/L (21-27); ABG Ionized Calcium 1.22 mmol/L (1.15-1.35); ABG Oxygen Saturation 90 % (95-98); ABG PCO2 53 mmHg (35-45); ABG PH 7.26 pH Units (7.32-7.45); ABG PO2 68 mmHg (85-104); ABG TCO2 25 mEq/L (20-26)
[2018-02-16] MEDS ORDERED: *HR* Amiodarone 150 MG/3 ML VIAL IVPB ONE (14:35)
[2018-02-16] MEDS ORDERED: Amiodarone Premix 360 MG/200 ML BAG IVC ONE ×2 (14:35→17:12)
[2018-02-16 14:49] LABS: ABG Base Excess -6 mEq/L (-2 to 3); ABG Chloride 103 mEq/L (98-107); ABG Glucose 174 mg/dL (60-95); ABG HCO3 22 mEq/L (21-27); ABG Ionized Calcium 1.27 mmol/L (1.15-1.35); ABG Oxygen Saturation 100 % (95-98); ABG PCO2 48 mmHg (35-45); ABG PH 7.26 pH Units (7.32-7.45); ABG PO2 224 mmHg (85-104); ABG TCO2 23 mEq/L (20-26)
--- NOTE | 2018-02-16 15:19 | Anesthesia Procedures ---
Date of Encounter: 02/16/18 Time of Encounter: 13:25 Procedures: Anesthesia - Arterial Line Consent obtained: written consent Time out performed: Yes Sedation: Versed (mg): 2 Sedation: Fentanyl (mcg): 100 Supplemental Oxygen via Nasal Cannula (L/min): 2 Local Anesthetic: Lidocaine 1% Amount of Anesthetic used (mls): 1 Size (Gauge): 20 Length (inches): 5 Technique Used: sterile prep, guide wire technique, direct puncture technique Post-Procedure: line taped into place, dry sterile dressing placed Patient tolerated procedure: well, no complications Complications: none Site: Radial L - Central Line Placement Right IJ Consent obtained: written consent Time out performed: Yes Patient placed on monitor/pulse ox: Yes prep: mask, gown, gloves Central line prep: Chlorhexidine scrub Ultrasound used for placement: Yes Technique: Seldinger Lumen Inserted: Introducer Post procedure: sutured in place, good blood return, all ports aspirated, flushed, capped, sterile dressing applied Patient tolerated procedure: well, no complications Complications: none Comments: Introducer placed without problems. [place] placed easily, no arrythmias, wedge approx 56cm
[2018-02-16 15:32] LABS: ABG Base Excess 1 mEq/L (-2 to 3); ABG Chloride 103 mEq/L (98-107); ABG Glucose 205 mg/dL (60-95); ABG HCO3 25 mEq/L (21-27); ABG Ionized Calcium 0.95 mmol/L (1.15-1.35); ABG Oxygen Saturation 100 % (95-98); ABG PCO2 37 mmHg (35-45); ABG PH 7.44 pH Units (7.32-7.45); ABG PO2 549 mmHg (85-104); ABG TCO2 26 mEq/L (20-26)
[2018-02-16 15:55] LABS: ABG Base Excess -1 mEq/L (-2 to 3); ABG Chloride 102 mEq/L (98-107); ABG Glucose 159 mg/dL (60-95); ABG HCO3 24 mEq/L (21-27); ABG Ionized Calcium 0.98 mmol/L (1.15-1.35); ABG Oxygen Saturation 100 % (95-98); ABG PCO2 37 mmHg (35-45); ABG PH 7.41 pH Units (7.32-7.45); ABG PO2 556 mmHg (85-104); ABG TCO2 25 mEq/L (20-26)
[2018-02-16] MEDS ORDERED: Albumin Human 5% 25.0 GM/500 ML VIAL ONE (16:20)
[2018-02-16] MEDS ORDERED: 0.9 % Sodium Chloride 4,000 ML ONE (16:51)
--- NOTE | 2018-02-16 16:55 | Operative Note ---
Date of procedure: 02/16/18 Pre-op diagnosis: 1. CAD 2. Paroxysmal atrial fibrillation Post-op diagnosis: same Procedure: 1. CABG3 (MARQUEZ to LAD, SVG to D1, SVG to OM1). 2. Modified Maze procedure using radiofrequency ablation. 3. Left atrial appendage stapling. 4. Endoscopic vein harvesting, greater saphenous vein from right lower extremity. Implants: None. Complications: None. Anesthesia: GETA Surgeon: Zeina Momin Was there an social media assistant present: Yes Clinical Field Specialist: Domenico Webber Estimated blood loss (cc): 500 Specimen: None. Condition: stable Disposition: ICU Procedure in Detail: INDICATIONS FOR OPERATION: The patienti s a 77 year old type II diabetic, hypertensive man with hypercholesterolemia and known CAD. The patient underwent PCI with ostial/ proximal LAD stent placement in August 2017. The patient suffered an acute myocardial infarction while undergoing lumbar laminectomy at that time. Postprocedure the patient did well; however, redeveloped exertional substernal chest pain approximately 1-1/2 weeks ago. The patient had a total of 3 episodes of substernal chest pain in this interim. He was preparing to go to bed on 02/10/2018 when he had severe substernal chest pain radiating to his left shoulder and down his left arm. He had associated shortness of breath, but denied any diaphoresis, nausea, vomiting, or syncope. His daughter took him to [facility] in [facility] where he was diagnosed with an acute NSTEMI. In route to the hospital he became pain-free and is been so since that time. The patient was treated medically and transferred to [facility] [place] for further cardiac care. The patient underwent cardiac catheterization yesterday and was found to have severe two-vessel CAD, including a 90% LAD in-stent restenosis. In addition, the patient has a 70% mid LAD lesion and a 70% ostial OM1 lesion. He was recommended for CABG. He had been on Plavix for the proximal LAD stent and the Plavix was stopped for 5 days prior to CABG. FINDINGS AT OPERATION: The aorta was of normal caliber and had mild calcification. During the modified Maze procedure, the left inferior pulmonary vein could not be isolated safely and thus no radiofrequency ablation was performed to this vessel. The greater saphenous vein was harvested endoscopically from the right lower extremity from the knee to the groin of good quality. The total bypass time was 83 minutes, cross-clamp time 46 minutes, intentional hypothermia of 35 degrees centigrade. DESCRIPTION OF OPERATION: After obtaining informed consent from the patient, he was taken to the operative room where a satisfactory general endotracheal anesthetic was induced. Appropriate monitoring lines were placed, and the patient's chest, abdomen, and lower extremities were prepped and draped in a sterile fashion. The greater saphenous vein was harvested endoscopically from the right lower extremity from the knee to the groin. The vein was removed, distended, and found to be of good quality. The simultaneous tissue and skin edges were reapproximated running Vicryl sutures. Simultaneously, a standard medium sternotomy incision was made and the sternum divided. The MARQUEZ was taken down from its bed and side branches divided between hemoclips. The sternum was the pericardium opened and reflected laterally. The patient was prepared for cannulation by placing purse sutures the distal ascending aorta, mid-ascending aorta, and right atrial appendage. The patient was heparinized and when the ACT was greater than 2 seconds, the distal ascending aorta was cannulated followed by placement of a dual stage venous cannula through the right atrial appendage and into the inferior vena cava. A stab-in antegrade metabolic cannula was placed in the mid -ascending aorta. The patient was placed on bypass and the temperature allowed to drift to 35 degrees centigrade. The distal targets were identified and the aorta was crossclamped. The patient received 700 mL of cold antegrade crystalloid cardioplegia through the aortic root and the patient's heart obtained rapid diastolic arrest. A modified Maze procedure was performed since the patient will entered the operating room and paroxysmal atrial fibrillation. The right inferior pulmonary vein and right superior pulmonary vein were encircled and a radiofrequency burn was applied to both venous structures until a transmural lesion was obtained. The left superior pulmonary vein was easily isolated; however, the left inferior pulmonary vein was difficult to isolate safely. After several minutes of attempting to isolate the left inferior pulmonary vein , further attempts were abandoned and no radiofrequency lesion was performed to this venous structure. The left atrial appendage was then occluded using a stapling device without a knife. The OM1 branch was opened be blade and the vein was anastomosed in end-to-side fashion using running 7-0 Prolene suture. The anastomosis found to be hemostatic. The patient received a final dose of cold antegrade crystalloid cardioplegia through the aortic root. The D1 branch was opened be blade and the vein was anastomosed in an end-to-side fashion using running 7-0 Prolene suture. The anastomosis found to be hemostatic. Finally, the LAD was opened the [place] blade and the MARQUEZ was anastomosed to the LAD in an end-to-side fashion using running 7-0 Prolene suture. The anastomosis found to be hemostatic and the mammary pedicle was tacked to the epicardium using interrupted 5-0 silk suture. Rewarming was begun during this anastomosis. The aortic cross-clamp was released and the heart distended. The veins were measured and cut appropriate lengths. A partial occluding clamps placed across the mid ascending aorta and the antegrade cardioplegia cannula was removed. An additional aortotomy site was made 11 blade and both sites were enlarged with 4 mm punch. The veins were anastomosed in an end-to-side fashion to the aorta using a running 5-0 Prolene suture. The vein grafts were occluded with bulldog clamps and de-aired the 25-gauge needle prior to removing the partial occluding clamp. The proximal distal anastomoses were found to be hemostatic and the proximal anastomoses were marked with radiopaque loops. Both atrial and ventricular temporary epicardial pacing lesion placed. Three this tubes were placed, 2 in the mediastinum and one in the left pleural space. During rewarming the patient 's heart rate regained a sinus bradycardic rhythm with rates in the 30s. Temporary AV pacing was initiated with the DDD mode. When the patient's systemic temperature reached 36 degrees centigrade he was ventilated and received volume. He was weaned from bypass required no inotropic support. Protamine was administered and the aortic and venous cannulae were removed. The pursestring sutures were secured and the venous cannulation site was reinforced with a running 4-0 Prolene suture. The pericardium was loosely approximated in midline. The sternum was reapproximated sternal wires the pectoralis major fascia, rectus pelvis fascia, subtenon's tissue, and skin edges were reapproximated a running Vicryl sutures. Sterile dressings were applied. The patient was transferred to the ICU in satisfactory postoperative condition. There were no intraoperative complications, and instrument, needle, and sponge count were corrected and of operation. - Open Heart Detail GERMAINE (Internal Mammary Artery) Usage: Yes Cardiopulmonary Bypass Time (mins): 83 Aortic Cross Clamp Time (mins): 46 Intentional Hypothermia Temperature (C.): 35
[2018-02-16] MEDS ORDERED: Calcium Chloride 1,000 MG in 0.9 % Sodium Chloride 100 ML IVPB PRN (17:12)
[2018-02-16] MEDS ORDERED: Potassium Chloride 40 MEQ/200 ML BAG IVPB PRN (17:12)
[2018-02-16] MEDS ORDERED: Acetaminophen 650 MG RECTAL SUPP RC PRN (17:12)
[2018-02-16] MEDS ORDERED: Insulin Regular, Human 100 UNIT/ML IV PRN (17:12)
[2018-02-16] MEDS ORDERED: *HR* Dextrose 50 % in Water (Syg) 50 ML SYRINGE IVP PRN (17:12)
[2018-02-16] MEDS: Nitroglycerin 25 MG/250 ML INFUS..BTL IVC SCH (17:15)
[2018-02-16] MEDS ORDERED: 0.9 % Sodium Chloride w KCl 20 MEQ/1,000 ML MLS IVC SCH (17:15)
[2018-02-16] MEDS ORDERED: niCARdipine 40 MG/200 ML MLS IVC ONE (17:33)
[2018-02-16] MEDS: niCARdipine 40 MG/200 ML MLS IVC SCH (17:35)
[2018-02-16] MEDS: amLODIPine 5 MG TABLET PO SCH (17:36)
[2018-02-16] MEDS: Finasteride 5 MG TABLET PO SCH (17:36)
[2018-02-16] MEDS: Metoclopramide 10 MG/2 ML VIAL IVP SCH ×2 (17:40→23:35)
[2018-02-16 17:43] LABS: Basophils % 0.2 %; Eosinophils # 0.1 K/mcL (0.0-0.6); Eosinophils % 1.6 %; Hematocrit 30.4 % (37.5-50.1); Hemoglobin 10.2 g/dL (12.9-16.9); Immature Granulocytes % 0.8 % (0-4); Immature Platelets 2.3 % (1.1-6.1); Lymphocytes # 0.5 K/mcL (0.6-4.6); Lymphocytes % 10.4 %; Mean Corpuscular HGB Conc 33.6 g/dL (31.6-35.5); Mean Corpuscular Hemoglobin 29.5 pg (28.0-33.3); Mean Corpuscular Volume 87.9 fL (83.0-100.0); Mean Platelet Volume 10.6 fL (9.4-12.4); Monocytes % 0.6 %; Neutrophils # 4.4 K/mcL (1.6-8.9); Red Blood Count 3.46 M/mcL (4.19-5.50); Red Cell Distribution Width 13.4 % (11.5-14.5); Segmented Neutrophils % 86.4 %
--- NOTE | 2018-02-16 17:46 | Internal Med Progress Note ---
Date of Encounter: 02/16/18 Time of Encounter: 11:00 - Assessment and plan (1) Acute bronchitis Current Visit: Yes Status: Acute Assessment and plan: likely viral bronchitis; improving; Qualifiers: Bronchitis organism: unspecified organism Qualified Code(s): J20.9 - Acute bronchitis, unspecified (2) NSTEMI (non-ST elevated myocardial infarction) Current Visit: Yes Status: Acute Assessment and plan: Peak Troponin at 0.89. EKG changes with ST depression in anteroseptal leads was noted. He was treated with antibiotic ideation with IV heparin drip, aspirin, beta so, statin. Cardiology was consulted. Transesophageal echocardiogram showed mild to moderate aortic stenosis, mild reduction in LV systolic function, mild to moderate mitral regurgitation. Underwent left heart catheterization. 02/11/2018 LHC: 90% LAD in-stent restenosis, a 70% mid LAD lesion, and and 70% ostial OM1 lesion. Recommended elective CABG. Cardiothoracic surgery consulted , plan for surgery today, after 5 days off Plavix. Continue telemetry monitoring and IV heparin drip. (3) CKD (chronic kidney disease), stage III Current Visit: Yes Status: Chronic Assessment and plan: Serum creatinine stable, at around 1.84. Continue to monitor closely. Nephrology on board. (4) HTN (hypertension) Current Visit: Yes Status: Chronic Qualifiers: Hypertension type: essential hypertension Qualified Code(s): I10 - Essential (primary) hypertension (5) DM type 2 (diabetes mellitus, type 2) Current Visit: Yes Status: Chronic Assessment and plan: Continue Accu-Chek blood glucose monitoring with basal bolus insulin regimen. Hemoglobin A1c noted to be 8%. Diabetic diet. 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 use: without mcc use Diabetes mellitus complication status: with kidney complications Diabetes mellitus complication detail: with chronic kidney disease Chronic kidney disease stage : stage 3 (moderate) Qualified Code(s): E11.22 - Type 2 diabetes mellitus with diabetic chronic kidney disease; N18.3 - Chronic kidney disease, stage 3 ( moderate); N18.3 - Chronic kidney disease, stage 3 (moderate) (6) HLD (hyperlipidemia) Current Visit: Yes Status: Chronic Qualifiers: Hyperlipidemia type: unspecified Qualified Code(s): E78.5 - Hyperlipidemia , unspecified (7) Ischemic cardiomyopathy Current Visit: Yes Status: Chronic Assessment and plan: Transthoracic echocardiogram shows mildly reduced ejection fraction 40-45%, diastolic dysfunction with elevated filling pressures, moderate mitral regurgitation, possible aortic stenosis, recommend further evaluation with transesophageal echocardiogram. Continue current management. - Time Spent With Patient Total time spent is greater than 50% in coordination of care (as documented) at patient's floor/unit and/or counseling patient: - Subjective Interval history: Reports feeling better; denies chest pain, shortness of breath, abdominal pain; awaiting CABG today; - Constitutional Vitals: Temp Pulse Resp BP Pulse Ox 97.5 F L 87 16 112/68 96 02/16/18 06:44 02/16/18 06:44 02/16/18 11:26 02/16/18 06:44 02/16/18 11:26 General appearance: Present: A&O X 3, answers questions appropriately - Respiratory Respiratory exam: Present: CTAB. Absent: accessory muscle use, rales, rhonchi, wheezes - Cardiovascular Cardiovascular exam: Present: RRR, +S1, +S2. Absent: diastolic murmur, gallop, rubs, systolic murmur - GI/Abdominal GI/Abdominal exam: Present: normal bowel sounds, soft, no peritoneal signs. Absent: distended, tenderness - Extremities Exam Extremities exam: Present: full ROM, warm, radial pulses palpable and symmetrical. Absent: calf tenderness, cyanotic, pedal edema Internal Medicine: Result - Labs CBC & Chem 7: 02/17/18 03:30 02/17/18 03:30 - ABG Interpretation ABG results: ABG ABG pH 7.41 pH Units (7.32-7.45) 02/16/18 15:52 ABG pCO2 37 mmHg (35-45) 02/16/18 15:52 ABG pO2 556 mmHg (85-104) H 02/16/18 15:52 ABG O2 Saturation 100 % (95-98) H 02/16/18 15:52 PT/INR, D-dimer PT 11.2 Seconds (9.4-12.1) 02/11/18 07:11 Consult Discharge Plan - Plan Referrals: Trudy Sandoval, CHIEF INFORMATION SECURITY OFFICER [Primary Care Provider] -
[2018-02-16 17:51] LABS: Activated Partial Thrombo Time 39.4 Seconds (26.0-36.0)
[2018-02-16 17:52] LABS: INR 1.7
[2018-02-16 17:54] LABS: Prothrombin Time 18.4 Seconds (9.4-12.1)
[2018-02-16 17:54] LABS: ABG Base Excess -5 mEq/L (-2 to 3); ABG HCO3 20 mEq/L (21-27); ABG Oxygen Saturation 100 % (95-98); ABG PCO2 37 mmHg (35-45); ABG PH 7.35 pH Units (7.32-7.45); ABG PO2 325 mmHg (85-104); ABG TCO2 22 mEq/L (20-26)
[2018-02-16 17:59] LABS: Magnesium 2.2 mg/dL (1.6-2.6); Potassium 3.7 mEq/L (3.5-5.1)
[2018-02-16 18:03] LABS: Platelet Count 66 K/mcL (140-400)
[2018-02-16] MEDS: *HR* FentaNYL (PF) 100 MCG/2 ML VIAL IVP PRN (18:39)
[2018-02-16] MEDS: *HR* OxyCODONE/APAP 5/325 TABLET PO PRN (18:39)
[2018-02-16] MEDS ORDERED: 0.9 % Sodium Chloride 250 ML ONE (18:44)
[2018-02-16] MEDS ORDERED: ceFAZolin 2,000 MG in D5% in Water 100 ML IVPB SCH ×2 (19:00→21:00)
[2018-02-16] MEDS: Pantoprazole 40 MG VIAL IVP SCH (19:15)
[2018-02-16] MEDS: Insulin Human Regular 100 UNIT in 0.9 % Sodium Chloride 100 ML IVC SCH (19:16)
[2018-02-16] MEDS: Norepinephrine 4 MG in D5% in Water 250 ML IVC SCH (19:16)
[2018-02-16] MEDS: traZODone 50 MG TABLET PO SCH (20:22)
[2018-02-16] MEDS: Amiodarone Premix 360 MG/200 ML BAG IVC SCH (20:23)
[2018-02-16] MEDS: ceFAZolin 2,000 MG in 0.9 % Sodium Chloride 100 ML IVPB SCH (21:39)
[2018-02-16] MEDS ORDERED: CeFAZolin Pre 2,000 MG/100 ML 2,000 MG/100 ML BAG IVPB SCH (22:00)
[2018-02-17 00:05] LABS: ABG Base Excess -4 mEq/L (-2 to 3); ABG HCO3 21 mEq/L (21-27); ABG Oxygen Saturation 99 % (95-98); ABG PCO2 39 mmHg (35-45); ABG PH 7.35 pH Units (7.32-7.45); ABG PO2 126 mmHg (85-104); ABG TCO2 22 mEq/L (20-26); Blood Gas Modality ASSIST CONTROL; Blood Gas PEEP 5 cm H2O; Blood Gas Respiration Rate 10; Blood Gas VT 600 cc
[2018-02-17 00:12] LABS: Hematocrit 30.4 % (37.5-50.1); Hemoglobin 10.2 g/dL (12.9-16.9)
[2018-02-17] MEDS: *HR* OxyCODONE/APAP 5/325 TABLET PO PRN ×3 (01:55→15:51)
[2018-02-17] MEDS: *HR* FentaNYL (PF) 100 MCG/2 ML VIAL IVP PRN (01:57)
[2018-02-17] MEDS: niCARdipine 40 MG/200 ML MLS IVC SCH ×3 (03:13→19:51)
[2018-02-17 03:54] LABS: Basophils % 0.3 %; Eosinophils # 0.1 K/mcL (0.0-0.6); Eosinophils % 0.4 %; Hematocrit 29.2 % (37.5-50.1); Hemoglobin 9.9 g/dL (12.9-16.9); Immature Granulocytes % 0.5 % (0-4); Lymphocytes # 0.4 K/mcL (0.6-4.6); Lymphocytes % 2.4 %; Mean Corpuscular HGB Conc 33.9 g/dL (31.6-35.5); Mean Corpuscular Hemoglobin 29.5 pg (28.0-33.3); Mean Corpuscular Volume 86.9 fL (83.0-100.0); Mean Platelet Volume 10.9 fL (9.4-12.4); Monocytes # 1.1 K/mcL (0.0-1.3); Monocytes % 7.4 %; Neutrophils # 13.2 K/mcL (1.6-8.9); Platelet Count 131 K/mcL (140-400); Red Blood Count 3.36 M/mcL (4.19-5.50); Red Cell Distribution Width 13.8 % (11.5-14.5)
[2018-02-17 04:08] LABS: Calcium 8.3 mg/dL (8.6-10.3); Magnesium 2.1 mg/dL (1.6-2.6); Potassium 4.6 mEq/L (3.5-5.1)
[2018-02-17] MEDS: Ondansetron 4 MG/2 ML VIAL IVP PRN ×2 (04:16→09:23)
[2018-02-17 04:17] LABS: INR 1.2; Prothrombin Time 13.5 Seconds (9.4-12.1)
[2018-02-17 04:20] LABS: Activated Partial Thrombo Time 32.7 Seconds (26.0-36.0)
[2018-02-17] MEDS: ceFAZolin 2,000 MG in 0.9 % Sodium Chloride 100 ML IVPB SCH (05:12)
[2018-02-17] MEDS: Metoclopramide 10 MG/2 ML VIAL IVP SCH ×3 (05:13→18:53)
[2018-02-17 05:54] LABS: ABG Base Excess -6 mEq/L (-2 to 3); ABG HCO3 20 mEq/L (21-27); ABG Oxygen Saturation 98 % (95-98); ABG PCO2 41 mmHg (35-45); ABG PH 7.31 pH Units (7.32-7.45); ABG PO2 118 mmHg (85-104); ABG TCO2 21 mEq/L (20-26)
--- NOTE | 2018-02-17 07:16 | Cardiothoracic Progress Note ---
Date of Encounter: 02/17/18 Time of Encounter: 07:14 - Assessment and plan (1) CAD (coronary artery disease) Current Visit: Yes Status: Acute The patient is recovering well from his CABG3 with modified Maze procedure and left atrial appendage stapling. He remained hemodynamically stable overnight and is currently extubated. He is breathing comfortably. His heart rate remains bradycardic with occasional paced beats. The patient's renal function has deteriorated somewhat from baseline and he is being followed by nephrology. The monitoring lines remain in place today. The patient will remain in the ICU today. The assessment and plan as outlined above was discussed with the patient and/or family members who expressed understanding and agreement. All questions were answered. Qualifiers: Coronary Disease-Associated Artery/Lesion type: [place] artery [place] vs. transplanted heart: [place] heart Associated angina: without angina Qualified Code(s): I25.10 - Atherosclerotic heart disease of [place] coronary artery without angina pectoris - Subjective Procedure(s) Performed: POD#1 S/P CABG3, modified Maze procedure, left atrial appendage stapling Interval history: The patient remained hemodynamic stable overnight. He is extubated and breathing comfortably. He has no complaints. Vital Signs, Last 4 Hours Temp Pulse Resp BP Pulse Ox 02/17/18 07:00 97.0 F L 55 18 132/45 99 02/17/18 06:00 97.0 F L 55 18 149/48 02/17/18 05:00 97.4 F L 55 20 141/49 100 02/17/18 04:59 12 100 02/17/18 04:00 97.8 F 55 12 134/54 91 02/17/18 03:15 16 148/57 98 Oxgyen Flow Rate Oxygen Flow Rate (LPM) 3 Clinical Data, last 8 Hours Output, Chest Tube Drainage 5 Amount [epigastric 2] Output, Chest Tube Drainage 0 Amount [epigastric 2] Output, Chest Tube Drainage 5 Amount [epigastric 2] Output, Chest Tube Drainage 10 Amount [epigastric 2] Output, Chest Tube Drainage 5 Amount [epigastric 2] Output, Chest Tube Drainage 5 Amount [epigastric 2] Output, Chest Tube Drainage 5 Amount [epigastric 2] Output, Chest Tube Drainage 10 Amount [epigastric 2] Output, Chest Tube Drainage 25 Amount [epigastric 1] Output, Chest Tube Drainage 30 Amount [epigastric 1] Output, Chest Tube Drainage 35 Amount [epigastric 1] Output, Chest Tube Drainage 25 Amount [epigastric 1] Output, Chest Tube Drainage 20 Amount [epigastric 1] Output, Chest Tube Drainage 20 Amount [epigastric 1] Output, Chest Tube Drainage 15 Amount [epigastric 1] Output, Chest Tube Drainage 15 Amount [epigastric 1] Weight 02/15/18 02/16/18 02/17/18 23:59 23:59 23:59 Weight 66.1 kg 68.3 kg - Physical Examination General: Conversant, No Apparent Distress Neck: No JVD, Normal carotid pulses Cardiac: Reg Rate and Rhythm, Normal S1 and S2, No Murmur Incision: No signs of infection, Dry/intact dressing Sternum: Stable Chest tubes: Minimal drainage, Other (No air leak) Lungs: Normal Breath Sounds, No Wheeze, Rales, Rhonchi Neuro: Alert and responsive, No focal deficits noted Vascular: Normal capillary refill Extremities: No Clubbing, No Cyanosis, No Edema - Labs 02/17/18 03:30 02/17/18 03:30 Lab Results, Last 24 hours 02/16/18 02/16/18 02/16/18 07:50 17:12 17:23 WBC 5.1 Hgb 10.2 L D Hct 30.4 L Plt Count 66 L D INR APTT 63.7 H Sodium 138 Potassium 3.7 Chloride 111 H Carbon Dioxide 20 L BUN 32 H Creatinine 1.62 H Glucose 109 H Calcium 8.0 L Magnesium 2.2 02/16/18 02/16/18 02/16/18 17:23 23:55 23:55 WBC Hgb 10.2 L Hct 30.4 L Plt Count INR 1.7 D APTT 39.4 H Sodium Potassium 4.0 Chloride Carbon Dioxide BUN Creatinine Glucose Calcium Magnesium 02/17/18 02/17/18 02/17/18 03:30 03:30 03:30 WBC 14.8 H D Hgb 9.9 L Hct 29.2 L Plt Count 131 L D INR 1.2 APTT 32.7 Sodium 137 Potassium 4.6 Chloride 110 H Carbon Dioxide 20 L BUN 37 H Creatinine 1.97 H Glucose 143 H Calcium 8.3 L Magnesium 2.1 - Imaging Chest Xray: image reviewed (No pneumothorax. Questionable pneumopericardium. Minimal atelectasis/infiltrates.) - VTE Documentation of Mechanical Device: Intermittent pneumatic compression device Consult Discharge Plan - Plan Referrals: Trudy Sandoval, MAGEN [Primary Care Provider] -
[2018-02-17] MEDS: Amiodarone Premix 360 MG/200 ML BAG IVC SCH ×2 (07:50→20:03)
--- NOTE | 2018-02-17 08:09 | Nephrology Progress Note ---
Date of Encounter: 02/17/18 Time of Encounter: 08:07 - Assessment and Plan (1) CKD (chronic kidney disease), stage III Current Visit: Yes Status: Chronic The patient has stage III chronic kidney disease. His creatinine is slightly higher compared to yesterday. This is not surprising after undergoing bypass surgery. Urine output appears to be satisfactory this morning. He is hemodynamically stable. He is still nothing by mouth so he will be started on maintenance IV fluids until he is able to eat and drink. We will continue to monitor his renal function. 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 terminal operator insulin use: without usp use Diabetes mellitus complication status: with kidney complications Diabetes mellitus complication detail: with chronic kidney disease Chronic kidney disease stage : stage 3 (moderate) Qualified Code(s): E11.22 - Type 2 diabetes mellitus with diabetic chronic kidney disease; N18.3 - Chronic kidney disease, stage 3 ( moderate); N18.3 - Chronic kidney disease, stage 3 (moderate) (3) NSTEMI (non-ST elevated myocardial infarction) Current Visit: Yes Status: Acute (4) CAD (coronary artery disease) Current Visit: Yes Status: Acute Qualifiers: Coronary Disease-Associated Artery/Lesion type: [place] artery [place] vs. transplanted heart: [place] heart Associated angina: without angina Qualified Code(s): I25.10 - Atherosclerotic heart disease of [place] coronary artery without angina pectoris Subjective Principal diagnosis: chest pain Interval history: The patient underwent CABG and maze procedure yesterday. He is extubated today. He appears hemodynamically stable. There is no urine output recorded yesterday but this morning he is already put out 1.2 L. Serum creatinine is slightly increased compared to yesterday. Overall the patient appears to be doing well. Objective - Vital Signs Vital signs: Vital Signs Temp Pulse Resp BP Pulse Ox 02/17/18 07:45 16 99 02/17/18 07:00 97.0 F L 55 18 132/45 99 02/17/18 06:00 97.0 F L 55 18 149/48 02/17/18 05:00 97.4 F L 55 20 141/49 100 02/17/18 04:59 12 100 02/17/18 04:00 97.8 F 55 12 134/54 91 02/17/18 03:15 16 148/57 98 04/10/18 03:00 97.7 F 51 10 137/52 99 02/17/18 02:13 10 134/49 99 02/17/18 02:00 97.1 F L 53 12 139/49 99 02/17/18 01:00 96.8 F L 50 10 130/47 99 02/17/18 00:08 10 99 02/17/18 00:00 96.8 F L 50 10 130/50 135 02/16/18 23:00 96.8 F L 50 10 130/50 100 02/16/18 22:32 10 138/53 100 02/16/18 22:00 96.8 F L 50 10 143/51 100 02/16/18 21:01 97.4 F L 50 10 120/44 40 02/16/18 21:00 97.4 F L 50 10 120/44 100 02/16/18 20:10 10 111/46 100 02/16/18 20:00 97.7 F 58 10 138/51 100 02/16/18 18:01 10 99 02/16/18 17:10 10 100 02/16/18 11:26 16 96 Intake and Output 02/16/18 02/17/18 02/17/18 23:59 07:59 15:59 Intake Total 635 / 635 1090 / 1090 Output Total 1265 / 1265 450 / 450 Balance -630 / -630 640 / 640 Intake: IV Fluids 341 / 341 990 / 990 0.9 % Sodium Chloride 250 ML @ 100 / 100 0 mls/hr .ROUTE .STK-MED [facility] Rx #:[id number] KCl 20 mEq in 0.9% Sodium 650 / 650 Chloride 20 meq In 1,000 ml @ 50 mls/hr IVC .Q20H [facility] Rx#: [id number] Amiodarone Drip Premix 360mg/ 200 / 200 200mL 360 mg In 200 ml @ 0.5 MG /MIN 16.667 mls/hr IVC CONT [facility] Rx#:[id number] Nitroglycerin Premix 25 MG/250 21 / 21 40 / 40 ML 25 mg In 250 ml @ 0.5 MCG/KG /MIN 20.49 mls/hr IVC .[id number] [facility] Rx#:[id number] Cardene Premix 40mg/200ml 40 mg 20 / 20 In 200 ml @ 5 MG/HR 25 mls/hr IVC .Q8H [facility] Rx#:[id number] Potassium Chloride 10 mEq/100mL 100 / 100 10 meq In 100 ml @ 100 mls/hr IVPB ONCE PRN Rx#:[id number] Ancef 2,000 MG In 0.9 % Sodium 100 / 100 100 / 100 Chloride 100 ML @ 200 mls/hr IVPB Q8H [facility] Rx#:[id number] Oral 100 / 100 Blood Product 294 / 294 Platelet Pheresis Lp Irr 1st 294 / 294 Unit [id number] Output: Estimated Blood Loss 500 / 500 Urine Amount (Catheter) 350 / 350 Catheter 160 / 160 220 / 220 Chest Tube Drainage 255 / 255 230 / 230 epigastric 1 160 / 160 185 / 185 epigastric 2 95 / 95 45 / 45 Other: Weight 68.1 kg Blood Glucose* 142 148 Patient Weight 02/17/18 23:59 Weight 68.1 kg - General Appearance Exam: The patient is alert and oriented. He is in no acute distress. Lungs [place] presents is otherwise clear. Heart regular rate and rhythm. Abdomen is benign. There is no lower extremity swelling. Chest tubes are in place. The patient is extubated. - Lab 02/17/18 03:30 02/17/18 03:30 Most recent lab results ABG pH 7.31 pH Units (7.32-7.45) L 02/17/18 05:50 ABG pCO2 41 mmHg (35-45) 02/17/18 05:50 ABG pO2 118 mmHg (85-104) H 02/17/18 05:50 ABG HCO3 20 mEq/L (21-27) L 02/17/18 05:50 ABG O2 Saturation 98 % (95-98) 02/17/18 05:50 Calcium 8.3 mg/dL (8.6-10.3) L 02/17/18 03:30 Magnesium 2.1 mg/dL (1.6-2.6) 02/17/18 03:30 - VTE Documentation of Mechanical Device: Intermittent pneumatic compression device Consult Discharge Plan - Plan Referrals: Trudy Sandoval, STAMP MACHINE SERVICER [Primary Care Provider] -
[2018-02-17] MEDS: Chlorhexidine Rinse 15 ML MOUTHWASH MM SCH ×2 (09:22→21:11)
[2018-02-17] MEDS: Aspirin Enteric Coated 81 MG Tablet PO SCH (09:22)
[2018-02-17] MEDS: Pantoprazole 40 MG VIAL IVP SCH (09:23)
[2018-02-17] MEDS: 0.9 % Sodium Chloride 1,000 ML IVC SCH (10:03)
[2018-02-17] MEDS: Nitroglycerin 25 MG/250 ML INFUS..BTL IVC SCH ×2 (19:49→19:55)
[2018-02-17] MEDS: Norepinephrine 4 MG in D5% in Water 250 ML IVC SCH (19:54)
[2018-02-17] MEDS: Insulin Human Regular 100 UNIT in 0.9 % Sodium Chloride 100 ML IVC SCH (19:56)
[2018-02-17] MEDS: traZODone 50 MG TABLET PO SCH (21:10)
[2018-02-17] MEDS ORDERED: Insulin LISPRO 300 UNITS/3 ML VIAL SQ SCH (22:30)
--- NOTE | 2018-02-17 23:44 | Electrocardiograph Report ---
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
[2018-02-18] MEDS: Metoclopramide 10 MG/2 ML VIAL IVP SCH ×5 (00:26→23:41)
[2018-02-18] MEDS: niCARdipine 40 MG/200 ML MLS IVC SCH ×4 (02:26→23:43)
[2018-02-18] MEDS: 0.9 % Sodium Chloride 1,000 ML IVC SCH ×2 (03:29→22:30)
[2018-02-18] MEDS: *HR* OxyCODONE/APAP 5/325 TABLET PO PRN ×4 (03:30→19:40)
[2018-02-18 05:32] LABS: Basophils % 0.4 %; Eosinophils # 0.2 K/mcL (0.0-0.6); Eosinophils % 1.6 %; Hematocrit 26.7 % (37.5-50.1); Hemoglobin 8.8 g/dL (12.9-16.9); Immature Granulocytes % 0.5 % (0-4); Lymphocytes # 0.5 K/mcL (0.6-4.6); Lymphocytes % 4.4 %; Mean Corpuscular Hemoglobin 29.4 pg (28.0-33.3); Mean Corpuscular Volume 89.3 fL (83.0-100.0); Mean Platelet Volume 11.5 fL (9.4-12.4); Monocytes # 1.3 K/mcL (0.0-1.3); Monocytes % 12.6 %; Neutrophils # 8.3 K/mcL (1.6-8.9); Platelet Count 106 K/mcL (140-400); Red Blood Count 2.99 M/mcL (4.19-5.50); Red Cell Distribution Width 14.1 % (11.5-14.5); Segmented Neutrophils % 80.5 %
[2018-02-18 05:50] LABS: Calcium 8.2 mg/dL (8.6-10.3); Potassium 4.8 mEq/L (3.5-5.1)
--- NOTE | 2018-02-18 06:13 | Cardiothoracic Progress Note ---
Date of Encounter: 02/18/18 Time of Encounter: 06:11 - Assessment and plan (1) CAD (coronary artery disease) Current Visit: Yes Status: Acute The patient is recovering well from his CABG3 with modified Maze procedure and left atrial appendage stapling. He remained hemodynamically stable overnight and is breathing comfortably. The patient's renal function has deteriorated somewhat from baseline and he is being followed by nephrology. The arterial line and [place] catheter be removed. The Mejias will remain in place until the nephrology service indicates that it is okay to remove. The patient will be monitored and the ICU today. The assessment and plan as outlined above was discussed with the patient and/or family members who expressed understanding and agreement. All questions were answered. Qualifiers: Coronary Disease-Associated Artery/Lesion type: [place] artery [place] vs. transplanted heart: [place] heart Associated angina: without angina Qualified Code(s): I25.10 - Atherosclerotic heart disease of [place] coronary artery without angina pectoris - Subjective Procedure(s) Performed: POD#2 S/P CABG3, modified Maze procedure, left atrial appendage stapling Interval history: The patient remained hemodynamic stable overnight. He continues to breath comfortably. He has no complaints. Vital Signs, Last 4 Hours Temp Pulse Resp BP Pulse Ox 02/18/18 05:00 64 16 120/39 100 02/18/18 04:00 64 16 117/39 99 02/18/18 03:44 14 99 02/18/18 03:00 98.8 F 64 20 142/50 100 Oxgyen Flow Rate Oxygen Flow Rate (LPM) 2 Clinical Data, last 8 Hours Output, Chest Tube Drainage 10 Amount [epigastric 2] Output, Chest Tube Drainage 0 Amount [epigastric 2] Output, Chest Tube Drainage 40 Amount [epigastric 1] Output, Chest Tube Drainage 30 Amount [epigastric 1] Weight 02/16/18 02/17/18 02/18/18 23:59 23:59 23:59 Weight 68.3 kg 68.1 kg - Physical Examination General: Conversant, No Apparent Distress Neck: No JVD, Normal carotid pulses Cardiac: Reg Rate and Rhythm, Normal S1 and S2, No Murmur Incision: No signs of infection Sternum: Stable Chest tubes: Minimal drainage, Other (No air leak) Pacing Wires: In place Lungs: Normal Breath Sounds, No Wheeze, Rales, Rhonchi Neuro: Alert and responsive, No focal deficits noted Vascular: Normal capillary refill Extremities: No Clubbing, No Cyanosis, No Edema - Labs 02/18/18 04:00 02/18/18 04:00 Lab Results, Last 24 hours 02/18/18 02/18/18 04:00 04:00 WBC 10.3 Hgb 8.8 L Hct 26.7 L Plt Count 106 L Sodium 135 L Potassium 4.8 Chloride 108 H Carbon Dioxide 20 L BUN 39 H Creatinine 2.19 H Glucose 131 H Calcium 8.2 L - VTE Documentation of Mechanical Device: Intermittent pneumatic compression device Consult Discharge Plan - Plan Referrals: Trudy Sandoval, RISK ANALYST [Primary Care Provider] -
[2018-02-18] MEDS ORDERED: Dextrose Gel 15 GM/37.5 ML TUBE PO PRN ×2 (06:14)
[2018-02-18] MEDS ORDERED: *HR* Dextrose 50 % in Water (Syg) 50 ML SYRINGE IVP PRN (06:14)
[2018-02-18] MEDS ORDERED: D5% in Water 1,000 ML IVC PRN (06:14)
--- NOTE | 2018-02-18 07:30 | Anesthesia Evaluation Post Op ---
Date of Encounter: 02/18/18 Time of Encounter: 07:28 - Vital Signs Vital Signs: Selected Entries 02/18/18 03:00 02/18/18 06:00 Temperature 98.8 F Pulse Rate 63 Respiratory Rate 20 Blood Pressure 132/43 O2 Sat by Pulse Oximetry 100 Oxygen Flow Rate (LPM) 2 Oxygen Delivery Method Nasal Cannula - Lungs Lungs: Clear Ascult./Percussion - Airway Airway: Non-obstructed - Cardiovascular Regular Rate - Mental Status Mental Status: Alert & Oriented, Answers Appropriately - Pain Pain Scale: 3 Pain Scale used: Numeric (1 - 10) - Nausea Vomiting Nausea Vomiting: Not Present - Hydration Hydration: Tolerates oral liquids, Mejias catheter Notes: 02/18/18 07:29 POD#2 CABG. No apparent anesthesia complications. His Urine output has decreased and will be seen by nephrology.
[2018-02-18] MEDS: Chlorhexidine Rinse 15 ML MOUTHWASH MM SCH ×2 (07:57→20:15)
[2018-02-18] MEDS: Finasteride 5 MG TABLET PO SCH (07:57)
[2018-02-18] MEDS: Pantoprazole 40 MG VIAL IVP SCH (07:57)
[2018-02-18] MEDS: Aspirin Enteric Coated 81 MG Tablet PO SCH (07:57)
[2018-02-18] MEDS: Insulin LISPRO 300 UNITS/3 ML VIAL SQ SCH ×3 (07:58→16:41)
[2018-02-18] MEDS: Nitroglycerin 25 MG/250 ML INFUS..BTL IVC SCH ×2 (07:59→16:34)
[2018-02-18] MEDS: amLODIPine 5 MG TABLET PO SCH ×2 (08:08→20:14)
[2018-02-18] MEDS ORDERED: *HR* Amiodarone 200 MG TABLET PO SCH (09:00)
--- NOTE | 2018-02-18 13:20 | Nephrology Progress Note ---
Date of Encounter: 02/18/18 Time of Encounter: 13:19 - Assessment and Plan (1) CKD (chronic kidney disease), stage III Current Visit: Yes Status: Chronic The patient has stage III chronic kidney disease. The patient's serum creatinine has risen since his bypass surgery. Urine output is excellent. He is hemodynamically stable. I would anticipate that his renal function should start to improve in the very near future. (2) DM type 2 (diabetes mellitus, type 2) Current Visit: Yes Status: Chronic Qualifiers: Diabetes mellitus halfway insulin use: without long chain beamer use Diabetes mellitus complication status: with kidney complications Diabetes mellitus complication detail: with chronic kidney disease Chronic kidney disease stage : stage 3 (moderate) Qualified Code(s): E11.22 - Type 2 diabetes mellitus with diabetic chronic kidney disease; N18.3 - Chronic kidney disease, stage 3 ( moderate); N18.3 - Chronic kidney disease, stage 3 (moderate) (3) NSTEMI (non-ST elevated myocardial infarction) Current Visit: Yes Status: Acute (4) CAD (coronary artery disease) Current Visit: Yes Status: Acute Qualifiers: Coronary Disease-Associated Artery/Lesion type: [place] artery [place] vs. transplanted heart: [place] heart Associated angina: without angina Qualified Code(s): I25.10 - Atherosclerotic heart disease of [place] coronary artery without angina pectoris Subjective Principal diagnosis: chest pain Interval history: The patient denies any new complaints. He is hemodynamically stable. Urine output is excellent. Serum creatinine has gone up a little bit today compared to yesterday. Objective - Vital Signs Vital signs: Vital Signs Temp Pulse Resp BP Pulse Ox 02/18/18 11:49 98.1 F 02/18/18 11:34 71 02/18/18 11:27 16 97 02/18/18 11:00 66 18 147/72 97 02/18/18 10:00 67 16 141/63 96 02/18/18 09:00 75 18 141/57 96 02/18/18 08:00 68 16 144/68 96 02/18/18 07:45 98.1 F 02/18/18 07:44 16 100 02/18/18 07:00 65 14 117/69 100 02/18/18 06:00 63 20 132/43 100 02/18/18 05:00 64 16 120/39 100 02/18/18 04:00 64 16 117/39 99 02/18/18 03:44 14 99 02/18/18 03:00 98.8 F 64 20 142/50 100 02/18/18 02:00 61 16 114/40 100 02/18/18 01:00 87 16 111/47 100 02/18/18 00:00 90 20 135/54 98 02/17/18 23:31 14 133/54 98 02/17/18 23:00 98.9 F 93 16 144/50 100 02/17/18 22:00 95 16 144/50 100 02/17/18 21:00 109 20 153/48 100 02/17/18 20:13 14 93 02/17/18 20:00 105 20 150/51 99 02/17/18 19:00 98.6 F 108 20 133/42 100 02/17/18 18:00 98.4 F 98 20 112/39 02/17/18 17:00 98 F 74 20 153/39 100 02/17/18 16:00 97.9 F 63 20 146/40 100 02/17/18 15:56 16 98 02/17/18 15:00 97.5 F L 64 20 134/38 99 02/17/18 14:00 97.7 F 66 20 127/46 96 Intake and Output 02/17/18 02/18/18 02/18/18 23:59 07:59 15:59 Intake Total 304.9 / 304.9 1050 / 1050 920 / 920 Output Total 271 / 271 880 / 880 250 / 250 Balance 33.9 / 33.9 170 / 170 670 / 670 Intake: IV Fluids 204.9 / 204.9 1000 / 1000 200 / 200 0.9 % Sodium Chloride 1,000 ML 1000 / 1000 @ 50 mls/hr IVC .Q20H GINO Rx#: [id number] Amiodarone Drip Premix 360mg/ 200 / 200 200 / 200 200mL 360 mg In 200 ml @ 0.5 MG /MIN 16.667 mls/hr IVC CONT GINO Rx#:[id number] Oral 100 / 100 50 / 50 720 / 720 Output: Catheter 100 / 100 830 / 830 250 / 250 Chest Tube Drainage 171 / 171 50 / 50 epigastric 1 145 / 145 40 / 40 epigastric 2 26 / 26 10 / 10 Other: Meal Lunch Percent of Meal Consumed 100% Blood Glucose* 144 144 236 - General Appearance Exam: The patient is alert and oriented. No acute distress. Lungs diminished breath sounds otherwise clear. Heart regular rate and rhythm. Abdomen is benign. There is no lower extremity swelling. - Lab 02/18/18 04:00 02/18/18 04:00 Most recent lab results ABG pH 7.31 pH Units (7.32-7.45) L 02/17/18 05:50 ABG pCO2 41 mmHg (35-45) 02/17/18 05:50 ABG pO2 118 mmHg (85-104) H 02/17/18 05:50 ABG HCO3 20 mEq/L (21-27) L 02/17/18 05:50 ABG O2 Saturation 98 % (95-98) 02/17/18 05:50 Calcium 8.2 mg/dL (8.6-10.3) L 02/18/18 04:00 Magnesium 2.1 mg/dL (1.6-2.6) 02/17/18 03:30 - VTE Documentation of Mechanical Device: Graduated compression elastic hosiery Consult Discharge Plan - Plan Referrals: Trudy Sandoval, MACHINE I COREMAKER [Primary Care Provider] -
[2018-02-18] MEDS: Norepinephrine 4 MG in D5% in Water 250 ML IVC SCH (15:44)
[2018-02-18] MEDS: traZODone 50 MG TABLET PO SCH (20:14)
[2018-02-18] MEDS ORDERED: Insulin LISPRO 300 UNITS/3 ML VIAL SQ SCH (21:00)
[2018-02-19] MEDS: *HR* OxyCODONE/APAP 5/325 TABLET PO PRN ×3 (03:45→20:48)
[2018-02-19 04:10] LABS: Basophils % 0.3 %; Eosinophils # 0.2 K/mcL (0.0-0.6); Eosinophils % 1.5 %; Hematocrit 27.1 % (37.5-50.1); Hemoglobin 9.1 g/dL (12.9-16.9); Immature Granulocytes % 0.6 % (0-4); Lymphocytes # 0.7 K/mcL (0.6-4.6); Lymphocytes % 5.2 %; Mean Corpuscular HGB Conc 33.6 g/dL (31.6-35.5); Mean Corpuscular Volume 89.4 fL (83.0-100.0); Mean Platelet Volume 11.5 fL (9.4-12.4); Monocytes # 1.2 K/mcL (0.0-1.3); Monocytes % 9.6 %; Neutrophils # 10.5 K/mcL (1.6-8.9); Platelet Count 120 K/mcL (140-400); Red Blood Count 3.03 M/mcL (4.19-5.50); Red Cell Distribution Width 14.2 % (11.5-14.5); Segmented Neutrophils % 82.8 %
[2018-02-19 04:35] LABS: Calcium 8.2 mg/dL (8.6-10.3); Potassium 4.8 mEq/L (3.5-5.1)
[2018-02-19] MEDS: Metoclopramide 10 MG/2 ML VIAL IVP SCH ×3 (06:05→17:14)
--- NOTE | 2018-02-19 06:59 | Cardiothoracic Progress Note ---
Date of Encounter: 02/19/18 Time of Encounter: 06:55 - Assessment and plan (1) CAD (coronary artery disease) Current Visit: Yes Status: Acute The patient is recovering well from his CABG3 with modified Maze procedure and left atrial appendage stapling. He remained hemodynamically stable overnight and is breathing comfortably. The patient's renal function has deteriorated somewhat from baseline and he is being followed by nephrology. The patient will be transferred to the stepdown unit today. The assessment and plan as outlined above was discussed with the patient and/or family members who expressed understanding and agreement. All questions were answered. Qualifiers: Coronary Disease-Associated Artery/Lesion type: [place] artery [place] vs. transplanted heart: [place] heart Associated angina: without angina Qualified Code(s): I25.10 - Atherosclerotic heart disease of [place] coronary artery without angina pectoris - Subjective Procedure(s) Performed: POD#3 S/P CABG3, modified Maze procedure, left atrial appendage stapling Interval history: The patient remained hemodynamic stable overnight. He continues to breath comfortably. He has no complaints. Vital Signs, Last 4 Hours Temp Pulse Resp BP Pulse Ox 02/19/18 06:00 75 20 125/68 93 02/19/18 05:00 71 18 123/61 91 02/19/18 04:00 98.2 F 71 20 135/56 90 02/19/18 03:52 78 02/19/18 03:35 16 92 02/19/18 03:00 79 20 127/57 91 Oxgyen Flow Rate Oxygen Flow Rate (LPM) 2 Weight 02/17/18 02/18/18 02/19/18 23:59 23:59 23:59 Weight 68.1 kg 77.5 kg - Physical Examination General: Conversant, No Apparent Distress Neck: No JVD, Normal carotid pulses Cardiac: Reg Rate and Rhythm, Normal S1 and S2, No Murmur Incision: No signs of infection, Dry/intact dressing Sternum: Stable Pacing Wires: In place Lungs: Normal Breath Sounds, No Wheeze, Rales, Rhonchi Neuro: Alert and responsive, No focal deficits noted Vascular: Normal capillary refill Extremities: No Clubbing, No Cyanosis, No Edema - Labs 02/19/18 03:45 02/19/18 03:45 Lab Results, Last 24 hours 04/12/18 04/12/18 03:45 03:45 WBC 12.7 H Hgb 9.1 L Hct 27.1 L Plt Count 120 L Sodium 133 L Potassium 4.8 Chloride 108 H Carbon Dioxide 20 L BUN 46 H Creatinine 2.22 H Glucose 141 H Calcium 8.2 L - VTE Documentation of Mechanical Device: Graduated compression elastic hosiery Consult Discharge Plan - Plan Referrals: Trudy Sandoval, BLACK BELT [Primary Care Provider] -
[2018-02-19] MEDS ORDERED: *HR* Heparin 5,000 UNIT/ML VIAL SQ SCH (07:15)
--- NOTE | 2018-02-19 08:05 | Nephrology Progress Note ---
Date of Encounter: 02/19/18 Time of Encounter: 08:03 - Assessment and Plan (1) CKD (chronic kidney disease), stage III Current Visit: Yes Status: Chronic The patient has stage III chronic kidney disease. The patient's serum creatinine has risen since his bypass surgery. Patient's serum creatinines reaching a plateau. I suspect he will enter the recovery phase of his acute kidney injury component within the near future. Urine output is excellent. His oral intake is increasing so we can probably stop his maintenance IV fluids. (2) DM type 2 (diabetes mellitus, type 2) Current Visit: Yes Status: Chronic Qualifiers: Diabetes mellitus detention insulin use: without terminal block assembler use Diabetes mellitus complication status: with kidney complications Diabetes mellitus complication detail: with chronic kidney disease Chronic kidney disease stage : stage 3 (moderate) Qualified Code(s): E11.22 - Type 2 diabetes mellitus with diabetic chronic kidney disease; N18.3 - Chronic kidney disease, stage 3 ( moderate); N18.3 - Chronic kidney disease, stage 3 (moderate) (3) NSTEMI (non-ST elevated myocardial infarction) Current Visit: Yes Status: Acute (4) CAD (coronary artery disease) Current Visit: Yes Status: Acute Qualifiers: Coronary Disease-Associated Artery/Lesion type: [place] artery [place] vs. transplanted heart: [place] heart Associated angina: without angina Qualified Code(s): I25.10 - Atherosclerotic heart disease of [place] coronary artery without angina pectoris Subjective Principal diagnosis: chest pain Interval history: The patient is experiencing some postoperative soreness. Otherwise he denies any other complaints. He is hemodynamically stable. Chest tubes been removed. He is going to be transferred out of the intensive care unit. Serum creatinine appears to be reaching a plateau. Urine output is excellent. Objective - Vital Signs Vital signs: Vital Signs Temp Pulse Resp BP Pulse Ox 02/19/18 06:00 75 20 125/68 93 02/19/18 05:00 71 18 123/61 91 02/19/18 04:00 98.2 F 71 20 135/56 90 02/19/18 03:52 78 02/19/18 03:35 16 92 02/19/18 03:00 79 20 127/57 91 02/19/18 02:00 82 18 135/59 91 02/19/18 01:00 75 16 123/60 91 02/19/18 00:00 75 16 120/88 91 04/11/18 23:44 77 02/18/18 23:33 16 93 02/18/18 23:00 68 20 131/63 94 02/18/18 22:00 67 18 121/60 92 02/18/18 21:00 68 20 121/60 92 02/18/18 20:04 16 92 02/18/18 20:00 98.4 F 71 16 141/67 91 02/18/18 19:45 69 02/18/18 19:00 68 18 140/66 93 02/18/18 18:00 75 16 138/62 93 02/18/18 17:00 74 18 145/66 94 02/18/18 16:12 97.1 F L 02/18/18 16:00 69 16 142/65 93 02/18/18 15:39 16 93 02/18/18 15:00 74 16 140/67 94 02/18/18 14:00 69 14 133/64 96 02/18/18 13:00 72 18 113/97 96 02/18/18 12:00 74 14 134/79 96 02/18/18 11:49 98.1 F 02/18/18 11:34 71 02/18/18 11:27 16 97 02/18/18 11:00 66 18 147/72 97 02/18/18 10:00 67 16 141/63 96 02/18/18 09:00 75 18 141/57 96 Intake and Output 02/18/18 02/19/18 02/19/18 23:59 07:59 15:59 Intake Total 1240 / 1240 500 / 500 Output Total 600 / 600 200 / 200 Balance 640 / 640 300 / 300 Intake: IV Fluids 1000 / 1000 0.9 % Sodium Chloride 1,000 ML 1000 / 1000 @ 50 mls/hr IVC .Q20H GINO Rx#: [id number] Oral 240 / 240 500 / 500 Output: Catheter 600 / 600 200 / 200 Other: Meal Dinner Percent of Meal Consumed 70% Weight 77.5 kg Blood Glucose* 329 Patient Weight 02/19/18 23:59 Weight 77.5 kg - General Appearance Exam: Patient is alert and oriented. He is in no acute distress. Lungs diminished breath sounds otherwise clear. Heart regular rate and rhythm. Abdomen is benign. There is some mild lower extremity swelling. - Lab 02/19/18 03:45 02/19/18 03:45 Most recent lab results ABG pH 7.31 pH Units (7.32-7.45) L 02/17/18 05:50 ABG pCO2 41 mmHg (35-45) 02/17/18 05:50 ABG pO2 118 mmHg (85-104) H 02/17/18 05:50 ABG HCO3 20 mEq/L (21-27) L 02/17/18 05:50 ABG O2 Saturation 98 % (95-98) 02/17/18 05:50 Calcium 8.2 mg/dL (8.6-10.3) L 02/19/18 03:45 Magnesium 2.1 mg/dL (1.6-2.6) 02/17/18 03:30 - VTE Documentation of Mechanical Device: Graduated compression elastic hosiery Consult Discharge Plan - Plan Referrals: Trudy Sandoval, RESOURCE TEACHER [Primary Care Provider] -
[2018-02-19] MEDS ORDERED: D5% in Water 1,000 ML IVC PRN (08:28)
[2018-02-19] MEDS ORDERED: Nitroglycerin 0.4 MG TAB.SUBL SL PRN (08:28)
[2018-02-19] MEDS ORDERED: Acetaminophen 325 MG TABLET PO PRN (08:28)
[2018-02-19] MEDS ORDERED: Naloxone 0.4 MG/ML INJ IVP PRN (08:28)
[2018-02-19] MEDS ORDERED: Ondansetron 4 MG/2 ML VIAL IVP PRN (08:28)
[2018-02-19] MEDS ORDERED: Dextrose Gel 15 GM/37.5 ML TUBE PO PRN ×2 (08:28)
[2018-02-19] MEDS ORDERED: *HR* Dextrose 50 % in Water (Syg) 50 ML SYRINGE IVP PRN (08:28)
[2018-02-19] MEDS ORDERED: Pantoprazole 40 MG VIAL IVP SCH (09:00)
[2018-02-19] MEDS ORDERED: (Dutasteride [Avodart] 0.5 MG) PO SCH (09:00)
[2018-02-19] MEDS: *HR* Heparin 5,000 UNIT/ML VIAL SQ SCH ×3 (09:12→17:14)
[2018-02-19] MEDS: Finasteride 5 MG TABLET PO SCH (09:13)
[2018-02-19] MEDS: Aspirin Enteric Coated 81 MG Tablet PO SCH (09:13)
[2018-02-19] MEDS: Fluticasone Propionate Nasal 50 MCG/SPRAY BOTTLE NS SCH (09:13)
[2018-02-19] MEDS: Chlorhexidine Rinse 15 ML MOUTHWASH MM SCH ×2 (09:13→20:40)
[2018-02-19] MEDS: *HR* Amiodarone 200 MG TABLET PO SCH (09:13)
[2018-02-19] MEDS: Insulin LISPRO 300 UNITS/3 ML VIAL SQ SCH ×3 (09:16→20:41)
[2018-02-19] MEDS: traZODone 50 MG TABLET PO SCH (20:40)
[2018-02-20 04:21] LABS: Basophils % 0.2 %; Eosinophils # 0.3 K/mcL (0.0-0.6); Eosinophils % 3.1 %; Hematocrit 25.9 % (37.5-50.1); Hemoglobin 8.5 g/dL (12.9-16.9); Immature Granulocytes % 0.7 % (0-4); Lymphocytes # 0.7 K/mcL (0.6-4.6); Lymphocytes % 6.7 %; Mean Corpuscular HGB Conc 32.8 g/dL (31.6-35.5); Mean Corpuscular Hemoglobin 29.2 pg (28.0-33.3); Mean Platelet Volume 10.7 fL (9.4-12.4); Monocytes # 1.1 K/mcL (0.0-1.3); Monocytes % 11.5 %; Neutrophils # 7.6 K/mcL (1.6-8.9); Platelet Count 134 K/mcL (140-400); Red Blood Count 2.91 M/mcL (4.19-5.50); Segmented Neutrophils % 77.8 %
[2018-02-20 04:44] LABS: Potassium 4.8 mEq/L (3.5-5.1)
[2018-02-20] MEDS: *HR* Heparin 5,000 UNIT/ML VIAL SQ SCH ×3 (05:08→18:17)
[2018-02-20] MEDS: Finasteride 5 MG TABLET PO SCH (08:27)
[2018-02-20] MEDS: Chlorhexidine Rinse 15 ML MOUTHWASH MM SCH ×2 (08:27→20:59)
[2018-02-20] MEDS: Aspirin Enteric Coated 81 MG Tablet PO SCH (08:27)
[2018-02-20] MEDS: *HR* Amiodarone 200 MG TABLET PO SCH (08:27)
[2018-02-20] MEDS: Insulin LISPRO 300 UNITS/3 ML VIAL SQ SCH ×4 (08:28→20:58)
[2018-02-20] MEDS: Fluticasone Propionate Nasal 50 MCG/SPRAY BOTTLE NS SCH (08:33)
--- NOTE | 2018-02-20 09:05 | Cardiothoracic Progress Note ---
Date of Encounter: 02/20/18 Time of Encounter: 09:03 - Assessment and plan (1) CAD (coronary artery disease) Current Visit: Yes Status: Acute The patient is recovering well from his CABG3 with modified Maze procedure and left atrial appendage stapling. He remained hemodynamically stable overnight and is breathing comfortably. The patient's renal function has deteriorated somewhat from baseline and he is being followed by nephrology. The patient's cardiac rhythm deteriorated to atrial fibrillation with controlled rate this morning. His beta so therapy will be adjusted. The assessment and plan as outlined above was discussed with the patient and/or family members who expressed understanding and agreement. All questions were answered. Qualifiers: Coronary Disease-Associated Artery/Lesion type: [place] artery [place] vs. transplanted heart: [place] heart Associated angina: without angina Qualified Code(s): I25.10 - Atherosclerotic heart disease of [place] coronary artery without angina pectoris - Subjective Procedure(s) Performed: POD#4 S/P CABG3, modified Maze procedure, left atrial appendage stapling Interval history: The patient remained hemodynamic stable overnight. He continues to breath comfortably. He has no complaints. Vital Signs, Last 4 Hours Temp Pulse Resp BP Pulse Ox 02/20/18 07:28 98.4 F 107 19 108/50 96 02/20/18 07:22 16 95 Oxgyen Flow Rate Oxygen Flow Rate (LPM) 3 Clinical Data, last 8 Hours Output, Urine Amount 120 Weight 02/18/18 02/19/18 02/20/18 23:59 23:59 23:59 Weight 77.5 kg 75.4 kg - Physical Examination General: Conversant, No Apparent Distress Neck: No JVD, Normal carotid pulses Cardiac: Normal S1 and S2, No Murmur, Other (Irregular rate and rhythm (atrial fibrillation)) Incision: No signs of infection, Dry/intact dressing Sternum: Stable Pacing Wires: In place Lungs: Normal Breath Sounds, No Wheeze, Rales, Rhonchi Neuro: Alert and responsive, No focal deficits noted Vascular: Normal capillary refill Extremities: No Clubbing, No Cyanosis, No Edema - Labs 02/20/18 04:06 02/20/18 04:06 Lab Results, Last 24 hours 02/20/18 02/20/18 04:06 04:06 WBC 9.8 Hgb 8.5 L Hct 25.9 L Plt Count 134 L Sodium 133 L Potassium 4.8 Chloride 108 H Carbon Dioxide 20 L BUN 44 H Creatinine 2.16 H Glucose 182 H Calcium 8.0 L - VTE Documentation of Mechanical Device: Graduated compression elastic hosiery Consult Discharge Plan - Plan Instructions: Sternal Precautions (GEN) Referrals: Zeina Momin MD [Partnered Physician] - 03/19/18 2:30 pm Trudy Sandoval CNP [Primary Care Provider] - 02/24/18 12:30 pm
--- NOTE | 2018-02-20 09:23 | Nephrology Progress Note ---
Date of Encounter: 02/20/18 Time of Encounter: 09:22 - Assessment and Plan (1) CKD (chronic kidney disease), stage III Current Visit: Yes Status: Chronic The patient has stage III chronic kidney disease. The patient's serum creatinine has risen since his bypass surgery. The patient's creatinine has reached a plateau. I suspect he should enter the recovery phase very soon. We will continue to monitor. (2) DM type 2 (diabetes mellitus, type 2) Current Visit: Yes Status: Chronic Qualifiers: Diabetes mellitus residential insulin use: without in store representative use Diabetes mellitus complication status: with kidney complications Diabetes mellitus complication detail: with chronic kidney disease Chronic kidney disease stage : stage 3 (moderate) Qualified Code(s): E11.22 - Type 2 diabetes mellitus with diabetic chronic kidney disease; N18.3 - Chronic kidney disease, stage 3 ( moderate); N18.3 - Chronic kidney disease, stage 3 (moderate) (3) NSTEMI (non-ST elevated myocardial infarction) Current Visit: Yes Status: Acute (4) CAD (coronary artery disease) Current Visit: Yes Status: Acute Qualifiers: Coronary Disease-Associated Artery/Lesion type: [place] artery [place] vs. transplanted heart: [place] heart Associated angina: without angina Qualified Code(s): I25.10 - Atherosclerotic heart disease of [place] coronary artery without angina pectoris Subjective Principal diagnosis: chest pain Interval history: Patient is sitting up in a chair. He says he feels relatively well. He is reducing some sputum. Mejias catheter has been removed. He denies any difficulty emptying his bladder. Serum creatinine has plateaued at 2.16. Urine output is satisfactory. He is hemodynamically stable. Objective - Vital Signs Vital signs: Vital Signs Temp Pulse Resp BP Pulse Ox 02/20/18 07:28 98.4 F 107 19 108/50 96 02/20/18 07:22 16 95 02/20/18 04:15 16 92 02/20/18 04:06 98.4 F 107 114/70 92 02/20/18 00:26 98.6 F 94 18 110/78 93 02/19/18 23:34 18 98 02/19/18 19:57 18 92 02/19/18 19:34 98.9 F 81 18 160/91 92 02/19/18 16:17 14 91 02/19/18 15:46 98.4 F 85 14 175/81 91 04/12/18 11:56 98 F 14 149/71 94 02/19/18 11:35 18 175/81 94 Intake and Output 02/19/18 02/20/18 02/20/18 23:59 07:59 15:59 Intake Total 640 / 640 300 / 300 Output Total 850 / 850 120 / 120 Balance -210 / -210 180 / 180 Intake: Oral 640 / 640 300 / 300 Output: Urine 150 / 150 120 / 120 Catheter 700 / 700 Other: Meal Dinner Percent of Meal Consumed 50% Weight 75.4 kg Blood Glucose* 348 198 Patient Weight 02/20/18 23:59 Weight 75.4 kg - General Appearance Exam: Patient is alert and oriented. In no acute distress. Lungs diminished breath sounds otherwise clear. Heart regular rate and rhythm. Abdomen is benign. There is no lower extremity swelling. - Lab 02/20/18 04:06 02/20/18 04:06 Most recent lab results ABG pH 7.31 pH Units (7.32-7.45) L 02/17/18 05:50 ABG pCO2 41 mmHg (35-45) 02/17/18 05:50 ABG pO2 118 mmHg (85-104) H 02/17/18 05:50 ABG HCO3 20 mEq/L (21-27) L 02/17/18 05:50 ABG O2 Saturation 98 % (95-98) 02/17/18 05:50 Calcium 8.0 mg/dL (8.6-10.3) L 02/20/18 04:06 Magnesium 2.1 mg/dL (1.6-2.6) 02/17/18 03:30 - VTE Documentation of Mechanical Device: Graduated compression elastic hosiery Consult Discharge Plan - Plan Instructions: Sternal Precautions (GEN) Referrals: Zeina Momin MD [Partnered Physician] - 03/19/18 2:30 pm Trudy Sandoval CNP [Primary Care Provider] - 02/24/18 12:30 pm
[2018-02-20] MEDS ORDERED: *HR* Amiodarone 200 MG TABLET PO ONE (10:00)
[2018-02-20] MEDS ORDERED: Haloperidol Lactate 5 MG/ML VIAL ONE (13:08)
[2018-02-20] MEDS: *HR* OxyCODONE/APAP 5/325 TABLET PO PRN ×2 (16:18→23:43)
--- NOTE | 2018-02-20 19:51 | Internal Med Progress Note ---
Date of Encounter: 02/20/18 Time of Encounter: 11:00 - Assessment and plan (1) NSTEMI (non-ST elevated myocardial infarction) Current Visit: Yes Status: Acute Assessment and plan: Peak Troponin at 0.89. EKG changes with ST depression in anteroseptal leads was noted. He was treated with antibiotic ideation with IV heparin drip, aspirin, beta so, statin. Cardiology was consulted. Transesophageal echocardiogram showed mild to moderate aortic stenosis, mild reduction in LV systolic function, mild to moderate mitral regurgitation. Underwent left heart catheterization. 02/11/2018 LHC: 90% LAD in-stent restenosis, a 70% mid LAD lesion, and and 70% ostial OM1 lesion. Recommended elective CABG. Patient now recovering from CABG3 with modified Maze procedure and left atrial appendage stapling. (2) Ischemic cardiomyopathy Current Visit: Yes Status: Chronic Assessment and plan: Transthoracic echocardiogram shows mildly reduced ejection fraction 40-45%, diastolic dysfunction with elevated filling pressures, moderate mitral regurgitation, possible aortic stenosis, recommend further evaluation with transesophageal echocardiogram. Continue current management. (3) CKD (chronic kidney disease), stage III Current Visit: Yes Status: Chronic Assessment and plan: Serum creatinine stable, at around 1.84. Continue to monitor closely. Nephrology on board. (4) HTN (hypertension) Current Visit: Yes Status: Chronic Assessment and plan: Controlled; continue Norvasc and Coreg Qualifiers: Hypertension type: essential hypertension Qualified Code(s): I10 - Essential (primary) hypertension (5) DM type 2 (diabetes mellitus, type 2) Current Visit: Yes Status: Chronic Assessment and plan: Continue Accu-Chek blood glucose monitoring with basal bolus insulin regimen. Hemoglobin A1c noted to be 8%. Diabetic diet. Qualifiers: Diabetes mellitus [facility] insulin use: without luggage repairer use Diabetes mellitus complication status: with kidney complications Diabetes mellitus complication detail: with chronic kidney disease Chronic kidney disease stage : stage 3 (moderate) Qualified Code(s): E11.22 - Type 2 diabetes mellitus with diabetic chronic kidney disease; N18.3 - Chronic kidney disease, stage 3 ( moderate); N18.3 - Chronic kidney disease, stage 3 (moderate) (6) HLD (hyperlipidemia) Current Visit: Yes Status: Chronic Assessment and plan: on statin Qualifiers: Hyperlipidemia type: unspecified Qualified Code(s): E78.5 - Hyperlipidemia , unspecified - Time Spent With Patient Total time spent is greater than 50% in coordination of care (as documented) at patient's floor/unit and/or counseling patient: - Subjective Interval history: Patient reports of some chest discomfort secondary to CABG procedure - Constitutional Vitals: Temp Pulse Resp BP Pulse Ox 98.0 F 87 18 118/78 98 02/20/18 11:00 02/20/18 16:34 02/20/18 16:34 02/20/18 16:34 02/20/18 16:34 General appearance: Present: A&O X 3, no acute distress, answers questions appropriately - Respiratory Respiratory exam: Present: CTAB. Absent: accessory muscle use, rales, rhonchi, wheezes - Cardiovascular Cardiovascular exam: Present: RRR, +S1, +S2. Absent: diastolic murmur, gallop, rubs, systolic murmur Internal Medicine: Result - Labs CBC & Chem 7: 02/20/18 04:06 02/20/18 04:06 Labs: Short CBC 02/20/18 Range/Units 04:06 WBC 9.8 (4.3-11.1) K/mcL Hgb 8.5 L (12.9-16.9) g/dL Hct 25.9 L (37.5-50.1) % Plt Count 134 L (140-400) K/mcL Neutrophils # 7.6 (1.6-8.9) K/mcL BMP 02/20/18 04:06 Sodium 133 L Potassium 4.8 Chloride 108 H Carbon Dioxide 20 L BUN 44 H Creatinine 2.16 H Glucose 182 H Calcium 8.0 L - ABG Interpretation ABG results: ABG ABG pH 7.31 pH Units (7.32-7.45) L 02/17/18 05:50 ABG pCO2 41 mmHg (35-45) 02/17/18 05:50 ABG pO2 118 mmHg (85-104) H 02/17/18 05:50 ABG O2 Saturation 98 % (95-98) 02/17/18 05:50 PT/INR, D-dimer PT 13.5 Seconds (9.4-12.1) H 02/17/18 03:30 - VTE Documentation of Mechanical Device: Graduated compression elastic hosiery Consult Discharge Plan - Plan Instructions: Sternal Precautions (GEN) Referrals: Zeina Momin MD [Partnered Physician] - 03/19/18 2:30 pm Trudy Sandoval CNP [Primary Care Provider] - 02/24/18 12:30 pm
[2018-02-20] MEDS: traZODone 50 MG TABLET PO SCH (20:59)
[2018-02-21 03:45] LABS: Basophils % 0.4 %; Eosinophils # 0.4 K/mcL (0.0-0.6); Eosinophils % 4.2 %; Hematocrit 25.1 % (37.5-50.1); Hemoglobin 8.3 g/dL (12.9-16.9); Immature Granulocytes % 0.6 % (0-4); Lymphocytes # 0.7 K/mcL (0.6-4.6); Lymphocytes % 7.9 %; Mean Corpuscular HGB Conc 33.1 g/dL (31.6-35.5); Mean Corpuscular Hemoglobin 29.7 pg (28.0-33.3); Mean Platelet Volume 10.6 fL (9.4-12.4); Monocytes # 1.1 K/mcL (0.0-1.3); Monocytes % 12.5 %; Neutrophils # 6.3 K/mcL (1.6-8.9); Platelet Count 175 K/mcL (140-400); Red Blood Count 2.79 M/mcL (4.19-5.50); Red Cell Distribution Width 14.1 % (11.5-14.5); Segmented Neutrophils % 74.4 %
[2018-02-21 04:06] LABS: Calcium 8.1 mg/dL (8.6-10.3)
[2018-02-21] MEDS: *HR* Heparin 5,000 UNIT/ML VIAL SQ SCH ×2 (05:25→17:27)
[2018-02-21] MEDS: Insulin LISPRO 300 UNITS/3 ML VIAL SQ SCH ×4 (08:18→20:35)
--- NOTE | 2018-02-21 08:18 | Nephrology Progress Note ---
Date of Encounter: 02/21/18 Time of Encounter: 08:16 - Assessment and Plan (1) CKD (chronic kidney disease), stage III Current Visit: Yes Status: Chronic The patient has stage III chronic kidney disease. The patient's serum creatinine has risen since his bypass surgery. The patient's creatinine is still at a plateau. The patient is having difficulty voiding since the Mejias catheter was removed. This is despite being on Flomax and terazosin. For that reason were going to replace the Mejias catheter. (2) DM type 2 (diabetes mellitus, type 2) Current Visit: Yes Status: Chronic Qualifiers: Diabetes mellitus [facility] insulin use: without [facility] use Diabetes mellitus complication status: with kidney complications Diabetes mellitus complication detail: with chronic kidney disease Chronic kidney disease stage : stage 3 (moderate) Qualified Code(s): E11.22 - Type 2 diabetes mellitus with diabetic chronic kidney disease; N18.3 - Chronic kidney disease, stage 3 ( moderate); N18.3 - Chronic kidney disease, stage 3 (moderate) (3) NSTEMI (non-ST elevated myocardial infarction) Current Visit: Yes Status: Acute (4) CAD (coronary artery disease) Current Visit: Yes Status: Acute Qualifiers: Coronary Disease-Associated Artery/Lesion type: [place] artery [place] vs. transplanted heart: [place] heart Associated angina: without angina Qualified Code(s): I25.10 - Atherosclerotic heart disease of [place] coronary artery without angina pectoris Subjective Principal diagnosis: chest pain Interval history: The patient reports she has not voided much since his Mejias catheter was removed. The chart records only 400 mL of urine. Patient says he has the urge to void but very little urine comes out. He does have a history of enlarged prostate. Renal function is stable with a creatinine of 2.19. The patient is hemodynamically stable as well. Objective - Vital Signs Vital signs: Vital Signs Temp Pulse Resp BP Pulse Ox 02/21/18 08:11 17 97 02/21/18 07:36 98.3 F 75 17 133/68 97 02/20/18 23:44 16 99 02/20/18 23:36 98.1 F 78 18 137/68 100 02/20/18 20:55 14 97 02/20/18 19:58 98.1 F 81 16 113/75 99 02/20/18 16:34 87 18 118/78 98 02/20/18 16:19 18 99 02/20/18 11:45 17 96 02/20/18 11:00 98.0 F 78 18 95/77 96 Intake and Output 02/20/18 02/21/18 02/21/18 23:59 07:59 15:59 Intake Total 330 / 330 Output Total 350 / 350 Balance -20 / -20 Intake: Oral 330 / 330 Output: Urine 350 / 350 Other: Meal Dinner Percent of Meal Consumed 90% Weight 77.111 kg Blood Glucose* 133 174 Patient Weight 02/21/18 23:59 Weight 77.111 kg - General Appearance Exam: Patient is alert and oriented. He is in no acute distress. Lungs managed breath sounds otherwise clear. Heart regular rate and rhythm. Abdomen is benign. There is no lower extremity swelling. - Lab 02/21/18 03:35 02/21/18 03:35 Most recent lab results ABG pH 7.31 pH Units (7.32-7.45) L 02/17/18 05:50 ABG pCO2 41 mmHg (35-45) 02/17/18 05:50 ABG pO2 118 mmHg (85-104) H 02/17/18 05:50 ABG HCO3 20 mEq/L (21-27) L 02/17/18 05:50 ABG O2 Saturation 98 % (95-98) 02/17/18 05:50 Calcium 8.1 mg/dL (8.6-10.3) L 02/21/18 03:35 Magnesium 2.1 mg/dL (1.6-2.6) 02/17/18 03:30 - VTE Documentation of Mechanical Device: Graduated compression elastic hosiery Consult Discharge Plan - Plan Instructions: Sternal Precautions (GEN) Referrals: Zeina Momin MD [Partnered Physician] - 03/19/18 2:30 pm Trudy Sandoval CNP [Primary Care Provider] - 02/24/18 12:30 pm
[2018-02-21] MEDS: Chlorhexidine Rinse 15 ML MOUTHWASH MM SCH ×2 (08:19→20:45)
[2018-02-21] MEDS: Finasteride 5 MG TABLET PO SCH (08:20)
[2018-02-21] MEDS: *HR* OxyCODONE/APAP 5/325 TABLET PO PRN ×3 (08:20→23:42)
[2018-02-21] MEDS: amLODIPine 5 MG TABLET PO SCH ×2 (08:20→20:45)
[2018-02-21] MEDS: *HR* Amiodarone 200 MG TABLET PO SCH (08:20)
[2018-02-21] MEDS: Aspirin Enteric Coated 81 MG Tablet PO SCH (08:20)
[2018-02-21] MEDS: Fluticasone Propionate Nasal 50 MCG/SPRAY BOTTLE NS SCH (08:21)
--- NOTE | 2018-02-21 09:31 | Cardiothoracic Progress Note ---
Date of Encounter: 02/21/18 Time of Encounter: 09:27 Discussion with patient/family: Discussed plans for increased activity with the assistance of OT and PT as well as institution of daily Dulcolax suppository to facilitate BM. - Subjective Procedure(s) Performed: Patient seen and examined. He is postoperative day #5 CABG3 with modified Maze procedure and left atrial appendage stapling. The patient's renal function was notably low preoperatively and he is being followed by nephrology. His cardiac rhythm deteriorated to atrial fibrillation and he is currently on amiodarone with a well controlled rate. He is currently sitting up in the chair without any new complants. He has not had a bowel movement and states that he feels relatively week. He notably has anemia that is stable which could be contributing to his lethargy. Discussed plans with nursing staff for a Dulcolax suppository to facilitate a bowel movement and increasing activity with the assistance of OT/PT. Vital Signs, Last 4 Hours Temp Pulse Resp BP Pulse Ox 02/21/18 08:11 17 97 02/21/18 07:36 98.3 F 75 17 133/68 97 Oxgyen Flow Rate Oxygen Flow Rate (LPM) 2 Clinical Data, last 8 Hours Output, Urine Amount 350 Weight 02/19/18 02/20/18 02/21/18 23:59 23:59 23:59 Weight 77.5 kg 75.4 kg 77.111 kg - Physical Examination Cardiac: Other (Atrial fibrillation, rate controlled) Incision: Other (Dressing over sternal wound clean and dry) Sternum: Other (Dressed clean and dry sternal wound with no crepitus and no evidence of instability with cough) Chest tubes: Other (Chest tubes removed) Pacing Wires: In place Lungs: Other (Reasonable cough with reasonable expiratory effort) - Labs 02/21/18 03:35 02/21/18 03:35 Lab Results, Last 24 hours 02/21/18 02/21/18 03:35 03:35 WBC 8.5 Hgb 8.3 L Hct 25.1 L Plt Count 175 Sodium 133 L Potassium 5.0 Chloride 108 H Carbon Dioxide 19 L BUN 50 H Creatinine 2.19 H Glucose 158 H Calcium 8.1 L - VTE Documentation of Mechanical Device: Graduated compression elastic hosiery Consult Discharge Plan - Plan Instructions: Sternal Precautions (GEN) Referrals: Zeina Momin MD [Partnered Physician] - 03/19/18 2:30 pm Trudy Sandoval CNP [Primary Care Provider] - 02/24/18 12:30 pm
--- NOTE | 2018-02-21 19:41 | Internal Med Progress Note ---
Date of Encounter: 02/21/18 Time of Encounter: 11:00 - Assessment and plan (1) Urinary retention Current Visit: Yes Status: Acute Assessment and plan: Patient with difficulty voiding after catheter Recommendations by nephrology to reinsert Mejias catheter and monitor (2) NSTEMI (non-ST elevated myocardial infarction) Current Visit: Yes Status: Acute Assessment and plan: Peak Troponin at 0.89. EKG changes with ST depression in anteroseptal leads was noted. Transesophageal echocardiogram showed mild to moderate aortic stenosis, mild reduction in LV systolic function, mild to moderate mitral regurgitation. 02/11/2018 LHC: 90% LAD in-stent restenosis, a 70% mid LAD lesion, and and 70% ostial OM1 lesion. CABG3, POD 5 with modified Maze procedure and left atrial appendage stapling. (3) Ischemic cardiomyopathy Current Visit: Yes Status: Chronic Assessment and plan: Transthoracic echocardiogram shows mildly reduced ejection fraction 40-45%, diastolic dysfunction with elevated filling pressures, moderate mitral regurgitation, possible aortic stenosis, recommend further evaluation with transesophageal echocardiogram. (4) CKD (chronic kidney disease), stage III Current Visit: Yes Status: Chronic Assessment and plan: Creatinine at 2.19 this morning; nephrology following and appreciate recommendations (5) HTN (hypertension) Current Visit: Yes Status: Chronic Assessment and plan: Controlled; continue Norvasc and Coreg Qualifiers: Hypertension type: essential hypertension Qualified Code(s): I10 - Essential (primary) hypertension (6) DM type 2 (diabetes mellitus, type 2) Current Visit: Yes Status: Chronic Assessment and plan: Continue Accu-Chek blood glucose monitoring with basal bolus insulin regimen. Hemoglobin A1c noted to be 8%. Diabetic diet. Qualifiers: Diabetes mellitus [facility]p insulin use: without terminal clerk use Diabetes mellitus complication status: with kidney complications Diabetes mellitus complication detail: with chronic kidney disease Chronic kidney disease stage : stage 3 (moderate) Qualified Code(s): E11.22 - Type 2 diabetes mellitus with diabetic chronic kidney disease; N18.3 - Chronic kidney disease, stage 3 ( moderate); N18.3 - Chronic kidney disease, stage 3 (moderate) (7) HLD (hyperlipidemia) Current Visit: Yes Status: Chronic Assessment and plan: on statin Qualifiers: Hyperlipidemia type: unspecified Qualified Code(s): E78.5 - Hyperlipidemia , unspecified - Time Spent With Patient Total time spent is greater than 50% in coordination of care (as documented) at patient's floor/unit and/or counseling patient: - Subjective Interval history: Patient with difficulty urinating to my: Recommendations for Mejias catheter by urology Postop day 5 for CABG 3 - Constitutional Vitals: Temp Pulse Resp BP Pulse Ox 97.9 F 64 19 118/69 95 02/21/18 16:47 02/21/18 16:47 02/21/18 16:47 02/21/18 16:47 02/21/18 16:47 General appearance: Present: A&O X 3, no acute distress, answers questions appropriately - Respiratory Respiratory exam: Present: CTAB. Absent: accessory muscle use, rales, rhonchi, wheezes - Cardiovascular Cardiovascular exam: Present: RRR, +S1, +S2. Absent: diastolic murmur, gallop, rubs, systolic murmur Internal Medicine: Result - Labs CBC & Chem 7: 02/21/18 03:35 02/21/18 03:35 Labs: Short CBC 02/21/18 Range/Units 03:35 WBC 8.5 (4.3-11.1) K/mcL Hgb 8.3 L (12.9-16.9) g/dL Hct 25.1 L (37.5-50.1) % Plt Count 175 (140-400) K/mcL Neutrophils # 6.3 (1.6-8.9) K/mcL BMP 02/21/18 03:35 Sodium 133 L Potassium 5.0 Chloride 108 H Carbon Dioxide 19 L BUN 50 H Creatinine 2.19 H Glucose 158 H Calcium 8.1 L - ABG Interpretation ABG results: ABG ABG pH 7.31 pH Units (7.32-7.45) L 02/17/18 05:50 ABG pCO2 41 mmHg (35-45) 02/17/18 05:50 ABG pO2 118 mmHg (85-104) H 02/17/18 05:50 ABG O2 Saturation 98 % (95-98) 02/17/18 05:50 PT/INR, D-dimer PT 13.5 Seconds (9.4-12.1) H 02/17/18 03:30 - VTE Documentation of Mechanical Device: Graduated compression elastic hosiery Consult Discharge Plan - Plan Instructions: Sternal Precautions (GEN) Referrals: Zeina Momin MD [Partnered Physician] - 03/19/18 2:30 pm Trudy Sandoval CNP [Primary Care Provider] - 02/24/18 12:30 pm
[2018-02-21] MEDS: traZODone 50 MG TABLET PO SCH (20:44)
[2018-02-22] MEDS: *HR* Heparin 5,000 UNIT/ML VIAL SQ SCH ×2 (05:18→17:12)
[2018-02-22] MEDS: amLODIPine 5 MG TABLET PO SCH ×2 (08:53→20:04)
[2018-02-22] MEDS: Aspirin Enteric Coated 81 MG Tablet PO SCH (08:53)
[2018-02-22] MEDS: Finasteride 5 MG TABLET PO SCH (08:53)
[2018-02-22] MEDS: *HR* Amiodarone 200 MG TABLET PO SCH (08:53)
[2018-02-22] MEDS: Chlorhexidine Rinse 15 ML MOUTHWASH MM SCH ×2 (08:54→20:04)
[2018-02-22] MEDS: Fluticasone Propionate Nasal 50 MCG/SPRAY BOTTLE NS SCH (09:04)
[2018-02-22] MEDS: Insulin LISPRO 300 UNITS/3 ML VIAL SQ SCH ×4 (09:05→20:04)
[2018-02-22 09:11] LABS: Basophils % 0.5 %; Eosinophils # 0.4 K/mcL (0.0-0.6); Eosinophils % 5.6 %; Hematocrit 26.3 % (37.5-50.1); Hemoglobin 8.8 g/dL (12.9-16.9); Immature Granulocytes % 1.1 % (0-4); Lymphocytes # 0.6 K/mcL (0.6-4.6); Lymphocytes % 7.3 %; Mean Corpuscular HGB Conc 33.5 g/dL (31.6-35.5); Mean Corpuscular Hemoglobin 30.2 pg (28.0-33.3); Mean Corpuscular Volume 90.4 fL (83.0-100.0); Mean Platelet Volume 10.5 fL (9.4-12.4); Monocytes % 13.5 %; Neutrophils # 5.4 K/mcL (1.6-8.9); Platelet Count 223 K/mcL (140-400); Red Blood Count 2.91 M/mcL (4.19-5.50); Red Cell Distribution Width 14.1 % (11.5-14.5)
[2018-02-22 09:29] LABS: Calcium 8.2 mg/dL (8.6-10.3); Potassium 5.2 mEq/L (3.5-5.1)
[2018-02-22] MEDS: Bisacodyl 10 MG RECTAL SUPPOSITORY RC PRN (09:43)
--- NOTE | 2018-02-22 10:18 | Cardiothoracic Progress Note ---
Date of Encounter: 02/22/18 Time of Encounter: 10:16 - Subjective Procedure(s) Performed: Patient seen and examined. He is postoperative day #6 CABG3 with modified Maze procedure and left atrial appendage stapling. He has done well postoperatively. His primary complaint is that of back pain. He is currently off oxygen and his activity is limited by his back discomfort. He is sitting up in a chair this morning. States that he has had some flatus but no bowel movement. Was given Dulcolax suppository and stool softener. Discussed plans for possible discharge home in next 24-48 hours. Discussed plans with nursing staff to increase activity as tolerated. OT and PT been counseled to are assisting with activity according to nursing staff. Vital Signs, Last 4 Hours Temp Pulse Resp BP Pulse Ox 02/22/18 08:55 18 94 02/22/18 07:28 98.4 F 72 18 117/60 94 Oxgyen Flow Rate Oxygen Flow Rate (LPM) 2 Clinical Data, last 8 Hours Output, Urine Amount 150 Output, Urine Amount 120 Weight 02/20/18 02/21/18 02/22/18 23:59 23:59 23:59 Weight 75.4 kg 77.111 kg 77.7 kg - Physical Examination General: Other (Sitting up in chair, frontal and cooperative, no acute distress, ) Incision: Other (Sternal dressing in place, clean and dry) Sternum: Other (Sternal wound dressed and sternum stable without crepitus or instability with cough) Pacing Wires: In place, Other Lungs: Other (Good cough and advanced to her effort, on room air saturations greater than 92%) - Labs 02/22/18 08:59 02/22/18 08:59 Lab Results, Last 24 hours 02/22/18 02/22/18 08:59 08:59 WBC 7.6 Hgb 8.8 L Hct 26.3 L Plt Count 223 Sodium 130 L Potassium 5.2 H Chloride 105 Carbon Dioxide 20 L BUN 50 H Creatinine 2.13 H Glucose 241 H Calcium 8.2 L - VTE Documentation of Mechanical Device: Graduated compression elastic hosiery Consult Discharge Plan - Plan Instructions: Sternal Precautions (GEN) Referrals: Zeina Momin MD [Partnered Physician] - 03/19/18 2:30 pm Trudy Sandoval CNP [Primary Care Provider] - 02/24/18 12:30 pm
[2018-02-22] MEDS: *HR* OxyCODONE/APAP 5/325 TABLET PO PRN ×2 (13:03→20:03)
--- NOTE | 2018-02-22 18:36 | Internal Med Progress Note ---
Date of Encounter: 02/22/18 Time of Encounter: 11:00 - Assessment and plan (1) Urinary retention Current Visit: Yes Status: Acute Assessment and plan: Patient with difficulty voiding after catheter Recommendations by nephrology to reinsert Mejias catheter and monitor (2) NSTEMI (non-ST elevated myocardial infarction) Current Visit: Yes Status: Acute Assessment and plan: Peak Troponin at 0.89. EKG changes with ST depression in anteroseptal leads was noted. Transesophageal echocardiogram showed mild to moderate aortic stenosis, mild reduction in LV systolic function, mild to moderate mitral regurgitation. 02/11/2018 LHC: 90% LAD in-stent restenosis, a 70% mid LAD lesion, and and 70% ostial OM1 lesion. Postop day 6 for CABG3 with modified Maze procedure and left atrial appendage stapling Anticipate discharge in 24-48 hours per cardiothoracic team (3) Ischemic cardiomyopathy Current Visit: Yes Status: Chronic Assessment and plan: Transthoracic echocardiogram shows mildly reduced ejection fraction 40-45%, diastolic dysfunction with elevated filling pressures, moderate mitral regurgitation, possible aortic stenosis, recommend further evaluation with transesophageal echocardiogram. (4) CKD (chronic kidney disease), stage III Current Visit: Yes Status: Chronic Assessment and plan: Creatinine at 2.13 this morning; nephrology following and appreciate recommendations (5) HTN (hypertension) Current Visit: Yes Status: Chronic Assessment and plan: Controlled; continue Norvasc and Coreg Qualifiers: Hypertension type: essential hypertension Qualified Code(s): I10 - Essential (primary) hypertension (6) DM type 2 (diabetes mellitus, type 2) Current Visit: Yes Status: Chronic Assessment and plan: Continue Accu-Chek blood glucose monitoring with basal bolus insulin regimen. Hemoglobin A1c noted to be 8%. Diabetic diet. 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 Diabetes mellitus complication status: with kidney complications Diabetes mellitus complication detail: with chronic kidney disease Chronic kidney disease stage : stage 3 (moderate) Qualified Code(s): E11.22 - Type 2 diabetes mellitus with diabetic chronic kidney disease; N18.3 - Chronic kidney disease, stage 3 ( moderate); N18.3 - Chronic kidney disease, stage 3 (moderate) (7) HLD (hyperlipidemia) Current Visit: Yes Status: Chronic Assessment and plan: on statin Qualifiers: Hyperlipidemia type: unspecified Qualified Code(s): E78.5 - Hyperlipidemia , unspecified - Time Spent With Patient Total time spent is greater than 50% in coordination of care (as documented) at patient's floor/unit and/or counseling patient: - Subjective Interval history: Postop day 6 for CABG3 with modified Maze procedure and left atrial appendage stapling - Constitutional Vitals: Temp Pulse Resp BP Pulse Ox 97.5 F L 62 18 105/71 98 02/22/18 16:07 02/22/18 16:07 02/22/18 16:07 02/22/18 16:07 02/22/18 16:07 General appearance: Present: A&O X 3, no acute distress, answers questions appropriately - Respiratory Respiratory exam: Present: CTAB. Absent: accessory muscle use, rales, rhonchi, wheezes - Cardiovascular Cardiovascular exam: Present: RRR, +S1, +S2. Absent: diastolic murmur, gallop, rubs, systolic murmur Internal Medicine: Result - Labs CBC & Chem 7: 02/22/18 08:59 02/22/18 08:59 Labs: Short CBC 02/22/18 Range/Units 08:59 WBC 7.6 (4.3-11.1) K/mcL Hgb 8.8 L (12.9-16.9) g/dL Hct 26.3 L (37.5-50.1) % Plt Count 223 (140-400) K/mcL Neutrophils # 5.4 (1.6-8.9) K/mcL BMP 02/22/18 08:59 Sodium 130 L Potassium 5.2 H Chloride 105 Carbon Dioxide 20 L BUN 50 H Creatinine 2.13 H Glucose 241 H Calcium 8.2 L - ABG Interpretation ABG results: ABG ABG pH 7.31 pH Units (7.32-7.45) L 02/17/18 05:50 ABG pCO2 41 mmHg (35-45) 02/17/18 05:50 ABG pO2 118 mmHg (85-104) H 02/17/18 05:50 ABG O2 Saturation 98 % (95-98) 02/17/18 05:50 PT/INR, D-dimer PT 13.5 Seconds (9.4-12.1) H 02/17/18 03:30 - VTE Documentation of Mechanical Device: Graduated compression elastic hosiery Consult Discharge Plan - Plan Instructions: Sternal Precautions (GEN) Referrals: Zeina Momin MD [Partnered Physician] - 03/19/18 2:30 pm Trudy Sandoval CNP [Primary Care Provider] - 02/24/18 12:30 pm
[2018-02-22] MEDS: traZODone 50 MG TABLET PO SCH (20:04)
[2018-02-23] MEDS: *HR* Heparin 5,000 UNIT/ML VIAL SQ SCH ×2 (05:29→16:31)
[2018-02-23] MEDS: Insulin LISPRO 300 UNITS/3 ML VIAL SQ SCH ×4 (08:11→20:48)
[2018-02-23] MEDS: Chlorhexidine Rinse 15 ML MOUTHWASH MM SCH ×2 (08:12→20:48)
[2018-02-23] MEDS: Finasteride 5 MG TABLET PO SCH (08:12)
[2018-02-23] MEDS: *HR* Amiodarone 200 MG TABLET PO SCH (08:12)
[2018-02-23] MEDS: Aspirin Enteric Coated 81 MG Tablet PO SCH (08:12)
[2018-02-23] MEDS: amLODIPine 5 MG TABLET PO SCH ×2 (08:12→20:47)
[2018-02-23] MEDS: Fluticasone Propionate Nasal 50 MCG/SPRAY BOTTLE NS SCH (08:13)
--- NOTE | 2018-02-23 08:32 | Nephrology Progress Note ---
Date of Encounter: 02/23/18 Time of Encounter: 08:32 - Assessment and Plan (1) CKD (chronic kidney disease), stage III Current Visit: Yes Status: Chronic The patient has stage III chronic kidney disease. The patient's serum creatinine has risen since his bypass surgery. The patient's creatinine is still at a plateau. Patient states he will allow Mejias catheter to be placed today. Hopefully this will lead to some improvement in his serum creatinine as well as his urine output. (2) DM type 2 (diabetes mellitus, type 2) Current Visit: Yes Status: Chronic Qualifiers: Diabetes mellitus retirement insulin use: without medical terminologist use Diabetes mellitus complication status: with kidney complications Diabetes mellitus complication detail: with chronic kidney disease Chronic kidney disease stage : stage 3 (moderate) Qualified Code(s): E11.22 - Type 2 diabetes mellitus with diabetic chronic kidney disease; N18.3 - Chronic kidney disease, stage 3 ( moderate); N18.3 - Chronic kidney disease, stage 3 (moderate) (3) NSTEMI (non-ST elevated myocardial infarction) Current Visit: Yes Status: Acute (4) CAD (coronary artery disease) Current Visit: Yes Status: Acute Qualifiers: Coronary Disease-Associated Artery/Lesion type: [place] artery [place] vs. transplanted heart: [place] heart Associated angina: without angina Qualified Code(s): I25.10 - Atherosclerotic heart disease of [place] coronary artery without angina pectoris Subjective Principal diagnosis: chest pain Interval history: Patient is complaining of some lower extremity swelling and he says he still having difficulty clearing phlegm from his lungs. Patient is still experiencing the urge to void but only dribbling urine. Mejias catheter was ordered on Friday but never placed. Nursing staff reports the patient refused it. The patient denies this. Serum creatinine is essentially the same. Urine output is 970 mL yesterday. Objective - Vital Signs Vital signs: Vital Signs Temp Pulse Resp BP Pulse Ox 02/23/18 07:02 98.2 F 67 16 111/68 94 02/23/18 05:25 65 02/23/18 04:19 98 F 69 16 117/62 93 02/23/18 00:00 63 02/22/18 23:43 98.1 F 66 18 114/69 96 02/22/18 23:38 18 95 02/22/18 19:50 58 02/22/18 19:34 97.7 F 57 17 110/55 97 02/22/18 16:07 97.5 F L 62 18 105/71 98 02/22/18 15:59 18 99 02/22/18 11:43 16 105/71 95 02/22/18 11:35 98.2 F 61 20 112/53 97 02/22/18 08:55 18 94 Intake and Output 02/22/18 02/23/18 02/23/18 23:59 07:59 15:59 Intake Total 360 / 360 200 / 200 Output Total 350 / 350 400 / 400 Balance -200 / -200 Intake: Oral 360 / 360 200 / 200 Output: Urine 350 / 350 400 / 400 Other: Meal Dinner Percent of Meal Consumed 100% Weight 78.7 kg Blood Glucose* 236 176 Patient Weight 02/23/18 23:59 Weight 78.7 kg - General Appearance Exam: Patient is alert and oriented. He is in no acute distress. Lungs sounds in the bases. Heart regular rate and rhythm. Abdomen is benign. There is some mild lower extremity swelling. Compression stockings are in place. - Lab 02/22/18 08:59 02/22/18 08:59 Most recent lab results ABG pH 7.31 pH Units (7.32-7.45) L 02/17/18 05:50 ABG pCO2 41 mmHg (35-45) 02/17/18 05:50 ABG pO2 118 mmHg (85-104) H 02/17/18 05:50 ABG HCO3 20 mEq/L (21-27) L 02/17/18 05:50 ABG O2 Saturation 98 % (95-98) 02/17/18 05:50 Calcium 8.2 mg/dL (8.6-10.3) L 02/22/18 08:59 Magnesium 2.1 mg/dL (1.6-2.6) 02/17/18 03:30 - VTE Documentation of Mechanical Device: Graduated compression elastic hosiery Consult Discharge Plan - Plan Instructions: Sternal Precautions (GEN) Referrals: Zeina Momin MD [Partnered Physician] - 03/19/18 2:30 pm Trudy Sandoval CNP [Primary Care Provider] - 02/24/18 12:30 pm
[2018-02-23 10:39] LABS: Potassium 4.9 mEq/L (3.5-5.1)
--- NOTE | 2018-02-23 11:12 | Cardiothoracic Progress Note ---
Date of Encounter: 02/23/18 Time of Encounter: 11:10 - Assessment and plan (1) HTN (hypertension) Current Visit: Yes Status: Chronic The assessment and plan as outlined above was discussed with the patient and/or family members who expressed understanding and agreement. All questions were answered. The patient's pacing wires were painted with Betadine and cut off at the skin. This was done per Dr. Momin his request. Hopefully, the patient can be discharged in 1-2 days. He states that he wants to go home. Qualifiers: Hypertension type: essential hypertension Qualified Code(s): I10 - Essential (primary) hypertension - Subjective Interval history: The patient has no complaints. He states that his walking is still somewhat weak and would like us to improve prior to discharge. Vital Signs, Last 4 Hours Pulse 02/23/18 08:27 70 Oxgyen Flow Rate Oxygen Flow Rate (LPM) 2.5 Clinical Data, last 8 Hours Output, Urine Amount 400 Weight 02/21/18 02/22/18 02/23/18 23:59 23:59 23:59 Weight 77.111 kg 77.7 kg 78.7 kg Lungs are clear to percussion and auscultation. Heart is in a normal sinus rhythm. All incisions are healing well without signs of infection and the sternum is stable. - Labs 02/22/18 08:59 02/23/18 09:39 Lab Results, Last 24 hours 02/23/18 09:39 Sodium 131 L Potassium 4.9 Chloride 107 Carbon Dioxide 20 L BUN 60 H Creatinine 2.30 H Glucose 246 H Calcium 8.0 L - VTE Documentation of Mechanical Device: Graduated compression elastic hosiery Consult Discharge Plan - Plan Instructions: Sternal Precautions (GEN) Referrals: Isaías Cartwright DO [Partnered Physician] - 03/13/18 11:30 am Zeina Momin MD [Partnered Physician] - 03/19/18 2:30 pm Trudy Sandoval, MAGEN [Primary Care Provider] - 02/24/18 12:30 pm
[2018-02-23 12:11] LABS: Basophils % 0.5 %; Eosinophils # 0.5 K/mcL (0.0-0.6); Eosinophils % 5.3 %; Hematocrit 29.3 % (37.5-50.1); Immature Granulocytes % 1.7 % (0-4); Lymphocytes # 0.5 K/mcL (0.6-4.6); Lymphocytes % 5.3 %; Mean Corpuscular HGB Conc 31.1 g/dL (31.6-35.5); Mean Corpuscular Volume 93.3 fL (83.0-100.0); Mean Platelet Volume 10.3 fL (9.4-12.4); Monocytes # 1.2 K/mcL (0.0-1.3); Monocytes % 14.6 %; Neutrophils # 6.2 K/mcL (1.6-8.9); Platelet Count 225 K/mcL (140-400); Red Blood Count 3.14 M/mcL (4.19-5.50); Red Cell Distribution Width 14.5 % (11.5-14.5); Segmented Neutrophils % 72.6 %
[2018-02-23 12:18] LABS: Hemoglobin 9.1 g/dL (12.9-16.9)
[2018-02-23] MEDS: *HR* OxyCODONE/APAP 5/325 TABLET PO PRN ×2 (15:35→20:52)
--- NOTE | 2018-02-23 19:39 | Internal Med Progress Note ---
Date of Encounter: 02/23/18 Time of Encounter: 11:00 - Assessment and plan (1) CKD (chronic kidney disease), stage III Current Visit: Yes Status: Chronic Assessment and plan: Patient with worsening creatinine function and concerns for decreased urinary output Mejias catheter placed per recommendation of nephrology Nephrology following and appreciate any further recommendations (2) Urinary retention Current Visit: Yes Status: Acute Assessment and plan: Patient with difficulty voiding after catheter Recommendations by nephrology to reinsert Mejias catheter and monitor (3) NSTEMI (non-ST elevated myocardial infarction) Current Visit: Yes Status: Acute Assessment and plan: Peak Troponin at 0.89. EKG changes with ST depression in anteroseptal leads was noted. Transesophageal echocardiogram showed mild to moderate aortic stenosis, mild reduction in LV systolic function, mild to moderate mitral regurgitation. 02/11/2018 LHC: 90% LAD in-stent restenosis, a 70% mid LAD lesion, and and 70% ostial OM1 lesion. Status post CABG3 with modified Maze procedure and left atrial appendage stapling (4) Ischemic cardiomyopathy Current Visit: Yes Status: Chronic Assessment and plan: Transthoracic echocardiogram shows mildly reduced ejection fraction 40-45%, diastolic dysfunction with elevated filling pressures, moderate mitral regurgitation, possible aortic stenosis, recommend further evaluation with transesophageal echocardiogram. (5) HTN (hypertension) Current Visit: Yes Status: Chronic Assessment and plan: Controlled; continue Norvasc and Coreg Qualifiers: Hypertension type: essential hypertension Qualified Code(s): I10 - Essential (primary) hypertension (6) DM type 2 (diabetes mellitus, type 2) Current Visit: Yes Status: Chronic Assessment and plan: Continue Accu-Chek blood glucose monitoring with basal bolus insulin regimen. Hemoglobin A1c noted to be 8%. Diabetic diet. Qualifiers: Diabetes mellitus penitentiary insulin use: without penitentiary use Diabetes mellitus complication status: with kidney complications Diabetes mellitus complication detail: with chronic kidney disease Chronic kidney disease stage : stage 3 (moderate) Qualified Code(s): E11.22 - Type 2 diabetes mellitus with diabetic chronic kidney disease; N18.3 - Chronic kidney disease, stage 3 ( moderate); N18.3 - Chronic kidney disease, stage 3 (moderate) (7) HLD (hyperlipidemia) Current Visit: Yes Status: Chronic Assessment and plan: on statin Qualifiers: Hyperlipidemia type: unspecified Qualified Code(s): E78.5 - Hyperlipidemia , unspecified - Time Spent With Patient Total time spent is greater than 50% in coordination of care (as documented) at patient's floor/unit and/or counseling patient: - Subjective Interval history: Postop day 7 for CABG3 with modified Maze procedure and left atrial appendage stapling Patient also with acute renal failure without any improvement with concerns for a decreased urinary output so Mejias catheter placed per nephrology recommendations - Constitutional Vitals: Temp Pulse Resp BP Pulse Ox 97.8 F 56 19 100/54 96 02/23/18 19:29 02/23/18 19:29 02/23/18 19:29 02/23/18 19:29 02/23/18 19:29 General appearance: Present: A&O X 3, no acute distress, answers questions appropriately - Respiratory Respiratory exam: Present: CTAB. Absent: accessory muscle use, rales, rhonchi, wheezes - Cardiovascular Cardiovascular exam: Present: RRR, +S1, +S2. Absent: diastolic murmur, gallop, rubs, systolic murmur Internal Medicine: Result - Labs CBC & Chem 7: 02/23/18 11:57 02/23/18 09:39 Labs: Short CBC 02/23/18 Range/Units 11:57 WBC 8.5 (4.3-11.1) K/mcL Hgb 9.1 L (12.9-16.9) g/dL Hct 29.3 L (37.5-50.1) % Plt Count 225 (140-400) K/mcL Neutrophils # 6.2 (1.6-8.9) K/mcL BMP 02/23/18 09:39 Sodium 131 L Potassium 4.9 Chloride 107 Carbon Dioxide 20 L BUN 60 H Creatinine 2.30 H Glucose 246 H Calcium 8.0 L - ABG Interpretation ABG results: ABG ABG pH 7.31 pH Units (7.32-7.45) L 02/17/18 05:50 ABG pCO2 41 mmHg (35-45) 02/17/18 05:50 ABG pO2 118 mmHg (85-104) H 02/17/18 05:50 ABG O2 Saturation 98 % (95-98) 02/17/18 05:50 PT/INR, D-dimer PT 13.5 Seconds (9.4-12.1) H 02/17/18 03:30 - VTE Documentation of Mechanical Device: Graduated compression elastic hosiery Consult Discharge Plan - Plan Instructions: Sternal Precautions (GEN) Referrals: Isaías Cartwright DO [Partnered Physician] - 03/13/18 11:30 am Zeina Momin MD [Partnered Physician] - 03/19/18 2:30 pm Trudy Sandoval, OPHTHALMIC DISPENSER [Primary Care Provider] - 02/24/18 12:30 pm
[2018-02-23] MEDS: traZODone 50 MG TABLET PO SCH (20:47)
[2018-02-24] MEDS: *HR* Heparin 5,000 UNIT/ML VIAL SQ SCH ×2 (05:45→16:47)
[2018-02-24 06:01] LABS: Basophils % 0.4 %; Eosinophils # 0.5 K/mcL (0.0-0.6); Eosinophils % 6.2 %; Hematocrit 24.6 % (37.5-50.1); Hemoglobin 8.2 g/dL (12.9-16.9); Immature Granulocytes % 1.3 % (0-4); Lymphocytes # 0.6 K/mcL (0.6-4.6); Lymphocytes % 7.2 %; Mean Corpuscular HGB Conc 33.3 g/dL (31.6-35.5); Mean Corpuscular Hemoglobin 29.8 pg (28.0-33.3); Mean Corpuscular Volume 89.5 fL (83.0-100.0); Mean Platelet Volume 10.2 fL (9.4-12.4); Monocytes # 1.2 K/mcL (0.0-1.3); Monocytes % 14.9 %; Neutrophils # 5.8 K/mcL (1.6-8.9); Platelet Count 264 K/mcL (140-400); Red Blood Count 2.75 M/mcL (4.19-5.50); Red Cell Distribution Width 14.3 % (11.5-14.5)
[2018-02-24] MEDS: Insulin LISPRO 300 UNITS/3 ML VIAL SQ SCH ×4 (07:48→20:51)
[2018-02-24] MEDS: Fluticasone Propionate Nasal 50 MCG/SPRAY BOTTLE NS SCH (07:52)
--- NOTE | 2018-02-24 08:05 | Nephrology Progress Note ---
Date of Encounter: 02/24/18 Time of Encounter: 08:04 - Assessment and Plan (1) CKD (chronic kidney disease), stage III Current Visit: Yes Status: Chronic The patient has stage III chronic kidney disease. The patient's serum creatinine has risen since his bypass surgery. The patient's creatinine was at a plateau but now it is again worsening. I am concerned that his blood pressure may be too low. For that reason I am going to reduce the amlodipine. This should help with both his blood pressure as well as swelling. Hopefully this will also lead to an improvement in his renal function. (2) DM type 2 (diabetes mellitus, type 2) Current Visit: Yes Status: Chronic Qualifiers: Diabetes mellitus exterminator insulin use: without exterminator use Diabetes mellitus complication status: with kidney complications Diabetes mellitus complication detail: with chronic kidney disease Chronic kidney disease stage : stage 3 (moderate) Qualified Code(s): E11.22 - Type 2 diabetes mellitus with diabetic chronic kidney disease; N18.3 - Chronic kidney disease, stage 3 ( moderate); N18.3 - Chronic kidney disease, stage 3 (moderate) (3) NSTEMI (non-ST elevated myocardial infarction) Current Visit: Yes Status: Acute (4) CAD (coronary artery disease) Current Visit: Yes Status: Acute Qualifiers: Coronary Disease-Associated Artery/Lesion type: [place] artery [place] vs. transplanted heart: [place] heart Associated angina: without angina Qualified Code(s): I25.10 - Atherosclerotic heart disease of [place] coronary artery without angina pectoris Subjective Principal diagnosis: chest pain Interval history: Patient is complaining of some lower extremity swelling and he says he still having difficulty clearing phlegm from his lungs. The patient's renal function has worsened despite placing a Mejias catheter. His blood pressure somewhat on the low side at 101/52. Urine output however is increased to 1.38 L yesterday. Objective - Vital Signs Vital signs: Vital Signs Temp Pulse Resp BP Pulse Ox 02/24/18 07:40 17 92 02/24/18 04:30 65 02/24/18 04:00 98.2 F 69 19 105/52 97 02/24/18 03:50 16 93 02/24/18 00:22 15 94 02/24/18 00:10 60 02/23/18 23:43 97.9 F 64 14 112/58 95 02/23/18 20:53 18 98 02/23/18 19:40 53 02/23/18 19:29 97.8 F 56 19 100/54 96 02/23/18 16:24 98.0 F 63 18 108/59 95 02/23/18 16:04 18 93 02/23/18 15:16 69 02/23/18 12:09 59 02/23/18 11:29 97.6 F 62 18 107/60 96 02/23/18 08:27 70 Intake and Output 02/23/18 02/24/18 02/24/18 23:59 07:59 15:59 Intake Total 640 / 640 Output Total 430 / 430 300 / 300 Balance 210 / 210 -300 / -300 Intake: Oral 640 / 640 Output: Urine 100 / 100 Catheter 330 / 330 300 / 300 Other: Meal Dinner Percent of Meal Consumed 100% Weight 79.6 kg Blood Glucose* 236 Patient Weight 02/24/18 23:59 Weight 79.6 kg - General Appearance Exam: Patient is alert and oriented. He is in no acute distress. Lungs breath sounds. Heart regular rate and rhythm. Abdomen is benign. There is 2+ H M.D. swelling. - Lab 02/24/18 00:01 02/24/18 00:01 Most recent lab results ABG pH 7.31 pH Units (7.32-7.45) L 02/17/18 05:50 ABG pCO2 41 mmHg (35-45) 02/17/18 05:50 ABG pO2 118 mmHg (85-104) H 02/17/18 05:50 ABG HCO3 20 mEq/L (21-27) L 02/17/18 05:50 ABG O2 Saturation 98 % (95-98) 02/17/18 05:50 Calcium 8.0 mg/dL (8.6-10.3) L 02/24/18 00:01 Magnesium 2.1 mg/dL (1.6-2.6) 02/17/18 03:30 - VTE Documentation of Mechanical Device: Graduated compression elastic hosiery Consult Discharge Plan - Plan Instructions: Sternal Precautions (GEN) Referrals: Isaías Cartwright DO [Partnered Physician] - 03/13/18 11:30 am Zeina Momin MD [Partnered Physician] - 03/19/18 2:30 pm Truyd Sandoval, MAGEN [Primary Care Provider] - 02/24/18 12:30 pm
[2018-02-24] MEDS ORDERED: amLODIPine 5 MG TABLET PO SCH (09:00)
[2018-02-24] MEDS: Aspirin Enteric Coated 81 MG Tablet PO SCH (09:09)
[2018-02-24] MEDS: Chlorhexidine Rinse 15 ML MOUTHWASH MM SCH ×2 (09:10→20:50)
[2018-02-24] MEDS: *HR* Amiodarone 200 MG TABLET PO SCH (09:14)
[2018-02-24] MEDS: Finasteride 5 MG TABLET PO SCH (09:15)
--- NOTE | 2018-02-24 09:33 | Cardiothoracic Progress Note ---
Date of Encounter: 02/24/18 Time of Encounter: 09:30 - Assessment and plan (1) HTN (hypertension) Current Visit: Yes Status: Chronic The patient's creatinine has risen to 2.47. Hopefully, the Mejias catheter will improve this. We will discharge the patient to an extended care facility once his creatinine and renal function are stable or improving. Qualifiers: Hypertension type: essential hypertension Qualified Code(s): I10 - Essential (primary) hypertension - Subjective Interval history: The patient had to have a Mejias catheter inserted yesterday for urinary retention. He is now talking about discharged to a extended care facility. Vital Signs, Last 4 Hours Temp Pulse Resp BP Pulse Ox 02/24/18 09:22 63 83/47 02/24/18 08:25 98 F 69 14 105/59 93 02/24/18 08:16 66 02/24/18 07:40 17 92 Oxgyen Flow Rate Oxygen Flow Rate (LPM) 0 Weight 02/22/18 02/23/18 02/24/18 23:59 23:59 23:59 Weight 77.7 kg 78.7 kg 79.6 kg Lungs are clear to percussion and auscultation. Heart is in a normal sinus rhythm. All incisions are healing well without signs of infection and the sternum is stable. - Labs 02/24/18 00:01 02/24/18 00:01 Lab Results, Last 24 hours 02/23/18 02/23/18 02/24/18 09:39 11:57 00:01 WBC 8.5 8.3 Hgb 9.1 L 8.2 L Hct 29.3 L 24.6 L Plt Count 225 264 Sodium 131 L Potassium 4.9 Chloride 107 Carbon Dioxide 20 L BUN 60 H Creatinine 2.30 H Glucose 246 H Calcium 8.0 L 02/24/18 00:01 WBC Hgb Hct Plt Count Sodium 130 L Potassium 5.0 Chloride 106 Carbon Dioxide 18 L BUN 67 H Creatinine 2.47 H Glucose 165 H Calcium 8.0 L - VTE Documentation of Mechanical Device: Graduated compression elastic hosiery Consult Discharge Plan - Plan Instructions: Sternal Precautions (GEN) Referrals: Isaías Cartwright DO [Partnered Physician] - 03/13/18 11:30 am Zeina Momin MD [Partnered Physician] - 05/10/18 2:30 pm Trudy Sandoval, TITLE ATTORNEY [Primary Care Provider] - (PATIENT IS GOING TO [facility] NO PCP APPOINTMENT NEEDED)
[2018-02-24] MEDS: *HR* OxyCODONE/APAP 5/325 TABLET PO PRN (13:57)
--- NOTE | 2018-02-24 16:05 | Internal Med Progress Note ---
Date of Encounter: 02/24/18 Time of Encounter: 11:15 - Assessment and plan (1) NSTEMI (non-ST elevated myocardial infarction) Current Visit: Yes Status: Acute Assessment and plan: 02/11/2018 LHC: 90% LAD in-stent restenosis, a 70% mid LAD lesion, and and 70% ostial OM1 lesion. Status post CABG3 with modified Maze procedure and left atrial appendage stapling. Postoperative care and local wound care per cardiothoracic surgery. Continue incentive spirometry, ambulation as tolerated and pain control. PT evaluation recommend inpatient rehabilitation, social security assessor on board. (2) CKD (chronic kidney disease), stage III Current Visit: Yes Status: Chronic Assessment and plan: Patient is noted to have worsening serum creatinine post surgery. Creatinine slightly high at 2.47 today, thought to be due to hypotension. At least 1.4 L urine output noted in the last 24 hours. Decrease doses of Norvasc and Coreg. Continue to monitor serum creatinine closely. Nephrology on board. (3) HTN (hypertension) Current Visit: Yes Status: Chronic Assessment and plan: Blood pressure noted to be low normal for the last few days. Decrease Norvasc and Coreg, as mentioned above. Qualifiers: Hypertension type: essential hypertension Qualified Code(s): I10 - Essential (primary) hypertension (4) DM type 2 (diabetes mellitus, type 2) Current Visit: Yes Status: Chronic Assessment and plan: Blood sugars noted to be elevated. Start low-dose basal insulin, continue Accu- Chek blood glucose monitoring with sliding scale insulin. Diabetic diet. Qualifiers: Diabetes mellitus terminal operator insulin use: without residential use Diabetes mellitus complication status: with kidney complications Diabetes mellitus complication detail: with chronic kidney disease Chronic kidney disease stage : stage 3 (moderate) Qualified Code(s): E11.22 - Type 2 diabetes mellitus with diabetic chronic kidney disease; N18.3 - Chronic kidney disease, stage 3 ( moderate); N18.3 - Chronic kidney disease, stage 3 (moderate) (5) HLD (hyperlipidemia) Current Visit: Yes Status: Chronic Qualifiers: Hyperlipidemia type: unspecified Qualified Code(s): E78.5 - Hyperlipidemia , unspecified (6) Ischemic cardiomyopathy Current Visit: Yes Status: Chronic Assessment and plan: Transthoracic echocardiogram shows mildly reduced ejection fraction 40-45%, diastolic dysfunction with elevated filling pressures, moderate mitral regurgitation, possible aortic stenosis, recommend further evaluation with transesophageal echocardiogram. RONALD shows mild to moderate aortic stenosis. Continue beta so and aspirin. (7) Atrial fibrillation Current Visit: Yes Status: Acute Assessment and plan: Noted to have developed atrial fibrillation post CABG. Continue oral amiodarone per CT surgery. Telemetry monitoring. Qualifiers: Atrial fibrillation type: paroxysmal Qualified Code(s): I48.0 - Paroxysmal atrial fibrillation - Time Spent With Patient Total time spent is greater than 50% in coordination of care (as documented) at patient's floor/unit and/or counseling patient: - Subjective Interval history: Reports fatigue and weakness. Continues to have postoperative chest pain, aggravated with deep breathing and cough, unable to clear up his phlegm due to this pain. Good urine output noted. - Constitutional Vitals: Temp Pulse Resp BP Pulse Ox 97.6 F 66 16 96/57 95 02/24/18 11:13 02/24/18 15:28 02/24/18 15:50 02/24/18 11:13 02/24/18 15:50 General appearance: Present: A&O X 3, answers questions appropriately - Respiratory Respiratory exam: Present: decreased breath sounds (Bilateral bases), CTAB. Absent: accessory muscle use, rales, rhonchi, wheezes - Cardiovascular Cardiovascular exam: Present: RRR, +S1, +S2. Absent: diastolic murmur, gallop, rubs, systolic murmur - GI/Abdominal GI/Abdominal exam: Present: normal bowel sounds, soft, no peritoneal signs. Absent: distended, tenderness - Extremities Exam Extremities exam: Present: warm, radial pulses palpable and symmetrical. Absent : calf tenderness, cyanotic, pedal edema - Neurological Exam Neurological exam: Present: CN II-XII intact, oriented X3, no focal deficits. Absent: pronater drift, facial droop, speech deficit Internal Medicine: Result - Labs CBC & Chem 7: 02/24/18 00:01 02/24/18 00:01 Labs: Short CBC 02/24/18 Range/Units 00:01 WBC 8.3 (4.3-11.1) K/mcL Hgb 8.2 L (12.9-16.9) g/dL Hct 24.6 L (37.5-50.1) % Plt Count 264 (140-400) K/mcL Neutrophils # 5.8 (1.6-8.9) K/mcL BMP 02/24/18 00:01 Sodium 130 L Potassium 5.0 Chloride 106 Carbon Dioxide 18 L BUN 67 H Creatinine 2.47 H Glucose 165 H Calcium 8.0 L - ABG Interpretation ABG results: ABG ABG pH 7.31 pH Units (7.32-7.45) L 02/17/18 05:50 ABG pCO2 41 mmHg (35-45) 02/17/18 05:50 ABG pO2 118 mmHg (85-104) H 02/17/18 05:50 ABG O2 Saturation 98 % (95-98) 02/17/18 05:50 PT/INR, D-dimer PT 13.5 Seconds (9.4-12.1) H 02/17/18 03:30 - VTE Documentation of Mechanical Device: Graduated compression elastic hosiery Consult Discharge Plan - Plan Instructions: Sternal Precautions (GEN) Referrals: Isaías Cartwright DO [Partnered Physician] - 03/13/18 11:30 am Zeina Momin MD [Partnered Physician] - 03/19/18 2:30 pm Trudy Sandoval, FIELD SPECIALIST [Primary Care Provider] - (PATIENT IS GOING TO [facility] NO PCP APPOINTMENT NEEDED)
[2018-02-24] MEDS: traZODone 50 MG TABLET PO SCH (20:49)
[2018-02-24] MEDS: Insulin DETEMIR 100 UNIT/ML X5UNITS SQ SCH (20:49)
[2018-02-25] MEDS: *HR* OxyCODONE/APAP 5/325 TABLET PO PRN (02:09)
[2018-02-25 05:15] LABS: Basophils % 0.5 %; Eosinophils # 0.5 K/mcL (0.0-0.6); Eosinophils % 6.1 %; Hematocrit 24.3 % (37.5-50.1); Immature Granulocytes % 1.4 % (0-4); Lymphocytes # 0.5 K/mcL (0.6-4.6); Lymphocytes % 5.8 %; Mean Corpuscular HGB Conc 32.9 g/dL (31.6-35.5); Mean Corpuscular Hemoglobin 29.5 pg (28.0-33.3); Mean Corpuscular Volume 89.7 fL (83.0-100.0); Mean Platelet Volume 10.2 fL (9.4-12.4); Monocytes # 1.2 K/mcL (0.0-1.3); Monocytes % 13.8 %; Neutrophils # 6.4 K/mcL (1.6-8.9); Platelet Count 305 K/mcL (140-400); Red Blood Count 2.71 M/mcL (4.19-5.50); Red Cell Distribution Width 14.4 % (11.5-14.5); Segmented Neutrophils % 72.4 %
[2018-02-25 05:32] LABS: Calcium 7.8 mg/dL (8.6-10.3); Potassium 5.2 mEq/L (3.5-5.1)
[2018-02-25] MEDS: *HR* Heparin 5,000 UNIT/ML VIAL SQ SCH ×2 (06:30→17:10)
--- NOTE | 2018-02-25 07:22 | Cardiothoracic Progress Note ---
Date of Encounter: 02/25/18 Time of Encounter: 07:19 - Assessment and plan (1) HTN (hypertension) Current Visit: Yes Status: Chronic Unfortunately, his creatinine continues to rise. He is being followed by nephrology. Once his creatinine starts to improve, we can give him some diuresis. Qualifiers: Hypertension type: essential hypertension Qualified Code(s): I10 - Essential (primary) hypertension - Subjective Interval history: The patient complains of generalized weakness and fatigue. Vital Signs, Last 4 Hours Temp Pulse Resp BP Pulse Ox 02/25/18 04:18 98.1 F 65 16 106/64 93 02/25/18 04:13 20 93 Oxgyen Flow Rate Oxygen Flow Rate (LPM) 2 Clinical Data, last 8 Hours Output, Urine Amount 325 Weight 02/23/18 02/24/18 02/25/18 23:59 23:59 23:59 Weight 78.7 kg 79.6 kg 80.6 kg Lungs are clear to percussion and auscultation. Heart is in a normal sinus rhythm. All incisions are healing well without signs of infection and the sternum is stable. Abdomen is soft. No tenderness, rebound or guarding. He has swelling of his penis and testicles as well as peripheral edema. - Labs 02/25/18 00:01 02/25/18 04:00 Lab Results, Last 24 hours 02/25/18 02/25/18 00:01 04:00 WBC 8.8 Hgb 8.0 L Hct 24.3 L Plt Count 305 Sodium 131 L Potassium 5.2 H Chloride 108 H Carbon Dioxide 19 L BUN 70 H Creatinine 2.61 H Glucose 150 H Calcium 7.8 L Magnesium 2.0 - VTE Documentation of Mechanical Device: Graduated compression elastic hosiery Consult Discharge Plan - Plan Instructions: Sternal Precautions (GEN) Referrals: Isaías Cartwright DO [Partnered Physician] - 03/13/18 11:30 am Zeina Momin MD [Partnered Physician] - 03/19/18 2:30 pm Trudy Sandoval, BEFORE SCHOOL [Primary Care Provider] - (PATIENT IS GOING TO [facility] NO PCP APPOINTMENT NEEDED)
[2018-02-25] MEDS: Finasteride 5 MG TABLET PO SCH (08:29)
[2018-02-25] MEDS: *HR* Amiodarone 200 MG TABLET PO SCH (08:29)
[2018-02-25] MEDS: Chlorhexidine Rinse 15 ML MOUTHWASH MM SCH ×2 (08:29→20:44)
[2018-02-25] MEDS: Aspirin Enteric Coated 81 MG Tablet PO SCH (08:29)
[2018-02-25] MEDS: Insulin DETEMIR 100 UNIT/ML X5UNITS SQ SCH ×2 (08:30→20:47)
[2018-02-25] MEDS: Fluticasone Propionate Nasal 50 MCG/SPRAY BOTTLE NS SCH (08:33)
[2018-02-25] MEDS: Insulin LISPRO 300 UNITS/3 ML VIAL SQ SCH ×4 (08:34→20:44)
[2018-02-25] MEDS ORDERED: Furosemide 40 MG/4 ML VIAL IVP ONE (08:37)
--- NOTE | 2018-02-25 08:37 | Nephrology Progress Note ---
Date of Encounter: 02/25/18 Time of Encounter: 08:35 - Assessment and Plan (1) CKD (chronic kidney disease), stage III Current Visit: Yes Status: Chronic The patient has stage III chronic kidney disease. The patient's serum creatinine has risen since his bypass surgery. The patient's creatinine was at a plateau but now it is again worsening. I was hoping that his renal function would improve after reducing his antihypertensive medications. His blood pressure remains on the low side some bony discontinue the terazosin as well. He is having symptoms of volume overload somebody give him a dose of Lasix today. We will continue to monitor his renal function. He may also benefit from a repeat chest x-ray. (2) DM type 2 (diabetes mellitus, type 2) Current Visit: Yes Status: Chronic Qualifiers: Diabetes mellitus skilled nursing insulin use: without career and transition teacher use Diabetes mellitus complication status: with kidney complications Diabetes mellitus complication detail: with chronic kidney disease Chronic kidney disease stage : stage 3 (moderate) Qualified Code(s): E11.22 - Type 2 diabetes mellitus with diabetic chronic kidney disease; N18.3 - Chronic kidney disease, stage 3 ( moderate); N18.3 - Chronic kidney disease, stage 3 (moderate) (3) NSTEMI (non-ST elevated myocardial infarction) Current Visit: Yes Status: Acute (4) CAD (coronary artery disease) Current Visit: Yes Status: Acute Qualifiers: Coronary Disease-Associated Artery/Lesion type: [place] artery [place] vs. transplanted heart: [place] heart Associated angina: without angina Qualified Code(s): I25.10 - Atherosclerotic heart disease of [place] coronary artery without angina pectoris Subjective Principal diagnosis: chest pain Interval history: Patient continues to experience lower extremity swelling. He reports he was more short of breath when lying down last night. Physical exam is diminished breath sounds in both bases suggesting pleural effusions. Despite cutting back on his antihypertensive medications and despite placing a Mejias catheter serum creatinine continues to worsen. Blood pressure remains on the low side at 117/ 66. Objective - Vital Signs Vital signs: Vital Signs Temp Pulse Resp BP Pulse Ox 02/25/18 08:22 68 02/25/18 08:17 68 18 90 02/25/18 08:02 17 90 02/25/18 07:36 98.0 F 80 17 117/62 02/25/18 04:18 98.1 F 65 16 106/64 93 02/25/18 04:13 20 93 02/24/18 23:53 18 95 02/24/18 23:32 97.6 F 66 18 99/58 96 02/24/18 19:45 18 96 02/24/18 19:16 97.9 F 63 16 108/82 96 02/24/18 16:35 97.4 F L 64 14 107/56 97 02/24/18 15:50 16 95 02/24/18 15:28 66 02/24/18 11:43 66 02/24/18 11:31 17 94 02/24/18 11:13 97.6 F 64 15 96/57 93 02/24/18 11:00 65 02/24/18 09:22 63 83/47 Intake and Output 02/24/18 02/25/18 02/25/18 23:59 07:59 15:59 Intake Total 440 / 440 Output Total 600 / 600 495 / 495 Balance -160 / -160 -495 / -495 Intake: Oral 440 / 440 Output: Urine 600 / 600 325 / 325 Catheter 170 / 170 Other: Meal Dinner Percent of Meal Consumed 100% Weight 80.6 kg Blood Glucose* 303 155 Patient Weight 02/25/18 23:59 Weight 80.6 kg - General Appearance Exam: Patient is sitting up in a chair. He is alert and oriented. In no acute distress. Lungs demonstrate decreased breath sounds in both bases consistent with pleural effusions. Heart regular rate and rhythm. Abdomen is benign. There is 2+ lower extremity swelling worse on the right compared to the left. A Mejias catheter is in place. - Lab 02/25/18 00:01 02/25/18 04:00 Most recent lab results ABG pH 7.31 pH Units (7.32-7.45) L 02/17/18 05:50 ABG pCO2 41 mmHg (35-45) 02/17/18 05:50 ABG pO2 118 mmHg (85-104) H 02/17/18 05:50 ABG HCO3 20 mEq/L (21-27) L 02/17/18 05:50 ABG O2 Saturation 98 % (95-98) 02/17/18 05:50 Calcium 7.8 mg/dL (8.6-10.3) L 02/25/18 04:00 Magnesium 2.0 mg/dL (1.6-2.6) 02/25/18 04:00 - VTE Documentation of Mechanical Device: Graduated compression elastic hosiery Consult Discharge Plan - Plan Instructions: Sternal Precautions (GEN) Referrals: Isaías Cartwright DO [Partnered Physician] - 03/13/18 11:30 am Zeina Momin MD [Partnered Physician] - 03/19/18 2:30 pm Trudy Sandoval, VIDEO GAME TECHNICIAN [Primary Care Provider] - (PATIENT IS GOING TO [facility] NO PCP APPOINTMENT NEEDED)
--- NOTE | 2018-02-25 15:33 | Internal Med Progress Note ---
Date of Encounter: 02/25/18 Time of Encounter: 11:30 - Assessment and plan (1) NSTEMI (non-ST elevated myocardial infarction) Current Visit: Yes Status: Acute Assessment and plan: 02/11/2018 LHC: 90% LAD in-stent restenosis, a 70% mid LAD lesion, and and 70% ostial OM1 lesion. Status post CABG3 with modified Maze procedure and left atrial appendage stapling. Postoperative care and local wound care per cardiothoracic surgery. Continue incentive spirometry, ambulation as tolerated and pain control. PT evaluation recommend inpatient rehabilitation, social human services assistants on board. (2) CKD (chronic kidney disease), stage III Current Visit: Yes Status: Chronic Assessment and plan: Patient is noted to have worsening serum creatinine post surgery. Creatinine slightly worse today at 2.61 along with mild hyperkalemia. thought to be due to hypotension. Appropriate urine output noted. Patient did receive a dose of IV Lasix today, per nephrology, due to worsening pedal and scrotal edema. Continue low-dose Coreg, Norvasc and Terazosin have been held today. Continue to monitor serum creatinine closely. Nephrology on board. (3) HTN (hypertension) Current Visit: Yes Status: Chronic Assessment and plan: Blood pressure noted to be low normal for the last few days. Hold Norvasc and Terazosin, as mentioned above. Qualifiers: Hypertension type: essential hypertension Qualified Code(s): I10 - Essential (primary) hypertension (4) DM type 2 (diabetes mellitus, type 2) Current Visit: Yes Status: Chronic Assessment and plan: Blood sugars somewhat better controlled, fasting blood sugar responded well to bedtime basal insulin. Continue current insulin regimen and Accu-Chek blood glucose monitoring. Diabetic diet. Qualifiers: Diabetes mellitus extermination inspector insulin use: without senior living use Diabetes mellitus complication status: with kidney complications Diabetes mellitus complication detail: with chronic kidney disease Chronic kidney disease stage : stage 3 (moderate) Qualified Code(s): E11.22 - Type 2 diabetes mellitus with diabetic chronic kidney disease; N18.3 - Chronic kidney disease, stage 3 ( moderate); N18.3 - Chronic kidney disease, stage 3 (moderate) (5) HLD (hyperlipidemia) Current Visit: Yes Status: Chronic Qualifiers: Hyperlipidemia type: unspecified Qualified Code(s): E78.5 - Hyperlipidemia , unspecified (6) Ischemic cardiomyopathy Current Visit: Yes Status: Chronic Assessment and plan: Transthoracic echocardiogram shows mildly reduced ejection fraction 40-45%, diastolic dysfunction with elevated filling pressures, moderate mitral regurgitation, possible aortic stenosis, recommend further evaluation with transesophageal echocardiogram. RONALD shows mild to moderate aortic stenosis. Continue beta so and aspirin. (7) Atrial fibrillation Current Visit: Yes Status: Acute Assessment and plan: Noted to have developed atrial fibrillation post CABG. currently in normal sinus rhythm per today's EKG and telemetry. Continue oral amiodarone per CT surgery. Telemetry monitoring. Qualifiers: Atrial fibrillation type: paroxysmal Qualified Code(s): I48.0 - Paroxysmal atrial fibrillation - Time Spent With Patient Total time spent is greater than 50% in coordination of care (as documented) at patient's floor/unit and/or counseling patient: - Subjective Interval history: Reports feeling the same way; c/o- feeling heavy in legs due to swelling, extending into his groin and abdomen, causing some shortness of breath; intermittent weak cough; postoperative chest pain; - Constitutional Vitals: Temp Pulse Resp BP Pulse Ox 97.6 F 62 18 111/55 96 02/25/18 11:34 02/25/18 12:06 02/25/18 12:06 02/25/18 12:06 02/25/18 12:06 General appearance: Present: A&O X 3, answers questions appropriately - Respiratory Respiratory exam: Present: decreased breath sounds (at B/L bases), CTAB. Absent : accessory muscle use, rales, rhonchi, wheezes - Cardiovascular Cardiovascular exam: Present: RRR, +S1, +S2. Absent: diastolic murmur, gallop, rubs, systolic murmur - GI/Abdominal GI/Abdominal exam: Present: normal bowel sounds, soft, no peritoneal signs. Absent: distended, tenderness - Extremities Exam Extremities exam: Present: pedal edema (1+ pitting pedal edema B/L), warm, radial pulses palpable and symmetrical. Absent: calf tenderness, cyanotic Additional comments: scrotal and penile edema - Neurological Exam Neurological exam: Present: CN II-XII intact, oriented X3, no focal deficits. Absent: pronater drift, facial droop, speech deficit Internal Medicine: Result - Labs CBC & Chem 7: 02/25/18 00:01 02/25/18 04:00 Labs: Short CBC 02/25/18 Range/Units 00:01 WBC 8.8 (4.3-11.1) K/mcL Hgb 8.0 L (12.9-16.9) g/dL Hct 24.3 L (37.5-50.1) % Plt Count 305 (140-400) K/mcL Neutrophils # 6.4 (1.6-8.9) K/mcL BMP 02/25/18 04:00 Sodium 131 L Potassium 5.2 H Chloride 108 H Carbon Dioxide 19 L BUN 70 H Creatinine 2.61 H Glucose 150 H Calcium 7.8 L - ABG Interpretation ABG results: ABG ABG pH 7.31 pH Units (7.32-7.45) L 02/17/18 05:50 ABG pCO2 41 mmHg (35-45) 02/17/18 05:50 ABG pO2 118 mmHg (85-104) H 02/17/18 05:50 ABG O2 Saturation 98 % (95-98) 02/17/18 05:50 PT/INR, D-dimer PT 13.5 Seconds (9.4-12.1) H 02/17/18 03:30 - Impressions Impressions Chest X-Ray 02/25/18 00:01 IMPRESSION: Increasing opacities in the mid to lower lungs bilaterally which likely reflect layering pleural effusions and/or atelectasis. D/ / Casandra Restrepo MD / Casandra Restrepo MD Interpreting Provider: Casandra Restrepo MD - VTE Documentation of Mechanical Device: Graduated compression elastic hosiery Consult Discharge Plan - Plan Instructions: Sternal Precautions (GEN) Referrals: Isaías Cartwright DO [Partnered Physician] - 03/13/18 11:30 am Zeina Momin MD [Partnered Physician] - 03/19/18 2:30 pm Trudy Sandoval, JOURNALISTS AND OTHER WRITERS [Primary Care Provider] - ([facility] NO [facility] APPOINTMENT NEEDED)
[2018-02-25] MEDS: traZODone 50 MG TABLET PO SCH (20:44)
[2018-02-26] MEDS: *HR* Heparin 5,000 UNIT/ML VIAL SQ SCH ×2 (05:12→16:58)
[2018-02-26 06:11] LABS: Basophils # 0.1 K/mcL (0.0-0.2); Basophils % 0.6 %; Eosinophils # 0.6 K/mcL (0.0-0.6); Eosinophils % 5.8 %; Hematocrit 26.9 % (37.5-50.1); Hemoglobin 8.8 g/dL (12.9-16.9); Immature Granulocytes % 1.4 % (0-4); Lymphocytes # 0.7 K/mcL (0.6-4.6); Lymphocytes % 6.9 %; Mean Corpuscular HGB Conc 32.7 g/dL (31.6-35.5); Mean Corpuscular Hemoglobin 29.6 pg (28.0-33.3); Mean Corpuscular Volume 90.6 fL (83.0-100.0); Mean Platelet Volume 10.2 fL (9.4-12.4); Monocytes # 1.2 K/mcL (0.0-1.3); Monocytes % 12.5 %; Neutrophils # 7.2 K/mcL (1.6-8.9); Platelet Count 383 K/mcL (140-400); Red Blood Count 2.97 M/mcL (4.19-5.50); Red Cell Distribution Width 14.5 % (11.5-14.5); Segmented Neutrophils % 72.8 %
[2018-02-26 06:28] LABS: Calcium 8.1 mg/dL (8.6-10.3); Potassium 5.2 mEq/L (3.5-5.1)
[2018-02-26] MEDS ORDERED: Furosemide 40 MG/4 ML VIAL IVP ONE (07:28)
[2018-02-26] MEDS: Fluticasone Propionate Nasal 50 MCG/SPRAY BOTTLE NS SCH (08:19)
[2018-02-26] MEDS: Aspirin Enteric Coated 81 MG Tablet PO SCH (08:19)
[2018-02-26] MEDS: Chlorhexidine Rinse 15 ML MOUTHWASH MM SCH ×2 (08:19→21:41)
[2018-02-26] MEDS: *HR* Amiodarone 200 MG TABLET PO SCH (08:19)
[2018-02-26] MEDS: Insulin DETEMIR 100 UNIT/ML X5UNITS SQ SCH ×2 (08:20→21:41)
[2018-02-26] MEDS: Insulin LISPRO 300 UNITS/3 ML VIAL SQ SCH ×4 (08:20→21:41)
--- NOTE | 2018-02-26 08:43 | Cardiothoracic Progress Note ---
Date of Encounter: 02/26/18 Time of Encounter: 08:41 - Assessment and plan (1) HTN (hypertension) Current Visit: Yes Status: Chronic Creatinine is improving. We will give him 1 dose of IV Lasix today. His peripheral edema also seems to be improved. Qualifiers: Hypertension type: essential hypertension Qualified Code(s): I10 - Essential (primary) hypertension - Subjective Interval history: The patient feels slightly improved from yesterday. Vital Signs, Last 4 Hours Temp Pulse Resp BP Pulse Ox 02/26/18 08:06 74 02/26/18 08:04 78 20 90 02/26/18 07:49 16 97 02/26/18 07:41 98.1 F 67 18 122/63 Oxgyen Flow Rate Oxygen Flow Rate (LPM) 2 Weight 02/24/18 02/25/18 02/26/18 23:59 23:59 23:59 Weight 79.6 kg 80.6 kg 82.5 kg Lungs are clear to percussion and auscultation. Heart is in a normal sinus rhythm. All incisions are healing well without signs of infection and the sternum is stable. - Labs 02/26/18 05:41 02/26/18 05:41 Lab Results, Last 24 hours 02/26/18 02/26/18 05:41 05:41 WBC 9.9 Hgb 8.8 L Hct 26.9 L Plt Count 383 Sodium 133 L Potassium 5.2 H Chloride 108 H Carbon Dioxide 18 L BUN 72 H Creatinine 2.37 H Glucose 153 H Calcium 8.1 L - VTE Documentation of Mechanical Device: Graduated compression elastic hosiery Consult Discharge Plan - Plan Instructions: Sternal Precautions (GEN) Referrals: Isaías Cartrwight DO [Partnered Physician] - 03/13/18 11:30 am Zeina Momin MD [Partnered Physician] - 03/19/18 2:30 pm Trudy Sandoval, [employer]ER [employer]WORK [Primary Care Provider] - (PATIENT IS GOING TO [facility] NO PCP APPOINTMENT NEEDED)
--- NOTE | 2018-02-26 10:29 | Nephrology Progress Note ---
Date of Encounter: 02/26/18 Time of Encounter: 10:27 - Assessment and Plan (1) CKD (chronic kidney disease), stage III Current Visit: Yes Status: Chronic The patient has stage III chronic kidney disease. The patient's serum creatinine has risen since his bypass surgery. Patient's creatinine is improved compared to yesterday. Blood pressure is better currently at 122/63 since stopping the [place] in. His edema is better but still present. Urine output was better yesterday. I agree with giving another dose of IV Lasix today and reevaluating the patient again tomorrow. (2) DM type 2 (diabetes mellitus, type 2) Current Visit: Yes Status: Chronic Qualifiers: Diabetes mellitus medical terminologist insulin use: without custodial use Diabetes mellitus complication status: with kidney complications Diabetes mellitus complication detail: with chronic kidney disease Chronic kidney disease stage : stage 3 (moderate) Qualified Code(s): E11.22 - Type 2 diabetes mellitus with diabetic chronic kidney disease; N18.3 - Chronic kidney disease, stage 3 ( moderate); N18.3 - Chronic kidney disease, stage 3 (moderate) (3) NSTEMI (non-ST elevated myocardial infarction) Current Visit: Yes Status: Acute (4) CAD (coronary artery disease) Current Visit: Yes Status: Acute Qualifiers: Coronary Disease-Associated Artery/Lesion type: [place] artery [place] vs. transplanted heart: [place] heart Associated angina: without angina Qualified Code(s): I25.10 - Atherosclerotic heart disease of [place] coronary artery without angina pectoris Subjective Principal diagnosis: chest pain Interval history: The patient reports he was less short of breath last night. He received 1 dose of Lasix yesterday. Urine output was 2.3 L. Serum creatinine is improved down to 2.37. He still has significant swelling of his legs and genitals on exam. He did receive another dose of IV Lasix earlier this morning. Objective - Vital Signs Vital signs: Vital Signs Temp Pulse Resp BP Pulse Ox 02/26/18 10:25 68 20 97 02/26/18 08:06 74 02/26/18 08:04 78 20 90 02/26/18 07:49 16 97 02/26/18 07:41 98.1 F 67 18 122/63 02/26/18 04:29 16 95 02/26/18 04:10 98.7 F 71 19 127/60 96 02/25/18 23:59 16 96 02/25/18 23:27 98.4 F 70 18 124/60 96 02/25/18 20:36 20 96 02/25/18 19:00 98.1 F 68 20 109/63 97 02/25/18 18:16 74 20 96 02/25/18 16:50 66 02/25/18 16:24 18 94 02/25/18 16:13 97.7 F 65 19 124/58 94 02/25/18 12:06 62 18 111/55 96 02/25/18 12:04 60 02/25/18 11:34 97.6 F 61 18 96 02/25/18 11:07 16 99 Intake and Output 02/25/18 02/26/18 02/26/18 23:59 07:59 15:59 Intake Total 240 / 240 480 / 480 Output Total 1335 / 1335 425 / 425 200 / 200 Balance -1095 / -1095 -425 / -425 280 / 280 Intake: Oral 240 / 240 480 / 480 Output: Urine 250 / 250 Catheter 1085 / 1085 425 / 425 200 / 200 Urethral (Mejias) 485 / 485 425 / 425 Other: Meal Dinner Breakfast Percent of Meal Consumed 95% 100% Weight 82.5 kg Blood Glucose* 171 165 Patient Weight 02/26/18 23:59 Weight 82.5 kg - General Appearance Exam: Patient is alert and oriented. He is in no acute distress. Lung sounds in the bases. Heart regular rate and rhythm with 2/6 talk ejection murmur. Abdomen is benign. He has 2+ lower extremity swelling as well as scrotal edema. - Lab 02/26/18 05:41 02/26/18 05:41 Most recent lab results ABG pH 7.31 pH Units (7.32-7.45) L 02/17/18 05:50 ABG pCO2 41 mmHg (35-45) 02/17/18 05:50 ABG pO2 118 mmHg (85-104) H 02/17/18 05:50 ABG HCO3 20 mEq/L (21-27) L 02/17/18 05:50 ABG O2 Saturation 98 % (95-98) 02/17/18 05:50 Calcium 8.1 mg/dL (8.6-10.3) L 02/26/18 05:41 Magnesium 2.0 mg/dL (1.6-2.6) 02/25/18 04:00 - VTE Documentation of Mechanical Device: Graduated compression elastic hosiery Consult Discharge Plan - Plan Instructions: Sternal Precautions (GEN) Referrals: Isaías Cartwright DO [Partnered Physician] - 03/13/18 11:30 am Zeina Momin MD [Partnered Physician] - 03/19/18 2:30 pm Trudy Sandoval, MANAGEMENT INSTRUCTOR [Primary Care Provider] - (PATIENT IS GOING TO [facility] NO PCP APPOINTMENT NEEDED)
--- NOTE | 2018-02-26 17:36 | Internal Med Progress Note ---
Date of Encounter: 02/26/18 Time of Encounter: 10:00 - Assessment and plan (1) NSTEMI (non-ST elevated myocardial infarction) Current Visit: Yes Status: Acute Assessment and plan: 02/11/2018 LHC: 90% LAD in-stent restenosis, a 70% mid LAD lesion, and and 70% ostial OM1 lesion. Status post CABG3 with modified Maze procedure and left atrial appendage stapling. Postoperative care and local wound care per cardiothoracic surgery. Continue incentive spirometry, ambulation as tolerated and pain control. PT evaluation recommend inpatient rehabilitation, social services manager on board. (2) CKD (chronic kidney disease), stage III Current Visit: Yes Status: Chronic Assessment and plan: Patient is noted to have worsening serum creatinine post surgery. Creatinine better today, 2.37. Continues to have mild hypercalcemia, will give another dose of Kayexalate. Blood pressure noted to be well controlled. Continue to hold antihypertensives. Patient received a second dose of IV Lasix today, due to persistent pedal and scrotal edema. Continue to monitor serum creatinine closely. Nephrology on board. (3) HTN (hypertension) Current Visit: Yes Status: Chronic Qualifiers: Hypertension type: essential hypertension Qualified Code(s): I10 - Essential (primary) hypertension (4) DM type 2 (diabetes mellitus, type 2) Current Visit: Yes Status: Chronic Assessment and plan: Blood pressure is noted to be much better controlled. Continue Accu-Chek blood glucose monitoring and current regimen of basal bolus insulin. Diabetic diet. Qualifiers: Diabetes mellitus bed bug exterminator insulin use: without bed bug exterminator use Diabetes mellitus complication status: with kidney complications Diabetes mellitus complication detail: with chronic kidney disease Chronic kidney disease stage : stage 3 (moderate) Qualified Code(s): E11.22 - Type 2 diabetes mellitus with diabetic chronic kidney disease; N18.3 - Chronic kidney disease, stage 3 ( moderate); N18.3 - Chronic kidney disease, stage 3 (moderate) (5) HLD (hyperlipidemia) Current Visit: Yes Status: Chronic Qualifiers: Hyperlipidemia type: unspecified Qualified Code(s): E78.5 - Hyperlipidemia , unspecified (6) Ischemic cardiomyopathy Current Visit: Yes Status: Chronic Assessment and plan: Transthoracic echocardiogram shows mildly reduced ejection fraction 40-45%, diastolic dysfunction with elevated filling pressures, moderate mitral regurgitation, possible aortic stenosis, recommend further evaluation with transesophageal echocardiogram. RONALD shows mild to moderate aortic stenosis. Continue beta so and aspirin. (7) Atrial fibrillation Current Visit: Yes Status: Acute Assessment and plan: Noted to have developed atrial fibrillation post CABG. currently in normal sinus rhythm. Continue oral amiodarone per CT surgery. Telemetry monitoring. Qualifiers: Atrial fibrillation type: paroxysmal Qualified Code(s): I48.0 - Paroxysmal atrial fibrillation - Time Spent With Patient Total time spent is greater than 50% in coordination of care (as documented) at patient's floor/unit and/or counseling patient: - Subjective Interval history: Feels better with improved shortness of breath. Continues to have leg and scrotal swelling. Received another dose of IV Lasix today. Reports postoperative chest pain. No fever, chills. Appropriate urine output noted. - Constitutional Vitals: Temp Pulse Resp BP Pulse Ox 98.1 F 72 16 133/61 95 02/26/18 16:45 02/26/18 16:45 02/26/18 16:45 02/26/18 16:45 02/26/18 16:45 General appearance: Present: A&O X 3, answers questions appropriately - Respiratory Respiratory exam: Present: CTAB (Improved aeration at bilateral lung bases). Absent: accessory muscle use, rales, rhonchi, wheezes - Cardiovascular Cardiovascular exam: Present: RRR, +S1, +S2. Absent: diastolic murmur, gallop, rubs, systolic murmur - GI/Abdominal GI/Abdominal exam: Present: normal bowel sounds, soft, no peritoneal signs. Absent: distended, tenderness - Extremities Exam Extremities exam: Present: full ROM, pedal edema, warm, radial pulses palpable and symmetrical. Absent: calf tenderness, cyanotic Internal Medicine: Result - Labs CBC & Chem 7: 02/26/18 05:41 02/26/18 05:41 Labs: Short CBC 02/26/18 Range/Units 05:41 WBC 9.9 (4.3-11.1) K/mcL Hgb 8.8 L (12.9-16.9) g/dL Hct 26.9 L (37.5-50.1) % Plt Count 383 (140-400) K/mcL Neutrophils # 7.2 (1.6-8.9) K/mcL BMP 02/26/18 05:41 Sodium 133 L Potassium 5.2 H Chloride 108 H Carbon Dioxide 18 L BUN 72 H Creatinine 2.37 H Glucose 153 H Calcium 8.1 L - ABG Interpretation ABG results: ABG ABG pH 7.31 pH Units (7.32-7.45) L 02/17/18 05:50 ABG pCO2 41 mmHg (35-45) 02/17/18 05:50 ABG pO2 118 mmHg (85-104) H 02/17/18 05:50 ABG O2 Saturation 98 % (95-98) 02/17/18 05:50 PT/INR, D-dimer PT 13.5 Seconds (9.4-12.1) H 02/17/18 03:30 - VTE Documentation of Mechanical Device: Graduated compression elastic hosiery Consult Discharge Plan - Plan Instructions: Sternal Precautions (GEN) Referrals: Isaías Cartwright DO [Partnered Physician] - 03/13/18 11:30 am Zeina Momin MD [Partnered Physician] - 03/19/18 2:30 pm Trudy Sandoval, BI ANALYST [Primary Care Provider] - (PATIENT IS GOING TO [facility] NO PCP APPOINTMENT NEEDED)
[2018-02-26] MEDS: Bisacodyl 10 MG RECTAL SUPPOSITORY RC PRN (18:25)
[2018-02-26] MEDS: traZODone 50 MG TABLET PO SCH (21:41)
[2018-02-27 05:12] LABS: Basophils # 0.1 K/mcL (0.0-0.2); Basophils % 0.5 %; Eosinophils # 0.6 K/mcL (0.0-0.6); Eosinophils % 5.7 %; Hematocrit 25.8 % (37.5-50.1); Hemoglobin 8.5 g/dL (12.9-16.9); Immature Granulocytes % 1.4 % (0-4); Lymphocytes # 0.9 K/mcL (0.6-4.6); Lymphocytes % 8.7 %; Mean Corpuscular HGB Conc 32.9 g/dL (31.6-35.5); Mean Corpuscular Volume 88.1 fL (83.0-100.0); Mean Platelet Volume 9.6 fL (9.4-12.4); Monocytes # 1.4 K/mcL (0.0-1.3); Monocytes % 13.7 %; Platelet Count 396 K/mcL (140-400); Red Blood Count 2.93 M/mcL (4.19-5.50); Red Cell Distribution Width 14.6 % (11.5-14.5)
[2018-02-27 05:30] LABS: Calcium 8.1 mg/dL (8.6-10.3); Potassium 4.5 mEq/L (3.5-5.1)
[2018-02-27] MEDS: *HR* Heparin 5,000 UNIT/ML VIAL SQ SCH ×2 (06:13→17:12)
[2018-02-27] MEDS: Insulin LISPRO 300 UNITS/3 ML VIAL SQ SCH ×4 (08:04→20:46)
[2018-02-27] MEDS: Chlorhexidine Rinse 15 ML MOUTHWASH MM SCH ×2 (08:08→20:45)
[2018-02-27] MEDS: Aspirin Enteric Coated 81 MG Tablet PO SCH (08:08)
[2018-02-27] MEDS: *HR* Amiodarone 200 MG TABLET PO SCH (08:08)
[2018-02-27] MEDS: Fluticasone Propionate Nasal 50 MCG/SPRAY BOTTLE NS SCH (08:09)
--- NOTE | 2018-02-27 08:48 | Cardiothoracic Progress Note ---
Date of Encounter: 02/27/18 Time of Encounter: 08:46 - Assessment and plan (1) HTN (hypertension) Current Visit: Yes Status: Chronic We will continue to diurese the patient slowly to keep from hurting his renal function. I will have urology see the patient as he will most likely go home with a Mejias catheter. Qualifiers: Hypertension type: essential hypertension Qualified Code(s): I10 - Essential (primary) hypertension - Subjective Interval history: The patient continues to complain of total body swelling and edema. Vital Signs, Last 4 Hours Temp Pulse Resp BP Pulse Ox 02/27/18 08:12 69 02/27/18 07:54 98.2 F 69 16 130/55 96 Oxgyen Flow Rate Oxygen Flow Rate (LPM) 0 Weight 02/25/18 02/26/18 02/27/18 23:59 23:59 23:59 Weight 80.6 kg 82.5 kg 84.3 kg Lungs are clear to percussion and auscultation. Heart is in a normal sinus rhythm. All incisions are healing well without signs of infection and the sternum is stable. Chest x-ray reveals small to moderate bilateral pleural effusions. He has some edema of his right hand and lower extremities. He still has swelling of his penis and scrotum most likely secondary to salt and fluid overload. - Labs 02/27/18 04:55 02/27/18 04:55 Lab Results, Last 24 hours 02/27/18 02/27/18 04:55 04:55 WBC 10.0 Hgb 8.5 L Hct 25.8 L Plt Count 396 Sodium 135 L Potassium 4.5 Chloride 108 H Carbon Dioxide 19 L BUN 69 H Creatinine 2.49 H Glucose 82 Calcium 8.1 L - VTE Documentation of Mechanical Device: Graduated compression elastic hosiery Consult Discharge Plan - Plan Instructions: Sternal Precautions (GEN) Referrals: Isaías Cartwright DO [Partnered Physician] - 03/13/18 11:30 am Zeina Momin MD [Partnered Physician] - 03/19/18 2:30 pm Trudy Sandoval CNP [Primary Care Provider] - (PATIENT IS GOING TO [facility] NO PCP APPOINTMENT NEEDED)
[2018-02-27] MEDS ORDERED: Furosemide 40 MG/4 ML VIAL IVP ONE ×2 (09:03→09:17)
[2018-02-27] MEDS: Insulin DETEMIR 100 UNIT/ML X5UNITS SQ SCH ×2 (10:04→20:47)
--- NOTE | 2018-02-27 10:10 | Nephrology Progress Note ---
Date of Encounter: 02/27/18 Time of Encounter: 10:08 - Assessment and Plan (1) CKD (chronic kidney disease), stage III Current Visit: Yes Status: Chronic The patient has stage III chronic kidney disease. The patient has acute kidney injury following bypass surgery. Serum creatinine today is about the same as yesterday. Urine output was 2.7 L yesterday. I agree with continuing to diurese the patient and monitor his renal function. (2) DM type 2 (diabetes mellitus, type 2) Current Visit: Yes Status: Chronic Qualifiers: Diabetes mellitus shelter insulin use: without intermodal dispatcher use Diabetes mellitus complication status: with kidney complications Diabetes mellitus complication detail: with chronic kidney disease Chronic kidney disease stage : stage 3 (moderate) Qualified Code(s): E11.22 - Type 2 diabetes mellitus with diabetic chronic kidney disease; N18.3 - Chronic kidney disease, stage 3 ( moderate); N18.3 - Chronic kidney disease, stage 3 (moderate) (3) NSTEMI (non-ST elevated myocardial infarction) Current Visit: Yes Status: Acute (4) CAD (coronary artery disease) Current Visit: Yes Status: Acute Qualifiers: Coronary Disease-Associated Artery/Lesion type: [place] artery [place] vs. transplanted heart: [place] heart Associated angina: without angina Qualified Code(s): I25.10 - Atherosclerotic heart disease of [place] coronary artery without angina pectoris Subjective Principal diagnosis: chest pain Interval history: Patient reports overall he is feeling better. However he still experiencing lower extremity swelling as well as scrotal edema. Creatinine is relatively stable. Urine output yesterday was 2.7 L. Vital signs are stable. Objective - Vital Signs Vital signs: Vital Signs Temp Pulse Resp BP Pulse Ox 02/27/18 08:12 69 02/27/18 07:54 98.2 F 69 16 130/55 96 02/27/18 04:45 98.5 F 71 15 128/69 93 02/27/18 04:35 17 93 02/27/18 00:15 17 94 02/26/18 23:41 98.6 F 71 19 120/69 97 02/26/18 19:51 18 97 02/26/18 19:24 98.2 F 74 17 122/63 95 02/26/18 17:33 77 20 96 02/26/18 16:45 98.1 F 72 16 133/61 95 02/26/18 15:51 71 16 95 02/26/18 15:44 16 95 02/26/18 15:43 72 02/26/18 14:01 69 14 95 02/26/18 11:49 66 20 95 02/26/18 11:46 72 02/26/18 11:18 16 93 02/26/18 11:10 97.8 F 65 18 121/59 96 02/26/18 10:25 68 20 97 Intake and Output 02/26/18 02/27/18 02/27/18 23:59 07:59 15:59 Intake Total 560 / 560 480 / 480 Output Total 850 / 850 575 / 575 Balance -290 / -290 -575 / -575 480 / 480 Intake: Oral 560 / 560 480 / 480 Output: Catheter 850 / 850 575 / 575 Urethral (Mejias) 200 / 200 575 / 575 Other: Meal Dinner Breakfast Percent of Meal Consumed 100% 100% Stool Size Large Stool Consistency formed Stool Characteristics Normal for Patient Stool Color Brown # Bowel Movements 1 Weight 84.3 kg Blood Glucose* 253 99 Patient Weight 02/27/18 23:59 Weight 84.3 kg - General Appearance Exam: Patient is sitting up in a chair. He is alert and oriented. Lungs sounds in the bases. Heart regular rate and rhythm. Abdomen is benign. Lower extremity swelling is 1-2+. He does have scrotal edema. Mejias catheter is in place. - Lab 02/27/18 04:55 02/27/18 04:55 Most recent lab results ABG pH 7.31 pH Units (7.32-7.45) L 02/17/18 05:50 ABG pCO2 41 mmHg (35-45) 02/17/18 05:50 ABG pO2 118 mmHg (85-104) H 02/17/18 05:50 ABG HCO3 20 mEq/L (21-27) L 02/17/18 05:50 ABG O2 Saturation 98 % (95-98) 02/17/18 05:50 Calcium 8.1 mg/dL (8.6-10.3) L 02/27/18 04:55 Magnesium 2.0 mg/dL (1.6-2.6) 02/25/18 04:00 - VTE Documentation of Mechanical Device: Graduated compression elastic hosiery Consult Discharge Plan - Plan Instructions: Sternal Precautions (GEN) Referrals: Isaías Cartwright, [Partnered Physician] - 03/13/18 11:30 am Zeina Momin MD [Partnered Physician] - 03/19/18 2:30 pm Trudy Sandoval, BEAD FLIPPER [Primary Care Provider] - (PATIENT IS GOING TO [facility] NO PCP APPOINTMENT NEEDED)
--- NOTE | 2018-02-27 15:46 | Electrocardiograph Report ---
[place] [address] Test Date: 2018-02-25 Pat Name: Jose Theodore Department: 110 Room: 2N10 Gender: M Church Warden: JAMI : 1940 Requested By: Sofia Joaquin Order Number: [id number] Reading MD: Ramón Rogers Measurements Intervals [place] Rate: 60 P: 10 ID: [id number] QRS: 11 QRSD: 88 T: 62 QT: 397 QTc: 398 Interpretive Statements SINUS RHYTHM NONSPECIFIC T-WAVE ABNORMALITY Electronically Signed On 02-27-2018 15:45:00 EDT by Ramón Rogers
--- NOTE | 2018-02-27 17:16 | Internal Med Progress Note ---
Date of Encounter: 02/27/18 Time of Encounter: 10:30 - Assessment and plan (1) NSTEMI (non-ST elevated myocardial infarction) Current Visit: Yes Status: Acute Assessment and plan: 02/11/2018 LHC: 90% LAD in-stent restenosis, a 70% mid LAD lesion, and and 70% ostial OM1 lesion. Status post CABG3 with modified Maze procedure and left atrial appendage stapling. Postoperative care and local wound care per cardiothoracic surgery. Continue incentive spirometry, ambulation as tolerated and pain control. PT evaluation recommend inpatient rehabilitation, healthcare social worker on board. (2) CKD (chronic kidney disease), stage III Current Visit: Yes Status: Chronic Assessment and plan: Patient is noted to have worsening serum creatinine post surgery. Creatinine around the same- 2.49 today. Improved serum potassium. Blood pressure noted to be increasing. Continue to hold antihypertensives, will resume if BP remains elevated. Patient received a third dose of IV Lasix today, due to persistent pedal and scrotal edema. Continue to monitor serum creatinine closely. Nephrology on board. (3) HTN (hypertension) Current Visit: Yes Status: Chronic Qualifiers: Hypertension type: essential hypertension Qualified Code(s): I10 - Essential (primary) hypertension (4) DM type 2 (diabetes mellitus, type 2) Current Visit: Yes Status: Chronic Assessment and plan: Blood sugars improving, noted to have very low fasting blood sugar. Will decrease bedtime basal insulin and increase morning dose. Continue Accu-Chek blood glucose monitoring and basal bolus insulin. Diabetic diet. Qualifiers: Diabetes mellitus watermelon inspector insulin use: without alf use Diabetes mellitus complication status: with kidney complications Diabetes mellitus complication detail: with chronic kidney disease Chronic kidney disease stage : stage 3 (moderate) Qualified Code(s): E11.22 - Type 2 diabetes mellitus with diabetic chronic kidney disease; N18.3 - Chronic kidney disease, stage 3 ( moderate); N18.3 - Chronic kidney disease, stage 3 (moderate) (5) HLD (hyperlipidemia) Current Visit: Yes Status: Chronic Qualifiers: Hyperlipidemia type: unspecified Qualified Code(s): E78.5 - Hyperlipidemia , unspecified (6) Ischemic cardiomyopathy Current Visit: Yes Status: Chronic Assessment and plan: Transthoracic echocardiogram shows mildly reduced ejection fraction 40-45%, diastolic dysfunction with elevated filling pressures, moderate mitral regurgitation, possible aortic stenosis, recommend further evaluation with transesophageal echocardiogram. RONALD shows mild to moderate aortic stenosis. Continue beta so and aspirin. (7) Atrial fibrillation Current Visit: Yes Status: Acute Assessment and plan: Noted to have developed atrial fibrillation post CABG. currently in normal sinus rhythm. Continue oral amiodarone per CT surgery. Telemetry monitoring. Qualifiers: Atrial fibrillation type: paroxysmal Qualified Code(s): I48.0 - Paroxysmal atrial fibrillation - Time Spent With Patient Total time spent is greater than 50% in coordination of care (as documented) at patient's floor/unit and/or counseling patient: - Subjective Interval history: Continues to report persistent leg swelling and tightness, including scrotal swelling. He also developed right upper extremity swelling today extending from hand to middle of arm. No fever, chills, shortness of breath. Postoperative chest pain better today. - Constitutional Vitals: Temp Pulse Resp BP Pulse Ox 97.6 F 66 16 136/68 99 02/27/18 16:33 02/27/18 16:33 02/27/18 16:33 02/27/18 16:33 02/27/18 16:33 General appearance: Present: A&O X 3, answers questions appropriately - Respiratory Respiratory exam: Present: CTAB. Absent: accessory muscle use, rales, rhonchi, wheezes - Cardiovascular Cardiovascular exam: Present: RRR, +S1, +S2. Absent: diastolic murmur, gallop, rubs, systolic murmur - GI/Abdominal GI/Abdominal exam: Present: normal bowel sounds, soft, no peritoneal signs. Absent: distended, tenderness - Extremities Exam Extremities exam: Present: pedal edema (Right more than left, 1+ pitting pedal edema. Diffuse scrotal and penile edema.), warm, radial pulses palpable and symmetrical. Absent: calf tenderness, cyanotic Additional comments: Right upper extremity with diffuse edema including hand, forearm, distal arm. Internal Medicine: Result - Labs CBC & Chem 7: 02/27/18 04:55 02/27/18 04:55 Labs: Short CBC 02/27/18 Range/Units 04:55 WBC 10.0 (4.3-11.1) K/mcL Hgb 8.5 L (12.9-16.9) g/dL Hct 25.8 L (37.5-50.1) % Plt Count 396 (140-400) K/mcL Neutrophils # 7.0 (1.6-8.9) K/mcL BMP 02/27/18 04:55 Sodium 135 L Potassium 4.5 Chloride 108 H Carbon Dioxide 19 L BUN 69 H Creatinine 2.49 H Glucose 82 Calcium 8.1 L - ABG Interpretation ABG results: ABG ABG pH 7.31 pH Units (7.32-7.45) L 02/17/18 05:50 ABG pCO2 41 mmHg (35-45) 02/17/18 05:50 ABG pO2 118 mmHg (85-104) H 02/17/18 05:50 ABG O2 Saturation 98 % (95-98) 02/17/18 05:50 PT/INR, D-dimer PT 13.5 Seconds (9.4-12.1) H 02/17/18 03:30 - Impressions Impressions Chest X-Ray 02/27/18 00:01 IMPRESSION: Persistent hazy opacification and loss of visualization of the hemidiaphragms suggestive of underlying airspace disease and/or small moderate pleural effusions. D/ / Duke Rubin MD / Duke Rubin MD Interpreting Provider: Duke Rubin MD - VTE Documentation of Mechanical Device: Graduated compression elastic hosiery Consult Discharge Plan - Plan Instructions: Sternal Precautions (GEN) Referrals: Isaías Cartwright DO [Partnered Physician] - 03/13/18 11:30 am Zeina Momin MD [Partnered Physician] - 03/19/18 2:30 pm Trudy Sandoval, MAGEN [Primary Care Provider] - ([facility]ING TO [facility] NO PCP APPOINTMENT NEEDED)
[2018-02-27] MEDS: traZODone 50 MG TABLET PO SCH (20:46)
[2018-02-28] MEDS: *HR* Heparin 5,000 UNIT/ML VIAL SQ SCH ×2 (05:06→17:36)
[2018-02-28 06:29] LABS: Basophils # 0.1 K/mcL (0.0-0.2); Basophils % 0.6 %; Calcium 8.2 mg/dL (8.6-10.3); Eosinophils # 0.7 K/mcL (0.0-0.6); Eosinophils % 7.2 %; Hematocrit 28.6 % (37.5-50.1); Hemoglobin 9.3 g/dL (12.9-16.9); Immature Granulocytes % 1.7 % (0-4); Lymphocytes # 0.8 K/mcL (0.6-4.6); Lymphocytes % 7.8 %; Mean Corpuscular HGB Conc 32.5 g/dL (31.6-35.5); Mean Corpuscular Hemoglobin 29.1 pg (28.0-33.3); Mean Corpuscular Volume 89.4 fL (83.0-100.0); Mean Platelet Volume 9.8 fL (9.4-12.4); Monocytes # 1.2 K/mcL (0.0-1.3); Monocytes % 12.6 %; Neutrophils # 6.8 K/mcL (1.6-8.9); Platelet Count 421 K/mcL (140-400); Potassium 4.6 mEq/L (3.5-5.1); Red Cell Distribution Width 14.6 % (11.5-14.5); Segmented Neutrophils % 70.1 %
--- NOTE | 2018-02-28 07:54 | Urology - Consult Note ---
Date of Encounter: 02/27/18 Time of Encounter: 15:00 - Assessment and Plan (1) Urinary retention due to benign prostatic hyperplasia Current Visit: Yes Status: Acute Assessment and plan: Kepp cath in place for now. I feel it should stay in place for at least one week to allow his bladder to regain elasticity. In addition, I recommend keeping cath in place until his edema improves, he clinically improves and is stronger, and his renal insufficiency improves. start tamsulosin (2) MEL (acute kidney injury) Current Visit: No Status: Resolved Assessment and plan: nephrology following. could have a post renal component as he did have significant bladder residuals. if persists consider renal ultrasound. I defer decision to nephrology Urology CN:HPI Consult date: 02/27/18 Reason for consult Urology: Other History of present illness: pt new to the the urology service. he reports long standing BPH but has never had major issues. currently admitted after CABG. some postoperative issues including edema and acute on chronic renal insufficiency. cath placed bc of significant incomplete emptying. no hx of retention. Past Med Surg Social Fam HX - Past Medical History Medical history: arthritis, coronary artery disease, diabetes, hyperlipidemia, hypertension, myocardial infarction, renal disease, syncope Psychiatric history: no psych history - Past Surgical History Surgical History: angioplasty/stent, orthopedic, other - Social History Smoking Status: Never smoker Smokeless Tobacco Status: No Alcohol use: none Drug use: none - Family History Mother Adopted: No Family Member Ethnicity: Non- Living Status: Hx Family Cardiac Disorders: Yes Hx Family Respiratory Disorders: No Hx Family Cancer: No Hx Family GI Disorders: No Hx Family Endocrine Disorder: Yes (diabetic) Hx Family Neuromuscular Disorders: No Hx Family Neurologic Disorders: No Hx Family HEENT Disorders: No Hx Family Autoimmune Disorders: No Medications and Allergies Glimepiride [Amaryl] 4 mg PO BID 06/24/15 [History] Lisinopril [Zestril] 10 mg PO DAILY 06/24/15 [History] Metformin [Glucophage] 1,000 mg PO BID 06/24/15 [History] Trazodone HCl 150 mg PO HS 08/26/17 [History] Aspirin Enteric Coated [Aspirin EC] 81 mg PO DAILY tablet. 09/04/17 [Rx] Clopidogrel [Plavix] 75 mg PO DAILY #30 tablet 09/04/17 [Rx] Metoprolol XL (24 HR) Succ [Toprol Xl] 100 mg PO DAILY #30 tab.er.24h 09/04/17 [ Rx] Albuterol Sulfate [Albuterol Inhaler] 2 puff IH Q4HR #1 hfa.aer.ad 11/08/17 [Rx] Dutasteride [Avodart] 0.5 mg PO DAILY 02/11/18 [History] Fluticasone Propionate Nasal [Flonase] 2 spr NS DAILY 02/11/18 [History] Montelukast [Singulair] 10 mg PO DAILY 02/11/18 [History] Simvastatin [Zocor] 40 mg PO HS 02/11/18 [History] Terazosin HCl 10 mg PO DAILY 02/11/18 [History] 3 Allergy/AdvReac Type Severity Reaction Status Date / Time ibuprofen AdvReac See Verified 08/26/17 07:26 Comments Review of Systems - Constitutional fatigue, no chills, no fever(s) - EENT Nose, mouth and throat: headache(s), no dizziness - Cardiovascular no chest pain - Respiratory cough - Gastrointestinal no abdominal pain, no nausea - Genitourinary change in urinary stream - Musculoskeletal back pain - Integumentary no erythema - Neurological no confusion - Psychiatric no anxiety - Hematologic/Lymphatic no easy bleeding Exam Initial Vital Signs Temp Pulse Resp BP Pulse Ox 97.8 F 67 18 166/81 99 02/11/18 03:48 02/11/18 03:48 02/11/18 03:48 02/11/18 03:48 02/11/18 03:48 - General physical appearance Present: no distress, chronically ill - Eyes Present: PERRL - ENT Present: normal nares, no hearing loss - Neck Present: no masses, no lymphadenopathy - Respiratory Present: normal respiratory effort - Cardiovascular Cardiovascular exam IM: RRR - Abdomen Abdomen: Present: soft, suprapubic tenderness. Absent: masses - Integumentary Present: no rash - Neurologic Present: normal coordination. Absent: disoriented, confused - Additional Findings large genital edema of scrotum and penis. dependent pitting edema. difficult to retract foreskin bc of edema francisco cath in place with clear urine. Urology Results - Labs 02/28/18 05:58 02/28/18 05:58 Abnormal lab results RBC 3.20 M/mcL (4.19-5.50) L 02/28/18 05:58 Hgb 9.3 g/dL (12.9-16.9) L 02/28/18 05:58 Hct 28.6 % (37.5-50.1) L 02/28/18 05:58 RDW 14.6 % (11.5-14.5) H 02/28/18 05:58 Plt Count 421 K/mcL (140-400) H 02/28/18 05:58 Eosinophils # 0.7 K/mcL (0.0-0.6) H 02/28/18 05:58 Nucleated RBCs/100 WBC 1.5 /100 WBC (0) H 02/11/18 05:14 PT 13.5 Seconds (9.4-12.1) H 02/17/18 03:30 Heparin Anti-Xa, Unfract 0.80 IU/mL (0.30-0.70) H 02/11/18 20:36 ABG pH 7.31 pH Units (7.32-7.45) L 02/17/18 05:50 ABG pO2 118 mmHg (85-104) H 02/17/18 05:50 ABG HCO3 20 mEq/L (21-27) L 02/17/18 05:50 ABG Base Excess -6 mEq/L (-2 to 3) L 02/17/18 05:50 ABG Hematocrit 22.0 % (37.5-50.1) L 02/16/18 15:52 Glucose 159 mg/dL (60-95) H 02/16/18 15:52 Sodium 133 mEq/L (136-145) L 02/28/18 05:58 Carbon Dioxide 20 mEq/L (23-29) L 02/28/18 05:58 BUN 65 mg/dL (8-23) H 02/28/18 05:58 Creatinine 2.45 mg/dL (0.70-1.30) H 02/28/18 05:58 Est GFR ( Amer) 31 (> 60) L 02/28/18 05:58 Est GFR (Non-Af Amer) 26 (> 60) L 02/28/18 05:58 BUN/Creatinine Ratio 27 (6-26) H 02/28/18 05:58 Glucose 193 mg/dL (70-105) H 02/28/18 05:58 POC Glucose 101 mg/dL (70-99) H 02/27/18 20:18 Hemoglobin A1c 8.0 % (-5.6) H 02/12/18 09:38 Calcium 8.2 mg/dL (8.6-10.3) L 02/28/18 05:58 Troponin I 0.82 ng/mL (< 0.04) H* 02/11/18 18:44 Arterial Blood Ionized Calcium 0.98 mmol/L (1.15-1.35) L 02/16/18 15:52 Diabetes panel 02/28/18 Range/Units 05:58 Sodium 133 L (136-145) mEq/L Potassium 4.6 (3.5-5.1) mEq/L Chloride 106 (98-107) mEq/L Carbon Dioxide 20 L (23-29) mEq/L BUN 65 H (8-23) mg/dL Creatinine 2.45 H (0.70-1.30) mg/dL Glucose 193 H (70-105) mg/dL Calcium 8.2 L (8.6-10.3) mg/dL Calcium panel 02/28/18 Range/Units 05:58 Calcium 8.2 L (8.6-10.3) mg/dL Pituitary panel 02/28/18 Range/Units 05:58 Sodium 133 L (136-145) mEq/L Potassium 4.6 (3.5-5.1) mEq/L Chloride 106 (98-107) mEq/L Carbon Dioxide 20 L (23-29) mEq/L BUN 65 H (8-23) mg/dL Creatinine 2.45 H (0.70-1.30) mg/dL Glucose 193 H (70-105) mg/dL Calcium 8.2 L (8.6-10.3) mg/dL Adrenal panel 02/28/18 Range/Units 05:58 Sodium 133 L (136-145) mEq/L Potassium 4.6 (3.5-5.1) mEq/L Chloride 106 (98-107) mEq/L Carbon Dioxide 20 L (23-29) mEq/L BUN 65 H (8-23) mg/dL Creatinine 2.45 H (0.70-1.30) mg/dL Glucose 193 H (70-105) mg/dL Calcium 8.2 L (8.6-10.3) mg/dL All other labs normal. Consult Discharge Plan - Plan Instructions: Sternal Precautions (GEN) Referrals: Isaías Cartwright DO [Partnered Physician] - 03/13/18 11:30 am Zeina Momin MD [Partnered Physician] - 03/19/18 2:30 pm Trudy Sandoval, [employer] FLATBED DRIVER [Primary Care Provider] - (PATIENT IS GOING TO [facility] NO PCP APPOINTMENT NEEDED)
[2018-02-28] MEDS: *HR* Amiodarone 200 MG TABLET PO SCH (08:24)
[2018-02-28] MEDS: Chlorhexidine Rinse 15 ML MOUTHWASH MM SCH ×2 (08:24→21:16)
[2018-02-28] MEDS: Insulin LISPRO 300 UNITS/3 ML VIAL SQ SCH ×4 (08:25→21:16)
[2018-02-28] MEDS: Aspirin Enteric Coated 81 MG Tablet PO SCH (08:25)
[2018-02-28] MEDS: Fluticasone Propionate Nasal 50 MCG/SPRAY BOTTLE NS SCH (08:29)
--- NOTE | 2018-02-28 08:30 | Nephrology Progress Note ---
Date of Encounter: 02/28/18 Time of Encounter: 08:29 - Assessment and Plan (1) CKD (chronic kidney disease), stage III Current Visit: Yes Status: Chronic The patient has stage III chronic kidney disease. The patient has acute kidney injury following bypass surgery. Serum creatinine today is about the same as yesterday. B dose of Lasix today. I am going to give him 2 doses one this morning and 1 this evening. We will continue to monitor his renal function. (2) DM type 2 (diabetes mellitus, type 2) Current Visit: Yes Status: Chronic Qualifiers: Diabetes mellitus penitentiary insulin use: without intermediate project manager use Diabetes mellitus complication status: with kidney complications Diabetes mellitus complication detail: with chronic kidney disease Chronic kidney disease stage : stage 3 (moderate) Qualified Code(s): E11.22 - Type 2 diabetes mellitus with diabetic chronic kidney disease; N18.3 - Chronic kidney disease, stage 3 ( moderate); N18.3 - Chronic kidney disease, stage 3 (moderate) (3) NSTEMI (non-ST elevated myocardial infarction) Current Visit: Yes Status: Acute (4) CAD (coronary artery disease) Current Visit: Yes Status: Acute Qualifiers: Coronary Disease-Associated Artery/Lesion type: [place] artery [place] vs. transplanted heart: [place] heart Associated angina: without angina Qualified Code(s): I25.10 - Atherosclerotic heart disease of [place] coronary artery without angina pectoris Subjective Principal diagnosis: chest pain Interval history: The patient is frustrated because he still has a lot of swelling. He says his breathing is been okay. Serum creatinine appears stable for yesterday compared to today. Urine output is recorded as 2.3 L yesterday. Objective - Vital Signs Vital signs: Vital Signs Temp Pulse Resp BP Pulse Ox 02/28/18 08:02 16 95 02/28/18 05:18 16 95 02/28/18 04:15 98.1 F 71 16 128/68 94 02/27/18 23:57 98.4 F 68 16 121/68 96 02/27/18 23:49 14 93 02/27/18 22:11 97.8 F 70 16 114/54 95 02/27/18 20:40 65 02/27/18 20:13 14 97 02/27/18 19:38 97.7 F 70 16 136/69 97 02/27/18 16:33 97.6 F 66 16 136/68 99 02/27/18 16:25 16 95 02/27/18 11:21 97.9 F 67 16 142/66 98 02/27/18 11:05 16 98 Intake and Output 02/27/18 02/28/18 02/28/18 23:59 07:59 15:59 Intake Total 120 / 120 Output Total 750 / 750 625 / 625 Balance -630 / -630 -625 / -625 Intake: Oral 120 / 120 Output: Catheter 750 / 750 625 / 625 Urethral (Mejias) 0 / 0 625 / 625 Other: Meal Dinner Weight 80.5 kg Blood Glucose* 101 Patient Weight 02/28/18 23:59 Weight 80.5 kg - General Appearance Exam: Patient is alert and oriented. He is in no acute distress. Lungs sounds in the bases. Heart regular rate and rhythm. Abdomen is benign. Patient continues to experience lower extremity swelling as well as scrotal edema. - Lab 02/28/18 05:58 02/28/18 05:58 Most recent lab results ABG pH 7.31 pH Units (7.32-7.45) L 02/17/18 05:50 ABG pCO2 41 mmHg (35-45) 02/17/18 05:50 ABG pO2 118 mmHg (85-104) H 02/17/18 05:50 ABG HCO3 20 mEq/L (21-27) L 02/17/18 05:50 ABG O2 Saturation 98 % (95-98) 02/17/18 05:50 Calcium 8.2 mg/dL (8.6-10.3) L 02/28/18 05:58 Magnesium 2.0 mg/dL (1.6-2.6) 02/25/18 04:00 - VTE Documentation of Mechanical Device: Graduated compression elastic hosiery Consult Discharge Plan - Plan Instructions: Sternal Precautions (GEN) Referrals: Isaías Cartwright DO [Partnered Physician] - 03/13/18 11:30 am Zeina Momin MD [Partnered Physician] - 03/19/18 2:30 pm Trudy Sandoval, MAGEN [Primary Care Provider] - (PATIENT IS GOING TO [facility] NO PCP APPOINTMENT NEEDED)
[2018-02-28] MEDS: Furosemide 40 MG/4 ML VIAL IVP SCH ×2 (08:54→21:16)
[2018-02-28] MEDS ORDERED: Insulin DETEMIR 100 UNIT/ML X5UNITS SQ SCH (09:00)
--- NOTE | 2018-02-28 09:04 | Cardiothoracic Progress Note ---
Date of Encounter: 02/28/18 Time of Encounter: 09:01 - Assessment and plan (1) HTN (hypertension) Current Visit: Yes Status: Chronic From my standpoint, the patient can be discharged to an extended care facility on Friday. Qualifiers: Hypertension type: essential hypertension Qualified Code(s): I10 - Essential (primary) hypertension - Subjective Interval history: The patient fatigue and continued swelling. Vital Signs, Last 4 Hours Temp Pulse Resp BP Pulse Ox 02/28/18 08:56 98.2 F 73 16 135/77 95 02/28/18 08:41 74 02/28/18 08:02 16 95 02/28/18 05:18 16 95 Oxgyen Flow Rate Oxygen Flow Rate (LPM) 2 Weight 02/26/18 02/27/18 02/28/18 23:59 23:59 23:59 Weight 82.5 kg 84.3 kg 80.5 kg Lungs are clear to percussion and auscultation. Heart is in a normal sinus rhythm. All incisions are healing well without signs of infection and his sternum is stable. He has 1-2+ pitting edema of his lower extremities and continued swelling of his penis and scrotum. - Labs 02/28/18 05:58 02/28/18 05:58 Lab Results, Last 24 hours 02/28/18 02/28/18 05:58 05:58 WBC 9.8 Hgb 9.3 L Hct 28.6 L Plt Count 421 H Sodium 133 L Potassium 4.6 Chloride 106 Carbon Dioxide 20 L BUN 65 H Creatinine 2.45 H Glucose 193 H Calcium 8.2 L - VTE Documentation of Mechanical Device: Graduated compression elastic hosiery Consult Discharge Plan - Plan Instructions: Sternal Precautions (GEN) Referrals: Isaías Cartwright DO [Partnered Physician] - 03/13/18 11:30 am Zeina Momin MD [Partnered Physician] - 03/19/18 2:30 pm Trudy Sandoval, MAGEN [Primary Care Provider] - (PATIENT IS GOING TO [facility] NO PCP APPOINTMENT NEEDED)
--- NOTE | 2018-02-28 11:24 | Urology Progress Note ---
Date of Encounter: 02/28/18 Time of Encounter: 11:22 - Assessment and Plan (1) Urinary retention due to benign prostatic hyperplasia Current Visit: Yes Status: Acute Assessment and plan: continue cath. defer renal imaging to nephrology. keep scrotum elevated. edema should resolve with diuresis. . (2) MEL (acute kidney injury) Current Visit: No Status: Resolved Progress Note Narrative: pt seen yesterday. minimal change in symptoms. renal function stable. edema remains Objective Initial Vital Signs Temp Pulse Resp BP Pulse Ox 97.8 F 67 18 166/81 99 02/11/18 03:48 02/11/18 03:48 02/11/18 03:48 02/11/18 03:48 02/11/18 03:48 - Additional Exam continued genital and SOPHIA edema. - Labs 02/28/18 05:58 02/28/18 05:58 Diabetes panel 02/28/18 Range/Units 05:58 Sodium 133 L (136-145) mEq/L Potassium 4.6 (3.5-5.1) mEq/L Chloride 106 (98-107) mEq/L Carbon Dioxide 20 L (23-29) mEq/L BUN 65 H (8-23) mg/dL Creatinine 2.45 H (0.70-1.30) mg/dL Glucose 193 H (70-105) mg/dL Calcium 8.2 L (8.6-10.3) mg/dL Calcium panel 02/28/18 Range/Units 05:58 Calcium 8.2 L (8.6-10.3) mg/dL Pituitary panel 02/28/18 Range/Units 05:58 Sodium 133 L (136-145) mEq/L Potassium 4.6 (3.5-5.1) mEq/L Chloride 106 (98-107) mEq/L Carbon Dioxide 20 L (23-29) mEq/L BUN 65 H (8-23) mg/dL Creatinine 2.45 H (0.70-1.30) mg/dL Glucose 193 H (70-105) mg/dL Calcium 8.2 L (8.6-10.3) mg/dL Adrenal panel 02/28/18 Range/Units 05:58 Sodium 133 L (136-145) mEq/L Potassium 4.6 (3.5-5.1) mEq/L Chloride 106 (98-107) mEq/L Carbon Dioxide 20 L (23-29) mEq/L BUN 65 H (8-23) mg/dL Creatinine 2.45 H (0.70-1.30) mg/dL Glucose 193 H (70-105) mg/dL Calcium 8.2 L (8.6-10.3) mg/dL - VTE Documentation of Mechanical Device: Graduated compression elastic hosiery Consult Discharge Plan - Plan Instructions: Sternal Precautions (GEN) Referrals: Isaías Cartwright DO [Partnered Physician] - 03/13/18 11:30 am Zeina Momin MD [Partnered Physician] - 03/19/18 2:30 pm Trudy Sandoval, DIVERSIFIED CROPS FARMWORKER [Primary Care Provider] - (PATIENT IS GOING TO [facility] NO PCP APPOINTMENT NEEDED)
--- NOTE | 2018-02-28 16:29 | Internal Med Progress Note ---
Date of Encounter: 02/28/18 Time of Encounter: 11:40 - Assessment and plan (1) NSTEMI (non-ST elevated myocardial infarction) Current Visit: Yes Status: Acute Assessment and plan: 02/11/2018 LHC: 90% LAD in-stent restenosis, a 70% mid LAD lesion, and and 70% ostial OM1 lesion. Status post CABG3 with modified Maze procedure and left atrial appendage stapling. Postoperative care and local wound care per cardiothoracic surgery. Continue incentive spirometry, ambulation as tolerated and pain control. PT evaluation recommend inpatient rehabilitation, social media director on board. Anticipate discharge on Friday; (2) CKD (chronic kidney disease), stage III Current Visit: Yes Status: Chronic Assessment and plan: Patient is noted to have worsening serum creatinine post surgery. Creatinine around the same- 2.45 today. Blood pressure well-controlled. Continue to hold antihypertensives, will resume if BP remains elevated. Patient started on BID IV Lasix today, due to persistent pedal and scrotal edema. Continue to monitor serum creatinine closely. Nephrology on board. (3) HTN (hypertension) Current Visit: Yes Status: Chronic Qualifiers: Hypertension type: essential hypertension Qualified Code(s): I10 - Essential (primary) hypertension (4) DM type 2 (diabetes mellitus, type 2) Current Visit: Yes Status: Chronic Assessment and plan: Blood sugars improving. Continue Accu-Chek blood glucose monitoring and basal bolus insulin. Diabetic diet. Qualifiers: Diabetes mellitus prison insulin use: without prison use Diabetes mellitus complication status: with kidney complications Diabetes mellitus complication detail: with chronic kidney disease Chronic kidney disease stage : stage 3 (moderate) Qualified Code(s): E11.22 - Type 2 diabetes mellitus with diabetic chronic kidney disease; N18.3 - Chronic kidney disease, stage 3 ( moderate); N18.3 - Chronic kidney disease, stage 3 (moderate) (5) HLD (hyperlipidemia) Current Visit: Yes Status: Chronic Qualifiers: Hyperlipidemia type: unspecified Qualified Code(s): E78.5 - Hyperlipidemia , unspecified (6) Ischemic cardiomyopathy Current Visit: Yes Status: Chronic (7) Atrial fibrillation Current Visit: Yes Status: Acute Qualifiers: Atrial fibrillation type: paroxysmal Qualified Code(s): I48.0 - Paroxysmal atrial fibrillation - Time Spent With Patient Total time spent is greater than 50% in coordination of care (as documented) at patient's floor/unit and/or counseling patient: - Subjective Interval history: Feels slightly better; improved right arm swelling; stable leg swelling; improving postop chest pain; no dyspnea, nausea, vomiting; - Constitutional Vitals: Temp Pulse Resp BP Pulse Ox 97.9 F 66 16 117/58 98 02/28/18 16:06 02/28/18 16:06 02/28/18 16:13 02/28/18 16:06 02/28/18 16:13 General appearance: Present: A&O X 3, answers questions appropriately - Respiratory Respiratory exam: Present: CTAB. Absent: accessory muscle use, rales, rhonchi, wheezes - Cardiovascular Cardiovascular exam: Present: RRR, +S1, +S2. Absent: diastolic murmur, gallop, rubs, systolic murmur - Extremities Exam Extremities exam: Present: pedal edema (1+ pitting), warm, radial pulses palpable and symmetrical. Absent: calf tenderness, cyanotic Additional comments: right UE- improving edema Internal Medicine: Result - Labs CBC & Chem 7: 02/28/18 05:58 02/28/18 05:58 Labs: Short CBC 02/28/18 Range/Units 05:58 WBC 9.8 (4.3-11.1) K/mcL Hgb 9.3 L (12.9-16.9) g/dL Hct 28.6 L (37.5-50.1) % Plt Count 421 H (140-400) K/mcL Neutrophils # 6.8 (1.6-8.9) K/mcL BMP 02/28/18 05:58 Sodium 133 L Potassium 4.6 Chloride 106 Carbon Dioxide 20 L BUN 65 H Creatinine 2.45 H Glucose 193 H Calcium 8.2 L - ABG Interpretation ABG results: ABG ABG pH 7.31 pH Units (7.32-7.45) L 02/17/18 05:50 ABG pCO2 41 mmHg (35-45) 02/17/18 05:50 ABG pO2 118 mmHg (85-104) H 02/17/18 05:50 ABG O2 Saturation 98 % (95-98) 02/17/18 05:50 PT/INR, D-dimer PT 13.5 Seconds (9.4-12.1) H 02/17/18 03:30 - VTE Documentation of Mechanical Device: Graduated compression elastic hosiery Consult Discharge Plan - Plan Instructions: Sternal Precautions (GEN) Referrals: Isaías Cartwright DO [Partnered Physician] - 03/13/18 11:30 am Zeian Momin MD [Partnered Physician] - 03/19/18 2:30 pm Trudy Sandoval, ROOFING SUBCONTRACTOR [Primary Care Provider] - (PATIENT IS GOING TO [facility] NO PCP APPOINTMENT NEEDED)
[2018-02-28] MEDS: Insulin DETEMIR 100 UNIT/ML X5UNITS SQ SCH (21:17)
[2018-02-28] MEDS: traZODone 50 MG TABLET PO SCH (21:17)
[2018-03-01 06:06] LABS: Calcium 8.2 mg/dL (8.6-10.3); Potassium 4.1 mEq/L (3.5-5.1)
[2018-03-01] MEDS: *HR* Heparin 5,000 UNIT/ML VIAL SQ SCH ×2 (06:10→17:31)
--- NOTE | 2018-03-01 07:55 | Nephrology Progress Note ---
Date of Encounter: 03/01/18 Time of Encounter: 07:53 - Assessment and Plan (1) CKD (chronic kidney disease), stage III Current Visit: Yes Status: Chronic The patient has stage III chronic kidney disease. The patient has acute kidney injury following bypass surgery. Serum creatinine today is about the same as yesterday. Patient is tolerating the current diuretic dosage. We will maintain that dose for another 24 hours and then re-evaluate in the morning. (2) DM type 2 (diabetes mellitus, type 2) Current Visit: Yes Status: Chronic Qualifiers: Diabetes mellitus ferry terminal supervisor insulin use: without ferry terminal supervisor use Diabetes mellitus complication status: with kidney complications Diabetes mellitus complication detail: with chronic kidney disease Chronic kidney disease stage : stage 3 (moderate) Qualified Code(s): E11.22 - Type 2 diabetes mellitus with diabetic chronic kidney disease; N18.3 - Chronic kidney disease, stage 3 ( moderate); N18.3 - Chronic kidney disease, stage 3 (moderate) (3) NSTEMI (non-ST elevated myocardial infarction) Current Visit: Yes Status: Acute (4) CAD (coronary artery disease) Current Visit: Yes Status: Acute Qualifiers: Coronary Disease-Associated Artery/Lesion type: [place] artery [place] vs. transplanted heart: [place] heart Associated angina: without angina Qualified Code(s): I25.10 - Atherosclerotic heart disease of [place] coronary artery without angina pectoris Subjective Principal diagnosis: chest pain Interval history: The patient reports she is feeling better. He feels like his swelling is improving. Urine output yesterday was 2.6 L. Creatinine remained stable at 2.43. Blood pressure is 133/63. Objective - Vital Signs Vital signs: Vital Signs Temp Pulse Resp BP Pulse Ox 03/01/18 07:37 16 97 03/01/18 07:04 98.2 F 72 18 133/63 98 03/01/18 04:32 18 94 03/01/18 03:39 98.0 F 68 18 134/66 91 03/01/18 00:03 98.1 F 70 20 122/77 95 02/28/18 23:12 18 97 02/28/18 20:32 18 97 02/28/18 19:35 97.5 F L 69 18 147/68 97 02/28/18 16:13 16 98 02/28/18 16:06 97.9 F 66 16 117/58 98 02/28/18 15:28 67 02/28/18 11:46 65 02/28/18 11:19 97.9 F 69 16 102/71 95 02/28/18 08:56 98.2 F 73 16 135/77 95 02/28/18 08:41 74 02/28/18 08:02 16 95 Intake and Output 02/28/18 02/28/18 03/01/18 15:59 23:59 07:59 Intake Total 920 / 920 240 / 240 Output Total 1400 / 1400 600 / 600 1300 / 1300 Balance -480 / -480 -360 / -360 -1300 / -1300 Intake: Oral 920 / 920 240 / 240 Output: Catheter 1400 / 1400 600 / 600 1300 / 1300 Urethral (Mejias) 250 / 250 975 / 975 Other: Meal Lunch Dinner Percent of Meal Consumed 50% 100% Weight 77.9 kg Blood Glucose* 254 198 153 Patient Weight 03/01/18 23:59 Weight 77.9 kg - General Appearance Exam: Patient is alert and oriented. He is in no acute distress. Lungs sounds in the bases. Heart regular rate and rhythm. Abdomen is benign. He still has some lower extremity swelling. Scrotal edema is improving. - Lab 02/28/18 05:58 03/01/18 05:22 Most recent lab results ABG pH 7.31 pH Units (7.32-7.45) L 02/17/18 05:50 ABG pCO2 41 mmHg (35-45) 02/17/18 05:50 ABG pO2 118 mmHg (85-104) H 02/17/18 05:50 ABG HCO3 20 mEq/L (21-27) L 02/17/18 05:50 ABG O2 Saturation 98 % (95-98) 02/17/18 05:50 Calcium 8.2 mg/dL (8.6-10.3) L 03/01/18 05:22 Magnesium 2.0 mg/dL (1.6-2.6) 02/25/18 04:00 - VTE Documentation of Mechanical Device: Graduated compression elastic hosiery Consult Discharge Plan - Plan Instructions: Sternal Precautions (GEN) Referrals: Isaías Cartwright DO [Partnered Physician] - 03/13/18 11:30 am Zeina Momin MD [Partnered Physician] - 03/19/18 2:30 pm Trudy Sandoval, SCROLL SHEAR OPERATOR [Primary Care Provider] - (PATIENT IS GOING TO [facility] NO PCP APPOINTMENT NEEDED)
[2018-03-01] MEDS: Insulin LISPRO 300 UNITS/3 ML VIAL SQ SCH ×4 (08:25→20:36)
[2018-03-01] MEDS: Fluticasone Propionate Nasal 50 MCG/SPRAY BOTTLE NS SCH (08:25)
[2018-03-01] MEDS: Furosemide 40 MG/4 ML VIAL IVP SCH ×2 (08:25→20:32)
[2018-03-01] MEDS: Chlorhexidine Rinse 15 ML MOUTHWASH MM SCH ×2 (08:25→20:36)
[2018-03-01] MEDS: Aspirin Enteric Coated 81 MG Tablet PO SCH (08:26)
[2018-03-01] MEDS: *HR* Amiodarone 200 MG TABLET PO SCH (08:26)
[2018-03-01] MEDS: Insulin DETEMIR 100 UNIT/ML X5UNITS SQ SCH ×2 (09:29→20:35)
--- NOTE | 2018-03-01 09:45 | Cardiothoracic Progress Note ---
Date of Encounter: 03/01/18 Time of Encounter: 09:42 - Assessment and plan (1) HTN (hypertension) Current Visit: Yes Status: Chronic We will plan to discharge the patient to an extended care facility tomorrow. He will be discharged with a Mejias catheter and this can be removed in the urology offices. Qualifiers: Hypertension type: essential hypertension Qualified Code(s): I10 - Essential (primary) hypertension - Subjective Interval history: The patient has no complaints and states that his swelling is improving. Vital Signs, Last 4 Hours Temp Pulse Resp BP Pulse Ox 03/01/18 08:37 71 03/01/18 07:37 16 97 03/01/18 07:04 98.2 F 72 18 133/63 98 Oxgyen Flow Rate Oxygen Flow Rate (LPM) 2 Weight 02/27/18 02/28/18 03/01/18 23:59 23:59 23:59 Weight 84.3 kg 80.5 kg 77.9 kg Lungs are clear to percussion and auscultation. Heart is in a normal sinus rhythm. All incisions are healing well without signs of infection and the sternum is stable. - Labs 02/28/18 05:58 03/01/18 05:22 Lab Results, Last 24 hours 03/01/18 05:22 Sodium 134 L Potassium 4.1 Chloride 104 Carbon Dioxide 23 BUN 68 H Creatinine 2.43 H Glucose 147 H Calcium 8.2 L - VTE Documentation of Mechanical Device: Graduated compression elastic hosiery Consult Discharge Plan - Plan Instructions: Sternal Precautions (GEN) Referrals: Isaías Cartwright DO [Partnered Physician] - 03/13/18 11:30 am Zeina Momin MD [Partnered Physician] - 03/19/18 2:30 pm Trudy Sandoval CNP [Primary Care Provider] - ([facility] APPOINTMENT NEEDED)
--- NOTE | 2018-03-01 13:29 | Event Note ---
Date of Encounter: 03/01/18 Time of Encounter: 13:27 Patient was admitted with NSTEMI and underwent CABG; Patient is making slow progress; renal function is somewhat stable; being followed by Nephrology. Blood sugars are better except intermittently high premeal sugars. D/w CT surgery, patient will be discharged by primary team, and no further Hospitalist service followup required;
[2018-03-01] MEDS: traZODone 50 MG TABLET PO SCH (20:35)
[2018-03-02 03:56] LABS: Basophils # 0.1 K/mcL (0.0-0.2); Basophils % 0.8 %; Eosinophils # 0.8 K/mcL (0.0-0.6); Eosinophils % 7.2 %; Hematocrit 27.5 % (37.5-50.1); Immature Granulocytes % 0.9 % (0-4); Lymphocytes # 0.8 K/mcL (0.6-4.6); Lymphocytes % 6.8 %; Mean Corpuscular HGB Conc 32.7 g/dL (31.6-35.5); Mean Corpuscular Hemoglobin 28.8 pg (28.0-33.3); Mean Corpuscular Volume 88.1 fL (83.0-100.0); Mean Platelet Volume 9.6 fL (9.4-12.4); Monocytes # 1.4 K/mcL (0.0-1.3); Monocytes % 12.3 %; Neutrophils # 8.2 K/mcL (1.6-8.9); Platelet Count 448 K/mcL (140-400); Red Blood Count 3.12 M/mcL (4.19-5.50); Red Cell Distribution Width 14.6 % (11.5-14.5)
[2018-03-02] MEDS: *HR* Heparin 5,000 UNIT/ML VIAL SQ SCH (06:31)
[2018-03-02] MEDS: Fluticasone Propionate Nasal 50 MCG/SPRAY BOTTLE NS SCH (08:14)
[2018-03-02] MEDS: Insulin LISPRO 300 UNITS/3 ML VIAL SQ SCH ×2 (08:15→12:08)
--- NOTE | 2018-03-02 08:41 | IR Procedure Note ---
Date of procedure: 03/02/18 Consent Obtained: Verbal consent, Written consent Timeout: Correct patient and procedure verified, Correct site verified, Time out performed, Skin prep completed Local anesthetic: Lidocaine 1% Indications: Pleural effusions Procedure Performed: Bilateral thoracentesis Was there an programs assistant present: No Site/Technique: Ultrasound guided bilateral thoracentesis performed Results/Findings: Moderate pleural effusions Estimated blood loss (cc): 2 Complications: None; Tolerated procedure well Post Procedure Treatment Plan: CXR pending Specimen: serosanguinous pleural fluid
--- NOTE | 2018-03-02 09:19 | Discharge Summary ---
Orders not resulted at time of discharge: Pending orders 03/02/18 IR thoracentesis ultrasound [IR] Routine IR thoracentesis ultrasound [IR] Routine 03/02/18 03:34 CMP [Comprehensive Metabolic Panel] Stat Date of Encounter: 03/02/18 Time of Encounter: 09:11 - Discharge Diagnosis (1) HTN (hypertension) Priority: Primary Status: Chronic Qualifiers: Hypertension type: essential hypertension Qualified Code(s): I10 - Essential (primary) hypertension - Hospital Course Hospital course: Mr. Theodore is a 77 year old male The patient is a 77-year-old gentleman with a history of diabetes and hypercholesterolemia. He has had angioplasty and stent placement in the past. He was admitted with a non-ST elevation CT and cardiac catheterization revealed triple-vessel disease. He was referred for surgery. On 02/16/2018, Dr. Momin took the patient to the operating room for coronary artery bypass grafting 3, utilizing the left internal mammary artery. He also had a modified Maze procedure and left atrial appendage stapling. He did have chronic kidney disease preoperatively and postoperatively he was seen by the nephrology service. He was also followed by the hospitalist service. He did have urinary retention and a Mejias catheter had to be reinserted. He was seen by urology and they plan to take the catheter out in the office. On March 02 chest x-ray revealed bilateral pleural effusions and he underwent thoracentesis and interventional radiology. The patient otherwise did well and was discharged on March 02. At that time, he was afebrile. Lungs were clear to percussion and auscultation. He was in a normal sinus rhythm. Discharge medications are on the med rec and include Percocet for pain. I did check the [place] automated Rx reporting system. He was postoperative and was given a one-week supply. Appropriate precautions were given. He was to return to his previous diabetic diet. He was to avoid heavy lifting for a total of 3 months after surgery, but to walk as much as possible. He was to avoid driving for 1 month. He was to follow up and see Dr. Momin in the office in 4 weeks as directed. He was to follow-up with urology, cardiology and his primary care doctor as directed. He was to call sooner for any difficulties. - Time Spent with Patient Total time spent providing and/or coordinating discharge services: - Discharge Medications Prescriptions: OxyCODONE/APAP 5/325 [Percocet 5/325 MG] 1 each PO Q4HR PRN 7 Days #20 tablet PRN Reason: Severe Pain Amiodarone [Cordarone] 200 mg PO DAILY #30 tablet Furosemide [Lasix] 40 mg PO BID #60 vial Tamsulosin [Flomax] 0.4 mg PO DAILY #30 capsule Home Medications: Glimepiride [Amaryl] 4 mg PO BID 06/24/15 [History] Metformin [Glucophage] 1,000 mg PO BID 06/24/15 [History] Trazodone HCl 150 mg PO HS 08/26/17 [History] Aspirin Enteric Coated [Aspirin EC] 81 mg PO DAILY tablet. 09/04/17 [Rx] Clopidogrel [Plavix] 75 mg PO DAILY #30 tablet 09/04/17 [Rx] Albuterol Sulfate [Albuterol Inhaler] 2 puff IH Q4HR #1 hfa.aer.ad 11/08/17 [Rx] Dutasteride [Avodart] 0.5 mg PO DAILY 02/11/18 [History] Fluticasone Propionate Nasal [Flonase] 2 spr NS DAILY 02/11/18 [History] Montelukast [Singulair] 10 mg PO DAILY 02/11/18 [History] Simvastatin [Zocor] 40 mg PO HS 02/11/18 [History] Terazosin HCl 10 mg PO DAILY 02/11/18 [History] Amiodarone [Cordarone] 200 mg PO DAILY #30 tablet 03/02/18 [Rx] Atorvastatin [Lipitor] 80 mg PO HS tablet 03/02/18 [Rx] Furosemide [Lasix] 40 mg PO BID #60 vial 03/02/18 [Rx] OxyCODONE/APAP 5/325 [Percocet 5/325 MG] 1 each PO Q4HR PRN 7 Days #20 tablet [Rx] Tamsulosin [Flomax] 0.4 mg PO DAILY #30 capsule 03/02/18 [Rx] Allergies/Adverse Reactions: 3 Allergy/AdvReac Type Severity Reaction Status Date / Time ibuprofen AdvReac See Verified 08/26/17 07:26 Comments Date of admission: 02/11/18 04:43 Primary care physician: Trudy Sandoval CNP Consults: 02/11/18 06:23 Consult to Cardiology [CONS] Routine Comment: Consulting Provider: Cardiology [facility] Reason for Consult: Acute NSTEMI Time Notified: 06:24 Call Completed: Yes 02/11/18 17:27 Consult to Cardiothoracic Surgery [CONS] Routine Consulting Provider: Cardiothoracic Surgery Mariana Reason for Consult: open heart Call Completed: Yes 02/16/18 17:12 Consult to Cardiac Rehabilitation-Phase1 [CONS] Routine Comment: Reason for Consult: Post open heart Call Completed: Yes 02/21/18 13:39 Consult to Occupational Therapy [CONS] Routine Comment: Evaluate, develop and implement POC Reason for Consult: discharge planning Does patient have active BEDREST order?: No Is patient medically & hemodynamically stable?: Yes Patient assessed for mobility or mobilized this visit?: No Consult to Physical Therapy [CONS] Routine Comment: Evaluate, develop and implement POC Reason for Consult: discharge planning Does patient have active BEDREST order?: No Is patient medically & hemodynamically stable?: Yes Patient assessed for mobility or mobilized this visit?: No 02/27/18 09:01 Consult to Urology [CONS] Routine Consulting Provider: Urology [place] Reason for Consult: urinary retention Call Completed: Yes 03/02/18 08:32 Consult to Interventional Radiology [CONS] Routine Consulting Provider: Radiology Interventional Cols Reason for Consult: right thoracentesis Call Completed: Yes Procedure(s) Performed: 02/16/2018. Coronary artery bypass grafting 3, utilizing the left internal mammary artery. Also, modified maze procedure with left atrial appendage stapling. Discharging clinician: Isaías Carmichael Anticipated date of discharge: 03/02/18 Physical Examination Vital Signs, Last 4 Hours Temp Pulse Resp BP Pulse Ox 03/02/18 07:54 97.5 F L 72 16 128/63 97 03/02/18 07:47 18 95 - Patient Status Disposition: Transfer Inpatient Rehab Fac Functional capacity at discharge: independent ambulation Overall status at discharge: patient is progressing back to baseline - Discharge Instructions Instructions: Sternal Precautions (GEN) Follow Up With: Isaías Cartwright DO [Partnered Physician] - 03/13/18 11:30 am Zeina Momin MD [Partnered Physician] - 03/19/18 2:30 pm Negrito Clark MD [Partnered Physician] - 03/09/18 8:30 am Trudy Sandoval, SENIOR DEVOPS ENGINEER [Primary Care Provider] - (PATIENT IS GOING TO [facility] NO PCP APPOINTMENT NEEDED) Open Heart Registry Aspirin Cont/Prescribed at DC: Yes Beta Geovany Cont/Prescribed at DC: No (bradycardia) Statin Cont/Prescribed at DC: Yes EMERITA/ARB Cont/Prescribed at DC: Not indicated (hypotension) - VTE Documentation of Mechanical Device: Graduated compression elastic hosiery
[2018-03-02 09:20] LABS: Albumin 2.9 g/dL (3.5-5.7); Albumin/Globulin Ratio 1.2 (1.1-2.2); Bilirubin,Total 0.5 mg/dL (0.3-1.0); Calcium 8.4 mg/dL (8.6-10.3); Globulin 2.5 g/dL (2.4-3.5); Potassium 4.2 mEq/L (3.5-5.1); Total Protein 5.4 g/dL (6.4-8.9)
--- NOTE | 2018-03-02 09:28 | Physician Discharge Referral ---
ExtendedCare Referral Info Provider in Charge after Transfer: PCP Institutional Level of Care: Intermediate - Diagnosis (1) HTN (hypertension) Priority: Primary Status: Chronic - Transfer Medications Prescriptions: OxyCODONE/APAP 5/325 [Percocet 5/325 MG] 1 each PO Q4HR PRN 7 Days #20 tablet PRN Reason: Severe Pain Amiodarone [Cordarone] 200 mg PO DAILY #30 tablet Furosemide [Lasix] 40 mg PO BID #60 vial Tamsulosin [Flomax] 0.4 mg PO DAILY #30 capsule Home Medications: Glimepiride [Amaryl] 4 mg PO BID 06/24/15 [History] Metformin [Glucophage] 1,000 mg PO BID 06/24/15 [History] Trazodone HCl 150 mg PO HS 08/26/17 [History] Aspirin Enteric Coated [Aspirin EC] 81 mg PO DAILY tablet. 09/04/17 [Rx] Clopidogrel [Plavix] 75 mg PO DAILY #30 tablet 09/04/17 [Rx] Albuterol Sulfate [Albuterol Inhaler] 2 puff IH Q4HR #1 hfa.aer.ad 11/08/17 [Rx] Dutasteride [Avodart] 0.5 mg PO DAILY 02/11/18 [History] Fluticasone Propionate Nasal [Flonase] 2 spr NS DAILY 02/11/18 [History] Montelukast [Singulair] 10 mg PO DAILY 02/11/18 [History] Simvastatin [Zocor] 40 mg PO HS 02/11/18 [History] Terazosin HCl 10 mg PO DAILY 02/11/18 [History] Amiodarone [Cordarone] 200 mg PO DAILY #30 tablet 03/02/18 [Rx] Atorvastatin [Lipitor] 80 mg PO HS tablet 03/02/18 [Rx] Furosemide [Lasix] 40 mg PO BID #60 vial 03/02/18 [Rx] OxyCODONE/APAP 5/325 [Percocet 5/325 MG] 1 each PO Q4HR PRN 7 Days #20 tablet [Rx] Tamsulosin [Flomax] 0.4 mg PO DAILY #30 capsule 03/02/18 [Rx] Allergies/Adverse Reactions: 3 Allergy/AdvReac Type Severity Reaction Status Date / Time ibuprofen AdvReac See Verified 08/26/17 07:26 Comments - Respiratory Orders Smoking Cessation: Smoking cessation has been advised. For more information, call the [place] Tobacco Quit Line at 8-087-SBMQ-NOW. - Ancillary Orders May use pressure relief devices daily prn, May go on JED w/family/respon constitution party w /meds at nurse discretion PRN, May have alcoholic beverages, May consult with Dentist, Ice Cream Vendor, Customer Engineer PRN - Advance Directives Code Status: Full Code - Mobility Orders Ambulate - Rehabiliation Orders Rehab Potential: Good Rehab Orders: Sternal Precautions, ROM Exercises, Evaluation for Physical Therapy, Evaluation for Occupational Therapy - Treatments Skin tear care topically daily PRN per policy, May check for fecal impaction rectally daily PRN, Fleet enema rectally every other day PRN cleansing purposes - Diet Orders No Concentrated Sweets CERTIFICATION: I certify that the transfer of the above named patient to an Extended Care Facility is necessary for the continuing treatment of the diagnosis listed. The above information is true and accurate reflection of patient's current condition. Confidential - Redisclosure prohibited without a patient's written consent.
[2018-03-02] MEDS: Furosemide 40 MG/4 ML VIAL IVP SCH (09:55)
[2018-03-02] MEDS: *HR* Amiodarone 200 MG TABLET PO SCH (09:55)
[2018-03-02] MEDS: Chlorhexidine Rinse 15 ML MOUTHWASH MM SCH (09:55)
[2018-03-02] MEDS: Aspirin Enteric Coated 81 MG Tablet PO SCH (09:55)
[2018-03-02] MEDS: Insulin DETEMIR 100 UNIT/ML X5UNITS SQ SCH (10:06)
--- NOTE | 2018-03-02 10:24 | Nephrology Progress Note ---
Date of Encounter: 03/02/18 Time of Encounter: 10:22 - Assessment and Plan (1) CKD (chronic kidney disease), stage III Current Visit: Yes Status: Chronic The patient has stage III chronic kidney disease. The patient has acute kidney injury following bypass surgery. Renal function remained stable. Swelling is improving. Patient may be discharged later today. Follow-up in the office as an outpatient. (2) DM type 2 (diabetes mellitus, type 2) Current Visit: Yes Status: Chronic Qualifiers: Diabetes mellitus jail insulin use: without jail use Diabetes mellitus complication status: with kidney complications Diabetes mellitus complication detail: with chronic kidney disease Chronic kidney disease stage : stage 3 (moderate) Qualified Code(s): E11.22 - Type 2 diabetes mellitus with diabetic chronic kidney disease; N18.3 - Chronic kidney disease, stage 3 ( moderate); N18.3 - Chronic kidney disease, stage 3 (moderate) (3) NSTEMI (non-ST elevated myocardial infarction) Current Visit: Yes Status: Acute (4) CAD (coronary artery disease) Current Visit: Yes Status: Acute Qualifiers: Coronary Disease-Associated Artery/Lesion type: [place] artery [place] vs. transplanted heart: eagle heart Associated angina: without angina Qualified Code(s): I25.10 - Atherosclerotic heart disease of eagle coronary artery without angina pectoris Subjective Principal diagnosis: chest pain Interval history: Patient is feeling better. Urine output yesterday was over 4 L. Creatinine is stable. Swelling is improving. Patient may be discharged later today. Objective - Vital Signs Vital signs: Vital Signs Temp Pulse Resp BP Pulse Ox 03/02/18 07:54 97.5 F L 72 16 128/63 97 03/02/18 07:47 18 95 03/02/18 03:36 98.2 F 76 16 143/78 95 03/01/18 23:23 98.4 F 73 15 135/69 92 03/01/18 20:20 16 96 03/01/18 19:51 98.3 F 71 16 146/69 96 03/01/18 16:05 98.8 F 71 18 110/65 95 03/01/18 15:55 16 95 03/01/18 15:54 69 03/01/18 12:12 73 03/01/18 11:52 16 94 03/01/18 11:15 98.1 F 73 17 127/63 94 Intake and Output 03/01/18 03/02/18 03/02/18 23:59 07:59 15:59 Intake Total 240 / 240 480 / 480 Output Total 2600 / 2600 925 / 925 Balance -2360 / -2360 -925 / -925 480 / 480 Intake: Oral 240 / 240 480 / 480 Output: Catheter 2600 / 2600 925 / 925 Urethral (Mejias) 850 / 850 Other: Meal Dinner Breakfast Percent of Meal Consumed 100% 100% Weight 75.4 kg Blood Glucose* 200 183 Patient Weight 03/02/18 23:59 Weight 75.4 kg - General Appearance Exam: Patient is alert and oriented. He is in no acute distress. Lungs sounds in the bases but better after having the thoracentesis. Heart regular rate and rhythm. Abdomen is benign. He still was some lower extremity swelling. Scrotal edema is improving. - Lab 03/02/18 03:34 03/02/18 03:34 Most recent lab results ABG pH 7.31 pH Units (7.32-7.45) L 02/17/18 05:50 ABG pCO2 41 mmHg (35-45) 02/17/18 05:50 ABG pO2 118 mmHg (85-104) H 02/17/18 05:50 ABG HCO3 20 mEq/L (21-27) L 02/17/18 05:50 ABG O2 Saturation 98 % (95-98) 02/17/18 05:50 Calcium 8.4 mg/dL (8.6-10.3) L 03/02/18 03:34 Magnesium 2.0 mg/dL (1.6-2.6) 02/25/18 04:00 - VTE Documentation of Mechanical Device: Graduated compression elastic hosiery Consult Discharge Plan - Plan Instructions: Sternal Precautions (GEN) Referrals: Isaías Cartwright DO [Partnered Physician] - 03/13/18 11:30 am Zeina Momin MD [Partnered Physician] - 03/19/18 2:30 pm Negrito Clark MD [Partnered Physician] - 03/09/18 8:30 am Trudy Sandoval, [employer] [Primary Care Provider] - (PATIENT IS GOING TO [facility] NO PCP APPOINTMENT NEEDED) Prescriptions: OxyCODONE/APAP 5/325 [Percocet 5/325 MG] 1 each PO Q4HR PRN 7 Days #20 tablet PRN Reason: Severe Pain Amiodarone [Cordarone] 200 mg PO DAILY #30 tablet Furosemide [Lasix] 40 mg PO BID #60 vial Tamsulosin [Flomax] 0.4 mg PO DAILY #30 capsule
[2018-03-02 11:08] VITALS: BP 122/70
[2018-03-02] MEDS: *HR* OxyCODONE/APAP 5/325 TABLET PO PRN (12:07)
== END 2018-03-02 13:59 | DRG 234 ==
LOC: 2SOUTHHOLD → SUATTDRO 04:43 → 2NENU 02-13 16:55 → ICNU 02-16 16:33 → 2NNU 02-19 11:00
PROVIDERS: ADMIT Family Medicine; ATTEND Internal Medicine

== ENCOUNTER 2019-06-15 14:19 | Observation (INO) ==
[2019-06-15 15:56] LABS: Basophils # 0.1 K/mcL (0.0-0.2); Basophils % 0.7 %; Eosinophils # 0.1 K/mcL (0.0-0.6); Hematocrit 29.7 % (37.5-50.1); Hemoglobin 9.5 g/dL (12.9-16.9); Immature Granulocytes % 0.6 % (0-4); Lymphocytes # 0.8 K/mcL (0.6-4.6); Lymphocytes % 11.4 %; Mean Corpuscular Hemoglobin 29.2 pg (28.0-33.3); Mean Corpuscular Volume 91.4 fL (83.0-100.0); Mean Platelet Volume 10.6 fL (9.4-12.4); Monocytes # 0.7 K/mcL (0.0-1.3); Monocytes % 9.4 %; Neutrophils # 5.3 K/mcL (1.6-8.9); Platelet Count 195 K/mcL (140-400); Red Blood Count 3.25 M/mcL (4.19-5.50); Red Cell Distribution Width 13.7 % (11.5-14.5); Segmented Neutrophils % 75.9 %
[2019-06-15 16:03] LABS: Prothrombin Time 11.7 Seconds (9.4-12.1)
[2019-06-15 16:05] LABS: Activated Partial Thrombo Time 28.2 Seconds (26.0-36.0)
[2019-06-15 16:16] LABS: BUN/Creatinine Ratio 13 (6-26); Blood Urea Nitrogen 35 mg/dL (8-23); Calcium 8.9 mg/dL (8.6-10.3); Carbon Dioxide 19 mEq/L (23-29); Chloride 108 mEq/L (98-107); Glucose 252 mg/dL (70-105); Osmolality,Calculated 291 (280-300); Potassium 6.1 mEq/L (3.5-5.1); Sodium 132 mEq/L (136-145); Troponin I < 0.03 ng/mL (< 0.04); eGFR For African Americans 28 (> 60); eGFR For Non-African Americans 23 (> 60)
--- NOTE | 2019-06-15 16:21 | Emergency Department Note ---
Disposition Clinical Impression: Hyperkalemia Disposition: Admitted As Inpatient Condition: Good Time of Disposition: 00:00 Chest Pain HPI - General Chief Complaint: ED Chest Pain Stated Complaint: CP,Nausea,Sweaty,shoulder pain Time Seen by Provider: 06/15/19 14:46 Source: patient Mode of arrival: private vehicle Vital Signs Reviewed: Yes Nursing Notes Reviewed: Yes - History of Present Illness Pt complaint: chest pain Onset (ago): week(s) Duration: intermittent Pain Location: other Severity scale (1-10): 3 Quality: aching Pain Radiation: LUE, neck Improves with: nothing Worsens with: nothing Associated symptoms: Reports: nausea, diaphoresis Treatments prior to arrival chest pain: none - Related Data Home Medications Medication Instructions Recorded Confirmed Trazodone HCl 150 mg PO HS 08/26/17 06/16/19 Dutasteride [Avodart] 0.5 mg PO DAILY 02/11/18 06/16/19 Simvastatin [Zocor] 40 mg PO HS 02/11/18 06/16/19 Amlodipine Besylate 5 mg PO DAILY 06/16/19 Clopidogrel [Plavix] 75 mg PO DAILY 06/16/19 Insulin Degludec [Tresiba 35 units SQ QAM 06/16/19 06/16/19 Flextouch U-100] Terazosin HCl 10 mg PO DAILY 06/16/19 Previous Rx's Medication Instructions Recorded Metoprolol XL (24 HR) Succ [Toprol 12.5 mg PO DAILY 30 Days #30 06/16/19 Xl] tab.er.24h Omeprazole [PriLOSEC] 40 mg PO DAILY@0630 30 Days #30 06/16/19 capsule. Allergies Allergy/AdvReac Type Severity Reaction Status Date / Time ibuprofen AdvReac See Verified 06/15/19 14:42 Comments All systems ED: reviewed and negative except as stated. Constitutional: Reports: as per HPI Respiratory: Reports: dyspnea Musculoskeletal: Reports: other Chest Pain PMH - Past Medical History Medical history: Reports: arthritis, coronary artery disease, diabetes, hyperlipidemia, hypertension, myocardial infarction, renal disease, syncope Surgical history: Reports: angioplasty/stent, orthopedic, other Psychiatric history: Reports: no psych history - Social History Smoking Status: Never smoker Alcohol use: Reports: none Drug use: Reports: none Physical Exam - General Limitations: no limitations General appearance: alert, in no apparent distress - Head Head exam: atraumatic, normocephalic - Eye Eye exam: Present: normal appearance, PERRL, EOMI - ENT ENT exam: normal exam, normal oropharynx - Neck Neck exam: Present: normal inspection, full ROM, trachea midline - Chest Chest inspection: Present: normal inspection - Respiratory Respiratory exam: Present: normal lung sounds bilaterally - Cardiovascular Cardiovascular exam: Present: regular rate, normal rhythm - Abdominal Exam Abdominal exam: Present: soft, Non-Tender Course Vital Signs Temperature 98.7 F 06/15/19 14:35 Pulse Rate 75 06/15/19 14:35 Respiratory Rate 18 06/15/19 14:35 Blood Pressure 158/115 06/15/19 14:35 O2 Sat by Pulse Oximetry 98 06/15/19 14:35 Temperature 98.2 F 06/16/19 16:16 Pulse Rate 76 06/16/19 16:16 Respiratory Rate 15 06/16/19 16:16 Blood Pressure 130/74 06/16/19 16:16 O2 Sat by Pulse Oximetry 97 06/16/19 16:16 Oxygen Delivery Oxygen Delivery Room Air Chest Pain - MDM Narrative Medical decision making narrative: PT currently pain free and has been after vomiting. Unsure if trop is residua l from recent cardio intervention and renal insufficiency. Pt is pain free, sleeping and requesting to eat in nad. DDX: Aortic stenosis, Asthma exacerbation, Bronchitis, Chest pain, Chest pain, acute, Cholecystitis, Cholelithiasis, Congestive heart failure, Contusion, Costochondritis, Dysrhythmia, Esophageal rupture, Esophagitis, Gastritis, GERD, Gun shot wound chest, Hiatal hernia, Hypertroph cardiomyopathy, Lyly-Duffy syndrome, Mitral stenosis, Mitral valve prolapse, Musculoskeletal pain, Myocardial infarction, Myocarditis, Peptic ulcer disease, Pericarditis, Pleuris y, Pneumomediastinum, Pneumonia, Pneumothorax, Pulmonary edema Admit Note I have spoken with the patient and/or caregivers. I have explained the patient's condition, diagnoses and treatment plan based on the information available to me at this time. I have answered the patient's and/or caregiver's questions and addressed any concerns. The patient and/or caregivers have as good an understanding of the patient's diagnosis, condition and treatment plan as can be expected at this point. The patient has been stabilized within the capability of the emergency department. The patient will be transported for further care and management or will be moved to an observation or inpatient service. I have communicated with the staff or medical practitioner taking over this patient's care. - Lab Data Result diagrams: 06/16/19 03:03 06/16/19 16:35 Lab Results 06/15/19 06/15/19 06/15/19 Range/Units 15:43 15:43 15:43 WBC 7.0 (4.3-11.1) K/mcL RBC 3.25 L (4.19-5.50) M/mcL Hgb 9.5 L (12.9-16.9) g/dL Hct 29.7 L (37.5-50.1) % MCV 91.4 (83.0-100.0) fL MCH 29.2 (28.0-33.3) pg MCHC 32.0 (31.6-35.5) g/dL RDW 13.7 (11.5-14.5) % Plt Count 195 (140-400) K/mcL MPV 10.6 (9.4-12.4) fL Immature Gran % 0.6 (0-4) % Seg Neutrophils % 75.9 % Lymphocytes % 11.4 % Monocytes % 9.4 % Eosinophils % 2.0 % Basophils % 0.7 % Neutrophils # 5.3 (1.6-8.9) K/mcL Lymphocytes # 0.8 (0.6-4.6) K/mcL Monocytes # 0.7 (0.0-1.3) K/mcL Eosinophils # 0.1 (0.0-0.6) K/mcL Basophils # 0.1 (0.0-0.2) K/mcL PT 11.7 (9.4-12.1) Seconds INR 1.0 APTT 28.2 (26.0-36.0) Seconds Sodium (136-145) mEq/L Potassium (3.5-5.1) mEq/L Chloride (98-107) mEq/L Carbon Dioxide (23-29) mEq/L BUN (8-23) mg/dL Creatinine (0.70-1.30) mg/dL Est GFR ( Amer) (> 60) Est GFR (Non-Af Amer) (> 60) BUN/Creatinine Ratio (6-26) Glucose (70-105) mg/dL Calculated Osmolality (280-300) Calcium (8.6-10.3) mg/dL Troponin I (< 0.04) ng/mL B-Natriuretic Peptide 289 H (Less than 100) pg/mL 06/15/19 06/15/19 Range/Units 15:43 16:40 WBC (4.3-11.1) K/mcL RBC (4.19-5.50) M/mcL Hgb (12.9-16.9) g/dL Hct (37.5-50.1) % MCV (83.0-100.0) fL MCH (28.0-33.3) pg MCHC (31.6-35.5) g/dL RDW (11.5-14.5) % Plt Count (140-400) K/mcL MPV (9.4-12.4) fL Immature Gran % (0-4) % Seg Neutrophils % % Lymphocytes % % Monocytes % % Eosinophils % % Basophils % % Neutrophils # (1.6-8.9) K/mcL Lymphocytes # (0.6-4.6) K/mcL Monocytes # (0.0-1.3) K/mcL Eosinophils # (0.0-0.6) K/mcL Basophils # (0.0-0.2) K/mcL PT (9.4-12.1) Seconds INR APTT (26.0-36.0) Seconds Sodium 132 L (136-145) mEq/L Potassium 6.1 H 5.7 H (3.5-5.1) mEq/L Chloride 108 H (98-107) mEq/L Carbon Dioxide 19 L (23-29) mEq/L BUN 35 H (8-23) mg/dL Creatinine 2.67 H (0.70-1.30) mg/dL Est GFR ( Amer) 28 L (> 60) Est GFR (Non-Af Amer) 23 L (> 60) BUN/Creatinine Ratio 13 (6-26) Glucose 252 H (70-105) mg/dL Calculated Osmolality 291 (280-300) Calcium 8.9 (8.6-10.3) mg/dL Troponin I < 0.03 (< 0.04) ng/mL B-Natriuretic Peptide (Less than 100) pg/mL Heart Score - Score Age: Greater than 65 Risk Factors: Equal/Greater than 3 risk factor or history of atherosclerotic disease
[2019-06-15] MEDS ORDERED: Insulin Human Regular 10 UNIT in 0.9 % Sodium Chloride 10 ML IV ONE (16:31)
[2019-06-15] MEDS ORDERED: *HR* Dextrose 50 % in Water (Syg) 50 ML SYRINGE IVP ONE (16:32)
[2019-06-15] MEDS ORDERED: Calcium Chloride 1,000 MG in 0.9 % Sodium Chloride 100 ML IVPB ONE (16:34)
[2019-06-15] MEDS ORDERED: Furosemide 20 MG/2 ML VIAL IVP ONE (17:30)
[2019-06-15] MEDS ORDERED: Calcium Gluconate 1gm/50mL 1 GM/50 ML BAG IVPB ONE ×2 (18:00→18:02)
[2019-06-15] MEDS: 0.9 % Sodium Chloride 1,000 ML IVC SCH ×2 (18:05→20:40)
[2019-06-15] MEDS ORDERED: Acetaminophen 325 MG TABLET PO PRN (18:26)
[2019-06-15] MEDS ORDERED: Naloxone 0.4 MG/ML INJ IVP PRN (18:26)
[2019-06-15] MEDS ORDERED: Ondansetron 4 MG/2 ML VIAL IVP PRN (18:26)
[2019-06-15] MEDS ORDERED: *HR* Dextrose 50 % in Water (Syg) 50 ML SYRINGE IVP PRN (18:36)
[2019-06-15] MEDS ORDERED: Dextrose Gel 15 GM/37.5 ML TUBE PO PRN ×2 (18:36)
[2019-06-15] MEDS ORDERED: D5% in Water 1,000 ML IVC PRN (18:36)
--- NOTE | 2019-06-15 18:47 | Internal Med History&Physical ---
Date of Encounter: 06/15/19 Time of Encounter: 17:30 Internal Medicine - H&P: HPI Admitted From: Emergency Dept Plans for Post Hospital Care: Home History of present illness: Mr. Theodore is a 78 year old male with a history of degenerative scoliosis, CAD, stage III CKD, diabetes hypertension ischemic cardio myopathy and prior MIs 2 who presented to the ED to be evaluated for chest pain. The patient stated that for the past 2 weeks he has been experiencing left shoulder and neck pain but could not recall having any trauma. He stated about this morning the pain woke him up in his left shoulder which he describes an ache and that he subsequently developed diaphoresis and was nauseated and he presented to be evaluated at ED. He endorsed a history of prior myocardial infarction 2 and started the last episode he is only presenting symptoms where pain in bilateral upper extremity. His workup at the ED included a CBC which was remarkable for normocytic anemia, BMP revealed mild hyponatremia and hyperkalemia elevated serum creatinine and his initial troponin was negative. Amongst his other workup was a chest x-ray which Is suggestive of atelectasis. He denies any history of COPD he stated that his last colonoscopy was within 5 years ago and he denies any melena or hematochezia. Past Med Surg Social Fam HX - Past Medical History Medical history: arthritis, coronary artery disease, diabetes, hyperlipidemia, hypertension, myocardial infarction, renal disease, syncope Additional medical history: heart murmer, rheumatic fever, CKD Psychiatric history: no psych history - Past Surgical History Surgical History: angioplasty/stent, orthopedic, other Additional surgical history: Back surgery, - Social History Smoking Status: Never smoker Smokeless Tobacco Status: No Alcohol use: none Drug use: none - Family History Mother Adopted: No Family Member Ethnicity: Non- Living Status: Hx Family Cardiac Disorders: Yes Hx Family Respiratory Disorders: No Hx Family Cancer: No Hx Family GI Disorders: No Hx Family Endocrine Disorder: Yes (diabetic) Hx Family Neuromuscular Disorders: No Hx Family Neurologic Disorders: No Hx Family HEENT Disorders: No Hx Family Autoimmune Disorders: No Internal Medicine - H&P: Meds Glimepiride [Amaryl] 4 mg PO BID 06/24/15 [History] Metformin [Glucophage] 1,000 mg PO BID 06/24/15 [History] Trazodone HCl 150 mg PO HS 08/26/17 [History] Aspirin Enteric Coated [Aspirin EC] 81 mg PO DAILY tablet. 09/04/17 [Rx] Clopidogrel [Plavix] 75 mg PO DAILY #30 tablet 09/04/17 [Rx] Albuterol Sulfate [Proventil Inhaler] 2 puff IH Q4HR #1 hfa.aer.ad 11/08/17 [Rx] Dutasteride [Avodart] 0.5 mg PO DAILY 02/11/18 [History] Fluticasone Propionate Nasal [Flonase] 2 spr NS DAILY 02/11/18 [History] Montelukast [Singulair] 10 mg PO DAILY 02/11/18 [History] Simvastatin [Zocor] 40 mg PO HS 02/11/18 [History] Terazosin HCl 10 mg PO DAILY 02/11/18 [History] Amiodarone [Cordarone] 200 mg PO DAILY #30 tablet 03/02/18 [Rx] Atorvastatin [Lipitor] 80 mg PO HS tablet 03/02/18 [Rx] Furosemide [Lasix] 40 mg PO BID #60 vial 03/02/18 [Rx] OxyCODONE/APAP 5/325 [Percocet 5/325 MG] 1 each PO Q4HR PRN 7 Days #20 tablet 03/02/18 [Rx] Tamsulosin [Flomax] 0.4 mg PO DAILY #30 capsule 03/02/18 [Rx] Allergy/AdvReac Type Severity Reaction Status Date / Time ibuprofen AdvReac See Verified 06/15/19 14:42 Comments All Systems PM: A 10-system review of systems was performed and is negative for pertinent findings except as documented above in the HPI. Review of systems: GENERAL: Denies fever, chills, fatigue or night sweats. DERMATOLOGIC: Denies itch, rash or lesions HEENT: Denies headache, blurriness, diplopia or decreased visual acuity, ear pain, tinnitus, rhinorrhea, sinus tenderness or sore throat RESPIRATORY: Denies SOB, cough, hemoptysis or pleuritic chest pain CARDIOVASCULAR: Admits to chest pain and dyspnea with mild exertion, denies LE edema, palpitation or syncope GASTRO INTESTINAL: Denies cramps, nausea/vomiting, diarrhea or constipation, melena MUSCULOSKELATAL: Reports left shoulder and neck pain denies muscle pain/weakness, NEURO: Denies vertigo, dizziness, or ataxia GENITURINARY: Denies dysuria, nocturia or urinary incontinence - Constitutional Vitals: Temp Pulse Resp BP Pulse Ox 98.7 F 70 17 133/89 100 06/15/19 14:35 06/15/19 18:15 06/15/19 17:09 06/15/19 18:15 06/15/19 18:15 Exam: GENERAL: NAD, A&O x3, pleasant and conversant SKIN: No skin lesions or rashes, non-jaundiced EYES: EOMI, PERRLA, no sclera icterus HENT: Head atraumatic, no facial asymmetry, frontal and maxillary sinus non- tender, normal hearing, oropharynx and mucosa moist and without any exudates NECK: No cervical lymphadenopathy, trachea midline, thyroid is palpable does not appear enlarged LUNGS: Diminished vesicular breath sounds, clear to auscultation, no wheeze, rhonchi, rales or crackles. Non labored respirations HEART: Normal rate and rhythm, grade 2/6 holo systolic murmur ABDOMEN: soft, non-tender, non-distended, bowel sounds x 4 normoactive EXTRMITIES: No LE asymmetry, No LE edema, pedal pulses 1+ and radial pulses 2 + and equal bilaterally NEURO: Speech and comprehension appears intact. PSYCH: Cooperative, non- anxious or irritable, mood and affect is appropriate Internal Med - H&P Results - Labs CBC & Chem 7: 06/15/19 15:43 06/15/19 16:40 Labs: Short CBC 06/15/19 Range/Units 15:43 WBC 7.0 (4.3-11.1) K/mcL Hgb 9.5 L (12.9-16.9) g/dL Hct 29.7 L (37.5-50.1) % Plt Count 195 (140-400) K/mcL Neutrophils # 5.3 (1.6-8.9) K/mcL BMP 06/15/19 06/15/19 15:43 16:40 Sodium 132 L Potassium 6.1 H 5.7 H Chloride 108 H Carbon Dioxide 19 L BUN 35 H Creatinine 2.67 H Glucose 252 H Calcium 8.9 Cardiac Enzymes 06/15/19 Range/Units 15:43 Troponin I < 0.03 (< 0.04) ng/mL - Impressions ITS Impressions Chest X-Ray 06/15/19 15:08 IMPRESSION: 1. Low lung volumes with bibasilar atelectasis. D/ / 06/15/2019 15:51:24 Madhu James MD / Nelida Brito Interpreting Provider: Madhu James MD - Assessment and Plan (1) Chest pain Current Visit: Yes Status: Acute Assessment and plan: Patient currently reports chest pain free he stated its more left shoulder ache and discomfort. But he did state that his had AK twice in the last presentation was pain and bilateral upper extremity. His troponin was negative given his history of CAD and prior MIs we will trend troponins. Suspect muscular skeletal etiology, will obtain radiograph of left shoulder. He denies any EPISODE of nausea and vomiting to suggest referred pain from a GI pathology. He does adm its to GERD will start on a PPI trial Qualifiers: Qualified Code(s): R07.9 - Chest pain, unspecified (2) Normocytic anemia Current Visit: Yes Status: Acute Assessment and plan: last colonoscopy was 5 years ago, workup initiated (3) Hyperkalemia Current Visit: Yes Status: Acute Assessment and plan: Potassium is elevated 5.7 he was treated with Kayexalate at the ED of note he does have CKD 3, trend BMP (4) Acute hyponatremia Current Visit: Yes Status: Acute Assessment and plan: Does not appear to be volume overloaded but rather euvolemic, mild in the setting of poor oral intake, and does need volume hydration due to concerns with acute on chronic kidney injury (5) Atrial fibrillation Current Visit: Yes Status: Acute Assessment and plan: not evidence on exam we will monitor on telemetry, appears he is on amiodarone Qualifiers: Atrial fibrillation type: paroxysmal Qualified Code(s): I48.0 - Paroxysmal atrial fibrillation (6) CAD (coronary artery disease) Current Visit: Yes Status: Acute Assessment and plan: Medical recl not done, appears he is on Plavix and aspirin Qualifiers: Coronary Disease-Associated Artery/Lesion type: [place] artery [place] vs. transplanted heart: [place] heart Associated angina: without angina Qualified Code(s): I25.10 - Atherosclerotic heart disease of [place] coronary artery witho ut angina pectoris (7) CKD (chronic kidney disease), stage III Current Visit: No Status: Chronic Assessment and plan: His last serum creatinine not known however he presents with hyperkalemia hence there is concerns about acute on chronic with initiate gentle hydration however baseline EF not known (8) DM type 2 (diabetes mellitus, type 2) Current Visit: No Status: Chronic Assessment and plan: Insulin per protocol (A1c in the morning Qualifiers: 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: without remote 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 operator use Diabetes mellitus complication status: with kidney complications Diabetes mellitus complication detail: with chronic kidney disease Chronic kidney disease stage: stage 3 (moderate) Qualified Code(s): E11.22 - Type 2 diabetes mellitus with diabetic chronic kidney disease; N18.3 - Chronic kidney disease, stage 3 (moderate); N18.3 - Chronic kidney disease, stage 3 (moderate) (9) Ischemic cardiomyopathy Current Visit: No Status: Chronic Assessment and plan: he is presenting with hyperkalemia, and elevated serum creatinine in need of IV hydration however baseline EF is not known he does admit to dyspnea on mild exertion echo pending (10) DVT prophylaxis Current Visit: Yes Status: Acute Assessment and plan: Heparin per protocol - Time Spent With Patient Total time spent is greater than 50% in coordination of care (as documented) at patient's floor/unit and/or counseling patient:
[2019-06-15] MEDS: Insulin LISPRO 300 UNITS/3 ML VIAL SQ SCH (19:13)
[2019-06-15] MEDS: *HR* Heparin 5,000 UNIT/ML VIAL SQ SCH (20:40)
[2019-06-15] MEDS ORDERED: traZODone 50 MG TABLET PO SCH (22:00)
[2019-06-16] MEDS: 0.9 % Sodium Chloride 1,000 ML IVC SCH ×2 (02:55→02:56)
[2019-06-16 03:36] LABS: Basophils # 0.1 K/mcL (0.0-0.2); Basophils % 0.6 %; Eosinophils # 0.2 K/mcL (0.0-0.6); Eosinophils % 1.9 %; Hematocrit 29.6 % (37.5-50.1); Hemoglobin 9.5 g/dL (12.9-16.9); Immature Granulocytes % 0.4 % (0-4); Lymphocytes # 0.9 K/mcL (0.6-4.6); Lymphocytes % 10.6 %; Mean Corpuscular HGB Conc 32.1 g/dL (31.6-35.5); Mean Corpuscular Hemoglobin 29.4 pg (28.0-33.3); Mean Corpuscular Volume 91.6 fL (83.0-100.0); Mean Platelet Volume 10.8 fL (9.4-12.4); Monocytes # 0.7 K/mcL (0.0-1.3); Monocytes % 7.6 %; Platelet Count 192 K/mcL (140-400); Red Blood Count 3.23 M/mcL (4.19-5.50); Red Cell Distribution Width 13.6 % (11.5-14.5); Segmented Neutrophils % 78.9 %; White Blood Count 8.9 K/mcL (4.3-11.1)
[2019-06-16 03:45] LABS: Calcium 8.4 mg/dL (8.6-10.3); Magnesium 1.6 mg/dL (1.6-2.6); Phosphorous 3.1 mg/dL (2.7-4.5); Potassium 5.2 mEq/L (3.5-5.1)
[2019-06-16 04:08] LABS: Folate 6.5 ng/mL (3.0-16.0)
[2019-06-16] MEDS: *HR* Heparin 5,000 UNIT/ML VIAL SQ SCH ×2 (05:35→13:08)
[2019-06-16 08:11] LABS: Estimated Average Glucose 180 mg/dl
[2019-06-16] MEDS: Insulin LISPRO 300 UNITS/3 ML VIAL SQ SCH ×3 (08:47→17:27)
[2019-06-16] MEDS ORDERED: Aspirin 81 MG TAB.CHEW PO SCH (09:00)
[2019-06-16] MEDS ORDERED: *HR* Amiodarone 200 MG TABLET PO SCH (09:00)
[2019-06-16] MEDS ORDERED: amLODIPine 5 MG TABLET PO STA (13:22)
[2019-06-16] MEDS ORDERED: Metoprolol XL (24 HR) Succ 25 MG TAB.ER.24H PO SCH (16:00)
[2019-06-16 16:17] VITALS: BP 130/74
--- NOTE | 2019-06-16 16:19 | Discharge Summary ---
Date of Encounter: 06/16/19 Time of Encounter: 16:16 - Discharge Diagnosis (1) CKD (chronic kidney disease), stage III Priority: Secondary Status: Chronic (2) DM type 2 (diabetes mellitus, type 2) Priority: Secondary Status: Chronic Qualifiers: Diabetes mellitus skilled nursing insulin use: without oysterman use Diabetes mellitus complication status: with kidney complications Diabetes mellitus complication detail: with chronic kidney disease Chronic kidney disease stage: stage 3 (moderate) Qualified Code(s): E11.22 - Type 2 diabetes mellitus with diabetic chronic kidney disease; N18.3 - Chronic kidney disease, stage 3 (moderate); N18.3 - Chronic kidney disease, stage 3 (moderate) (3) CAD (coronary artery disease) Priority: Secondary Status: Chronic Qualifiers: Coronary Disease-Associated Artery/Lesion type: [place] artery [place] vs. transplanted heart: [place] heart Associated angina: without angina Qualified Code(s): I25.10 - Atherosclerotic heart disease of [place] coronary artery without angina pectoris (4) Ischemic cardiomyopathy Priority: Secondary Status: Chronic (5) Chest pain Priority: Secondary Status: Resolved Qualifiers: Qualified Code(s): R07.9 - Chest pain, unspecified (6) Atrial fibrillation Priority: Secondary Status: Chronic Qualifiers: Atrial fibrillation type: paroxysmal Qualified Code(s): I48.0 - Paroxysmal atrial fibrillation (7) Normocytic anemia Priority: Secondary Status: Chronic (8) Hyperkalemia Priority: Secondary Status: Acute (9) Acute hyponatremia Priority: Secondary Status: Acute (10) DVT prophylaxis Priority: Secondary Status: Acute (11) Shoulder pain Priority: Secondary Status: Acute Qualifiers: Chronicity: acute Laterality: left Qualified Code(s): M25.512 - Pain in left shoulder Hospital course: Mr. Theodore is a 78 year old male history of degenerative scoliosis, CAD, stage III CKD, diabetes hypertension ischemic cardio myopathy and prior MIs 2 who presented to the ED to be evaluated for left shoulder pain associated with chest discomfort. He reports he has had 2 MIs and he was concern the pain in this shoulder was related to a possible heart attack and came to the ED to be evaluated. Patient was admitted to the hospital for chest pain r/o. As patient reported shoulder pain a x-ray was done: No acute abnormality. Patient was found to have a positve FOBT. H&H remained stable. recommended to make an appointment as outpatient to see GI and have a repeated H&H within 7 days. During my evaluation the patient is chest pain free. Reports his is feeling back to his baseline. He refused to have a stress test done "I do not want any more of those". Patient clinically stable to be discharged home. - Time Spent with Patient Total time spent providing and/or coordinating discharge services: Time spent: Greater than 30 minutes (35) - Discharge Medications Prescriptions: New Omeprazole [PriLOSEC] 40 mg PO DAILY@30 30 Days #30 capsule. Metoprolol XL (24 HR) Succ [Toprol Xl] 12.5 mg PO DAILY 30 Days #30 tab.er.24 h Continued Trazodone HCl 150 mg PO HS Dutasteride [Avodart] 0.5 mg PO DAILY Simvastatin [Zocor] 40 mg PO HS Amlodipine Besylate 5 mg PO DAILY Clopidogrel [Plavix] 75 mg PO DAILY Insulin Degludec [Tresiba Flextouch U-100] 35 units SQ QAM Terazosin HCl 10 mg PO DAILY Home Medications: Trazodone HCl 150 mg PO HS 08/26/17 [History] Dutasteride [Avodart] 0.5 mg PO DAILY 02/11/18 [History] Simvastatin [Zocor] 40 mg PO HS 02/11/18 [History] Amlodipine Besylate 5 mg PO DAILY 06/16/19 [History] Clopidogrel [Plavix] 75 mg PO DAILY 06/16/19 [History] Insulin Degludec [Tresiba Flextouch U-100] 35 units SQ QAM 06/16/19 [History] Metoprolol XL (24 HR) Succ [Toprol Xl] 12.5 mg PO DAILY 30 Days #30 tab.er.24h 06/16/19 [Rx] Omeprazole [PriLOSEC] 40 mg PO DAILY@0630 30 Days #30 capsule. 06/16/19 [Rx] Terazosin HCl 10 mg PO DAILY 06/16/19 [History] Allergies/Adverse Reactions: Allergy/AdvReac Type Severity Reaction Status Date / Time ibuprofen AdvReac See Verified 06/15/19 14:42 Comments Date of admission: 06/15/19 17:33 Primary care physician: Trudy Sandoval CNP Consults: 06/15/19 18:29 Consult to Physical Therapy [CONS] Routine Comment: Evaluate, develop and implement POC Reason for Consult: shoulder exercises Does patient have active BEDREST order?: No Is patient medically & hemodynamically stable?: Yes - Constitutional Vitals: Temp Pulse Resp BP Pulse Ox 98.0 F 70 16 192/84 97 06/16/19 13:02 06/16/19 13:02 06/16/19 13:02 06/16/19 13:02 06/16/19 13:02 Exam: Vitals: Reviewed General: Alert and oriented x4. in no distress Skin: Normal color, no rash, no lesions. HEENT: EOM, pupils equal, round and reactive. Cardiovascular: RRR, normal S1 & S2, no rubs, murmurs or gallops. Lungs: CTA b/l, no wheezes or crackles. Abdomen: Soft, non-tender, no rigidity. Extremities: No deformity, no edema or tenderness, no joint swelling or clubbing. Neurological: Normal cognition and motor skills. Rest of the physical exam is non contributory - Patient Status Disposition: Home, Self-Care Condition: Good Functional capacity at discharge: independent ambulation Overall status at discharge: patient is back to baseline - Discharge Instructions Follow Up With: Trudy Sandoval, REGISTERED PUBLIC HEALTH NURSE [Primary Care Provider] - - Diet and Activity Activity: resume usual activities as tolerated Diet: low salt diet
[2019-06-16 18:11] LABS: Calcium 8.3 mg/dL (8.6-10.3); Potassium 5.1 mEq/L (3.5-5.1)
--- NOTE | 2019-06-16 18:18 | Electrocardiograph Report ---
[facility] Test Date: 2019-06-15 Pat Name: Jose Theodore Department: [id number] Room: 3B36 Gender: M Guard Range: : 1940 Requested By: [id number] Order Number: [id number] Reading MD: Khang Villa Measurements Intervals [place] Rate: 76 P: 43 CA: 173 QRS: 28 QRSD: 80 T: 76 QT: 363 QTc: 409 Interpretive Statements Sinus rhythm Electronically Signed On 06-16-2019 18:17:21 EDT by Khang Villa
[2019-06-16] MEDS ORDERED: Insulin DETEMIR 100 UNIT/ML X5UNITS SQ SCH ×2 (21:00)
[2019-06-17] MEDS ORDERED: amLODIPine 5 MG TABLET PO SCH (09:00)
== END 2019-06-16 19:01 | disposition home or self-care (01) ==
LOC: 3BNU 14:19 → EMEROOARM 14:19 → SUATTDRO 17:33 → 3BNU 18:33
PROVIDERS: ADMIT Pharmacist; ATTEND Internal Medicine

== ENCOUNTER 2020-10-20 06:26 | Observation (INO) ==
[2020-10-20] MEDS ORDERED: Ipratropium/Albuterol Neb 3 ML IH ONE (06:59)
[2020-10-20 07:54] LABS: Basophils # 0.1 K/mcL (0.0-0.2); Basophils % 0.6 %; Eosinophils # 0.5 K/mcL (0.0-0.6); Eosinophils % 5.5 %; Hematocrit 33.8 % (37.5-50.1); Hemoglobin 10.7 g/dL (12.9-16.9); Immature Granulocytes % 0.5 % (0-4); Lymphocytes # 0.8 K/mcL (0.6-4.6); Lymphocytes % 9.6 %; Mean Corpuscular HGB Conc 31.7 g/dL (31.6-35.5); Mean Corpuscular Hemoglobin 28.9 pg (28.0-33.3); Mean Corpuscular Volume 91.4 fL (83.0-100.0); Mean Platelet Volume 11.3 fL (9.4-12.4); Monocytes # 0.9 K/mcL (0.0-1.3); Monocytes % 10.2 %; Neutrophils # 6.2 K/mcL (1.6-8.9); Platelet Count 185 K/mcL (140-400); Segmented Neutrophils % 73.6 %; White Blood Count 8.4 K/mcL (4.3-11.1)
[2020-10-20 07:57] LABS: INR 1.2; Prothrombin Time 13.8 Seconds (9.4-12.1)
[2020-10-20 08:00] LABS: Activated Partial Thrombo Time 27.2 Seconds (26.0-36.0)
[2020-10-20 08:12] LABS: Albumin 4.1 g/dL (3.5-5.7); Albumin/Globulin Ratio 1.5 (1.1-2.2); Bilirubin,Indirect 0.4 mg/dL (0.0-1.0); Bilirubin,Total 0.4 mg/dL (0.3-1.0); Globulin 2.7 g/dL (2.4-3.5); Potassium 5.1 mEq/L (3.5-5.1); Total Protein 6.8 g/dL (6.4-8.9); Troponin I 0.03 ng/mL (< 0.04)
[2020-10-20] MEDS ORDERED: Furosemide 40 MG/4 ML VIAL IVP ONE (11:34)
[2020-10-20] MEDS ORDERED: Naloxone 0.4 MG/ML INJ IVP PRN (12:05)
[2020-10-20] MEDS ORDERED: D5% in Water 1,000 ML IVC PRN (12:06)
[2020-10-20] MEDS ORDERED: *HR* Dextrose 50 % in Water (Vial) 50 ML VIAL IVP PRN (12:06)
[2020-10-20] MEDS ORDERED: Dextrose Gel 15 GM/37.5 ML TUBE PO PRN ×2 (12:06)
[2020-10-20] MEDS: Insulin LISPRO 300 UNITS/3 ML VIAL SQ SCH ×2 (16:50→20:33)
[2020-10-20] MEDS ORDERED: MethylPREDNISolone 40 MG/ML VIAL IVP ONE (17:36)
[2020-10-20] MEDS ORDERED: traZODone 50 MG TABLET PO PRN (17:53)
[2020-10-20] MEDS ORDERED: Azithromycin 500 MG in 0.9 % Sodium Chloride 250 ML IVPB SCH (18:00)
[2020-10-20] MEDS: Apixaban 5 MG TABLET PO SCH (20:19)
[2020-10-20] MEDS ORDERED: Insulin DETEMIR 100 UNIT/ML X5UNITS SQ SCH (21:00)
[2020-10-21 02:00] LABS: Basophils % 0.4 %; Hematocrit 30.8 % (37.5-50.1); Immature Granulocytes % 0.4 % (0-4); Lymphocytes # 0.3 K/mcL (0.6-4.6); Mean Corpuscular HGB Conc 32.5 g/dL (31.6-35.5); Mean Corpuscular Hemoglobin 29.6 pg (28.0-33.3); Mean Corpuscular Volume 91.1 fL (83.0-100.0); Mean Platelet Volume 11.4 fL (9.4-12.4); Monocytes # 0.1 K/mcL (0.0-1.3); Monocytes % 1.3 %; Neutrophils # 5.2 K/mcL (1.6-8.9); Platelet Count 176 K/mcL (140-400); Red Blood Count 3.38 M/mcL (4.19-5.50); Red Cell Distribution Width 13.2 % (11.5-14.5); Segmented Neutrophils % 92.9 %; White Blood Count 5.6 K/mcL (4.3-11.1)
[2020-10-21 02:14] LABS: Calcium 8.4 mg/dL (8.6-10.3); Potassium 5.1 mEq/L (3.5-5.1)
[2020-10-21] MEDS: Ipratropium/Albuterol Neb 3 ML IH PRN ×2 (04:53→16:06)
[2020-10-21] MEDS: Insulin LISPRO 300 UNITS/3 ML VIAL SQ SCH ×4 (07:37→21:01)
[2020-10-21] MEDS: Furosemide 40 MG/4 ML VIAL IVP SCH (07:52)
[2020-10-21] MEDS: Cyanocobalamin (B-12) 1,000 MCG TABLET PO SCH (07:53)
[2020-10-21] MEDS: Insulin DETEMIR 100 UNIT/ML X5UNITS SQ SCH (07:53)
[2020-10-21] MEDS: Apixaban 5 MG TABLET PO SCH ×2 (07:53→21:01)
[2020-10-21] MEDS: Metoprolol XL (24 HR) Succ 25 MG TAB.ER.24H PO SCH (07:53)
[2020-10-21] MEDS: amLODIPine 5 MG TABLET PO SCH (07:53)
[2020-10-21] MEDS: Finasteride 5 MG TABLET PO SCH (07:59)
[2020-10-21] MEDS: predniSONE 20 MG TABLET PO SCH (15:48)
[2020-10-21] MEDS: Doxycycline 100 MG in 0.9 % Sodium Chloride Mini Bag 100 ML IVPB SCH (16:49)
[2020-10-22] MEDS: Ipratropium/Albuterol Neb 3 ML IH PRN (04:31)
[2020-10-22] MEDS: Doxycycline 100 MG in 0.9 % Sodium Chloride Mini Bag 100 ML IVPB SCH (05:01)
[2020-10-22 08:02] VITALS: BP 154/77
[2020-10-22] MEDS: Furosemide 40 MG/4 ML VIAL IVP SCH (08:10)
[2020-10-22] MEDS: predniSONE 20 MG TABLET PO SCH (08:11)
[2020-10-22] MEDS: Apixaban 5 MG TABLET PO SCH (08:11)
[2020-10-22] MEDS: Insulin LISPRO 300 UNITS/3 ML VIAL SQ SCH ×2 (08:11→11:56)
[2020-10-22] MEDS: amLODIPine 5 MG TABLET PO SCH (08:11)
[2020-10-22] MEDS: Finasteride 5 MG TABLET PO SCH (08:11)
[2020-10-22] MEDS: Metoprolol XL (24 HR) Succ 25 MG TAB.ER.24H PO SCH (08:11)
[2020-10-22] MEDS: Insulin DETEMIR 100 UNIT/ML X5UNITS SQ SCH (08:11)
[2020-10-22] MEDS: Cyanocobalamin (B-12) 1,000 MCG TABLET PO SCH (08:11)
[2020-10-22 10:03] LABS: Basophils % 0.1 %; Eosinophils % 0.2 %; Hematocrit 32.4 % (37.5-50.1); Hemoglobin 10.7 g/dL (12.9-16.9); Immature Granulocytes % 0.5 % (0-4); Lymphocytes # 0.7 K/mcL (0.6-4.6); Lymphocytes % 6.3 %; Mean Corpuscular Hemoglobin 30.1 pg (28.0-33.3); Mean Corpuscular Volume 91.3 fL (83.0-100.0); Mean Platelet Volume 11.5 fL (9.4-12.4); Monocytes # 0.8 K/mcL (0.0-1.3); Monocytes % 6.9 %; Neutrophils # 9.6 K/mcL (1.6-8.9); Platelet Count 201 K/mcL (140-400); Red Blood Count 3.55 M/mcL (4.19-5.50); Red Cell Distribution Width 13.2 % (11.5-14.5)
[2020-10-22 10:05] LABS: White Blood Count 11.1 K/mcL (4.3-11.1)
[2020-10-22 10:08] LABS: Calcium 9.2 mg/dL (8.6-10.3); Magnesium 1.9 mg/dL (1.6-2.6); Phosphorous 3.9 mg/dL (2.7-4.5); Potassium 4.8 mEq/L (3.5-5.1)
== END 2020-10-22 13:52 | disposition home or self-care (01) ==
LOC: EMEROOARM 06:26 → 2ANU 06:26
PROVIDERS: ADMIT Internal Medicine; ATTEND Internal Medicine

== ENCOUNTER 2021-02-19 13:46 | Observation (INO) ==
[2021-02-19] MEDS ORDERED: Naloxone 0.4 MG/ML INJ IVP PRN (16:34)
[2021-02-19] MEDS ORDERED: D5% in Water 1,000 ML IVC PRN (16:34)
[2021-02-19] MEDS ORDERED: Acetaminophen 325 MG TABLET PO PRN (16:34)
[2021-02-19] MEDS ORDERED: Dextrose Gel 15 GM/37.5 ML TUBE PO PRN ×2 (16:34)
[2021-02-19] MEDS ORDERED: *HR* Dextrose 50 % in Water (Vial) 50 ML VIAL IVP PRN (16:34)
[2021-02-19] MEDS ORDERED: Ondansetron 4 MG/2 ML VIAL IVP PRN (16:34)
[2021-02-19] MEDS ORDERED: Perflutren Lipid Microsphere 1.3 ML in 0.9 % Sodium Chloride 8.7 ML IVP PRN (16:36)
[2021-02-19] MEDS: Insulin LISPRO 300 UNITS/3 ML VIAL SUBQ SCH (17:23)
[2021-02-19] MEDS ORDERED: traZODone 50 MG TABLET PO PRN (17:30)
[2021-02-19] MEDS ORDERED: Cyanocobalamin (B-12) 1,000 MCG TABLET PO SCH (17:30)
[2021-02-19] MEDS: Insulin DETEMIR 100 UNIT/ML X5UNITS SUBQ SCH (21:16)
[2021-02-20] MEDS: Insulin DETEMIR 100 UNIT/ML X5UNITS SUBQ SCH (08:10)
[2021-02-20] MEDS: Insulin LISPRO 300 UNITS/3 ML VIAL SUBQ SCH ×2 (08:11→13:22)
[2021-02-20] MEDS ORDERED: Metoprolol XL (24 HR) Succ 25 MG TAB.ER.24H PO SCH (09:00)
[2021-02-20] MEDS ORDERED: amLODIPine 5 MG TABLET PO SCH (09:00)
[2021-02-20 11:45] VITALS: BP 100/59
== END 2021-02-20 15:42 | disposition home or self-care (01) ==
LOC: 3BNU → SUATTDRO 15:50
PROVIDERS: ADMIT General Practice; ATTEND Internal Medicine